=== PATIENT | female | born 1935 | race Caucasian/White ===

== ENCOUNTER 2017-12-02 14:41 | Inpatient (IN) | payer OTHER ==
--- NOTE | 2017-12-02 14:58 | PDOC ---
History of Present Illness - General Chief Complaint: Revisit, Lab Variance Stated Complaint: Blood Transfusion Time Seen by Provider: 12/02/17 14:58 - History of Present Illness Initial Comments: 82 year old female with PMH iron deficiency anemia, ambulatory dysfunction, rheumatoid arthritis (on hydroxcloroquine), hypothyroidism, CHF, GERD, cough variant asthma, vitamin D deficiency, BPD, disorganized schizophrenia, afib, hypertension, non-thrombocytopenic purpura, and diabetes insipidus presenting with dark stools and pallor with mild weakness for the past few days. She personally denies any symptoms except for her rheumatoid arthritis. Per [facility], her HgB typically runs in the low 8s. Denies any fevers, chills, nausea, vomiting, or other symptoms. 12/02/17 16:24 Past History - Past Medical History Allergies/Adverse Reactions: Allergies Allergy/AdvReac Type Severity Reaction Status Date / Time Penicillins Allergy Verified 12/02/17 15:08 tetracycline Allergy Verified 12/02/17 15:08 Home Medications: Ambulatory Orders Docusate Sodium [Colace] 100 mg PO HS 12/02/17 Ferrous Gluconate [Fergon -] 324 mg PO DAILY 12/02/17 Folic Acid 1 mg PO DAILY 12/02/17 Furosemide [Lasix] 40 mg PO BID 12/02/17 Hydroxychloroquine Sulfate 200 mg PO BID 12/02/17 Levothyroxine [Synthroid -] 50 mcg PO DAILY 12/02/17 Lorazepam [Ativan] 1 mg PO DAILY 12/02/17 Metolazone 2.5 mg PO WEEKLY 12/02/17 Metoprolol Succinate [Toprol Xl] 125 mg PO DAILY 12/02/17 Pantoprazole Sodium 40 mg PO DAILY 12/02/17 Potassium Chloride 20 meq PO BID 12/02/17 Risperidone [Risperdal] 2 mg PO DAILY 12/02/17 Review of Systems - Review of Systems Able to Perform ROS?: No (demented) *Physical Exam - Physical Exam General Appearance: Yes: Nourished, Appropriately Dressed. No: Apparent Distress HEENT: positive: EOMI, MIKE, Normal Voice. negative: Normal ENT Inspection ( conjunctivla pallor) Neck: positive: Trachea midline, Normal Thyroid, Supple. negative: Tender, Rigid Respiratory/Chest: positive: Lungs Clear, Normal Breath Sounds. negative: Chest Tender, Respiratory Distress, Accessory Muscle Use Cardiovascular: positive: Regular Rhythm, Regular Rate Gastrointestinal/Abdominal: positive: Normal Bowel Sounds, Flat, Soft. negative : Tender Rectal Exam: positive: normal rectal tone, melena, heme positive stool. negative: hemorrhoids Musculoskeletal: negative: Normal Inspection (globally weak), Decreased Range of Motion Extremity: positive: Normal Capillary Refill, Normal Inspection, Normal Range of Motion. negative: Tender Integumentary: positive: Dry, Warm, Pale. negative: Normal Color Neurologic: positive: Alert, Normal Mood/Affect, Normal Response. negative: Fully Oriented (AOx1), Motor Strength 5/5 (globally weak) ED Treatment Course - LABORATORY CBC & Chemistry Diagram: 12/02/17 15:35 12/02/17 15:35 Medical Decision Making - Medical Decision Making 82 year old with chronic anemia presenting with pallor, weakness, positive fecal occult blood, anemia to 7.5 with repeat of 7.6 here and repeat fecal occult blood positive. MCV reflecting microytic anemia consistent with her history of chronic iron deficiency anemia but will require further workup given guiac positive stool, weakness, HgB 7.6. From conversation with her sister, she has been weak for a month with low appetite. Her overall anemia is probably from a combination of GI bleed and poor iron intake. EKG demonstrating afib, rate 85, QRS 72, ENp230, TWI v1, V2, V3. Signed out to ROXANNE Smith under Dr. Hines. 12/02/17 17:21 *DC/Admit/Observation/Transfer Diagnosis at time of Disposition: Anemia Qualifiers: Anemia type: iron deficiency Iron deficiency anemia type: chronic blood loss Qualified Code(s): D50.0 - Iron deficiency anemia secondary to blood loss ( chronic) - Discharge Dispostion Decision to Admit order: Yes - Referrals Referrals: Alek Mcgrath MD [Primary Care Provider] - - Patient Instructions - Post Discharge Activity
[2017-12-02 15:45] LABS: BASO % 1.4 % (0-2.0); EOS % 0.7 % (0-4.5); HEMATOCRIT 26.9 % (32.4-45.2); HEMOGLOBIN 7.6 GM/dL (10.7-15.3); LYMPH % 30.2 % (8-40); MCHC 28.2 g/dl (32.0-36.0); MEAN CELL VOLUME 70.2 fl (80-96); MEAN PLT VOLUME 7.5 fl (7.5-11.1); MONO % 8.7 % (3.8-10.2); PLATELET COUNT 242 K/MM3 (134-434); RBC 3.84 M/mm3 (3.60-5.2); RDW 22.6 % (11.6-15.6)
[2017-12-02 15:52] LABS: MCH 19.8 pg (25.7-33.7)
--- NOTE | 2017-12-02 15:55 | EKG ---
Test Reason : Blood Pressure : / mmHG Vent. Rate : 085 BPM Atrial Rate : 122 BPM P-R Int : 000 ms QRS Dur : 072 ms QT Int : 356 ms P-R-T Axes : 000 101 014 degrees QTc Int : 423 ms ATRIAL FIBRILLATION RIGHTWARD AXIS LOW VOLTAGE QRS SEPTAL INFARCT , AGE UNDETERMINED ABNORMAL ECG NO PREVIOUS ECGS AVAILABLE Confirmed by JAKUB ANDERSON MD ([id number]) on 12/02/2017 3:54:58 PM Referred By: Confirmed By:JAKUB ANDERSON MD
[2017-12-02 15:58] LABS: INR 2.44 (0.83-1.09)
[2017-12-02 16:01] LABS: ALBUMIN 2.5 g/dl (3.4-5.0); ALK PHOS 107 U/L (45-117); ANION GAP 6 MMOL/L (8-16); BILIRUBIN,TOTAL 0.8 mg/dL (0.2-1); BLOOD UREA NITROGEN 37 mg/dL (7-18); CALCIUM 8.7 mg/dL (8.5-10.1); CHLORIDE 100 mmol/L (98-107); CO2 32 mmol/L (21-32); CREATININE 1.5 mg/dL (0.55-1.3); GLUCOSE,RANDOM 121 mg/dL (74-106); POTASSIUM 4.8 mmol/L (3.5-5.1); SGOT/AST 29 U/L (15-37); SGPT/ALT 22 U/L (13-61); SODIUM 137 mmol/L (136-145); TOT PROT 8.1 g/dl (6.4-8.2)
--- NOTE | 2017-12-02 17:12 | PDOC ---
Attending Attestation - Resident Resident Name: Evens Drake - ED Attending Attestation I have performed the following: I have examined & evaluated the patient, The case was reviewed & discussed with the resident, I agree w/resident's findings & plan, Exceptions are as noted - HPI HPI: 12/02/17 17:58 The patient is a 82 year old female with a significant PMH of iron deficiency anemia, rheumatoid arthritis, hypothyroidism, CHF, GERD, cough variant asthma, vitamin D deficiency, schizophrenia, afib, hypertension, nonthrombocytopenic purpura, and diabetes insipidus who presents to the emergency department sent in by the [facility] for an evaluation of low hemoglobin today. Patient has a history of dementia thus cannot contribute to the history. The patient denies chest pain, shortness of breath, headache and dizziness. Denies fever, chills, nausea, vomit, diarrhea and constipation. Denies dysuria, frequency, urgency and hematuria. Allergies: NKA Past surgical history: None reported. Social history: No reported alcohol, drug, or cigarette use. PCP: Dr. Mcgrath - Physicial Exam PE: 12/02/17 17:59 agree with resident exam - Medical Decision Making 12/02/17 17:14 82yo F with MMP presents to the ED with anemia at [place]. Vitals with borderline low BP, otherwise wnl. Pt pale in appearance with melanotic stool concerning for GIB. WIll transfuse, give PPI and admit. Pt accepted for admission to Dr. Romero (signed out by Dr. Drake) Case discussed in detail with admitting physician including history, physical exam and ancillary studies. Admitting physician has assumed care for the patient, will follow all pending diagnostics and will complete the evaluation and treatment. Heart Score/ECG Review #1 12/02/17 17:17 Twelve-lead EKG was performed and reviewed by me. It showed for relation, rate 85. Right kaur axis. No ST elevations.
[2017-12-02] MEDS ORDERED: PANTOPRAZOLE SODIUM 40 MG VIAL IVPUSH ONE (17:15)
--- NOTE | 2017-12-02 17:34 | HP ---
CHIEF COMPLAINT: Low Hgb, +guiac, weakness PCP: Alek Mcgrath HISTORY OF PRESENT ILLNESS: 82 year old female presented to the ED from [facility] with a +guiac and low Hgb. Patient's sister reports that over the past month she has had a decreased appetite and become increasingly weak. Patient has a history of iron deficiency anemia. H&H upon admission to the ED was 7.6/26.9, MCV 70.2, MCh 19.8. Repeat fecal occult blood positive. Given 40 mg Protonix IVP in ED. Denies fever, dizziness, chest pain, abdominal pain, n/v/d, bloody stool, or dysuria. Recent Travel: No PAST MEDICAL HISTORY: iron deficiency anemia A-Fib CHF HTN NIDDM BPD disorganized schizophrenia Asthma RA (on hydroxcloroquine) Hypothyroidism non-thrombocytopenic purpura GERD PAST SURGICAL HISTORY: Appendicitis Social History: Smoking: Former Alcohol: No Drugs: No Family History: Pancreatic Cancer - sister Allergies Penicillins Allergy (Verified 12/02/17 15:08) tetracycline Allergy (Verified 12/02/17 15:08) HOME MEDICATIONS: Home Medications Medication Instructions Recorded Docusate Sodium [Colace] 100 mg PO HS 12/02/17 Ferrous Gluconate [Fergon -] 324 mg PO DAILY 12/02/17 Folic Acid 1 mg PO DAILY 12/02/17 Furosemide [Lasix] 40 mg PO BID 12/02/17 Hydroxychloroquine Sulfate 200 mg PO BID 12/02/17 Levothyroxine [Synthroid -] 50 mcg PO DAILY 12/02/17 Lorazepam [Ativan] 1 mg PO DAILY 12/02/17 Metolazone 2.5 mg PO WEEKLY 12/02/17 Metoprolol Succinate [Toprol Xl] 125 mg PO DAILY 12/02/17 Pantoprazole Sodium 40 mg PO DAILY 12/02/17 Potassium Chloride 20 meq PO BID 12/02/17 Risperidone [Risperdal] 2 mg PO DAILY 12/02/17 REVIEW OF SYSTEMS CONSTITUTIONAL: Present: Chills, generalized weakness, loss of appetite Absent: fever, diaphoresis, malaise, weight change HEENT: Absent: rhinorrhea, nasal congestion, throat pain, throat swelling, difficulty swallowing, mouth swelling, ear pain, eye pain, visual changes CARDIOVASCULAR: Present: occasional palpitations, peripheral edema Absent: chest pain, syncope, irregular heart rate, lightheadedness, RESPIRATORY: Present: shortness of breath, wheezing Absent: cough, dyspnea with exertion, orthopnea, , stridor, hemoptysis GASTROINTESTINAL: Constipation Absent: abdominal pain, abdominal distension, nausea, vomiting, diarrhea, melena , hematochezia GENITOURINARY: Absent: dysuria, frequency, urgency, hesitancy, hematuria, flank pain, genital pain MUSCULOSKELETAL: arthralgia Absent: myalgia, oint swelling, back pain, neck pain SKIN: Present: Pallor Absent: rash, itching HEMATOLOGIC/IMMUNOLOGIC: Easy bruising Absent: easy bleeding, lymphadenopathy, frequent infections ENDOCRINE:Present: cold intolerance Absent: unexplained weight gain, unexplained weight loss, heat intolerance, NEUROLOGIC: Absent: headache, focal weakness or paresthesias, dizziness, unsteady gait, seizure, mental status changes, bladder or bowel incontinence PSYCHIATRIC: Absent: anxiety, depression, suicidal or homicidal ideation, hallucinations. PHYSICAL EXAMINATION Vital Signs - 24 hr 12/02/17 14:57 Temperature 97.8 F Pulse Rate 68 Respiratory 20 Rate Blood Pressure 101/56 L O2 Sat by Pulse 98 Oximetry (%) GENERAL: Frail, obese, awake, fully oriented, in no acute distress. HEAD: Normal with no signs of trauma. EYES: Pupils equal, round and reactive to light, extraocular movements intact, sclera anicteric, conjunctiva clear. No lid lag. EARS, NOSE, THROAT: +NC nares patent, oropharynx clear without exudates. Dry mucous membranes. NECK: Normal range of motion, supple without lymphadenopathy, JVD, or masses. LUNGS: Labored respiratory effort, scattered wheezes HEART: Irregular rate and rhythm, without murmur, rub or gallop. ABDOMEN: Obese, soft, nontender, not distended, normoactive bowel sounds, no guarding, no rebound, no masses. No hepatomegaly or splenomegaly. MUSCULOSKELETAL: Normal range of motion at all joints. No bony deformities or tenderness. UPPER EXTREMITIES: 2+ pulses, warm, well-perfused. No cyanosis. No clubbing. No peripheral edema. LOWER EXTREMITIES: +3 pitting edema to b/l LE warm, well-perfused. No calf tenderness. NEUROLOGICAL: Cranial nerves II-XII intact. Normal speech. Normal gait. PSYCHIATRIC: Cooperative. Good eye contact. Appropriate mood and affect. SKIN: +Skin tear to left forearm, warm, dry, no rashes o normal capillary refill. Laboratory Results - last 24 hr 12/02/17 12/02/17 12/02/17 15:25 15:35 15:35 WBC 2.0 L RBC 3.84 Hgb 7.6 L Hct 26.9 L MCV 70.2 L MCH 19.8 L MCHC 28.2 L RDW 22.6 H Plt Count 242 MPV 7.5 Absolute Neuts (auto) 1.2 L Neutrophils % 59.0 Lymphocytes % 30.2 Monocytes % 8.7 Eosinophils % 0.7 Basophils % 1.4 Nucleated RBC % 1 H PT with INR 29.00 H INR 2.44 H Sodium Potassium Chloride Carbon Dioxide Anion Gap BUN Creatinine Creat Clearance w eGFR Random Glucose Calcium Total Bilirubin AST ALT Alkaline Phosphatase Total Protein Albumin Stool Occult Blood Blood Type A POSITIVE Antibody Screen Negative Crossmatch 12/02/17 12/02/17 12/02/17 15:35 16:30 16:50 WBC RBC Hgb Hct MCV MCH MCHC RDW Plt Count MPV Absolute Neuts (auto) Neutrophils % Lymphocytes % Monocytes % Eosinophils % Basophils % Nucleated RBC % PT with INR INR Sodium 137 Potassium 4.8 Chloride 100 Carbon Dioxide 32 Anion Gap 6 L BUN 37 H Creatinine 1.5 H Creat Clearance w eGFR 33.25 Random Glucose 121 H Calcium 8.7 Total Bilirubin 0.8 AST 29 ALT 22 Alkaline Phosphatase 107 Total Protein 8.1 Albumin 2.5 L Stool Occult Blood Positive Blood Type Antibody Screen Crossmatch See Detail ECG: A-fib, r85, [id number] ASSESSMENT/PLAN: 82 year old female presented to the ED from [facility] with a +guiac and low Hgb. Placed on observation for blood transfusion. Microcytic/hypochromatic anemia -No s/s active bleeding -1U PRBC -Repeat stool occult blood ordered, if still positive, may consider GI w/u -Continue Fe Gluconate 324 mg PO qday -Monitor CBC A-Fib -Continue metoprolol succinate 125 mg qday CHF -Currently hypervolemic -O2 via NC @ 2LPM -Lasix 40 mg PO q 12 hrs, BUN/Cr 37/1.5 HTN -On Metoprolol 125 and Lasix 40 mg BID - Monitor BP BPD/Disorganized Schizophrenia -Stable - Continue Risperdal 2 mg qday -Ativan 1 mg PO qday RA -Continue hydroxcloroquine 200 mg PO BID Hypothyroidism -Continue Synthroid 50 mcg qday GERD - Given Protonix 40 mg IVP in ED. - Continue Protonix 40 mg PO q day FEN --PO intake adequate --Electrolytes replete as indicated --Regular diet DVT Prophylaxis --CLINTON stockings --A-fib, but not on any anticoagulant d/t fall risk, mechanical prophylaxis only Dispo: pt currently requires observation s/p blood transfusion FULL CODE Visit type - Emergency Visit Emergency Visit: Yes ED Registration Date: 12/02/17 Care time: The patient presented to the Emergency Department on the above date and was hospitalized for further evaluation of their emergent condition. - New Patient This patient is new to me today: Yes Date on this admission: 12/02/17 - Critical Care Critical Care patient: No
[2017-12-02] MEDS ORDERED: PANTOPRAZOLE SODIUM 80 MG/200 ML BAG IVPB ONE (18:03)
[2017-12-02] MEDS: POTASSIUM CHLORIDE TABS 20 MEQ TABLET.ER (FP) PO SCH (22:29)
[2017-12-02] MEDS: DOCUSATE SODIUM 100 MG CAPSULE (FP) PO SCH (22:30)
[2017-12-02] MEDS ORDERED: PT OWN MED DRAWER 7, Y5N ONE (23:38)
[2017-12-02] MEDS: HYDROXYCHLOROQUINE SO4 200 MG TABLET (FP) PO SCH (23:40)
[2017-12-03] MEDS: LEVOTHYROXINE NA 50 MCG TABLET (FP) PO SCH (06:04)
[2017-12-03] MEDS: FUROSEMIDE 40 MG TABLET (FP) PO SCH ×2 (06:04→14:13)
[2017-12-03 07:21] LABS: HEMATOCRIT 27.7 % (32.4-45.2); MCHC 28.9 g/dl (32.0-36.0); MEAN CELL VOLUME 72.8 fl (80-96); MEAN PLT VOLUME 7.7 fl (7.5-11.1); PLATELET COUNT 215 K/MM3 (134-434)
[2017-12-03 07:49] LABS: WHITE BLOOD COUNT 1.9 K/mm3 (4.0-10.0)
[2017-12-03 08:33] LABS: ANION GAP 11 MMOL/L (8-16); BLOOD UREA NITROGEN 35 mg/dL (7-18); CALCIUM 8.4 mg/dL (8.5-10.1); CHLORIDE 104 mmol/L (98-107); CO2 28 mmol/L (21-32); CREATININE 1.4 mg/dL (0.55-1.3); GLUCOSE,RANDOM 84 mg/dL (74-106); POTASSIUM 4.7 mmol/L (3.5-5.1); SODIUM 142 mmol/L (136-145)
[2017-12-03] MEDS ORDERED: metoPROLOL SUCCINATE 25 MG TAB.SR.24H (FP) ONE (09:36)
[2017-12-03] MEDS ORDERED: PT OWN MED DRAWER 7, Y5N ONE ×2 (09:37→20:51)
[2017-12-03] MEDS: FOLIC ACID 1 MG TABLET (FP) PO SCH (09:42)
[2017-12-03] MEDS: METOPROLOL SUCCINATE 100 MG, METOPROLOL SUCCINATE 25 MG PO SCH (09:42)
[2017-12-03] MEDS: POTASSIUM CHLORIDE TABS 20 MEQ TABLET.ER (FP) PO SCH ×2 (09:42→21:08)
[2017-12-03] MEDS: LORazepam 1 MG TABLET PO SCH (09:42)
[2017-12-03] MEDS: PANTOPRAZOLE 40 MG TABLET (FP) PO SCH (09:42)
[2017-12-03] MEDS: HYDROXYCHLOROQUINE SO4 200 MG TABLET (FP) PO SCH ×2 (09:43→21:08)
[2017-12-03] MEDS ORDERED: risperiDONE 2 MG TABLET PO SCH (10:00)
--- NOTE | 2017-12-03 10:29 | CON.GI ---
Consult Consult Specialty:: Gi Referred by:: hospitalist Reason for Consultation:: occult gi bleeding - History of Present Illness History of Present Illness: The patient was admitted for blood transfusion. Her hgb was 7 associated with guaiac positive stool. On admsiion , she was noted to have respiratory insufficiency secondary to CHF. There were no reports of melena and rectal bleeding - Alcohol/Substance Use Hx Alcohol Use: No - Smoking History Smoking history: Never smoked Have you smoked in the past 12 months: No Home Medications - Allergies Allergies/Adverse Reactions: Allergies Allergy/AdvReac Type Severity Reaction Status Date / Time Penicillins Allergy Verified 12/02/17 15:08 tetracycline Allergy Verified 12/02/17 15:08 - Home Medications Home Medications: Ambulatory Orders Docusate Sodium [Colace] 100 mg PO HS 12/02/17 Ferrous Gluconate [Fergon -] 324 mg PO DAILY 12/02/17 Folic Acid 1 mg PO DAILY 12/02/17 Furosemide [Lasix] 40 mg PO BID 12/02/17 Hydroxychloroquine Sulfate 200 mg PO BID 12/02/17 Levothyroxine [Synthroid -] 50 mcg PO DAILY 12/02/17 Lorazepam [Ativan] 1 mg PO DAILY 12/02/17 Metolazone 2.5 mg PO WEEKLY 12/02/17 Metoprolol Succinate [Toprol Xl] 125 mg PO DAILY 12/02/17 Pantoprazole Sodium 40 mg PO DAILY 12/02/17 Potassium Chloride 20 meq PO BID 12/02/17 Risperidone [Risperdal] 2 mg PO DAILY 12/02/17 Physical Exam-GI Vital Signs: Vital Signs Temperature 98.3 F 12/03/17 08:50 Pulse Rate 105 H 12/03/17 08:50 Respiratory Rate 20 12/03/17 08:50 Blood Pressure 123/62 12/03/17 08:50 O2 Sat by Pulse Oximetry (%) 98 12/03/17 01:44 Labs: CBC, BMP 12/03/17 06:30 12/03/17 06:30 INR, PTT INR 2.44 (0.83-1.09) H 12/02/17 15:35 Problem List - Problems (1) Leukopenia Assessment/Plan: R>Back Tender [place] Code(s): D72.819 - DECREASED WHITE BLOOD CELL COUNT, UNSPECIFIED
[2017-12-03] MEDS ORDERED: APIXABAN 5 MG TABLET PO ONE (12:20)
[2017-12-03 13:02] LABS: EOS % 0.9 % (0-4.5); HEMATOCRIT 28.6 % (32.4-45.2); HEMOGLOBIN 8.5 GM/dL (10.7-15.3); LYMPH % 29.6 % (8-40); MCH 21.4 pg (25.7-33.7); MCHC 29.7 g/dl (32.0-36.0); MEAN CELL VOLUME 71.8 fl (80-96); MEAN PLT VOLUME 7.7 fl (7.5-11.1); MONO % 10.5 % (3.8-10.2); PLATELET COUNT 219 K/MM3 (134-434); RBC 3.97 M/mm3 (3.60-5.2); RDW 22.9 % (11.6-15.6)
[2017-12-03] MEDS: FERROUS GLUCONATE 324 MG TAB (FP) PO SCH (13:06)
[2017-12-03] MEDS: risperiDONE 1 MG TABLET (FP) PO SCH (13:06)
[2017-12-03 13:20] LABS: WHITE BLOOD COUNT 1.8 K/mm3 (4.0-10.0)
--- NOTE | 2017-12-03 13:37 | PN ---
Physical Exam: SUBJECTIVE: Patient seen and examined a the bedside. States she feels well, denies shortness of breath. Denies pain. OBJECTIVE: As per [facility] transfer form, patient was seen By Dr. Carr on 12/02/2017 in the a.m. and patient was advised to go to [facility] to rule out GI bleed as her hmg/ hct was 7.5/28 and she was reported to have dark stools at the nursing facility. I discussed patient with Dr Cannon, physician at [facility] on [address]. As per MD, patient has never been worked up worked up for leukopenia. her WBC is usually 2.3. Patient is not oxygen dependent, usually is placed on 2 liters at [facility] intermittently. TSH has been elevated and her Synthroid dose has been recently increased. Vital Signs Period Temp Pulse Resp BP Sys/Neal Pulse Ox Last 24 Hr 97.5 F-98.6 F 68-105 18-20 100-123/50-69 95-98 GENERAL: The patient is awake, alert, slightly lethargic, alert to self and place, not time HEAD: Normal with no signs of trauma. EYES: PERRL, extraocular movements intact, sclera anicteric, conjunctiva clear. No ptosis. ENT: Ears normal, nares patent, oropharynx clear without exudates, moist mucous membranes. NECK: Trachea midline, full range of motion, supple. LUNGS: diminished breath sounds anteriorly, crackles at the bases L>R HEART: irregular. ABDOMEN: Soft, nontender, nondistended, normoactive bowel sounds, no guarding, no rebound, no hepatosplenomegaly, no masses. EXTREMITIES: +2 bilateral lower ext edema NEUROLOGICAL: Normal speech, gait not observed. PSYCH: lethargic, with episodes of agitation SKIN: Warm, dry, normal turgor, no rashes or lesions noted Laboratory Results - last 24 hr 12/02/17 12/02/17 12/02/17 15:25 15:35 15:35 WBC 2.0 L RBC 3.84 Hgb 7.6 L Hct 26.9 L MCV 70.2 L MCH 19.8 L MCHC 28.2 L RDW 22.6 H Plt Count 242 MPV 7.5 Absolute Neuts (auto) 1.2 L Neutrophils % 59.0 Lymphocytes % 30.2 Monocytes % 8.7 Eosinophils % 0.7 Basophils % 1.4 Nucleated RBC % 1 H PT with INR 29.00 H INR 2.44 H Sodium Potassium Chloride Carbon Dioxide Anion Gap BUN Creatinine Creat Clearance w eGFR Random Glucose Calcium Total Bilirubin AST ALT Alkaline Phosphatase Total Protein Albumin TSH Stool Occult Blood Blood Type A POSITIVE Antibody Screen Negative Crossmatch 12/02/17 12/02/17 12/02/17 15:35 16:30 16:50 WBC RBC Hgb Hct MCV MCH MCHC RDW Plt Count MPV Absolute Neuts (auto) Neutrophils % Lymphocytes % Monocytes % Eosinophils % Basophils % Nucleated RBC % PT with INR INR Sodium 137 Potassium 4.8 Chloride 100 Carbon Dioxide 32 Anion Gap 6 L BUN 37 H Creatinine 1.5 H Creat Clearance w eGFR 33.25 Random Glucose 121 H Calcium 8.7 Total Bilirubin 0.8 AST 29 ALT 22 Alkaline Phosphatase 107 Total Protein 8.1 Albumin 2.5 L TSH 20.30 H Stool Occult Blood Positive Blood Type A POSITIVE Antibody Screen Crossmatch See Detail 12/03/17 12/03/17 12/03/17 06:30 06:30 12:15 WBC 1.9 L* 1.8 L* RBC 3.80 3.97 Hgb 8.0 L 8.5 L Hct 27.7 L 28.6 L MCV 72.8 L 71.8 L MCH 21.0 L 21.4 L MCHC 28.9 L 29.7 L RDW 23.0 H 22.9 H Plt Count 215 219 MPV 7.7 7.7 Absolute Neuts (auto) 1.0 L Neutrophils % 58.0 Lymphocytes % 29.6 Monocytes % 10.5 H Eosinophils % 0.9 Basophils % 1.0 Nucleated RBC % 1 H PT with INR INR Sodium 142 Potassium 4.7 Chloride 104 Carbon Dioxide 28 Anion Gap 11 BUN 35 H Creatinine 1.4 H Creat Clearance w eGFR 36.00 Random Glucose 84 Calcium 8.4 L Total Bilirubin AST ALT Alkaline Phosphatase Total Protein Albumin TSH Stool Occult Blood Blood Type Antibody Screen Crossmatch Active Medications Generic Name Dose Route Start Last Admin Trade Name Freq PRN Reason Stop Dose Admin Apixaban 5 mg 12/03/17 22:00 Eliquis - PO BID ELENA Docusate Sodium 100 mg 12/02/17 22:00 12/02/17 22:30 Colace - PO 100 mg HS ELENA Administration Ferrous Gluconate 324 mg 12/03/17 10:00 12/03/17 13:06 Fergon - PO 324 mg DAILY ELENA Administration Folic Acid 1 mg 12/03/17 10:00 12/03/17 09:42 Folic Acid - PO 1 mg DAILY ELENA Administration Furosemide 40 mg 12/03/17 06:00 12/03/17 06:04 Lasix - PO 40 mg BIDLASIX ELENA Administration Hydroxychloroquine Sulfate 200 mg 12/02/17 22:00 12/03/17 09:43 Plaquenil - PO 200 mg BID ELENA Administration Levothyroxine Sodium 50 mcg 12/03/17 07:00 12/03/17 06:04 Synthroid - PO 50 mcg 0700 ELENA Administration Lorazepam 1 mg 12/03/17 10:00 12/03/17 09:42 Ativan - PO 1 mg DAILY ELENA Administration Metoprolol Succinate 100 mg/ 125 mg 12/03/17 10:00 12/03/17 09:42 Metoprolol Succinate 25 mg PO 125 mg DAILY ELENA Administration Pantoprazole Sodium 40 mg 12/03/17 10:00 12/03/17 09:42 Protonix - PO 40 mg DAILY ELENA Administration Potassium Chloride 20 meq 12/02/17 22:00 12/03/17 09:42 K-Dur - PO 20 meq BID ELENA Administration Risperidone 2 mg 12/03/17 11:01 12/03/17 13:06 Risperdal - PO 2 mg DAILY ELENA Administration ASSESSMENT/PLAN: Patient is an 82 year old female with a significant past medical history of: -Iron deficiency anemia -Bilateral difficulty with ambulation - WC bound mostly -Hypothyroidism -Hx of celulitis of LLE -Acute on chronic diastolic congestive heart failure -Bipolar disorder -Leukopenia -Atrial fibrillation She presents to the ED on 12/02/2017 after patient was seen By Dr. Carr on 12/02/2017 and patient was advised to go to [facility] to rule out GI bleed as her hmg/ hct was 7.5/28 and she was reported to have dark stools at the nursing facility. She has receive 1 unit of prbc. On exam she was noted to have labored breathing and appeared to be fluid overloaded. She was noted to crackles at the lung bases and her lower extremities with +2 pitting edema. She is normally able to tolerate room air, but now requires 2 liters of nasal cannula. Heme Iron deficiency anemia/Blood loss anemia hmg/hct on admission 7.6/26.6, transfused 1 unit of prbc with hmg of 8.5. Stool occult positive for blood, was also reported to have dark stools at nursing facility. Will start on Protonix 40mg daily and consult GI. Further workup of possible gi bleed outpatient vs inpatient Leukopenia. WBC reported to be ~ 2.3. now 1.9, no signs of infection. blood cultures pending. Card Acute on chronic diastolic congestive heart failure. dry weight reported to be . Labored breathing with crackles auscultated. Chest xray with evidence of congestion. On home dose of lasix 40mg BID, will give iv lasix 40mg bid with close monitoring of kidney function. Fluid restrictiono of 1200cc daily. dialy weights, strict intake and output. Atrial fibrillation. on eliquis bid. on metoprolol Mobility Bilateral difficulty with ambulation in the setting of poor performance status. will consult PT. Endocrine Hypothyroidism Recent increase of Synthroid at [facility]. Repeat TSH outpatient. Vascular Hx of celulitis of LLE No cellulitis presently. monitor for signs of infection. Psyche Bipolar disorder, continue home medications fen tolerating po Visit type - Emergency Visit Emergency Visit: Yes ED Registration Date: 12/02/17 Care time: The patient presented to the Emergency Department on the above date and was hospitalized for further evaluation of their emergent condition. - New Patient This patient is new to me today: Yes Date on this admission: 12/03/17 - Critical Care Critical Care patient: No - Discharge Referral Referred to [facility] No
[2017-12-03] MEDS ORDERED: FUROSEMIDE 40 MG/4 ML INJECTABLE VIAL IVPUSH ONE (14:20)
--- NOTE | 2017-12-03 14:52 | CONSULT ---
Consultation: REQUESTING PROVIDER: CONSULT REQUEST: We have been asked to medically evaluate this patient for anemia and leukopenia. HISTORY OF PRESENT ILLNESS: 82 yo F with PMHx of A-fib (on Eliquis), HTN, CHF, RA, schizoaffective disorder with bipolar and NIDDM presented to the ED from [facility] with a stool occult blood (+) and low Hgb. Patient's sister reports that over the past month she has had a decreased appetite and become increasingly weak. Patient has a history of iron deficiency anemia. H&H upon admission 7.6/26.9, MCV 70.2 , MCh 19.8. Repeat stool occult blood positive.Denies fever, dizziness, chest pain, abdominal pain, n/v/d, bloody stool, or dysuria. Recent Travel: No PAST MEDICAL HISTORY: iron deficiency anemia A-Fib CHF HTN NIDDM BPD disorganized schizophrenia Asthma RA (on hydroxcloroquine) Hypothyroidism non-thrombocytopenic purpura GERD PAST SURGICAL HISTORY: Appendectomy Social History: Smoking: Former Alcohol: No Drugs: No Family History: Pancreatic Cancer - sister Allergies Penicillins Allergy (Verified 12/02/17 15:08) tetracycline Allergy (Verified 12/02/17 15:08) REVIEW OF SYSTEMS: CONSTITUTIONAL: generalized weakness, Absent: fever, chills, diaphoresis, malaise, loss of appetite, weight change HEENT: Absent: rhinorrhea, nasal congestion, throat pain, throat swelling, difficulty swallowing, mouth swelling, ear pain, eye pain, visual changes CARDIOVASCULAR: Absent: chest pain, syncope, palpitations, irregular heart rate, lightheadedness , peripheral edema RESPIRATORY: shortness of breath Absent: cough, , dyspnea with exertion, orthopnea, wheezing, stridor, hemoptysis GASTROINTESTINAL: Absent: abdominal pain, abdominal distension, nausea, vomiting, diarrhea, constipation, melena, hematochezia GENITOURINARY: Absent: dysuria, frequency, urgency, hesitancy, hematuria, flank pain, genital pain MUSCULOSKELETAL: Absent: myalgia, arthralgia, joint swelling, back pain, neck pain SKIN: Absent: rash, itching, pallor HEMATOLOGIC/IMMUNOLOGIC: Absent: easy bleeding, easy bruising, lymphadenopathy, frequent infections ENDOCRINE: Absent: unexplained weight gain, unexplained weight loss, heat intolerance, cold intolerance NEUROLOGIC: Absent: headache, focal weakness or paresthesias, dizziness, unsteady gait, seizure, mental status changes, bladder or bowel incontinence PSYCHIATRIC: anxiety, depression Absent: , suicidal or homicidal ideation, hallucinations. PHYSICAL EXAMINATION Vital Signs - 24 hr 12/02/17 12/02/17 12/02/17 14:57 20:15 20:31 Temperature 97.8 F 97.9 F 98 F Pulse Rate 68 Pulse Rate [ 79 80 Apical] Respiratory 20 18 18 Rate Blood Pressure 101/56 L Blood Pressure 107/54 L 100/50 L [Arm] O2 Sat by Pulse 98 97 98 Oximetry (%) 12/02/17 12/02/17 12/03/17 22:55 23:06 01:44 Temperature 97.5 F L Pulse Rate 98 H Pulse Rate [ Apical] Respiratory 20 20 Rate Blood Pressure 108/55 L Blood Pressure [Arm] O2 Sat by Pulse 98 98 Oximetry (%) 12/03/17 12/03/17 12/03/17 02:00 06:05 08:50 Temperature 98.6 F 98.4 F 98.3 F Pulse Rate 85 86 105 H Pulse Rate [ Apical] Respiratory 20 20 20 Rate Blood Pressure 101/69 105/61 123/62 Blood Pressure [Arm] O2 Sat by Pulse Oximetry (%) 12/03/17 12/03/17 12/03/17 09:00 12:00 14:42 Temperature 97.5 F L 97.5 F L Pulse Rate 80 80 Pulse Rate [ Apical] Respiratory 20 18 Rate Blood Pressure 101/64 101/64 Blood Pressure [Arm] O2 Sat by Pulse 95 Oximetry (%) GENERAL:awake and alert, mild distress HEAD: NCAT EYES:PERRLA,EOMI, sclera anicteric, conjunctiva clear. No lid lag. EARS, NOSE, THROAT: Moist mucous membranes. NECK:Supple without lymphadenopathy, JVD, or masses. LUNGS: Diminished breath sounds bilaterally, Bibasilar rales. No wheezes.No accessory muscle use. HEART: irregular, normal S1 and S2 no m/g/r ABDOMEN: Soft, obese, NTND, NABS, no guarding, no rebound, no masses. No hepatomegaly or splenomegaly. MUSCULOSKELETAL: Normal range of motion at all joints. No bony deformities or tenderness. No CVA tenderness. UPPER EXTREMITIES: 2+ pulses, warm, well-perfused. No cyanosis. No clubbing. No peripheral edema. LOWER EXTREMITIES: 2+ pulses, warm, well-perfused. No calf tenderness. 3+ peripheral edema bilaterally. NEUROLOGICAL: No focal def. Normal speech. gait not observed. 2/5 LE strength bilat. 4/5 strength UE bilat. sensation intact. PSYCHIATRIC: anxious and agitated. SKIN: Warm, dry, normal turgor, no rashes or lesions noted. Laboratory Results - last 24 hr 12/02/17 12/02/17 12/02/17 15:25 15:35 15:35 WBC 2.0 L RBC 3.84 Hgb 7.6 L Hct 26.9 L MCV 70.2 L MCH 19.8 L MCHC 28.2 L RDW 22.6 H Plt Count 242 MPV 7.5 Absolute Neuts (auto) 1.2 L Neutrophils % 59.0 Lymphocytes % 30.2 Monocytes % 8.7 Eosinophils % 0.7 Basophils % 1.4 Nucleated RBC % 1 H PT with INR 29.00 H INR 2.44 H Sodium Potassium Chloride Carbon Dioxide Anion Gap BUN Creatinine Creat Clearance w eGFR Random Glucose Calcium Total Bilirubin AST ALT Alkaline Phosphatase Total Protein Albumin TSH Stool Occult Blood Blood Type A POSITIVE Antibody Screen Negative Crossmatch 12/02/17 12/02/17 12/02/17 15:35 16:30 16:50 WBC RBC Hgb Hct MCV MCH MCHC RDW Plt Count MPV Absolute Neuts (auto) Neutrophils % Lymphocytes % Monocytes % Eosinophils % Basophils % Nucleated RBC % PT with INR INR Sodium 137 Potassium 4.8 Chloride 100 Carbon Dioxide 32 Anion Gap 6 L BUN 37 H Creatinine 1.5 H Creat Clearance w eGFR 33.25 Random Glucose 121 H Calcium 8.7 Total Bilirubin 0.8 AST 29 ALT 22 Alkaline Phosphatase 107 Total Protein 8.1 Albumin 2.5 L TSH 20.30 H Stool Occult Blood Positive Blood Type A POSITIVE Antibody Screen Crossmatch See Detail 12/03/17 12/03/17 12/03/17 06:30 06:30 12:15 WBC 1.9 L* 1.8 L* RBC 3.80 3.97 Hgb 8.0 L 8.5 L Hct 27.7 L 28.6 L MCV 72.8 L 71.8 L MCH 21.0 L 21.4 L MCHC 28.9 L 29.7 L RDW 23.0 H 22.9 H Plt Count 215 219 MPV 7.7 7.7 Absolute Neuts (auto) 1.0 L Neutrophils % 58.0 Lymphocytes % 29.6 Monocytes % 10.5 H Eosinophils % 0.9 Basophils % 1.0 Nucleated RBC % 1 H PT with INR INR Sodium 142 Potassium 4.7 Chloride 104 Carbon Dioxide 28 Anion Gap 11 BUN 35 H Creatinine 1.4 H Creat Clearance w eGFR 36.00 Random Glucose 84 Calcium 8.4 L Total Bilirubin AST ALT Alkaline Phosphatase Total Protein Albumin TSH Stool Occult Blood Blood Type Antibody Screen Crossmatch Active Medications Generic Name Dose Route Start Last Admin Trade Name Freq PRN Reason Stop Dose Admin Apixaban 5 mg 12/03/17 22:00 Eliquis - PO BID ELENA Docusate Sodium 100 mg 12/02/17 22:00 12/02/17 22:30 Colace - PO 100 mg HS ELENA Administration Ferrous Gluconate 324 mg 12/03/17 10:00 12/03/17 13:06 Fergon - PO 324 mg DAILY ELENA Administration Folic Acid 1 mg 12/03/17 10:00 12/03/17 09:42 Folic Acid - PO 1 mg DAILY ELENA Administration Furosemide 40 mg 12/04/17 06:00 Lasix Injection - IVPUSH BID@0600,1400 ELENA Hydroxychloroquine Sulfate 200 mg 12/02/17 22:00 12/03/17 09:43 Plaquenil - PO 200 mg BID ELENA Administration Levothyroxine Sodium 50 mcg 12/03/17 07:00 12/03/17 06:04 Synthroid - PO 50 mcg 0700 ELENA Administration Lorazepam 1 mg 12/03/17 10:00 12/03/17 09:42 Ativan - PO 1 mg DAILY ELENA Administration Metoprolol Succinate 100 mg/ 125 mg 12/03/17 10:00 12/03/17 09:42 Metoprolol Succinate 25 mg PO 125 mg DAILY ELENA Administration Pantoprazole Sodium 40 mg 12/03/17 10:00 12/03/17 09:42 Protonix - PO 40 mg DAILY ELENA Administration Potassium Chloride 20 meq 12/02/17 22:00 12/03/17 09:42 K-Dur - PO 20 meq BID ELENA Administration Risperidone 2 mg 12/03/17 11:01 12/03/17 13:06 Risperdal - PO 2 mg DAILY ELENA Administration ASSESSMENT/PLAN: 82 yo F with PMHx of A-fib (on Eliquis), HTN, CHF, RA, schizoaffective disorder with bipolar and NIDDM presented to the ED from [facility] with a stool occult blood (+) and low Hgb Dispo: We will continue to follow the patient. Thank you for this consultative opportunity. Problem List - Problems (1) Anemia Assessment/Plan: Microcytic hypochromic anemia most likely 2/2 iron def. with some component of acute blood loss from possible GIB * She has know iron def. anemia * GI consulted for possible EGD/Colonoscopy. * Ideally iron studies should have been sent prior to transfusion. * given her acute CHF would aim to keep Hgb > 8. (2) Leukopenia Assessment/Plan: As more than one cell line is low raises question for Myelodysplastic disease however on several meds that can cause agranulocytosis. * she is on hydroxychloroquine, metolazone and Risperdal all which are known to cause agranulocytosis. * Can consider abdominal US to assess for splenomegally to r/o hypersplenism . * Will send for Flow cytometry with FISH and cytogenetics. (3) Dysproteinemia Assessment/Plan: with reversal of A/G ratio * Will send for SPEP, UPEP, immunofixation to r/o hypergammaglobinemia. (4) CHF (congestive heart failure) Code(s): I50.9 - HEART FAILURE, UNSPECIFIED (5) Rheumatoid arthritis Code(s): M06.9 - RHEUMATOID ARTHRITIS, UNSPECIFIED (6) Schizoaffective disorder, bipolar type Code(s): F25.0 - SCHIZOAFFECTIVE DISORDER, BIPOLAR TYPE Visit type - Emergency Visit Emergency Visit: Yes ED Registration Date: 12/02/17 Care time: The patient presented to the Emergency Department on the above date and was hospitalized for further evaluation of their emergent condition. - New Patient This patient is new to me today: Yes Date on this admission: 12/03/17 - Critical Care Critical Care patient: No
[2017-12-03 15:10] LABS: ANISOCYTOSIS 2+; MACROCYTOSIS 0; PLATELET ESTIMATE NORMAL
--- NOTE | 2017-12-03 16:59 | ECHO ---
Name: DOYLE LAN Exam:Adult Echocardiogram Study Date: 12/03/2017 03:36 PM Age: 82 yrs Reason For Study: CHF Height: 64 in Weight: 231 lb BSA: 2.1 m2 MMode/2D Measurements & Calculations IVSd: 0.81 cm Ao root diam: 3.0 cm LVIDd: 4.6 cm LA dimension: 4.1 cm LVIDs: 3.4 cm LVPWd: 0.99 cm EDV(Teich): 98.2 ml ESV(Teich): 47.1 ml Doppler Measurements & Calculations Ao V2 max: 178.4 cm/sec TR max jack: 239.2 cm/sec Ao max P.7 mmHg TR max P.1 mmHg Lat Peak E' Jack: 7.6 cm/sec Procedure A complete two-dimensional transthoracic echocardiogram was performed (2D, M-mode, Doppler and color flow Doppler). The study was technically difficult with many images being suboptimal in quality. Left Ventricle The left ventricular size, thickness and function are normal. Ejection Fraction = 55-60%. The left ve ntricular ejection fraction is normal. Regional wall motion abnormalities cannot be excluded due to limited visualization. Right Ventricle The right ventricle is not well visualized. Atria The left atrial size is normal. Right atrium not well visualized. Mitral Valve There is trace mitral regurgitation. Tricuspid Valve There is trace tricuspid regurgitation. Right ventricular systolic pressure is normal. Aortic Valve No hemodynamically significant valvular aortic stenosis. No aortic regurgitation is present. Pulmonic Valve There is no pulmonic valvular regurgitation. Great Vessels The aortic root is normal size. Pericardium/Pleura There is no pericardial effusion. Interpretation Summary The study was technically difficult with many images being suboptimal in quality. The left ventricular size, thickness and function are normal Regional wall motion abnormalities cannot be excluded due to limited visualization. The right ventricle is not well visualized. There is trace mitral regurgitation. There is trace tricuspid regurgitation. MD Sharath Nguyen 12/03/2017 04:59 PM
--- NOTE | 2017-12-03 18:18 | CON.GI ---
Consult Consult Specialty:: GI Referred by:: hospitalist - History of Present Illness History of Present Illness: The patient was admitted for blood transfusion. Her hgb was 7 associated with guaiac positive stool. On admsiion , she was noted to have respiratory insufficiency secondary to CHF. There were no reports of melena and rectal bleeding. On admission she was noted to have labored breathing and wheezing most likely secondary to CHF. - Alcohol/Substance Use Hx Alcohol Use: No - Smoking History Smoking history: Never smoked Have you smoked in the past 12 months: No Home Medications - Allergies Allergies/Adverse Reactions: Allergies Allergy/AdvReac Type Severity Reaction Status Date / Time Penicillins Allergy Verified 12/02/17 15:08 tetracycline Allergy Verified 12/02/17 15:08 - Home Medications Home Medications: Ambulatory Orders Docusate Sodium [Colace] 100 mg PO HS 12/02/17 Ferrous Gluconate [Fergon -] 324 mg PO DAILY 12/02/17 Folic Acid 1 mg PO DAILY 12/02/17 Furosemide [Lasix] 40 mg PO BID 12/02/17 Hydroxychloroquine Sulfate 200 mg PO BID 12/02/17 Levothyroxine [Synthroid -] 50 mcg PO DAILY 12/02/17 Lorazepam [Ativan] 1 mg PO DAILY 12/02/17 Metolazone 2.5 mg PO WEEKLY 12/02/17 Metoprolol Succinate [Toprol Xl] 125 mg PO DAILY 12/02/17 Pantoprazole Sodium 40 mg PO DAILY 12/02/17 Potassium Chloride 20 meq PO BID 12/02/17 Risperidone [Risperdal] 2 mg PO DAILY 12/02/17 Physical Exam-GI Vital Signs: Vital Signs Temperature 97.5 F L 12/03/17 16:00 Pulse Rate 80 12/03/17 16:00 Respiratory Rate 18 12/03/17 16:00 Blood Pressure 101/64 12/03/17 16:00 O2 Sat by Pulse Oximetry (%) 96 12/03/17 17:00 Eyes: Yes: Conjunctiva Clear HENT: Yes: Atraumatic Neck: Yes: Supple Cardiovascular: Yes: Regular Rate and Rhythm Respiratory: Yes: CTA Bilaterally, SOB ...Palpate: Yes: Soft. No: Firm/Rigid, Hepatomegaly, Mass, Pulsatile Mass, Splenomegaly Labs: CBC, BMP 12/03/17 12:15 12/03/17 06:30 INR, PTT INR 2.44 (0.83-1.09) H 12/02/17 15:35 Problem List - Problems (1) Leukopenia Code(s): D72.819 - DECREASED WHITE BLOOD CELL COUNT, UNSPECIFIED Qualifiers: Leukopenia type: lymphocytopenia Qualified Code(s): D72.810 - Lymphocytopenia (2) Occult GI bleeding Assessment/Plan: transfuse to hgb greater than 8 gi w/u once medically cleared Code(s): R19.5 - OTHER FECAL ABNORMALITIES
--- NOTE | 2017-12-03 19:20 | CONSULT ---
Consult - text type - Consultation Consultation Note: Patient seen and examined 82 f hx anemia, RA, hypothyroid, chf, afib, htn, [facility], [facility] st[facility]. Pt poor historian, does not know why she is here Reports trouble breathing pmh: obesity, RA, fam: unknown meds: Home Medications Medication Instructions Recorded Docusate Sodium [Colace] 100 mg PO HS 12/02/17 Ferrous Gluconate [Fergon -] 324 mg PO DAILY 12/02/17 Folic Acid 1 mg PO DAILY 12/02/17 Furosemide [Lasix] 40 mg PO BID 12/02/17 Hydroxychloroquine Sulfate 200 mg PO BID 12/02/17 Levothyroxine [Synthroid -] 50 mcg PO DAILY 12/02/17 Lorazepam [Ativan] 1 mg PO DAILY 12/02/17 Metolazone 2.5 mg PO WEEKLY 12/02/17 Metoprolol Succinate [Toprol Xl] 125 mg PO DAILY 12/02/17 Pantoprazole Sodium 40 mg PO DAILY 12/02/17 Potassium Chloride 20 meq PO BID 12/02/17 Risperidone [Risperdal] 2 mg PO DAILY 12/02/17 pe: Vital Signs Period Temp Pulse Resp BP Sys/Neal Pulse Ox Last 24 Hr 97.4 F-98.4 F 77-91 18-28 101-128/56-78 96-96 nad no jvd irreg s1s2 no mrg cta bl nl eff awake alert confused abd nt nd pos bs no jaundice diaphoresis 1+ le edema bl, chronic venous insuff changes of skin Laboratory Last Values WBC 2.1 K/mm3 (4.0-10.0) L 12/04/17 06:50 RBC 3.81 M/mm3 (3.60-5.2) 12/04/17 06:50 Hgb 8.1 GM/dL (10.7-15.3) L 12/04/17 06:50 Hct 27.3 % (32.4-45.2) L 12/04/17 06:50 MCV 71.6 fl (80-96) L 12/04/17 06:50 MCH 21.1 pg (25.7-33.7) L 12/04/17 06:50 MCHC 29.5 g/dl (32.0-36.0) L 12/04/17 06:50 RDW 22.5 % (11.6-15.6) H 12/04/17 06:50 Plt Count 226 K/MM3 (134-434) 12/04/17 06:50 MPV 7.9 fl (7.5-11.1) 12/04/17 06:50 Absolute Neuts (auto) 1.3 K/mm3 (1.5-8.0) L 12/04/17 06:50 Neutrophils % 60.6 % (42.8-82.8) 12/04/17 06:50 Neutrophils % (Manual) 63.7 % (42.8-82.8) 12/03/17 12:15 Band Neutrophils % 0.0 % 12/03/17 12:15 Lymphocytes % 28.5 % (8-40) 12/04/17 06:50 Lymphocytes % (Manual) 21.2 % (8-40) 12/03/17 12:15 Monocytes % 8.6 % (3.8-10.2) 12/04/17 06:50 Monocytes % (Manual) 11 % (3.8-10.2) H 12/03/17 12:15 Eosinophils % 1.2 % (0-4.5) 12/04/17 06:50 Eosinophils % (Manual) 0.0 % (0-4.5) 12/03/17 12:15 Basophils % 1.1 % (0-2.0) 12/04/17 06:50 Basophils % (Manual) 2.0 % (0-2.0) 12/03/17 12:15 Myelocytes % (Man) 1 % (0-2) 12/03/17 12:15 Promyelocytes % (Man) 0 % (0-2) 12/03/17 12:15 Blast Cells % (Manual) 0 % (0-0) 12/03/17 12:15 Nucleated RBC % 1 % (0-0) H 12/04/17 06:50 Metamyelocytes 0 % (0-2) 12/03/17 12:15 Hypochromia 2+ 12/03/17 12:15 Platelet Estimate Normal 12/03/17 12:15 Polychromasia 1+ 12/03/17 12:15 Poikilocytosis 1+ 12/03/17 12:15 Anisocytosis 2+ 12/03/17 12:15 Microcytosis 2+ 12/03/17 12:15 Macrocytosis 0 12/03/17 12:15 Stomatocytes 2+ 12/03/17 12:15 PT with INR 29.00 SEC (9.7-13.0) H 12/02/17 15:35 INR 2.44 (0.83-1.09) H 12/02/17 15:35 Sodium 137 mmol/L (136-145) 12/04/17 06:50 Potassium 4.1 mmol/L (3.5-5.1) 12/04/17 06:50 Chloride 100 mmol/L (98-107) 12/04/17 06:50 Carbon Dioxide 28 mmol/L (21-32) 12/04/17 06:50 Anion Gap 9 MMOL/L (8-16) 12/04/17 06:50 BUN 35 mg/dL (7-18) H 12/04/17 06:50 Creatinine 1.5 mg/dL (0.55-1.3) H 12/04/17 06:50 Creat Clearance w eGFR 33.25 (>60) 12/04/17 06:50 Random Glucose 99 mg/dL (74-106) 12/04/17 06:50 Calcium 8.1 mg/dL (8.5-10.1) L 12/04/17 06:50 Magnesium 2.4 mg/dL (1.8-2.4) 12/04/17 06:50 Ferritin 105.3 ng/ml (8-388) 12/04/17 06:50 Total Bilirubin 0.7 mg/dL (0.2-1) 12/04/17 06:50 AST 28 U/L (15-37) 12/04/17 06:50 ALT 22 U/L (13-61) 12/04/17 06:50 Alkaline Phosphatase 101 U/L (45-117) 12/04/17 06:50 Total Protein 7.5 g/dl (6.4-8.2) 12/04/17 06:50 Albumin 2.5 g/dl (3.4-5.0) L 12/04/17 06:50 Vitamin B12 677 pg/ml (193-986) 12/04/17 06:50 TSH 20.30 uIU/ml (0.358-3.74) H 12/02/17 15:35 Free T4 1.20 ng/dl (0.76-1.46) 12/03/17 15:00 Stool Occult Blood Positive (NEGATIVE) 12/02/17 16:30 Blood Type A POSITIVE 12/02/17 16:50 Antibody Screen Negative 12/02/17 15:25 Crossmatch See Detail 12/02/17 16:50 cxr: clear lungs ecg: afib, rate controlled, nl qtc, no ischemic changes a/p: 82 f hx anemia, RA, hypothyroid, chf, afib, htn, ckd,[facility], [facility] st[facility]. we have been consulted for leukopenia Leukopenia -- ?acute CHF exacerbation ? occult infection ? meds check B12/folate/flow/cultures TSH--20--per PMD will follow leukopenia w/u ordered -- cultures, flow, B12, folate
[2017-12-03] MEDS: APIXABAN 5 MG TABLET PO SCH (21:08)
[2017-12-03] MEDS: DOCUSATE SODIUM 100 MG CAPSULE (FP) PO SCH (21:08)
[2017-12-04] MEDS: LEVOTHYROXINE NA 50 MCG TABLET (FP) PO SCH (06:19)
[2017-12-04] MEDS: FUROSEMIDE 40 MG/4 ML INJECTABLE VIAL IVPUSH SCH ×2 (06:19→13:57)
[2017-12-04 08:05] LABS: BASO % 1.1 % (0-2.0); EOS % 1.2 % (0-4.5); HEMATOCRIT 27.3 % (32.4-45.2); HEMOGLOBIN 8.1 GM/dL (10.7-15.3); LYMPH % 28.5 % (8-40); MCH 21.1 pg (25.7-33.7); MCHC 29.5 g/dl (32.0-36.0); MEAN CELL VOLUME 71.6 fl (80-96); MEAN PLT VOLUME 7.9 fl (7.5-11.1); MONO % 8.6 % (3.8-10.2); NEUT % 60.6 % (42.8-82.8); PLATELET COUNT 226 K/MM3 (134-434); RBC 3.81 M/mm3 (3.60-5.2); RDW 22.5 % (11.6-15.6); WHITE BLOOD COUNT 2.1 K/mm3 (4.0-10.0)
[2017-12-04] MEDS ORDERED: metoPROLOL SUCCINATE 25 MG TAB.SR.24H (FP) ONE (09:30)
[2017-12-04] MEDS ORDERED: FUROSEMIDE 40 MG/4 ML INJECTABLE VIAL IVPUSH ONE (09:45)
[2017-12-04 09:53] LABS: ALBUMIN 2.5 g/dl (3.4-5.0); ALK PHOS 101 U/L (45-117); ANION GAP 9 MMOL/L (8-16); BILIRUBIN,TOTAL 0.7 mg/dL (0.2-1); BLOOD UREA NITROGEN 35 mg/dL (7-18); CALCIUM 8.1 mg/dL (8.5-10.1); CHLORIDE 100 mmol/L (98-107); CO2 28 mmol/L (21-32); CREATININE 1.5 mg/dL (0.55-1.3); GLUCOSE,RANDOM 99 mg/dL (74-106); MAGNESIUM 2.4 mg/dL (1.8-2.4); POTASSIUM 4.1 mmol/L (3.5-5.1); SGOT/AST 28 U/L (15-37); SGPT/ALT 22 U/L (13-61); SODIUM 137 mmol/L (136-145); TOT PROT 7.5 g/dl (6.4-8.2)
--- NOTE | 2017-12-04 10:37 | PN ---
Physical Exam: SUBJECTIVE: Patient seen and examined at the bedside. Still having shortness of breath at rest. OBJECTIVE: Vital Signs Period Temp Pulse Resp BP Sys/Neal Pulse Ox Last 24 Hr 97.4 F-98.4 F 77-91 18-28 101-128/56-78 96-96 GENERAL: The patient is awake, alert, slightly lethargic, alert to self and place, not time HEAD: Normal with no signs of trauma. EYES: PERRL, extraocular movements intact, sclera anicteric, conjunctiva clear. No ptosis. ENT: Ears normal, nares patent, oropharynx clear without exudates, moist mucous membranes. NECK: Trachea midline, full range of motion, supple. LUNGS: diminished breath sounds anteriorly, crackles at the bases L>R HEART: irregular. ABDOMEN: Soft, nontender, nondistended, normoactive bowel sounds, no guarding, no rebound, no hepatosplenomegaly, no masses. EXTREMITIES: +2 bilateral lower ext edema NEUROLOGICAL: Normal speech, gait not observed. PSYCH: lethargic, with episodes of agitation SKIN: Warm, dry, normal turgor, no rashes or lesions noted Laboratory Results - last 24 hr 12/03/17 12/03/17 12/04/17 12:15 15:00 06:50 WBC 1.8 L* RBC 3.97 Hgb 8.5 L Hct 28.6 L MCV 71.8 L MCH 21.4 L MCHC 29.7 L RDW 22.9 H Plt Count 219 MPV 7.7 Absolute Neuts (auto) 1.0 L Neutrophils % 58.0 Neutrophils % (Manual) 63.7 Band Neutrophils % 0.0 Lymphocytes % 29.6 Lymphocytes % (Manual) 21.2 Monocytes % 10.5 H Monocytes % (Manual) 11 H Eosinophils % 0.9 Eosinophils % (Manual) 0.0 Basophils % 1.0 Basophils % (Manual) 2.0 Myelocytes % (Man) 1 Promyelocytes % (Man) 0 Blast Cells % (Manual) 0 Nucleated RBC % 1 H Metamyelocytes 0 Hypochromia 2+ Platelet Estimate Normal Polychromasia 1+ Poikilocytosis 1+ Anisocytosis 2+ Microcytosis 2+ Macrocytosis 0 Stomatocytes 2+ Sodium 137 Potassium 4.1 Chloride 100 Carbon Dioxide 28 Anion Gap 9 BUN 35 H Creatinine 1.5 H Creat Clearance w eGFR 33.25 Random Glucose 99 Calcium 8.1 L Magnesium 2.4 Ferritin 105.3 Total Bilirubin 0.7 AST 28 ALT 22 Alkaline Phosphatase 101 Total Protein 7.5 Albumin 2.5 L Vitamin B12 677 Free T4 1.20 12/04/17 06:50 WBC 2.1 L RBC 3.81 Hgb 8.1 L Hct 27.3 L MCV 71.6 L MCH 21.1 L MCHC 29.5 L RDW 22.5 H Plt Count 226 MPV 7.9 Absolute Neuts (auto) 1.3 L Neutrophils % 60.6 Neutrophils % (Manual) Band Neutrophils % Lymphocytes % 28.5 Lymphocytes % (Manual) Monocytes % 8.6 Monocytes % (Manual) Eosinophils % 1.2 Eosinophils % (Manual) Basophils % 1.1 Basophils % (Manual) Myelocytes % (Man) Promyelocytes % (Man) Blast Cells % (Manual) Nucleated RBC % 1 H Metamyelocytes Hypochromia Platelet Estimate Polychromasia Poikilocytosis Anisocytosis Microcytosis Macrocytosis Stomatocytes Sodium Potassium Chloride Carbon Dioxide Anion Gap BUN Creatinine Creat Clearance w eGFR Random Glucose Calcium Magnesium Ferritin Total Bilirubin AST ALT Alkaline Phosphatase Total Protein Albumin Vitamin B12 Free T4 Active Medications Generic Name Dose Route Start Last Admin Trade Name Freq PRN Reason Stop Dose Admin Apixaban 5 mg 12/03/17 22:00 12/03/17 21:08 Eliquis - PO 5 mg BID ELENA Administration Docusate Sodium 100 mg 12/02/17 22:00 12/03/17 21:08 Colace - PO 100 mg HS ELENA Administration Ferrous Gluconate 324 mg 12/03/17 10:00 12/03/17 13:06 Fergon - PO 324 mg DAILY ELENA Administration Folic Acid 1 mg 12/03/17 10:00 12/03/17 09:42 Folic Acid - PO 1 mg DAILY ELENA Administration Furosemide 40 mg 12/04/17 06:00 12/04/17 06:19 Lasix Injection - IVPUSH 40 mg BID@0600,1400 ELENA Administration Hydroxychloroquine Sulfate 200 mg 12/02/17 22:00 12/03/17 21:08 Plaquenil - PO 200 mg BID ELENA Administration Levothyroxine Sodium 50 mcg 12/03/17 07:00 12/04/17 06:19 Synthroid - PO 50 mcg 0700 ELENA Administration Lorazepam 1 mg 12/03/17 10:00 12/03/17 09:42 Ativan - PO 1 mg DAILY ELENA Administration Metoprolol Succinate 100 mg/ 125 mg 12/03/17 10:00 12/03/17 09:42 Metoprolol Succinate 25 mg PO 125 mg DAILY ELENA Administration Pantoprazole Sodium 40 mg 12/03/17 10:00 12/03/17 09:42 Protonix - PO 40 mg DAILY ELNEA Administration Potassium Chloride 20 meq 12/02/17 22:00 12/03/17 21:08 K-Dur - PO 20 meq BID ELENA Administration Risperidone 2 mg 12/03/17 11:01 12/03/17 13:06 Risperdal - PO 2 mg DAILY ELENA Administration ASSESSMENT/PLAN: Patient is an 82 year old female with a significant past medical history of: -Iron deficiency anemia -Bilateral difficulty with ambulation - WC bound mostly -Hypothyroidism -Hx of celulitis of LLE -Acute on chronic diastolic congestive heart failure -Bipolar disorder -Leukopenia -Atrial fibrillation She presents to the ED on 12/02/2017 after patient was seen By Dr. Carr on 12/02/2017 and patient was advised to go to [facility] to rule out GI bleed as her hmg/ hct was 7.5/28 and she was reported to have dark stools at the nursing facility. She has received 1 unit of prbc. On exam she was noted to have labored breathing and appeared to be fluid overloaded. She was noted to crackles at the lung bases and her lower extremities with +2 pitting edema. She is normally able to tolerate room air, but now requires 2 liters of nasal cannula. Heme Iron deficiency anemia/Blood loss anemia, transfused 1 unit of pbrc. hmg now stable. on Protonix 40mg daily and consult GI. Further workup of possible gi bleed outpatient vs inpatient. Leukopenia. WBC reported to be ~ 2.3. now 1.9, no signs of infection. blood cultures negative. Card Acute on chronic diastolic congestive heart failure. dry weight reported to be ~239?. Continues to have labored breathing with crackles auscultated. Chest xray with evidence of congestion. On home dose of lasix 40mg BID, will give iv lasix 40mg bid with close monitoring of kidney function. Fluid restrictiono of 1200cc daily. dialy weights, strict intake and output. Atrial fibrillation. on eliquis bid. on metoprolol Mobility Bilateral difficulty with ambulation in the setting of poor performance status. will consult PT. Endocrine Hypothyroidism Recent increase of Synthroid at [facility]. Repeat TSH outpatient. Vascular Hx of celulitis of LLE No cellulitis presently. monitor for signs of infection. Psyche Bipolar disorder, continue home medications fen tolerating po
[2017-12-04] MEDS: risperiDONE 1 MG TABLET (FP) PO SCH (10:38)
[2017-12-04] MEDS: LORazepam 1 MG TABLET PO SCH (10:38)
[2017-12-04] MEDS: APIXABAN 5 MG TABLET PO SCH ×2 (10:38→21:28)
[2017-12-04] MEDS: POTASSIUM CHLORIDE TABS 20 MEQ TABLET.ER (FP) PO SCH ×2 (10:38→21:28)
[2017-12-04] MEDS: FERROUS GLUCONATE 324 MG TAB (FP) PO SCH (10:38)
[2017-12-04] MEDS: METOPROLOL SUCCINATE 100 MG, METOPROLOL SUCCINATE 25 MG PO SCH (10:39)
[2017-12-04] MEDS: PANTOPRAZOLE 40 MG TABLET (FP) PO SCH (10:39)
[2017-12-04] MEDS: FOLIC ACID 1 MG TABLET (FP) PO SCH (10:39)
[2017-12-04] MEDS: HYDROXYCHLOROQUINE SO4 200 MG TABLET (FP) PO SCH ×2 (10:39→21:28)
--- NOTE | 2017-12-04 11:19 | CON.CARD ---
Cardiology Consult (text) - Consultation Consultation Note: cc: [place] for [place], dark stools hpi: 82 f hx anemia, RA, hypothyroid, chf, afib, htn, [place], dark st[place]. Pt poor historian, does not know why she is here or what her cardiac hx is. She denies cp, sob, palps, dizzy, loc pnd orthopnea. Has mild le edema. Being evaluated for dark stools. pmh: per hpi psh: nc social: no tob fam: unknown ros: per hpi; no nvd fever cough abd pain hematuria dysuria muscle pain meds: Home Medications Medication Instructions Recorded Docusate Sodium [Colace] 100 mg PO HS 12/02/17 Ferrous Gluconate [Fergon -] 324 mg PO DAILY 12/02/17 Folic Acid 1 mg PO DAILY 12/02/17 Furosemide [Lasix] 40 mg PO BID 12/02/17 Hydroxychloroquine Sulfate 200 mg PO BID 12/02/17 Levothyroxine [Synthroid -] 50 mcg PO DAILY 12/02/17 Lorazepam [Ativan] 1 mg PO DAILY 12/02/17 Metolazone 2.5 mg PO WEEKLY 12/02/17 Metoprolol Succinate [Toprol Xl] 125 mg PO DAILY 12/02/17 Pantoprazole Sodium 40 mg PO DAILY 12/02/17 Potassium Chloride 20 meq PO BID 12/02/17 Risperidone [Risperdal] 2 mg PO DAILY 12/02/17 pe: Vital Signs Period Temp Pulse Resp BP Sys/Neal Pulse Ox Last 24 Hr 97.4 F-98.4 F 77-91 18-28 101-128/56-78 96-96 nad no jvd irreg s1s2 no mrg cta bl nl eff awake alert confused abd nt nd pos bs no jaundice diaphoresis pos dp pt no carotid bruits 1+ le edema bl, chronic venous insuff changes of skin Laboratory Last Values WBC 2.1 K/mm3 (4.0-10.0) L 12/04/17 06:50 RBC 3.81 M/mm3 (3.60-5.2) 12/04/17 06:50 Hgb 8.1 GM/dL (10.7-15.3) L 12/04/17 06:50 Hct 27.3 % (32.4-45.2) L 12/04/17 06:50 MCV 71.6 fl (80-96) L 12/04/17 06:50 MCH 21.1 pg (25.7-33.7) L 12/04/17 06:50 MCHC 29.5 g/dl (32.0-36.0) L 12/04/17 06:50 RDW 22.5 % (11.6-15.6) H 12/04/17 06:50 Plt Count 226 K/MM3 (134-434) 12/04/17 06:50 MPV 7.9 fl (7.5-11.1) 12/04/17 06:50 Absolute Neuts (auto) 1.3 K/mm3 (1.5-8.0) L 12/04/17 06:50 Neutrophils % 60.6 % (42.8-82.8) 12/04/17 06:50 Neutrophils % (Manual) 63.7 % (42.8-82.8) 12/03/17 12:15 Band Neutrophils % 0.0 % 12/03/17 12:15 Lymphocytes % 28.5 % (8-40) 12/04/17 06:50 Lymphocytes % (Manual) 21.2 % (8-40) 12/03/17 12:15 Monocytes % 8.6 % (3.8-10.2) 12/04/17 06:50 Monocytes % (Manual) 11 % (3.8-10.2) H 12/03/17 12:15 Eosinophils % 1.2 % (0-4.5) 12/04/17 06:50 Eosinophils % (Manual) 0.0 % (0-4.5) 12/03/17 12:15 Basophils % 1.1 % (0-2.0) 12/04/17 06:50 Basophils % (Manual) 2.0 % (0-2.0) 12/03/17 12:15 Myelocytes % (Man) 1 % (0-2) 12/03/17 12:15 Promyelocytes % (Man) 0 % (0-2) 12/03/17 12:15 Blast Cells % (Manual) 0 % (0-0) 12/03/17 12:15 Nucleated RBC % 1 % (0-0) H 12/04/17 06:50 Metamyelocytes 0 % (0-2) 12/03/17 12:15 Hypochromia 2+ 12/03/17 12:15 Platelet Estimate Normal 12/03/17 12:15 Polychromasia 1+ 12/03/17 12:15 Poikilocytosis 1+ 12/03/17 12:15 Anisocytosis 2+ 12/03/17 12:15 Microcytosis 2+ 12/03/17 12:15 Macrocytosis 0 12/03/17 12:15 Stomatocytes 2+ 12/03/17 12:15 PT with INR 29.00 SEC (9.7-13.0) H 12/02/17 15:35 INR 2.44 (0.83-1.09) H 12/02/17 15:35 Sodium 137 mmol/L (136-145) 12/04/17 06:50 Potassium 4.1 mmol/L (3.5-5.1) 12/04/17 06:50 Chloride 100 mmol/L (98-107) 12/04/17 06:50 Carbon Dioxide 28 mmol/L (21-32) 12/04/17 06:50 Anion Gap 9 MMOL/L (8-16) 12/04/17 06:50 BUN 35 mg/dL (7-18) H 12/04/17 06:50 Creatinine 1.5 mg/dL (0.55-1.3) H 12/04/17 06:50 Creat Clearance w eGFR 33.25 (>60) 12/04/17 06:50 Random Glucose 99 mg/dL (74-106) 12/04/17 06:50 Calcium 8.1 mg/dL (8.5-10.1) L 12/04/17 06:50 Magnesium 2.4 mg/dL (1.8-2.4) 12/04/17 06:50 Ferritin 105.3 ng/ml (8-388) 12/04/17 06:50 Total Bilirubin 0.7 mg/dL (0.2-1) 12/04/17 06:50 AST 28 U/L (15-37) 12/04/17 06:50 ALT 22 U/L (13-61) 12/04/17 06:50 Alkaline Phosphatase 101 U/L (45-117) 12/04/17 06:50 Total Protein 7.5 g/dl (6.4-8.2) 12/04/17 06:50 Albumin 2.5 g/dl (3.4-5.0) L 12/04/17 06:50 Vitamin B12 677 pg/ml (193-986) 12/04/17 06:50 TSH 20.30 uIU/ml (0.358-3.74) H 12/02/17 15:35 Free T4 1.20 ng/dl (0.76-1.46) 12/03/17 15:00 Stool Occult Blood Positive (NEGATIVE) 12/02/17 16:30 Blood Type A POSITIVE 12/02/17 16:50 Antibody Screen Negative 12/02/17 15:25 Crossmatch See Detail 12/02/17 16:50 cxr: clear lungs ecg: afib, rate controlled, nl qtc, no ischemic changes a/p: 82 f hx anemia, RA, hypothyroid, chf, afib, htn, [place], [place] st[place]. dark stools, anemia: -being evaluated by GI, Heme acute chf: -no details available, pt on lasix 40 bid po at [place] -currently with some le edema, agree with iv lasix, monitor daily chem7, wts -check echo to see lvef afib: -rate controlled, cont toprol -has been on eliquis, continued here, monitor hgb hypothyroid: -tsh elevated, synthroid dosing per pmd htn: -cont toprol ckd: -unknown baseline, monitor cr here with diuresis
[2017-12-04] MEDS ORDERED: PT OWN MED DRAWER 7, Y5N ONE (21:23)
[2017-12-04] MEDS: DOCUSATE SODIUM 100 MG CAPSULE (FP) PO SCH (21:28)
[2017-12-05] MEDS: FUROSEMIDE 40 MG/4 ML INJECTABLE VIAL IVPUSH SCH ×2 (06:03→14:32)
[2017-12-05] MEDS: LEVOTHYROXINE NA 50 MCG TABLET (FP) PO SCH (06:04)
[2017-12-05 08:50] LABS: ANION GAP 8 MMOL/L (8-16); BLOOD UREA NITROGEN 35 mg/dL (7-18); CALCIUM 8.2 mg/dL (8.5-10.1); CHLORIDE 100 mmol/L (98-107); CO2 30 mmol/L (21-32); CREATININE 1.3 mg/dL (0.55-1.3); GLUCOSE,RANDOM 93 mg/dL (74-106); N-TERMINAL BNP 5702.9 pg/ml (5-450); POTASSIUM 3.5 mmol/L (3.5-5.1); SODIUM 138 mmol/L (136-145)
[2017-12-05] MEDS ORDERED: metoPROLOL SUCCINATE 25 MG TAB.SR.24H (FP) ONE (10:06)
[2017-12-05] MEDS ORDERED: PT OWN MED DRAWER 7, Y5N ONE ×4 (10:07→21:02)
[2017-12-05] MEDS: FOLIC ACID 1 MG TABLET (FP) PO SCH (10:25)
[2017-12-05] MEDS: APIXABAN 5 MG TABLET PO SCH ×2 (10:25→21:12)
[2017-12-05] MEDS: FERROUS GLUCONATE 324 MG TAB (FP) PO SCH (10:26)
[2017-12-05] MEDS: LORazepam 1 MG TABLET PO SCH (10:26)
[2017-12-05] MEDS: POTASSIUM CHLORIDE TABS 20 MEQ TABLET.ER (FP) PO SCH ×2 (10:26→21:12)
[2017-12-05] MEDS: risperiDONE 1 MG TABLET (FP) PO SCH (10:26)
[2017-12-05] MEDS: PANTOPRAZOLE 40 MG TABLET (FP) PO SCH (10:26)
[2017-12-05] MEDS: HYDROXYCHLOROQUINE SO4 200 MG TABLET (FP) PO SCH ×2 (10:27→21:12)
[2017-12-05] MEDS: METOPROLOL SUCCINATE 100 MG, METOPROLOL SUCCINATE 25 MG PO SCH (10:40)
--- NOTE | 2017-12-05 12:03 | PN ---
Physical Exam: SUBJECTIVE: Patient seen and examined at the bedside. OBJECTIVE: Still with labored breathing, crackles, minor improvement in weights. Will give dose of Zaroxalyn 2.5mg x 1 and monitor. Vital Signs Period Temp Pulse Resp BP Sys/Neal Pulse Ox Last 24 Hr 97.3 F-98.7 F 76-89 20-20 100-115/49-70 98 GENERAL: The patient is awake, alert, slightly lethargic, alert to self and place, not time HEAD: Normal with no signs of trauma. EYES: PERRL, extraocular movements intact, sclera anicteric, conjunctiva clear. No ptosis. ENT: Ears normal, nares patent, oropharynx clear without exudates, moist mucous membranes. NECK: Trachea midline, full range of motion, supple. LUNGS: diminished breath sounds anteriorly, crackles at the bases L>R HEART: irregular. ABDOMEN: Soft, nontender, nondistended, normoactive bowel sounds, no guarding, no rebound, no hepatosplenomegaly, no masses. EXTREMITIES: +2 bilateral lower ext edema NEUROLOGICAL: Normal speech, gait not observed. PSYCH: lethargic, with episodes of agitation SKIN: Warm, dry, normal turgor, no rashes or lesions noted Laboratory Results - last 24 hr 12/03/17 12/05/17 12/05/17 15:00 07:30 07:30 Sodium 138 Potassium 3.5 Chloride 100 Carbon Dioxide 30 Anion Gap 8 BUN 35 H Creatinine 1.3 Creat Clearance w eGFR 39.21 Random Glucose 93 Calcium 8.2 L B-Natriuretic Peptide 5702.9 H Cancelled Free T3 1.6 L Active Medications Generic Name Dose Route Start Last Admin Trade Name Freq PRN Reason Stop Dose Admin Apixaban 5 mg 12/03/17 22:00 12/05/17 10:25 Eliquis - PO 5 mg BID ELENA Administration Docusate Sodium 100 mg 12/02/17 22:00 12/04/17 21:28 Colace - PO 100 mg HS ELENA Administration Ferrous Gluconate 324 mg 12/03/17 10:00 12/05/17 10:26 Fergon - PO 324 mg DAILY ELENA Administration Folic Acid 1 mg 12/03/17 10:00 12/05/17 10:25 Folic Acid - PO 1 mg DAILY ELENA Administration Furosemide 40 mg 12/04/17 06:00 12/05/17 06:03 Lasix Injection - IVPUSH 40 mg BID@0600,1400 ELENA Administration Hydroxychloroquine Sulfate 200 mg 12/02/17 22:00 12/05/17 10:27 Plaquenil - PO 200 mg BID ELENA Administration Levothyroxine Sodium 50 mcg 12/03/17 07:00 12/05/17 06:04 Synthroid - PO 50 mcg 0700 ELENA Administration Lorazepam 1 mg 12/03/17 10:00 12/05/17 10:26 Ativan - PO 1 mg DAILY ELENA Administration Metoprolol Succinate 100 mg/ 125 mg 12/03/17 10:00 12/04/17 10:39 Metoprolol Succinate 25 mg PO 125 mg DAILY ELENA Administration Pantoprazole Sodium 40 mg 12/03/17 10:00 12/05/17 10:26 Protonix - PO 40 mg DAILY ELENA Administration Potassium Chloride 20 meq 12/02/17 22:00 12/05/17 10:26 K-Dur - PO 20 meq BID ELENA Administration Risperidone 2 mg 12/03/17 11:01 12/05/17 10:26 Risperdal - PO 2 mg DAILY ELENA Administration ASSESSMENT/PLAN: Patient is an 82 year old female with a significant past medical history of: -Iron deficiency anemia -Bilateral difficulty with ambulation - WC bound mostly -Hypothyroidism -Hx of celulitis of LLE -Acute on chronic diastolic congestive heart failure -Bipolar disorder -Leukopenia -Atrial fibrillation She presents to the ED on 12/02/2017 after patient was seen By Dr. Carr on 12/02/2017 and patient was advised to go to [facility] to rule out GI bleed as her hmg/ hct was 7.5/28 and she was reported to have dark stools at the nursing facility. She has received 1 unit of prbc. On exam she was noted to have labored breathing and appeared to be fluid overloaded. She was noted to crackles at the lung bases and her lower extremities with +2 pitting edema. She is normally able to tolerate room air, but now requires 2 liters of nasal cannula. Heme Iron deficiency anemia/Blood loss anemia, transfused 1 unit of pbrc. hmg now stable. on Protonix 40mg daily and consult GI. Further workup of possible gi bleed outpatient vs inpatient. Leukopenia. WBC reported to be normally ~ 2.3. blood cultures negative. Heme following. Card Acute on chronic diastolic congestive heart failure. dry weight reported to be ~239?. Continues to have labored breathing with crackles auscultated. Chest xray with evidence of congestion. On Lasix 40mg IV BID. Minimal improvement. Will give one time dose of Zaroxalyn 2.5mg and monitor. Fluid restrictiono of 1200cc daily. dialy weights, strict intake and output. Atrial fibrillation. on eliquis bid. on metoprolol Mobility Bilateral difficulty with ambulation in the setting of poor performance status. will consult PT. Endocrine Hypothyroidism TSH @ 20, as per Dr. Cannon - PMD (Synthoid dose was recently increased - Repeat TSH outpatient. Vascular Hx of celulitis of LLE No cellulitis presently. monitor for signs of infection. Psyche Bipolar disorder, continue home medications fen tolerating po Visit type - Emergency Visit Emergency Visit: Yes ED Registration Date: 12/04/17 Care time: The patient presented to the Emergency Department on the above date and was hospitalized for further evaluation of their emergent condition. - New Patient This patient is new to me today: No - Critical Care Critical Care patient: No - Discharge Referral Referred to [facility] No
--- NOTE | 2017-12-05 12:03 | PN ---
Progress Note (short form) - Note Progress Note: s: no cp sob palps dizzy o: Vital Signs Period Temp Pulse Resp BP Sys/Neal Pulse Ox Last 24 Hr 97.3 F-98.7 F 76-89 20-20 100-115/49-70 98 nad no jvd irreg s1s2 no mrg cta bl nl eff awake alert confused abd nt nd pos bs no jaundice diaphoresis 1+ le edema bl, chronic venous insuff changes of skin Current Medications Generic Name Dose Route Start Last Admin Trade Name Frejaun PRN Reason Stop Dose Admin Apixaban 5 mg 12/03/17 22:00 12/05/17 10:25 Eliquis - PO 5 mg BID ELNEA Administration Docusate Sodium 100 mg 12/02/17 22:00 12/04/17 21:28 Colace - PO 100 mg HS ELENA Administration Ferrous Gluconate 324 mg 12/03/17 10:00 12/05/17 10:26 Fergon - PO 324 mg DAILY ELENA Administration Folic Acid 1 mg 12/03/17 10:00 12/05/17 10:25 Folic Acid - PO 1 mg DAILY ELENA Administration Furosemide 40 mg 12/04/17 06:00 12/05/17 06:03 Lasix Injection - IVPUSH 40 mg BID@0600,1400 ELENA Administration Hydroxychloroquine Sulfate 200 mg 12/02/17 22:00 12/05/17 10:27 Plaquenil - PO 200 mg BID ELENA Administration Levothyroxine Sodium 50 mcg 12/03/17 07:00 12/05/17 06:04 Synthroid - PO 50 mcg 0700 ELENA Administration Lorazepam 1 mg 12/03/17 10:00 12/05/17 10:26 Ativan - PO 1 mg DAILY ELENA Administration Metoprolol Succinate 100 mg/ 125 mg 12/03/17 10:00 12/04/17 10:39 Metoprolol Succinate 25 mg PO 125 mg DAILY ELENA Administration Pantoprazole Sodium 40 mg 12/03/17 10:00 12/05/17 10:26 Protonix - PO 40 mg DAILY ELENA Administration Potassium Chloride 20 meq 12/02/17 22:00 12/05/17 10:26 K-Dur - PO 20 meq BID ELENA Administration Risperidone 2 mg 12/03/17 11:01 12/05/17 10:26 Risperdal - PO 2 mg DAILY ELENA Administration CBC, BMP 12/04/17 06:50 12/05/17 07:30 cxr: clear lungs ecg: afib, rate controlled, nl qtc, no ischemic changes echo 11/2017: tds; nl lv, rv tds, no sig valve path, nl rvsp a/p: 82 f hx anemia, RA, hypothyroid, chf, afib, htn, sent from [place] for anemia, dark stools. dark stools, anemia: -being evaluated by GI, Heme acute diastolic chf: -no details available, pt on lasix 40 bid po at [place] -echo unremarkable here -currently with some le edema, agree with iv lasix, monitor daily chem7, wts afib: -rate controlled, cont toprol -has been on eliquis, continued here, monitor hgb hypothyroid: -tsh elevated, synthroid dosing per pmd htn: -cont toprol ckd: -unknown baseline, monitor cr here with diuresis
--- NOTE | 2017-12-05 12:55 | PN ---
GI Progress Note Subjective: still short of breath, no reports of melena and rectal bleeding - Objective Vital Signs: Vital Signs Temperature 97.8 F 12/05/17 09:49 Pulse Rate 89 12/05/17 06:00 Respiratory Rate 20 12/04/17 23:40 Blood Pressure 100/50 L 12/05/17 09:00 O2 Sat by Pulse Oximetry (%) 98 12/04/17 22:00 Constitutional: Obese Eyes: Yes: Conjunctiva Clear HENT: Yes: Atraumatic Neck: Yes: Supple Cardiovascular: Yes: Regular Rate and Rhythm Respiratory: Yes: CTA Bilaterally ...Palpate: Yes: Soft. No: Firm/Rigid, Guarding, Hepatomegaly, Mass, Pulsatile Mass, Splenomegaly, Tenderness Labs: CBC, BMP 12/04/17 06:50 12/05/17 07:30 INR, PTT INR 2.44 (0.83-1.09) H 12/02/17 15:35 Problem List - Problems (1) Leukopenia Code(s): D72.819 - DECREASED WHITE BLOOD CELL COUNT, UNSPECIFIED Qualifiers: Leukopenia type: lymphocytopenia Qualified Code(s): D72.810 - Lymphocytopenia (2) Occult GI bleeding Assessment/Plan: continue PPI please recall once medically cleared for gi w/u Code(s): R19.5 - OTHER FECAL ABNORMALITIES
[2017-12-05] MEDS ORDERED: METOLAZONE 2.5 MG TABLET (FP) PO ONE (17:57)
[2017-12-05] MEDS: DOCUSATE SODIUM 100 MG CAPSULE (FP) PO SCH (21:12)
[2017-12-06] MEDS: FUROSEMIDE 40 MG/4 ML INJECTABLE VIAL IVPUSH SCH ×2 (06:08→13:44)
[2017-12-06] MEDS: LEVOTHYROXINE NA 50 MCG TABLET (FP) PO SCH (06:09)
[2017-12-06 09:48] LABS: BASO % 1.3 % (0-2.0); EOS % 0.8 % (0-4.5); HEMATOCRIT 27.2 % (32.4-45.2); HEMOGLOBIN 7.8 GM/dL (10.7-15.3); LYMPH % 23.7 % (8-40); MCH 20.7 pg (25.7-33.7); MCHC 28.8 g/dl (32.0-36.0); MEAN CELL VOLUME 71.8 fl (80-96); MEAN PLT VOLUME 7.5 fl (7.5-11.1); MONO % 9.1 % (3.8-10.2); NEUT % 65.1 % (42.8-82.8); PLATELET COUNT 201 K/MM3 (134-434); RBC 3.78 M/mm3 (3.60-5.2); RDW 23.3 % (11.6-15.6)
[2017-12-06] MEDS ORDERED: metoPROLOL SUCCINATE 25 MG TAB.SR.24H (FP) ONE (10:47)
[2017-12-06] MEDS ORDERED: PT OWN MED DRAWER 7, Y5N ONE (10:49)
--- NOTE | 2017-12-06 10:54 | PN ---
Progress Note (short form) - Note Progress Note: s: no cp palps dizzy; mild sob, baseline per pt o: Vital Signs Period Temp Pulse Resp BP Sys/Neal Pulse Ox Last 24 Hr 97.5 F-98.6 F 80-91 18-28 104-130/49-62 98 nad no jvd irreg s1s2 no mrg cta bl nl eff awake alert confused abd nt nd pos bs no jaundice diaphoresis trace/1+ le edema bl, chronic venous insuff changes of skin Current Medications Generic Name Dose Route Start Last Admin Trade Name Frejaun PRN Reason Stop Dose Admin Apixaban 5 mg 12/03/17 22:00 12/05/17 21:12 Eliquis - PO 5 mg BID ELENA Administration Docusate Sodium 100 mg 12/02/17 22:00 12/05/17 21:12 Colace - PO 100 mg HS ELENA Administration Ferrous Gluconate 324 mg 12/03/17 10:00 12/05/17 10:26 Fergon - PO 324 mg DAILY ELENA Administration Folic Acid 1 mg 12/03/17 10:00 12/05/17 10:25 Folic Acid - PO 1 mg DAILY ELENA Administration Furosemide 40 mg 12/04/17 06:00 12/06/17 06:08 Lasix Injection - IVPUSH 40 mg BID@0600,1400 ELENA Administration Hydroxychloroquine Sulfate 200 mg 12/02/17 22:00 12/05/17 21:12 Plaquenil - PO 200 mg BID ELENA Administration Levothyroxine Sodium 50 mcg 12/03/17 07:00 12/06/17 06:09 Synthroid - PO 50 mcg 0700 ELENA Administration Lorazepam 1 mg 12/03/17 10:00 12/05/17 10:26 Ativan - PO 1 mg DAILY ELENA Administration Metoprolol Succinate 100 mg/ 125 mg 12/03/17 10:00 12/05/17 10:40 Metoprolol Succinate 25 mg PO Not Given DAILY ELENA Pantoprazole Sodium 40 mg 12/03/17 10:00 12/05/17 10:26 Protonix - PO 40 mg DAILY ELENA Administration Potassium Chloride 20 meq 12/02/17 22:00 12/05/17 21:12 K-Dur - PO 20 meq BID ELENA Administration Risperidone 2 mg 12/03/17 11:01 12/05/17 10:26 Risperdal - PO 2 mg DAILY ELENA Administration CBC, BMP 12/06/17 09:20 cxr: clear lungs ecg: afib, rate controlled, nl qtc, no ischemic changes echo 11/2017: tds; nl lv, rv tds, no sig valve path, nl rvsp a/p: 82 f hx anemia, RA, hypothyroid, chf, afib, htn, [place], [place] stools. dark stools, anemia: -being evaluated by GI, Heme acute diastolic chf: -no details available, pt on lasix 40 bid po at [place] -echo unremarkable here -currently with some le edema but improving and wt decreasing. cr has been stable. Continue with iv lasix, monitor daily chem7, wts afib: -rate controlled, cont toprol -has been on eliquis, continued here, monitor hgb hypothyroid: -tsh elevated, synthroid dosing per pmd htn: -cont toprol ckd: -unknown baseline, monitor cr here with diuresis
[2017-12-06 11:03] LABS: ANISOCYTOSIS 1+; MACROCYTOSIS 0; PLATELET ESTIMATE NORMAL
[2017-12-06 11:08] LABS: ALBUMIN 2.5 g/dl (3.4-5.0); ALK PHOS 99 U/L (45-117); ANION GAP 9 MMOL/L (8-16); BILIRUBIN,TOTAL 0.7 mg/dL (0.2-1); BLOOD UREA NITROGEN 28 mg/dL (7-18); CALCIUM 7.6 mg/dL (8.5-10.1); CHLORIDE 99 mmol/L (98-107); CO2 30 mmol/L (21-32); CREATININE 1.1 mg/dL (0.55-1.3); GLUCOSE,RANDOM 125 mg/dL (74-106); MAGNESIUM 2.2 mg/dL (1.8-2.4); SGOT/AST 22 U/L (15-37); SGPT/ALT 20 U/L (13-61); SODIUM 138 mmol/L (136-145); TOT PROT 7.6 g/dl (6.4-8.2)
[2017-12-06] MEDS: risperiDONE 1 MG TABLET (FP) PO SCH (11:08)
[2017-12-06] MEDS: POTASSIUM CHLORIDE TABS 20 MEQ TABLET.ER (FP) PO SCH ×2 (11:09→21:40)
[2017-12-06] MEDS: PANTOPRAZOLE 40 MG TABLET (FP) PO SCH (11:09)
[2017-12-06] MEDS: LORazepam 1 MG TABLET PO SCH (11:09)
[2017-12-06] MEDS: APIXABAN 5 MG TABLET PO SCH ×2 (11:09→21:40)
[2017-12-06] MEDS: METOPROLOL SUCCINATE 100 MG, METOPROLOL SUCCINATE 25 MG PO SCH (11:10)
[2017-12-06] MEDS: HYDROXYCHLOROQUINE SO4 200 MG TABLET (FP) PO SCH ×3 (11:10→22:32)
[2017-12-06 11:11] LABS: POTASSIUM 2.6 mmol/L (3.5-5.1)
[2017-12-06] MEDS: FERROUS GLUCONATE 324 MG TAB (FP) PO SCH (11:11)
[2017-12-06] MEDS: FOLIC ACID 1 MG TABLET (FP) PO SCH (11:11)
[2017-12-06] MEDS: KCL 10 MEQ IVPB 10 MEQ/100 ML INFUS.BAG IVPB SCH ×5 (12:30→20:35)
--- NOTE | 2017-12-06 13:30 | PN ---
Physical Exam: SUBJECTIVE: Patient seen and examined at the bedside. States she feels better, in no acute distress. OBJECTIVE: hmg dropped to 7.8. will repeat cbc and possibly give 1 unit of prbc potassium dropped 2.6, 3 k riders ordered, repeat K level this evening. spoke to patient's sister Cinthya Greco [phone] and discussed POC, goals. Vital Signs Period Temp Pulse Resp BP Sys/Neal Pulse Ox Last 24 Hr 97.5 F-98.6 F 80-91 18-28 104-130/49-62 98 GENERAL: The patient is awake, alert, slightly lethargic, alert to self and place, not time HEAD: Normal with no signs of trauma. EYES: PERRL, extraocular movements intact, sclera anicteric, conjunctiva clear. No ptosis. ENT: Ears normal, nares patent, oropharynx clear without exudates, moist mucous membranes. NECK: Trachea midline, full range of motion, supple. LUNGS: diminished breath sounds anteriorly, crackles at the bases L>R - slightly better HEART: irregular. ABDOMEN: Soft, nontender, nondistended, normoactive bowel sounds, no guarding, no rebound, no hepatosplenomegaly, no masses. EXTREMITIES: +2 bilateral lower ext edema NEUROLOGICAL: Normal speech, gait not observed. PSYCH: lethargic, with episodes of agitation SKIN: Warm, dry, normal turgor, no rashes or lesions noted Laboratory Results - last 24 hr 12/02/17 12/04/17 12/06/17 16:50 06:50 09:20 WBC 2.0 L RBC 3.78 Hgb 7.8 L Hct 27.2 L MCV 71.8 L MCH 20.7 L MCHC 28.8 L RDW 23.3 H Plt Count 201 MPV 7.5 Absolute Neuts (auto) 1.3 L Neutrophils % 65.1 Lymphocytes % 23.7 Monocytes % 9.1 Eosinophils % 0.8 Basophils % 1.3 Nucleated RBC % 1 H Hypochromia 1+ Platelet Estimate Normal Polychromasia 0 Poikilocytosis 1+ Anisocytosis 1+ Microcytosis 2+ Macrocytosis 0 Stomatocytes 1+ Sodium Potassium Chloride Carbon Dioxide Anion Gap BUN Creatinine Creat Clearance w eGFR Random Glucose Calcium Magnesium Total Bilirubin AST ALT Alkaline Phosphatase Total Protein Albumin ELMER Screen Positive H ELMER Homogeneous Pattern 1:640 H ELMER Nucleolar Pattern TNP ELMER Spindle [place] Pattern TNP ELMER Midbody Pattern TNP ELMER Centriole Pattern TNP ELMER Nuclear Dot Pattern TNP ELMER PCNA Pattern TNP ELMER Nuclear Membr Pat TNP ELMER Speckled Pattern TNP ELMER Centromere Pattern TNP Blood Type A POSITIVE Crossmatch See Detail 12/06/17 09:20 WBC RBC Hgb Hct MCV MCH MCHC RDW Plt Count MPV Absolute Neuts (auto) Neutrophils % Lymphocytes % Monocytes % Eosinophils % Basophils % Nucleated RBC % Hypochromia Platelet Estimate Polychromasia Poikilocytosis Anisocytosis Microcytosis Macrocytosis Stomatocytes Sodium 138 Potassium 2.6 L* Chloride 99 Carbon Dioxide 30 Anion Gap 9 BUN 28 H Creatinine 1.1 Creat Clearance w eGFR 47.55 Random Glucose 125 H Calcium 7.6 L Magnesium 2.2 Total Bilirubin 0.7 AST 22 ALT 20 Alkaline Phosphatase 99 Total Protein 7.6 Albumin 2.5 L ELMER Screen ELMER Homogeneous Pattern ELMER Nucleolar Pattern ELMER Spindle [place] Pattern ELMER Midbody Pattern ELMER Centriole Pattern ELMER Nuclear Dot Pattern ELMER PCNA Pattern ELMER Nuclear Membr Pat ELMER Speckled Pattern ELMER Centromere Pattern Blood Type Crossmatch Active Medications Generic Name Dose Route Start Last Admin Trade Name Freq PRN Reason Stop Dose Admin Apixaban 5 mg 12/03/17 22:00 12/06/17 11:09 Eliquis - PO 5 mg BID ELENA Administration Docusate Sodium 100 mg 12/02/17 22:00 12/05/17 21:12 Colace - PO 100 mg HS ELENA Administration Ferrous Gluconate 324 mg 12/03/17 10:00 12/06/17 11:11 Fergon - PO 324 mg DAILY ELENA Administration Folic Acid 1 mg 12/03/17 10:00 12/06/17 11:11 Folic Acid - PO 1 mg DAILY ELENA Administration Furosemide 40 mg 12/04/17 06:00 12/06/17 06:08 Lasix Injection - IVPUSH 40 mg BID@0600,1400 ELENA Administration Hydroxychloroquine Sulfate 200 mg 12/02/17 22:00 12/06/17 11:10 Plaquenil - PO 200 mg BID ELENA Administration Potassium Chloride 10 meq in 100 mls @ 100 mls/hr 12/06/17 11:30 12/06/17 12: 30 Potassium Chloride 10 Meq Premix Ivpb - IVPB 12/06/17 14:29 100 mls/hr Q60M ELENA Administration Levothyroxine Sodium 50 mcg 12/03/17 07:00 12/06/17 06:09 Synthroid - PO 50 mcg 0700 ELENA Administration Lorazepam 1 mg 12/03/17 10:00 12/06/17 11:09 Ativan - PO 1 mg DAILY ELENA Administration Metoprolol Succinate 100 mg/ 125 mg 12/03/17 10:00 12/06/17 11:10 Metoprolol Succinate 25 mg PO 125 mg DAILY ELENA Administration Pantoprazole Sodium 40 mg 12/03/17 10:00 12/06/17 11:09 Protonix - PO 40 mg DAILY ELENA Administration Potassium Chloride 20 meq 12/02/17 22:00 12/06/17 11:09 K-Dur - PO 20 meq BID ELENA Administration Risperidone 2 mg 12/03/17 11:01 12/06/17 11:08 Risperdal - PO 2 mg DAILY ELENA Administration ASSESSMENT/PLAN: Patient is an 82 year old female with a significant past medical history of: -Iron deficiency anemia -Bilateral difficulty with ambulation - WC bound mostly -Hypothyroidism -Hx of celulitis of LLE -Acute on chronic diastolic congestive heart failure -Bipolar disorder -Leukopenia -Atrial fibrillation -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 She presents to the ED on 12/02/2017 after patient was seen By Dr. Carr on 12/02/2017 and patient was advised to go to [facility] to rule out GI bleed as her hmg/ hct was 7.5/28 and she was reported to have dark stools at the nursing facility. She has received 1 unit of prbc. On exam she was noted to have labored breathing and appeared to be fluid overloaded. She was noted to crackles at the lung bases and her lower extremities with +2 pitting edema. She is normally able to tolerate room air, but now requires 2 liters of nasal cannula. Heme Iron deficiency anemia/Blood loss anemia, transfused 1 unit of pbrc. hmg 7.8. repeat labs in am. and possibly transfuse if hmg drops. on Protonix 40mg daily and consult GI. Further workup of possible gi bleed outpatient vs inpatient. Leukopenia. WBC reported to be normally ~ 2.3. blood cultures negative. Heme following. Card Acute on chronic diastolic congestive heart failure. dry weight reported to be ~239?. weights 105>102kg. Continues to have labored breathing with crackles auscultated. Chest xray with evidence of congestion. On Lasix 40mg IV BID. Minimal improvement, given zaroxayn 2.5mg x 1 yesterday. Fluid restriction of 1200cc daily. daily weights, strict intake and output. Atrial fibrillation. on eliquis bid. on metoprolol Mobility Bilateral difficulty with ambulation in the setting of poor performance status. will consult PT. Endocrine Hypothyroidism TSH @ 20. Spoke to Dr[address] Cannon ([facility] physician - PMD) - (Synthoid dose was recently increased per MD- Repeat TSH @ [facility]) Vascular Hx of celulitis of LLE No cellulitis presently. monitor for signs of infection. Psyche Bipolar disorder, continue home medications fen tolerating po Visit type - Emergency Visit Emergency Visit: Yes ED Registration Date: 12/04/17 Care time: The patient presented to the Emergency Department on the above date and was hospitalized for further evaluation of their emergent condition. - New Patient This patient is new to me today: No - Critical Care Critical Care patient: No - Discharge Referral Referred to [facility] No
[2017-12-06 17:10] LABS: BASO % 0.7 % (0-2.0); EOS % 0.2 % (0-4.5); HEMATOCRIT 27.1 % (32.4-45.2); HEMOGLOBIN 8.1 GM/dL (10.7-15.3); LYMPH % 18.9 % (8-40); MCH 21.3 pg (25.7-33.7); MEAN PLT VOLUME 7.7 fl (7.5-11.1); MONO % 6.8 % (3.8-10.2); NEUT % 73.4 % (42.8-82.8); PLATELET COUNT 221 K/MM3 (134-434); RBC 3.81 M/mm3 (3.60-5.2); RDW 23.4 % (11.6-15.6); WHITE BLOOD COUNT 2.3 K/mm3 (4.0-10.0)
[2017-12-06] MEDS: DOCUSATE SODIUM 100 MG CAPSULE (FP) PO SCH (21:40)
[2017-12-07 00:06] LABS: SERUM IRON SATURATION 6 % (15-55); TOTAL IRON BINDING CAPACITY 327 ug/dL (250-450); UIBC 307 ug/dL (118-369)
[2017-12-07] MEDS: FUROSEMIDE 40 MG/4 ML INJECTABLE VIAL IVPUSH SCH ×2 (06:00→13:24)
[2017-12-07] MEDS: LEVOTHYROXINE NA 50 MCG TABLET (FP) PO SCH (06:00)
[2017-12-07 08:22] LABS: BASO % 0.8 % (0-2.0); EOS % 0.5 % (0-4.5); HEMATOCRIT 25.2 % (32.4-45.2); HEMOGLOBIN 7.3 GM/dL (10.7-15.3); LYMPH % 21.6 % (8-40); MCH 20.8 pg (25.7-33.7); MCHC 29.1 g/dl (32.0-36.0); MEAN CELL VOLUME 71.6 fl (80-96); MEAN PLT VOLUME 7.4 fl (7.5-11.1); MONO % 8.4 % (3.8-10.2); NEUT % 68.7 % (42.8-82.8); PLATELET COUNT 195 K/MM3 (134-434); RBC 3.52 M/mm3 (3.60-5.2); RDW 23.4 % (11.6-15.6); WHITE BLOOD COUNT 2.2 K/mm3 (4.0-10.0)
[2017-12-07 10:34] LABS: ALBUMIN 2.5 g/dl (3.4-5.0); ALK PHOS 101 U/L (45-117); ANION GAP 9 MMOL/L (8-16); BILIRUBIN,TOTAL 0.7 mg/dL (0.2-1); BLOOD UREA NITROGEN 28 mg/dL (7-18); CALCIUM 7.6 mg/dL (8.5-10.1); CHLORIDE 94 mmol/L (98-107); CO2 32 mmol/L (21-32); GLUCOSE,RANDOM 94 mg/dL (74-106); MAGNESIUM 2.2 mg/dL (1.8-2.4); SGOT/AST 20 U/L (15-37); SGPT/ALT 21 U/L (13-61); SODIUM 136 mmol/L (136-145); TOT PROT 7.7 g/dl (6.4-8.2)
[2017-12-07 11:15] LABS: POTASSIUM 2.7 mmol/L (3.5-5.1)
[2017-12-07] MEDS ORDERED: metoPROLOL SUCCINATE 25 MG TAB.SR.24H (FP) ONE (11:22)
[2017-12-07] MEDS ORDERED: PT OWN MED DRAWER 7, Y5N ONE ×2 (11:24→21:26)
[2017-12-07] MEDS: METOPROLOL SUCCINATE 100 MG, METOPROLOL SUCCINATE 25 MG PO SCH (11:29)
[2017-12-07] MEDS: LORazepam 1 MG TABLET PO SCH (11:30)
[2017-12-07] MEDS: risperiDONE 1 MG TABLET (FP) PO SCH (11:30)
[2017-12-07] MEDS: POTASSIUM CHLORIDE TABS 20 MEQ TABLET.ER (FP) PO SCH ×3 (11:30→21:23)
[2017-12-07] MEDS: APIXABAN 5 MG TABLET PO SCH ×2 (11:30→21:23)
[2017-12-07] MEDS: FERROUS GLUCONATE 324 MG TAB (FP) PO SCH (11:31)
[2017-12-07] MEDS: HYDROXYCHLOROQUINE SO4 200 MG TABLET (FP) PO SCH ×2 (11:31→21:26)
[2017-12-07] MEDS: PANTOPRAZOLE 40 MG TABLET (FP) PO SCH (11:31)
[2017-12-07] MEDS: FOLIC ACID 1 MG TABLET (FP) PO SCH (11:31)
[2017-12-07] MEDS: KCL 10 MEQ IVPB 10 MEQ/100 ML INFUS.BAG IVPB SCH ×3 (12:23→14:35)
--- NOTE | 2017-12-07 13:24 | PN ---
Physical Exam: SUBJECTIVE: Patient seen and examined at the bedside. Feels better, more alert. wants to go home. OBJECTIVE: potassium level not drawn overnight a.m. K 2.7, will give 3 k riders and monitor K spoke to patient's sister Cinthya Greco [phone] and discussed POC, goals. discussed that patient is here for acute CHF exacerbation although she came in for a unit of prbc. once her acute issues are resolved, patient can be followed outpatient by GI, rheumatology and hematology. Referrals will be sent on d/c packet. for 2nd unit of prbc for hmg 7.2. Vital Signs Period Temp Pulse Resp BP Sys/Neal Pulse Ox Last 24 Hr 97.3 F-98.7 F 83-89 18-18 119-141/56-70 98 GENERAL: The patient is awake, alert, to self and place, not time HEAD: Normal with no signs of trauma. EYES: PERRL, extraocular movements intact, sclera anicteric, conjunctiva clear. No ptosis. ENT: Ears normal, nares patent, oropharynx clear without exudates, moist mucous membranes. NECK: Trachea midline, full range of motion, supple. LUNGS: diminished breath sounds anteriorly, crackles at the bases L>R - slightly better HEART: irregular, hx of afib on eliquis ABDOMEN: Soft, nontender, nondistended, normoactive bowel sounds, no guarding, no rebound, no hepatosplenomegaly, no masses. EXTREMITIES: +2 bilateral lower ext edema NEUROLOGICAL: Normal speech, gait not observed. PSYCH: lethargic, with episodes of agitation SKIN: Warm, dry, normal turgor, no rashes or lesions noted Laboratory Results - last 24 hr 12/04/17 12/06/17 12/06/17 06:50 16:32 16:32 WBC 2.3 L RBC 3.81 Hgb 8.1 L Hct 27.1 L MCV 71.0 L MCH 21.3 L MCHC 30.0 L RDW 23.4 H Plt Count 221 MPV 7.7 Absolute Neuts (auto) 1.7 Neutrophils % 73.4 Lymphocytes % 18.9 D Monocytes % 6.8 Eosinophils % 0.2 Basophils % 0.7 Nucleated RBC % 0 Sodium Potassium 2.9 L* Chloride Carbon Dioxide Anion Gap BUN Creatinine Creat Clearance w eGFR Random Glucose Calcium Magnesium Iron 20 L TIBC 327 Iron Saturation 6 L Total Bilirubin AST ALT Alkaline Phosphatase Total Protein Albumin Blood Type Antibody Screen Crossmatch 12/07/17 12/07/17 12/07/17 07:15 08:55 08:55 WBC 2.2 L RBC 3.52 L Hgb 7.3 L Hct 25.2 L MCV 71.6 L MCH 20.8 L MCHC 29.1 L RDW 23.4 H Plt Count 195 MPV 7.4 L Absolute Neuts (auto) 1.5 Neutrophils % 68.7 Lymphocytes % 21.6 Monocytes % 8.4 Eosinophils % 0.5 D Basophils % 0.8 Nucleated RBC % 1 H Sodium 136 Potassium 2.7 L* Chloride 94 L Carbon Dioxide 32 Anion Gap 9 BUN 28 H Creatinine 1.0 Creat Clearance w eGFR 53.08 Random Glucose 94 Calcium 7.6 L Magnesium 2.2 Iron TIBC Iron Saturation Total Bilirubin 0.7 AST 20 ALT 21 Alkaline Phosphatase 101 Total Protein 7.7 Albumin 2.5 L Blood Type A POSITIVE Antibody Screen Negative Crossmatch See Detail Active Medications Generic Name Dose Route Start Last Admin Trade Name Yongq PRN Reason Stop Dose Admin Apixaban 5 mg 12/03/17 22:00 12/07/17 11:30 Eliquis - PO 5 mg BID ELENA Administration Docusate Sodium 100 mg 12/02/17 22:00 12/06/17 21:40 Colace - PO 100 mg HS ELENA Administration Ferrous Gluconate 324 mg 12/03/17 10:00 12/07/17 11:31 Fergon - PO 324 mg DAILY ELENA Administration Folic Acid 1 mg 12/03/17 10:00 12/07/17 11:31 Folic Acid - PO 1 mg DAILY ELENA Administration Furosemide 40 mg 12/04/17 06:00 12/07/17 13:24 Lasix Injection - IVPUSH 40 mg BID@0600,1400 ELENA Administration Hydroxychloroquine Sulfate 200 mg 12/02/17 22:00 12/07/17 11:31 Plaquenil - PO 200 mg BID ELENA Administration Potassium Chloride 10 meq in 100 mls @ 100 mls/hr 12/07/17 11:45 12/07/17 13: 24 Potassium Chloride 10 Meq Premix Ivpb - IVPB 12/07/17 14:44 100 mls/hr Q60M ELENA Administration Levothyroxine Sodium 50 mcg 10/18/18 07:00 12/07/17 06:00 Synthroid - PO 50 mcg 0700 ELENA Administration Lorazepam 1 mg 12/03/17 10:00 12/07/17 11:30 Ativan - PO 1 mg DAILY ELENA Administration Metoprolol Succinate 100 mg/ 125 mg 12/03/17 10:00 12/07/17 11:29 Metoprolol Succinate 25 mg PO 125 mg DAILY ELENA Administration Pantoprazole Sodium 40 mg 12/03/17 10:00 12/07/17 11:31 Protonix - PO 40 mg DAILY ELENA Administration Potassium Chloride 40 meq 12/07/17 11:45 12/07/17 12:23 K-Dur - PO 40 meq BID ELENA Administration Risperidone 2 mg 12/03/17 11:01 12/07/17 11:30 Risperdal - PO 2 mg DAILY ELENA Administration ASSESSMENT/PLAN: Patient is an 82 year old female with a significant past medical history of: -Iron deficiency anemia -Bilateral difficulty with ambulation - WC bound mostly -Hypothyroidism -Hx of celulitis of LLE -Acute on chronic diastolic congestive heart failure -Bipolar disorder -Leukopenia -Atrial fibrillation -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 She presents to the ED on 12/02/2017 after patient was seen By Dr. Carr on 12/02/2017 and patient was advised to go to [facility] to rule out GI bleed as her hmg/ hct was 7.5/28. She was reported to have dark stools at the nursing facility. She received 1 unit of prbc on admission, however hospitalization complicated when patient developed labored breathing and had exacerbation of CHF. She was noted to crackles on bilateral lung bases. Her lower extremities with +2 pitting edema. She is normally able to tolerate room air, but now requires 2 liters of nasal cannula. Heme Iron deficiency anemia/Blood loss anemia. transfused 1 unit of pbrc on admission with good effect. She will be receiving a 2nd unit of prbc today for hmt of 7.3. Leukopenia. WBC reported to be normally ~ 2.3. blood cultures negative. Heme following. Iron studies pending, however were drawn after patient was transfused 1st unit of prbc. GI: Rule out GI bleed. Started on Protonix 40mg daily. Further workup of possible gi bleed outpatient vs inpatient. Card Acute on chronic diastolic congestive heart failure. dry weight reported to be ~239? at [facility]. She has been diuresed with lasix 40mg BID/weights 105>100kg. Fluid restriction of 1200cc daily. daily weights, strict intake and output. Atrial fibrillation. on eliquis bid. on metoprolol. cardiology following. Mobility Bilateral difficulty with ambulation in the setting of poor performance status. will consult PT once more stable. Endocrine Hypothyroidism TSH @ 20. Spoke to Dr. Cannon ([facility] physician - PMD) - (Synthoid dose was recently increased at [facility] per MD- Repeat TSH @ [facility] as outpatient) Vascular Hx of celulitis of LLE No cellulitis presently. monitor for signs of infection. Psyche Bipolar disorder, continue home medications fen tolerating po SCDs Visit type - Emergency Visit Emergency Visit: Yes ED Registration Date: 12/04/17 Care time: The patient presented to the Emergency Department on the above date and was hospitalized for further evaluation of their emergent condition. - New Patient This patient is new to me today: No - Critical Care Critical Care patient: No - Discharge Referral Referred to [facility] Med P.C.: No
--- NOTE | 2017-12-07 15:57 | PN ---
Progress Note (short form) - Note Progress Note: s: no cp palps dizzy sob. feels tired o: Vital Signs Period Temp Pulse Resp BP Sys/Neal Pulse Ox Last 24 Hr 97.3 F-98.7 F 83-83 18-18 132-141/64-70 98 nad no jvd irreg s1s2 no mrg cta bl, ausculated anteriorly with poor effort awake alert confused abd nt nd pos bs no jaundice diaphoresis trace/1+ le edema bl, chronic venous insuff changes of skin Current Medications Apixaban (Eliquis -) 5 mg PO BID [facility] Last Admin: 12/07/17 11:30 Dose: 5 mg Docusate Sodium (Colace -) 100 mg PO HS [facility] Last Admin: 12/06/17 21:40 Dose: 100 mg Ferrous Gluconate (Fergon -) 324 mg PO DAILY [facility] Last Admin: 12/07/17 11:31 Dose: 324 mg Folic Acid (Folic Acid -) 1 mg PO DAILY [facility] Last Admin: 12/07/17 11:31 Dose: 1 mg Furosemide (Lasix Injection -) 40 mg IVPUSH BID@0600,1400 [facility] Last Admin: 12/07/17 13:24 Dose: 40 mg Hydroxychloroquine Sulfate (Plaquenil -) 200 mg PO BID [facility] Last Admin: 12/07/17 11:31 Dose: 200 mg Levothyroxine Sodium (Synthroid -) 50 mcg PO 0700 [facility] Last Admin: 12/07/17 06:00 Dose: 50 mcg Lorazepam (Ativan -) 1 mg PO DAILY [facility] Last Admin: 12/07/17 11:30 Dose: 1 mg Metoprolol Succinate 100 mg/ (Metoprolol Succinate 25 mg) 125 mg PO DAILY [facility] Last Admin: 12/07/17 11:29 Dose: 125 mg Pantoprazole Sodium (Protonix -) 40 mg PO DAILY [facility] Last Admin: 12/07/17 11:31 Dose: 40 mg Potassium Chloride (K-Dur -) 40 meq PO BID [facility] Last Admin: 12/07/17 12:23 Dose: 40 meq Risperidone (Risperdal -) 2 mg PO DAILY [facility] Last Admin: 12/07/17 11:30 Dose: 2 mg cxr: clear lungs ecg: afib, rate controlled, nl qtc, no ischemic changes echo 11/2017: tds; nl lv, rv tds, no sig valve path, nl rvsp a/p: 82 f hx anemia, RA, hypothyroid, chf, afib, htn, sent from md for anemia, dark stools. dark stools, anemia: -being evaluated by GI, Heme acute diastolic chf: -no details available, pt on lasix 40 bid po at [place] -echo unremarkable here - weight decreasing, breathing feels better, stable Cr - continue IV lasix 40 mg BID, monitor Cr, daily weight afib: -rate controlled, cont toprol -has been on eliquis, continued here, monitor hgb hypothyroid: -tsh elevated, synthroid dosing per pmd htn: -cont toprol ckd: -unknown baseline, monitor cr here with diuresis
[2017-12-07] MEDS: DOCUSATE SODIUM 100 MG CAPSULE (FP) PO SCH (21:23)
[2017-12-08] MEDS: FUROSEMIDE 40 MG/4 ML INJECTABLE VIAL IVPUSH SCH ×2 (05:59→15:04)
[2017-12-08] MEDS: LEVOTHYROXINE NA 50 MCG TABLET (FP) PO SCH (06:04)
[2017-12-08 08:08] LABS: BASO % 0.7 % (0-2.0); EOS % 0.2 % (0-4.5); HEMATOCRIT 29.3 % (32.4-45.2); HEMOGLOBIN 8.6 GM/dL (10.7-15.3); LYMPH % 20.9 % (8-40); MCHC 29.4 g/dl (32.0-36.0); MEAN CELL VOLUME 71.5 fl (80-96); MEAN PLT VOLUME 7.6 fl (7.5-11.1); MONO % 7.7 % (3.8-10.2); NEUT % 70.5 % (42.8-82.8); PLATELET COUNT 212 K/MM3 (134-434); RBC 4.09 M/mm3 (3.60-5.2); RDW 22.8 % (11.6-15.6); WHITE BLOOD COUNT 2.3 K/mm3 (4.0-10.0)
[2017-12-08 08:54] LABS: ALBUMIN 2.4 g/dl (3.4-5.0); ALK PHOS 105 U/L (45-117); ANION GAP 9 MMOL/L (8-16); BILIRUBIN,TOTAL 0.9 mg/dL (0.2-1); BLOOD UREA NITROGEN 31 mg/dL (7-18); CALCIUM 8.1 mg/dL (8.5-10.1); CHLORIDE 97 mmol/L (98-107); CO2 31 mmol/L (21-32); GLUCOSE,RANDOM 91 mg/dL (74-106); MAGNESIUM 2.4 mg/dL (1.8-2.4); POTASSIUM 3.5 mmol/L (3.5-5.1); SGOT/AST 24 U/L (15-37); SGPT/ALT 17 U/L (13-61); SODIUM 137 mmol/L (136-145); TOT PROT 7.4 g/dl (6.4-8.2)
[2017-12-08] MEDS ORDERED: metoPROLOL SUCCINATE 25 MG TAB.SR.24H (FP) ONE (10:03)
[2017-12-08] MEDS ORDERED: PT OWN MED DRAWER 7, Y5N ONE ×2 (10:04→21:09)
[2017-12-08] MEDS: POTASSIUM CHLORIDE TABS 20 MEQ TABLET.ER (FP) PO SCH ×2 (10:16→21:15)
[2017-12-08] MEDS: METOPROLOL SUCCINATE 100 MG, METOPROLOL SUCCINATE 25 MG PO SCH (10:16)
[2017-12-08] MEDS: APIXABAN 5 MG TABLET PO SCH ×2 (10:16→21:15)
[2017-12-08] MEDS: risperiDONE 1 MG TABLET (FP) PO SCH (10:18)
[2017-12-08] MEDS: FERROUS GLUCONATE 324 MG TAB (FP) PO SCH (10:18)
[2017-12-08] MEDS: LORazepam 1 MG TABLET PO SCH (10:18)
[2017-12-08] MEDS: HYDROXYCHLOROQUINE SO4 200 MG TABLET (FP) PO SCH ×2 (10:19→21:15)
[2017-12-08] MEDS: PANTOPRAZOLE 40 MG TABLET (FP) PO SCH (10:19)
[2017-12-08] MEDS: FOLIC ACID 1 MG TABLET (FP) PO SCH (10:19)
--- NOTE | 2017-12-08 12:59 | PN ---
Physical Exam: SUBJECTIVE: Patient seen and examined. She is awake, eating lunch in bed. She says her breathing is improving. She denies CP. OBJECTIVE: Vital Signs Period Temp Pulse Resp BP Sys/Neal Pulse Ox Last 24 Hr 98.2 F-98.7 F 84-90 18-20 112-173/59-84 98 GENERAL: The patient is awake, alert, and mildly dyspneic. LUNGS: Bibasilar rales. HEART: Irregularly irregular. ABDOMEN: Obese, soft, nontender, nondistended, normoactive bowel sounds, no guarding, no rebound, no hepatosplenomegaly, no masses. EXTREMITIES: 2+ pulses, warm, well-perfused, trace edema. Laboratory Results - last 24 hr 12/04/17 12/07/17 12/07/17 06:50 08:55 17:00 WBC RBC Hgb Hct 27.3 L MCV MCH MCHC RDW Plt Count MPV Absolute Neuts (auto) Neutrophils % Lymphocytes % Monocytes % Eosinophils % Basophils % Nucleated RBC % Sodium Potassium 3.5 Chloride Carbon Dioxide Anion Gap BUN Creatinine Creat Clearance w eGFR Random Glucose Calcium Magnesium Total Bilirubin AST ALT Alkaline Phosphatase Total Protein Albumin Folate >2271 Folate Hemolysate >620.0 Blood Type A POSITIVE Antibody Screen Negative Crossmatch See Detail 12/08/17 12/08/17 07:00 07:00 WBC 2.3 L RBC 4.09 Hgb 8.6 L Hct 29.3 L D MCV 71.5 L MCH 21.0 L MCHC 29.4 L RDW 22.8 H Plt Count 212 MPV 7.6 Absolute Neuts (auto) 1.6 Neutrophils % 70.5 Lymphocytes % 20.9 Monocytes % 7.7 Eosinophils % 0.2 Basophils % 0.7 Nucleated RBC % 1 H Sodium 137 Potassium 3.5 Chloride 97 L Carbon Dioxide 31 Anion Gap 9 BUN 31 H Creatinine 1.0 Creat Clearance w eGFR 53.08 Random Glucose 91 Calcium 8.1 L Magnesium 2.4 Total Bilirubin 0.9 AST 24 ALT 17 Alkaline Phosphatase 105 Total Protein 7.4 Albumin 2.4 L Folate Folate Hemolysate Blood Type Antibody Screen Crossmatch Active Medications Generic Name Dose Route Start Last Admin Trade Name Freq PRN Reason Stop Dose Admin Apixaban 5 mg 12/03/17 22:00 12/08/17 10:16 Eliquis - PO 5 mg BID ELENA Administration Docusate Sodium 100 mg 12/02/17 22:00 12/07/17 21:23 Colace - PO 100 mg HS ELENA Administration Ferrous Gluconate 324 mg 12/03/17 10:00 12/08/17 10:18 Fergon - PO 324 mg DAILY ELENA Administration Folic Acid 1 mg 12/03/17 10:00 12/08/17 10:19 Folic Acid - PO 1 mg DAILY ELENA Administration Furosemide 40 mg 12/04/17 06:00 12/08/17 05:59 Lasix Injection - IVPUSH 40 mg BID@0600,1400 ELENA Administration Hydroxychloroquine Sulfate 200 mg 12/02/17 22:00 12/08/17 10:19 Plaquenil - PO 200 mg BID ELENA Administration Levothyroxine Sodium 50 mcg 12/03/17 07:00 12/08/17 06:04 Synthroid - PO 50 mcg 0700 ELENA Administration Lorazepam 1 mg 12/03/17 10:00 12/08/17 10:18 Ativan - PO 1 mg DAILY ELENA Administration Metoprolol Succinate 100 mg/ 125 mg 12/03/17 10:00 12/08/17 10:16 Metoprolol Succinate 25 mg PO 125 mg DAILY ELENA Administration Pantoprazole Sodium 40 mg 12/03/17 10:00 12/08/17 10:19 Protonix - PO 40 mg DAILY ELENA Administration Potassium Chloride 40 meq 12/07/17 11:45 12/08/17 10:16 K-Dur - PO 40 meq BID ELENA Administration Risperidone 2 mg 12/03/17 11:01 12/08/17 10:18 Risperdal - PO 2 mg DAILY ELENA Administration ASSESSMENT/PLAN: This is an 82 year old woman with a history of iron deficiency anemia, hypothyroidism, chronic diastolic heart failure, bipolar disorder, atrial fibrillation, rheumatoid arthritis who presented to the ED for evaluation of anemia and dark stools. 1. Iron deficiency anemia secondary to chronic GI blood loss - Transfused 2 units PRBCs - Hemoglobin stable - Continue ferrous gluconate, Protonix - GI work up once cleared by cardiology 2. Acute on chronic diastolic heart failure - Weight down 4 kg over 6 days - Continue Lasix IV - consider change to PO tomorrow - Continue fluid restriction - Continue to monitor weight 3. Permanent atrial fibrillation - Continue Toprol XL, Eliquis 4. Leukopenia, chronic - Possibly secondary to Plaquenil - WBC stable 5. Hypothyroidism - Continue Synthroid (TSH is high, but Synthroid dose recently increased) 6. Bipolar disorder - Continue Risperdal, Ativan 7. Rheumatoid arthritis - Continue Plaquenil Visit type - Emergency Visit Emergency Visit: Yes ED Registration Date: 12/04/17 Care time: The patient presented to the Emergency Department on the above date and was hospitalized for further evaluation of their emergent condition. - New Patient This patient is new to me today: Yes Date on this admission: 12/08/17 - Critical Care Critical Care patient: No - Discharge Referral Referred to [facility] Med P.C.: No
[2017-12-08] MEDS: DOCUSATE SODIUM 100 MG CAPSULE (FP) PO SCH (21:15)
[2017-12-09 00:07] LABS: FREE KAPPA,SERUM 158.9 mg/L (3.3-19.4)
[2017-12-09] MEDS: LEVOTHYROXINE NA 50 MCG TABLET (FP) PO SCH (06:17)
[2017-12-09] MEDS: FUROSEMIDE 40 MG/4 ML INJECTABLE VIAL IVPUSH SCH ×2 (06:17→13:35)
[2017-12-09 08:02] LABS: BASO % 1.3 % (0-2.0); EOS % 0.7 % (0-4.5); HEMOGLOBIN 8.3 GM/dL (10.7-15.3); LYMPH % 26.6 % (8-40); MCH 21.4 pg (25.7-33.7); MCHC 29.6 g/dl (32.0-36.0); MEAN CELL VOLUME 72.3 fl (80-96); MEAN PLT VOLUME 7.5 fl (7.5-11.1); MONO % 7.8 % (3.8-10.2); NEUT % 63.6 % (42.8-82.8); PLATELET COUNT 200 K/MM3 (134-434); RBC 3.87 M/mm3 (3.60-5.2); RDW 23.3 % (11.6-15.6)
[2017-12-09 08:26] LABS: ANION GAP 6 MMOL/L (8-16); BLOOD UREA NITROGEN 33 mg/dL (7-18); CALCIUM 8.1 mg/dL (8.5-10.1); CHLORIDE 98 mmol/L (98-107); CO2 32 mmol/L (21-32); CREATININE 1.1 mg/dL (0.55-1.3); GLUCOSE,RANDOM 92 mg/dL (74-106); MAGNESIUM 2.4 mg/dL (1.8-2.4); POTASSIUM 3.9 mmol/L (3.5-5.1); SODIUM 135 mmol/L (136-145)
[2017-12-09] MEDS ORDERED: metoPROLOL SUCCINATE 25 MG TAB.SR.24H (FP) ONE (10:05)
[2017-12-09] MEDS: APIXABAN 5 MG TABLET PO SCH ×2 (10:07→22:22)
[2017-12-09] MEDS: FERROUS GLUCONATE 324 MG TAB (FP) PO SCH (10:07)
[2017-12-09] MEDS: POTASSIUM CHLORIDE TABS 20 MEQ TABLET.ER (FP) PO SCH ×2 (10:07→22:22)
[2017-12-09] MEDS: LORazepam 1 MG TABLET PO SCH (10:07)
[2017-12-09] MEDS: FOLIC ACID 1 MG TABLET (FP) PO SCH (10:07)
[2017-12-09] MEDS: METOPROLOL SUCCINATE 100 MG, METOPROLOL SUCCINATE 25 MG PO SCH (10:08)
[2017-12-09] MEDS: PANTOPRAZOLE 40 MG TABLET (FP) PO SCH (10:08)
[2017-12-09] MEDS: HYDROXYCHLOROQUINE SO4 200 MG TABLET (FP) PO SCH ×2 (10:08→22:23)
[2017-12-09] MEDS: risperiDONE 1 MG TABLET (FP) PO SCH (10:08)
--- NOTE | 2017-12-09 16:41 | PN ---
Progress Note (short form) - Note Progress Note: s: no cp palps dizzy; laying flat, no sob o: Vital Signs Period Temp Pulse Resp BP Sys/Neal Pulse Ox Last 24 Hr 98.1 F-98.3 F 69-90 18-20 96-146/50-64 98-98 nad no jvd irreg s1s2 no mrg cta bl nl eff awake alert confused abd nt nd pos bs no jaundice diaphoresis no le edema Current Medications Generic Name Dose Route Start Last Admin Trade Name Frejaun PRN Reason Stop Dose Admin Apixaban 5 mg 12/03/17 22:00 12/09/17 10:07 Eliquis - PO 5 mg BID ELENA Administration Docusate Sodium 100 mg 12/02/17 22:00 12/08/17 21:15 Colace - PO 100 mg HS ELENA Administration Ferrous Gluconate 324 mg 12/03/17 10:00 12/09/17 10:07 Fergon - PO 324 mg DAILY ELENA Administration Folic Acid 1 mg 12/03/17 10:00 12/09/17 10:07 Folic Acid - PO 1 mg DAILY ELENA Administration Furosemide 40 mg 12/04/17 06:00 12/09/17 13:35 Lasix Injection - IVPUSH 40 mg BID@0600,1400 ELENA Administration Hydroxychloroquine Sulfate 200 mg 12/02/17 22:00 12/09/17 10:08 Plaquenil - PO 200 mg BID ELENA Administration Levothyroxine Sodium 50 mcg 12/03/17 07:00 12/09/17 06:17 Synthroid - PO 50 mcg 0700 ELENA Administration Lorazepam 1 mg 12/03/17 10:00 12/09/17 10:07 Ativan - PO 1 mg DAILY ELENA Administration Metoprolol Succinate 100 mg/ 125 mg 12/03/17 10:00 12/09/17 10:08 Metoprolol Succinate 25 mg PO 125 mg DAILY ELENA Administration Pantoprazole Sodium 40 mg 12/03/17 10:00 12/09/17 10:08 Protonix - PO 40 mg DAILY ELENA Administration Potassium Chloride 40 meq 12/07/17 11:45 12/09/17 10:07 K-Dur - PO 40 meq BID ELENA Administration Risperidone 2 mg 12/03/17 11:01 12/09/17 10:08 Risperdal - PO 2 mg DAILY ELENA Administration CBC, BMP 12/09/17 06:50 12/09/17 06:50 cxr: clear lungs ecg: afib, rate controlled, nl qtc, no ischemic changes echo 11/2017: tds; nl lv, rv tds, no sig valve path, nl rvsp a/p: 82 f hx anemia, RA, hypothyroid, chf, afib, htn, sent from [place] for [place], dark stools. dark stools, anemia: -being evaluated by GI, Heme -cardiac bangura stable for endoscopy/foc if needed acute diastolic chf: -no details available, pt on lasix 40 bid po at [place] -echo unremarkable here -vol status improved after iv lasix, can change to po now 40 bid. afib: -rate controlled, cont toprol -has been on eliquis, continued here, monitor hgb hypothyroid: -tsh elevated, synthroid dosing per pmd htn: -cont toprol ckd: -unknown baseline, improved here after diuresis
--- NOTE | 2017-12-09 17:51 | PATH ---
Surgical Pathology Report Patient Name: DOYLE LAN [facility]. Rec. #: [id number] /Age/Gender: 1935 (Age: 82) / F Account: [id number] Location: [address] [place] [address] Taken: 12/04/2017 Received: 12/07/2017 Reported: 12/09/2017 Physicians: Isabelle Christie M.D. Specimen(s) Received 2 GREEN TOP TUBES Clinical History Leukopenia and anemia Final Diagnosis COMPREHENSIVE FL[facility] [place] ([id number]) INTERPRETATION: No definitive atypical flow cytometric findings seen. MYELODYSPLASIA FISH PANEL performed and interpreted at [place], [place] ([id number]) shows the following: INTERPRETATION: No evidence of deletion 5q or monosomy 5 is present. No evidence of deletion 7q or monosomy 7 is present. No evidence of trisomy 8 (+8) is present. No evidence of deletion 13q14.2 is present. No evidence of rearrangement of 11q23. No evidence of a deletion of the p53 (17p13) locus. No evidence of deletion 20q12 is present See [facility] reports ([id number] and [id number]) for additional details. Electronically Signed Alina Ladd M.D. Addendum Reported: 12/11/2017 Addendum Diagnosis CYTOGENETIC KARYOTYPE ANALYSIS received from [place], [place] ([id number]) shows the following: TEST RESULTS: Tissue Culture Failure. DIAGNOSTIC INTERPRETATION: This unstimulated peripheral blood specimen did not produce any analyzable metaphase cells and, therefore, chromosome analysis is not possible. A bone marrow aspirate, when clinically appropriate, is recommended. See [facility] report for additional details. Alina Ladd M.D. Gross Description Received are 2 green top tubes of blood which are sent to [facility]. /12/07/2017 saudi12/07/2017
--- NOTE | 2017-12-09 18:20 | PN ---
Progress Note (short form) - Note Progress Note: Patient seen and examined at bedside feels "so-so" Denies rectal bleeding Hb improving 8.3 WBC still 2 thousand Vital Signs Temperature 98.3 F 12/09/17 14:00 Pulse Rate 83 12/09/17 14:00 Respiratory Rate 18 12/09/17 14:00 Blood Pressure 96/51 L 12/09/17 14:00 O2 Sat by Pulse Oximetry (%) 98 12/09/17 09:00 PE: alert and awake. Thinks its 1982. Thinks she is at the doctors office Irregular S1 S2 CTAB Soft non tender non distended non pitting edema 12/09/17 12/09/17 06:50 06:50 WBC 2.0 L RBC 3.87 Hgb 8.3 L Hct 28.0 L MCV 72.3 L MCHC 29.6 L RDW 23.3 H Plt Count 200 Neutrophils % 63.6 Lymphocytes % 26.6 D Monocytes % 7.8 Eosinophils % 0.7 D Basophils % 1.3 Sodium 135 L Potassium 3.9 Chloride 98 Carbon Dioxide 32 Anion Gap 6 L BUN 33 H Creatinine 1.1 12/03/17 19:45 Blood Culture - Final Blood - Peripheral Venous NO GROWTH AFTER 5 DAYS INCUBATION 12/03/17 17:45 Blood Culture - Final Blood - Peripheral Venous NO GROWTH AFTER 5 DAYS INCUBATION Problem List: iron deficiency anemia A-Fib CHF HTN NIDDM disorganized schizophrenia Asthma RA (on hydroxcloroquine) Hypothyroidism non-thrombocytopenic purpura GERD Plan: Patients iron studies consistent with Iron deficiency anemia Need 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
--- NOTE | 2017-12-09 18:25 | PN ---
Teaching Attending Note Name of Resident: Fransico Marcial ATTENDING PHYSICIAN STATEMENT I saw and evaluated the patient. I reviewed the resident's note and discussed the case with the resident. I agree with the resident's findings and plan as documented. SUBJECTIVE: Patient seen and examined Anemia- compatible with Fe++ deficiency. ? able in future to tolerate a GI work up Leukopenia- ? MDS , ? rheumatologic ? other - labs and screening tests ordered For IV venofer. OBJECTIVE: ASSESSMENT AND PLAN:
[2017-12-09] MEDS ORDERED: IRON SUCROSE INJECTION 100 MG in SODIUM CHLORIDE 95 ML IVPB ONE (18:30)
--- NOTE | 2017-12-09 21:07 | PN ---
Physical Exam: SUBJECTIVE: Patient seen and examined OBJECTIVE: Vital Signs Period Temp Pulse Resp BP Sys/Neal Pulse Ox Last 24 Hr 98.1 F-98.3 F 83-90 18-20 96-146/51-64 98 GENERAL: The patient is awake, alert. LUNGS: Anterior breath sounds CTA HEART: Irregularly irregular. ABDOMEN: Obese, soft, nontender, nondistended, normoactive bowel sounds, no guarding, no rebound EXTREMITIES: 2+ pulses, warm, well-perfused, trace edema. SKIN: Stage I pressure ulcer sacrum Laboratory Results - last 24 hr 12/07/17 12/09/17 12/09/17 07:15 06:50 06:50 WBC 2.0 L RBC 3.87 Hgb 8.3 L Hct 28.0 L MCV 72.3 L MCH 21.4 L MCHC 29.6 L RDW 23.3 H Plt Count 200 MPV 7.5 Absolute Neuts (auto) 1.3 L Neutrophils % 63.6 Lymphocytes % 26.6 D Monocytes % 7.8 Eosinophils % 0.7 D Basophils % 1.3 Nucleated RBC % 1 H Sodium 135 L Potassium 3.9 Chloride 98 Carbon Dioxide 32 Anion Gap 6 L BUN 33 H Creatinine 1.1 Creat Clearance w eGFR 47.55 Random Glucose 92 Calcium 8.1 L Magnesium 2.4 Aongf-2-Ujzihqecg (%) Cancelled Qqucj-5-Qvpqwyqtx (%) Cancelled Beta Globulins 1.6 H Beta Globulins (%) Cancelled Gamma Globulins (%) Cancelled M-Denny % Cancelled SARAH & SPEP Interp Total Protein (SARAH) 7.4 Albumin (SARAH) 2.8 L Albumin/Globulin (SARAH) 0.7 Oagvt-9-Klloatqgl SARAH 0.2 Xnzca-0-Auodpwxmy SARAH 0.6 Gamma Globulins (SARAH) 2.2 H SARAH M-Denny Not observed SARAH Comments IEP IgG 1544 IEP IgA 1679 H IEP IgM 236 H Free [place] LC, Quant 158.9 H Free Lambda LC, Quant 132.8 H Free [place]/Lambda Ratio 1.20 Ref Test Comments Cancelled Active Medications Generic Name Dose Route Start Last Admin Trade Name Freq PRN Reason Stop Dose Admin Apixaban 5 mg 12/03/17 22:00 12/09/17 10:07 Eliquis - PO 5 mg BID ELENA Administration Docusate Sodium 100 mg 12/02/17 22:00 12/08/17 21:15 Colace - PO 100 mg HS ELENA Administration Ferrous Gluconate 324 mg 12/03/17 10:00 12/09/17 10:07 Fergon - PO 324 mg DAILY ELENA Administration Folic Acid 1 mg 12/03/17 10:00 12/09/17 10:07 Folic Acid - PO 1 mg DAILY ELENA Administration Furosemide 40 mg 12/10/17 06:00 Lasix - PO BID@0600,1400 [facility] Hydroxychloroquine Sulfate 200 mg 12/02/17 22:00 12/09/17 10:08 Plaquenil - PO 200 mg BID ELENA Administration Levothyroxine Sodium 50 mcg 12/03/17 07:00 12/09/17 06:17 Synthroid - PO 50 mcg 0700 ELENA Administration Lorazepam 1 mg 12/03/17 10:00 12/09/17 10:07 Ativan - PO 1 mg DAILY ELENA Administration Metoprolol Succinate 100 mg/ 125 mg 12/03/17 10:00 12/09/17 10:08 Metoprolol Succinate 25 mg PO 125 mg DAILY ELENA Administration Pantoprazole Sodium 40 mg 12/03/17 10:00 12/09/17 10:08 Protonix - PO 40 mg DAILY ELENA Administration Potassium Chloride 40 meq 12/07/17 11:45 12/09/17 10:07 K-Dur - PO 40 meq BID ELENA Administration Risperidone 2 mg 12/03/17 11:01 12/09/17 10:08 Risperdal - PO 2 mg DAILY ELENA Administration ASSESSMENT/PLAN: 82 year-old female with a PMH significant for HTN, afib on Eliquis, diastolic HF , RA, and schizoaffective/bipolar disorder. Admitted for symptomatic anemia and occult stool positive. Iron-deficiency anemia secondary to chronic GI blood loss --Hgb 7.6 on aadmission, occult stool positive --transfused 2U PRBC so far this admission, last transfused 12/07, h/h stable --GI workup deferred until patient more stable --continue iron supplementation, protonix Hypertension --BP stable --continue metoprolol Atrial fibrillation --rate-controlfled, continue metoprolol --continue Eliquis Acute on chronic diastolic heart failure --continue lasix PO BID --continue K supplementation --continue fluid restriction --daily weights Rheumatoid arthritis --continue Plaquenil Schizoaffective/bipolar disorder --continue risperidone, lorazepam NIDDM --Novolog sliding scale coverage Leukopenia, chronic --possibly medication related, e.g. Plaquenil, risperidone --WBC is stable --heme following, considering MDS Visit type - Emergency Visit Emergency Visit: Yes ED Registration Date: 12/04/17 Care time: The patient presented to the Emergency Department on the above date and was hospitalized for further evaluation of their emergent condition. - New Patient This patient is new to me today: Yes Date on this admission: 12/14/17 - Critical Care Critical Care patient: No
[2017-12-09] MEDS ORDERED: PT OWN MED DRAWER 7, Y5N ONE (22:13)
[2017-12-09] MEDS: DOCUSATE SODIUM 100 MG CAPSULE (FP) PO SCH (22:23)
[2017-12-10 00:58] LABS: URINE APPEARANCE SLCLOUDY; URINE BILIRUBIN NEGATIVE (<2.0 mg/dL); URINE COLOR DKYELLOW; URINE GLUCOSE (UA) NEGATIVE (NEGATIVE); URINE KETONE NEGATIVE (NEGATIVE); URINE LEUK ESTERASE 3+ (NEGATIVE); URINE NITRITE POSITIVE (NEGATIVE); URINE PROTEIN NEGATIVE (NEGATIVE)
[2017-12-10 01:17] LABS: EPI CELLS RARE /HPF (FEW); URINE BACTERIA MANY /hpf (NONE SEEN); URINE HYALINE CAST 7 /lpf; URINE MUCUS RARE
[2017-12-10] MEDS: FUROSEMIDE 40 MG TABLET (FP) PO SCH ×2 (05:57→13:27)
[2017-12-10] MEDS: LEVOTHYROXINE NA 50 MCG TABLET (FP) PO SCH (06:03)
[2017-12-10 08:41] LABS: BASO % 1.3 % (0-2.0); EOS % 1.3 % (0-4.5); HEMATOCRIT 28.3 % (32.4-45.2); HEMOGLOBIN 8.4 GM/dL (10.7-15.3); LYMPH % 25.9 % (8-40); MCH 21.6 pg (25.7-33.7); MCHC 29.6 g/dl (32.0-36.0); MEAN CELL VOLUME 72.8 fl (80-96); MEAN PLT VOLUME 7.5 fl (7.5-11.1); MONO % 8.4 % (3.8-10.2); NEUT % 63.1 % (42.8-82.8); PLATELET COUNT 207 K/MM3 (134-434); RBC 3.89 M/mm3 (3.60-5.2); RDW 23.3 % (11.6-15.6)
[2017-12-10 08:44] LABS: WHITE BLOOD COUNT 1.9 K/mm3 (4.0-10.0)
[2017-12-10] MEDS ORDERED: metoPROLOL SUCCINATE 25 MG TAB.SR.24H (FP) ONE (09:51)
[2017-12-10] MEDS: LORazepam 1 MG TABLET PO SCH (09:57)
[2017-12-10] MEDS: PANTOPRAZOLE 40 MG TABLET (FP) PO SCH (09:58)
[2017-12-10] MEDS: APIXABAN 5 MG TABLET PO SCH ×2 (09:58→23:33)
[2017-12-10] MEDS: risperiDONE 1 MG TABLET (FP) PO SCH (09:58)
[2017-12-10] MEDS: METOPROLOL SUCCINATE 100 MG, METOPROLOL SUCCINATE 25 MG PO SCH (09:58)
[2017-12-10] MEDS: FERROUS GLUCONATE 324 MG TAB (FP) PO SCH (09:58)
[2017-12-10] MEDS: HYDROXYCHLOROQUINE SO4 200 MG TABLET (FP) PO SCH ×2 (09:58→23:32)
[2017-12-10] MEDS: FOLIC ACID 1 MG TABLET (FP) PO SCH (09:58)
[2017-12-10] MEDS: POTASSIUM CHLORIDE TABS 20 MEQ TABLET.ER (FP) PO SCH ×2 (09:58→23:33)
[2017-12-10 11:58] LABS: ANISOCYTOSIS 2+; MACROCYTOSIS 0; OVALOCYTE 1+; PLATELET ESTIMATE NORMAL
--- NOTE | 2017-12-10 16:02 | PN ---
Progress Note (short form) - Note Progress Note: [facility] *LIVE* s: no cp palps dizzy dyspnea o: Vital Signs Period Temp Pulse Resp BP Sys/Neal Pulse Ox Last 24 Hr 98 F-98.4 F 73-91 20-21 100-113/56-63 98-98 nad no jvd irreg s1s2 no mrg cta bl nl eff awake alert confused abd nt nd pos bs no jaundice diaphoresis no le edema Current Medications Apixaban (Eliquis -) 5 mg PO BID [facility] Last Admin: 12/10/17 09:58 Dose: 5 mg Docusate Sodium (Colace -) 100 mg PO HS [facility] Last Admin: 12/09/17 22:23 Dose: 100 mg Ferrous Gluconate (Fergon -) 324 mg PO DAILY [facility] Last Admin: 12/10/17 09:58 Dose: 324 mg Folic Acid (Folic Acid -) 1 mg PO DAILY [facility] Last Admin: 12/10/17 09:58 Dose: 1 mg Furosemide (Lasix -) 40 mg PO BID@0600,1400 [facility] Last Admin: 12/10/17 13:27 Dose: 40 mg Hydroxychloroquine Sulfate (Plaquenil -) 200 mg PO BID [facility] Last Admin: 12/10/17 09:58 Dose: 200 mg Levothyroxine Sodium (Synthroid -) 50 mcg PO 0700 [facility] Last Admin: 12/10/17 06:03 Dose: 50 mcg Lorazepam (Ativan -) 1 mg PO DAILY [facility] Last Admin: 12/10/17 09:57 Dose: 1 mg Metoprolol Succinate 100 mg/ (Metoprolol Succinate 25 mg) 125 mg PO DAILY [facility] Last Admin: 12/10/17 09:58 Dose: 125 mg Pantoprazole Sodium (Protonix -) 40 mg PO DAILY [facility] Last Admin: 12/10/17 09:58 Dose: 40 mg Potassium Chloride (K-Dur -) 40 meq PO BID [facility] Last Admin: 12/10/17 09:58 Dose: 40 meq Risperidone (Risperdal -) 2 mg PO DAILY [facility] Last Admin: 12/10/17 09:58 Dose: 2 mg cxr: clear lungs ecg: afib, rate controlled, nl qtc, no ischemic changes echo 11/2017: tds; nl lv, rv tds, no sig valve path, nl rvsp a/p: 82 f hx anemia, RA, hypothyroid, chf, afib, htn, sent from [place] for [place], dark stools. dark stools, anemia: -being evaluated by GI, Heme -cardiac bangura stable for endoscopy/foc if needed acute diastolic chf: -no details available, pt on lasix 40 bid po at [place] -echo unremarkable here - continue lasix 40 mg PO BID, appears euvolemic afib: -rate controlled, cont toprol -has been on eliquis, continued here, monitor hgb hypothyroid: -tsh elevated, synthroid dosing per pmd htn: -cont toprol ckd: -unknown baseline, improved here after diuresis
--- NOTE | 2017-12-10 17:26 | PN ---
Physical Exam: SUBJECTIVE: Patient seen and examined OBJECTIVE: Vital Signs Period Temp Pulse Resp BP Sys/Neal Pulse Ox Last 24 Hr 98 F-98.4 F 73-91 20-21 100-113/56-63 98-98 GENERAL: The patient is awake, alert. LUNGS: Anterior breath sounds CTA HEART: Irregularly irregular. ABDOMEN: Obese, soft, nontender, nondistended, normoactive bowel sounds, no guarding, no rebound EXTREMITIES: 2+ pulses, warm, well-perfused, trace edema. Upper Ext: skin tears on both forearms oozing blood SKIN: Stage I pressure ulcer sacrum Laboratory Results - last 24 hr 12/07/17 12/09/17 12/09/17 08:55 20:00 22:17 WBC RBC Hgb Hct MCV MCH MCHC RDW Plt Count MPV Absolute Neuts (auto) Neutrophils % Neutrophils % (Manual) Band Neutrophils % Lymphocytes % Lymphocytes % (Manual) Monocytes % Monocytes % (Manual) Eosinophils % Eosinophils % (Manual) Basophils % Basophils % (Manual) Myelocytes % (Man) Promyelocytes % (Man) Blast Cells % (Manual) Nucleated RBC % Metamyelocytes Hypochromia Platelet Estimate Platelet Comment Polychromasia Poikilocytosis Anisocytosis Microcytosis Macrocytosis Spherocytes Ovalocytes Stomatocytes Urine Color Dkyellow Urine Appearance Slcloudy Urine pH 5.0 Ur Specific [place] 1.012 Urine Protein Negative Urine Glucose (UA) Negative Urine Ketones Negative Urine Blood 2+ H Urine Nitrite Positive Urine Bilirubin Negative Urine Urobilinogen 2.0 H Ur Leukocyte Esterase 3+ H Urine WBC (Auto) 88 Urine RBC (Auto) 4 Ur Epithelial Cells Rare Urine Bacteria Many Hyaline Casts 7 Urine Mucus Rare Stool Occult Blood Positive Rheumatoid Factor Blood Type A POSITIVE Antibody Screen Negative Crossmatch See Detail 12/10/17 12/10/17 07:00 07:00 WBC 1.9 L* RBC 3.89 Hgb 8.4 L Hct 28.3 L MCV 72.8 L MCH 21.6 L MCHC 29.6 L RDW 23.3 H Plt Count 207 MPV 7.5 Absolute Neuts (auto) 1.2 L Neutrophils % 63.1 Neutrophils % (Manual) 60.2 Band Neutrophils % 5.4 Lymphocytes % 25.9 Lymphocytes % (Manual) 26.9 D Monocytes % 8.4 Monocytes % (Manual) 1 L D Eosinophils % 1.3 D Eosinophils % (Manual) 0.0 Basophils % 1.3 Basophils % (Manual) 0.0 Myelocytes % (Man) 2 D Promyelocytes % (Man) 3 H D Blast Cells % (Manual) 0 Nucleated RBC % 1 H Metamyelocytes 1 D Hypochromia 0 Platelet Estimate Normal Platelet Comment Present Polychromasia 1+ Poikilocytosis 0 Anisocytosis 2+ Microcytosis 1+ Macrocytosis 0 Spherocytes 1+ Ovalocytes 1+ Stomatocytes 1+ Urine Color Urine Appearance Urine pH Ur Specific [place] Urine Protein Urine Glucose (UA) Urine Ketones Urine Blood Urine Nitrite Urine Bilirubin Urine Urobilinogen Ur Leukocyte Esterase Urine WBC (Auto) Urine RBC (Auto) Ur Epithelial Cells Urine Bacteria Hyaline Casts Urine Mucus Stool Occult Blood Rheumatoid Factor 1150.0 H Blood Type Antibody Screen Crossmatch Active Medications Generic Name Dose Route Start Last Admin Trade Name Freq PRN Reason Stop Dose Admin Apixaban 5 mg 12/03/17 22:00 12/10/17 09:58 Eliquis - PO 5 mg BID ELENA Administration Docusate Sodium 100 mg 12/02/17 22:00 12/09/17 22:23 Colace - PO 100 mg HS ELENA Administration Ferrous Gluconate 324 mg 12/03/17 10:00 12/10/17 09:58 Fergon - PO 324 mg DAILY ELENA Administration Folic Acid 1 mg 12/03/17 10:00 12/10/17 09:58 Folic Acid - PO 1 mg DAILY ELENA Administration Furosemide 40 mg 12/10/17 06:00 12/10/17 13:27 Lasix - PO 40 mg BID@0600,1400 ELENA Administration Hydroxychloroquine Sulfate 200 mg 12/02/17 22:00 12/10/17 09:58 Plaquenil - PO 200 mg BID ELENA Administration Levothyroxine Sodium 50 mcg 12/03/17 07:00 12/10/17 06:03 Synthroid - PO 50 mcg 0700 ELENA Administration Lorazepam 1 mg 12/03/17 10:00 12/10/17 09:57 Ativan - PO 1 mg DAILY ELENA Administration Metoprolol Succinate 100 mg/ 125 mg 12/03/17 10:00 12/10/17 09:58 Metoprolol Succinate 25 mg PO 125 mg DAILY ELENA Administration Pantoprazole Sodium 40 mg 12/03/17 10:00 12/10/17 09:58 Protonix - PO 40 mg DAILY ELENA Administration Potassium Chloride 40 meq 12/07/17 11:45 12/10/17 09:58 K-Dur - PO 40 meq BID ELENA Administration Risperidone 2 mg 12/03/17 11:01 12/10/17 09:58 Risperdal - PO 2 mg DAILY ELENA Administration ASSESSMENT/PLAN: 82 year-old female with a PMH significant for HTN, afib on Eliquis, diastolic HF , RA, hypothyroidism, and schizoaffective/bipolar disorder. Admitted for symptomatic anemia and occult stool positive. Iron-deficiency anemia secondary to chronic GI blood loss --Hgb 7.6 on aadmission, occult stool positive --transfused 2U PRBC so far this admission, last transfused 12/07, h/h stable --GI workup deferred, outpatient --continue iron supplementation, protonix Hypertension --BP stable --continue metoprolol Atrial fibrillation --rate-controlfled, continue metoprolol --continue Eliquis Acute on chronic diastolic heart failure --continue lasix PO BID --continue K supplementation --continue fluid restriction --daily weights Rheumatoid arthritis --continue Plaquenil Schizoaffective/bipolar disorder --continue risperidone, lorazepam Hypothyroidism --levothyroxine dose recently adjusted at [place], repeat levels in 6 weeks Leukopenia, chronic --possibly medication related, e.g. Plaquenil, risperidone --WBC is stable --heme following, considering MDS DVT prophylaxis: on Eliquis. Visit type - Emergency Visit Emergency Visit: Yes ED Registration Date: 12/04/17 Care time: The patient presented to the Emergency Department on the above date and was hospitalized for further evaluation of their emergent condition. - New Patient This patient is new to me today: No - Critical Care Critical Care patient: No
[2017-12-10] MEDS ORDERED: PT OWN MED DRAWER 7, Y5N ONE (23:00)
[2017-12-10] MEDS: ACETAMINOPHEN 500 MG TABLET (FP) PO PRN (23:32)
[2017-12-10] MEDS: DOCUSATE SODIUM 100 MG CAPSULE (FP) PO SCH (23:33)
[2017-12-11] MEDS ORDERED: FUROSEMIDE 40 MG/4 ML INJECTABLE VIAL IVPUSH ONE (00:32)
[2017-12-11] MEDS ORDERED: CEFEPIME 2 GM in DEXTROSE 5%-WATER 100 ML IVPB ONE (01:00)
--- NOTE | 2017-12-11 03:30 | HOSP ---
Subjective - Review of Symptoms General: Yes: Fatigue Pulmonary: Yes: Pleuritic Chest Pain Physical Examination Vital Signs: Vital Signs Temperature 101.1 F H 12/11/17 00:19 Pulse Rate 118 H 12/11/17 00:19 Respiratory Rate 22 H 12/10/17 23:52 Blood Pressure 101/51 L 12/10/17 23:52 O2 Sat by Pulse Oximetry (%) 98 12/10/17 09:00 Constitutional: Yes: Mild Distress, Pallor Cardiovascular: Yes: Tachycardia Respiratory: Yes: Rales Gastrointestinal: Yes: Normal Bowel Sounds Labs: CBC, BMP 12/10/17 07:00 12/09/17 06:50 Hospitalist Encounter Assessment: Received a call that patient was less responsive, O2 sats in the 80s on 3 LPM and temp of 101. Patient was lethargic with b/l crackles on exam. Venti mask at 50% placed, O2 sats returned to 94%. CXR, straight cath UA, BC x 2, BMP, CBC w diff, and mag ordered. Patient given APAP, Cefepime 2G, and Lasix 40 mg IV given. RN reported that at 3:30 AM patient was afebrile, having less labored breathing, though CXR had still not been performed.
[2017-12-11] MEDS: FUROSEMIDE 40 MG TABLET (FP) PO SCH ×2 (06:59→15:19)
[2017-12-11] MEDS: LEVOTHYROXINE NA 50 MCG TABLET (FP) PO SCH (07:00)
[2017-12-11 07:58] LABS: ANION GAP 9 MMOL/L (8-16); BLOOD UREA NITROGEN 33 mg/dL (7-18); CALCIUM 8.6 mg/dL (8.5-10.1); CHLORIDE 100 mmol/L (98-107); CO2 26 mmol/L (21-32); CREATININE 1.5 mg/dL (0.55-1.3); GLUCOSE,RANDOM 130 mg/dL (74-106); MAGNESIUM 2.3 mg/dL (1.8-2.4); POTASSIUM 5.4 mmol/L (3.5-5.1); SODIUM 136 mmol/L (136-145)
[2017-12-11 09:18] LABS: BASO % 0.3 % (0-2.0); HEMATOCRIT 32.1 % (32.4-45.2); HEMOGLOBIN 9.6 GM/dL (10.7-15.3); LYMPH % 7.2 % (8-40); MCH 22.1 pg (25.7-33.7); MCHC 29.9 g/dl (32.0-36.0); MEAN CELL VOLUME 73.7 fl (80-96); MEAN PLT VOLUME 8.7 fl (7.5-11.1); MONO % 4.9 % (3.8-10.2); NEUT % 87.6 % (42.8-82.8); PLATELET COUNT 228 K/MM3 (134-434); RBC 4.35 M/mm3 (3.60-5.2); RDW 23.6 % (11.6-15.6); WHITE BLOOD COUNT 4.9 K/mm3 (4.0-10.0)
[2017-12-11] MEDS ORDERED: metoPROLOL SUCCINATE 25 MG TAB.SR.24H (FP) ONE (10:22)
[2017-12-11] MEDS ORDERED: PT OWN MED DRAWER 7, Y5N ONE ×4 (10:24→20:50)
[2017-12-11] MEDS: FOLIC ACID 1 MG TABLET (FP) PO SCH (10:27)
[2017-12-11] MEDS: HYDROXYCHLOROQUINE SO4 200 MG TABLET (FP) PO SCH ×2 (10:27→21:15)
[2017-12-11] MEDS: risperiDONE 1 MG TABLET (FP) PO SCH (10:27)
[2017-12-11] MEDS: METOPROLOL SUCCINATE 100 MG, METOPROLOL SUCCINATE 25 MG PO SCH (10:27)
[2017-12-11] MEDS: LORazepam 1 MG TABLET PO SCH (10:27)
[2017-12-11] MEDS: PANTOPRAZOLE 40 MG TABLET (FP) PO SCH (10:27)
[2017-12-11] MEDS: FERROUS GLUCONATE 324 MG TAB (FP) PO SCH (10:28)
[2017-12-11] MEDS: POTASSIUM CHLORIDE TABS 20 MEQ TABLET.ER (FP) PO SCH ×2 (10:28→21:15)
[2017-12-11] MEDS: APIXABAN 5 MG TABLET PO SCH ×2 (10:28→21:15)
--- NOTE | 2017-12-11 13:01 | PN ---
Progress Note (short form) - Note Progress Note: Patient seen and examined at bedside feels "so-so" Hb improving 9.6 got 100mg Venofir 2 days ago WBC still increased to 4.9 today from 1.9 yesterday PE: Vital Signs Temperature 99.1 F 12/11/17 09:00 Pulse Rate 121 H 12/11/17 09:00 Respiratory Rate 24 H 12/11/17 09:00 Blood Pressure 114/60 12/11/17 09:00 O2 Sat by Pulse Oximetry (%) 95 12/11/17 09:00 alert and awake. Thinks its 1982. Irregular S1 S2 crackles at bases bilaterally Soft non tender non distended bilateral lower extremity edema 12/07/17 12/11/17 12/11/17 08:55 06:30 06:30 WBC 4.9 RBC 4.35 Hgb 9.6 L Hct 32.1 L MCV 73.7 L MCHC 29.9 L RDW 23.6 H Plt Count 228 Neutrophils % 87.6 H D Lymphocytes % 7.2 L D Monocytes % 4.9 Eosinophils % 0.0 D Basophils % 0.3 Sodium 136 Potassium 5.4 H Chloride 100 Carbon Dioxide 26 Anion Gap 9 BUN 33 H Creatinine 1.5 H Blood Type A POSITIVE Antibody Screen Negative 12/11/17 02:00 Blood Culture - Pending Blood - Peripheral Venous 12/11/17 02:00 Blood Culture - Pending Blood - Peripheral Venous 12/09/17 22:30 Urine Culture - Pending Urine - Urine Clean Catch 12/03/17 19:45 Blood Culture - Final Blood - Peripheral Venous NO GROWTH AFTER 5 DAYS INCUBATION 12/03/17 17:45 Blood Culture - Final Blood - Peripheral Venous NO GROWTH AFTER 5 DAYS INCUBATION Problem List: iron deficiency anemia A-Fib CHF HTN NIDDM disorganized schizophrenia Asthma RA (on hydroxcloroquine) Hypothyroidism non-thrombocytopenic purpura GERD patient now with fever and elevated WBC count to 4.9-likely from sepsis/ hospital acquired pneumonia vs bacteremia Plan: Given her WBC count now at 4.9 and fever last night concern for aspiration vs hospital acquired pneumonia. Elevated of WBC to 4.9 from 1.9 although now WNL should be treated as leukocytosis Patient may also be bacteremic-blood cultures pending ANC now 4.3 Patients iron studies consistent with Iron deficiency anemia Need to consider myelodysplastic syndrome given multiple cell line deficiency Labs noted s/p 100mg venofir Will get US of spleen and liver to r/o hepatosplenomegaly-patient has fatty infiltration of the liver and mild splenomegaly Will send total complement-pending C3 C4 ordered and approved by pathologist-form sent to phlebotomy Rheumatoid factor elevated to 1150 GI workup when acute issues resolved and cleared by medicine on eliquis for A fib
[2017-12-11] MEDS ORDERED: CEFEPIME 2 GM in DEXTROSE 5%-WATER 100 ML IVPB SCH (14:00)
[2017-12-11] MEDS ORDERED: CEFEPIME HCL/D5W 2 GM/50 ML BAG IVPB SCH (14:00)
--- NOTE | 2017-12-11 14:10 | PN ---
Progress Note (short form) - Note Progress Note: ID Consult dictated Possible aspiration v. HCAP Leukopenia- ? chronic secondary to hydroxychloroquine PCN/ Tetracycline allergy Pending c/s, empiric cefepime + stat vancomycin
[2017-12-11] MEDS ORDERED: VANCOMYCIN 1 GRAM (PRE-DOCKED) 1,000 MG/250 ML BAG IVPB ONE (14:37)
--- NOTE | 2017-12-11 15:17 | PN ---
Progress Note (short form) - Note Progress Note: s: overnight had episode of fever, dyspnea. dyspnea improved but still feels a little short of breath. was given lasix 40 mg IV x 1 overnight, CXR showed stable congestion. no palps dizzy syncope o: Vital Signs Period Temp Pulse Resp BP Sys/Neal Pulse Ox Last 24 Hr 97.1 F-101.5 F 85-121 19-24 101-118/51-61 83-95 nad no jvd irreg s1s2 no mrg jakub rales at bases, poor eff awake alert confused abd nt nd pos bs no jaundice diaphoresis no le edema Current Medications Acetaminophen (Tylenol -) 1,000 mg PO Q6H PRN PRN Reason: FEVER Last Admin: 12/10/17 23:32 Dose: 1,000 mg Apixaban (Eliquis -) 5 mg PO BID [facility] Last Admin: 12/11/17 10:28 Dose: 5 mg Docusate Sodium (Colace -) 100 mg PO HS [facility] Last Admin: 12/10/17 23:33 Dose: 100 mg Ferrous Gluconate (Fergon -) 324 mg PO DAILY [facility] Last Admin: 12/11/17 10:28 Dose: 324 mg Folic Acid (Folic Acid -) 1 mg PO DAILY [facility] Last Admin: 12/11/17 10:27 Dose: 1 mg Furosemide (Lasix -) 40 mg PO BID@0600,1400 [facility] Last Admin: 12/11/17 06:59 Dose: 40 mg Hydroxychloroquine Sulfate (Plaquenil -) 200 mg PO BID [facility] Last Admin: 12/11/17 10:27 Dose: 200 mg Cefepime HCl 2 gm/ Dextrose 100 mls @ 200 mls/hr IVPB BID@0200,1400 [facility]; Protocol Vancomycin HCl (Vancomycin (Pre-Docked)) 1,000 mg in 250 mls @ 166.667 mls/hr IVPB ONCE ONE; Protocol Stop: 12/11/17 16:06 Levothyroxine Sodium (Synthroid -) 50 mcg PO 0700 [facility] Last Admin: 12/11/17 07:00 Dose: 50 mcg Lorazepam (Ativan -) 1 mg PO DAILY [facility] Last Admin: 12/11/17 10:27 Dose: 1 mg Metoprolol Succinate 100 mg/ (Metoprolol Succinate 25 mg) 125 mg PO DAILY [facility] Last Admin: 12/11/17 10:27 Dose: 125 mg Pantoprazole Sodium (Protonix -) 40 mg PO DAILY [facility] Last Admin: 12/11/17 10:27 Dose: 40 mg Potassium Chloride (K-Dur -) 40 meq PO BID [facility] Last Admin: 12/11/17 10:28 Dose: Not Given Risperidone (Risperdal -) 2 mg PO DAILY [facility] Last Admin: 12/11/17 10:27 Dose: 2 mg cxr: clear lungs ecg: afib, rate controlled, nl qtc, no ischemic changes echo 11/2017: tds; nl lv, rv tds, no sig valve path, nl rvsp a/p: 82 f hx anemia, RA, hypothyroid, chf, afib, htn, sent from [place] for anemia, dark stools. dark stools, anemia: -being evaluated by GI, Heme -cardiac bangura stable for endoscopy/foc if needed acute diastolic chf: -no details available, pt on lasix 40 bid po at [place] -echo unremarkable here - episode overnight of dyspnea improved with IV lasix overnight, had crackles on exam, CXR showed stable congestion. picture with fever, leukocytosis is also concerning for PNA - ID consulted, on abx - Cr 1.1->1.5 after receiving IV lasix overnight, defer additional dose currently as patient does not appear overloaded, reassess in AM - continue PO lasix for now afib: -rate controlled, cont toprol -has been on eliquis, continued here, monitor hgb hypothyroid: -tsh elevated, synthroid dosing per pmd htn: -cont toprol ckd: -unknown baseline, improved here after diuresis
--- NOTE | 2017-12-11 15:30 | CONS ---
DATE OF CONSULTATION: DATE OF DICTATION: 12/11/2017 HISTORY: The patient is an 82-year-old female who was evaluated for sepsis. History was obtained from the chart as she cannot give a reliable history. She was admitted to the hospital on December 04, 2017 with reports of generalized weakness, anorexia, and dark stool. Her course was significant for leukopenia of unclear etiology. Over the past 24 hours she became increasingly lethargic. She developed fever to 101 and was noted to be dyspneic. O2 saturations dropped into the 80s. She was found to have bilateral rales on lung exam. Chest x-ray shows increased markings at the bases bilaterally. Cultures were obtained. She was empirically treated with cefepime. She is awake but lethargic. She offers on focal complaint. She does appear to be slightly short of breath at rest but in no acute respiratory distress. No reports of vomiting. She denies any abdominal pain. No complaints of dysuria or hematuria. Of note, her white count has risen to 4.9, which is a change from her baseline leukopenia. PAST MEDICAL HISTORY: Positive for rheumatoid arthritis, chronic anemia, hypothyroidism, congestive heart failure, gastroesophageal reflux, bipolar disorder, schizophrenia, atrial fibrillation, hypertension, diabetes insipidus. ALLERGIES: PENICILLIN and TETRACYCLINE. The patient states PENICILLIN allergy occurred many years ago. She denies a history of anaphylaxis, although is unsure of the exact nature of the allergy. MEDICATIONS: Include cefepime and Lasix. SOCIAL HISTORY: Former smoker. No history of alcohol abuse. SYSTEMS REVIEW: Neurologic: Positive for increased lethargy. No loss of consciousness, seizure activity, or focal weakness. Cardiac: Negative chest pain or palpitations. Respiratory: As per HPI. Gastrointestinal: Negative vomiting or diarrhea. Genitourinary: Negative for urinary tract infection. LABORATORY DATA: White count 4.9 with 87 neutrophils, 7 lymphocytes, 5 monocytes, hematocrit 32.1, platelet count 228, BUN 33, creatinine 1.5. Cultures pending. Urinalysis 88 white cells. Chest x-ray shows increased markings at the bases bilaterally. PHYSICAL EXAMINATION: General: The patient is lethargic but arousable. She is somnolent. Slightly short of breath at rest on nasal cannula. Vital Signs: Temperature 99, T-max 101.5, blood pressure 114/60, pulse 120, respirations 24 per minute. HEENT: Sclerae anicteric. Heart: Sounds S1, S2. Tachycardic. Lungs: Diminished breath sounds bilaterally. Poor inspiratory effort. Abdomen: Obese, soft, nontender. No suprapubic or flank tenderness. Extremities: Positive for edema. IMPRESSION: 1. Possible aspiration versus healthcare-acquired pneumonia. 2. Fever possibly secondary to pneumonia. 3. Chronic leukopenia, unclear etiology, possibly medication induced (hydroxychloroquine). 4. PENICILLIN and TETRACYCLINE ALLERGIES. PLAN: Pending sepsis workup. Empiric antibiotic coverage with ceftriaxone. Staff does vancomycin. Follow up CBC. Aspiration precautions. We will follow. Thank you for the kind referral. LINA OTT M.D. [id number]
[2017-12-11] MEDS: ACETAMINOPHEN 500 MG TABLET (FP) PO PRN (18:01)
--- NOTE | 2017-12-11 20:08 | PN ---
Physical Exam: SUBJECTIVE: Patient seen and examined at bedside. Overnight events noted. Fever 101.5 OBJECTIVE: Vital Signs Period Temp Pulse Resp BP Sys/Neal Pulse Ox Last 24 Hr 98.7 F-101.5 F 118-121 19-24 101-118/51-61 83-94 GENERAL: The patient is somnolent but arousable. LUNGS: Diffuse crackles. HEART: Irregularly irregular. ABDOMEN: Obese, soft, nontender, nondistended, normoactive bowel sounds, no guarding, no rebound EXTREMITIES: 2+ pulses, warm, well-perfused, trace edema. Upper Ext: skin tears on both forearms oozing blood SKIN: Stage I pressure ulcer sacrum Laboratory Results - last 24 hr 12/10/17 12/11/17 12/11/17 07:00 06:30 06:30 WBC 4.9 RBC 4.35 Hgb 9.6 L Hct 32.1 L MCV 73.7 L MCH 22.1 L MCHC 29.9 L RDW 23.6 H Plt Count 228 MPV 8.7 D Absolute Neuts (auto) 4.3 Neutrophils % 87.6 H D Lymphocytes % 7.2 L D Monocytes % 4.9 Eosinophils % 0.0 D Basophils % 0.3 Nucleated RBC % 1 H Sodium 136 Potassium 5.4 H Chloride 100 Carbon Dioxide 26 Anion Gap 9 BUN 33 H Creatinine 1.5 H Creat Clearance w eGFR 33.25 Random Glucose 130 H Calcium 8.6 Magnesium 2.3 Tot Complement (CH50) 41 Active Medications Generic Name Dose Route Start Last Admin Trade Name Freq PRN Reason Stop Dose Admin Acetaminophen 1,000 mg 12/10/17 23:10 12/11/17 18:01 Tylenol - PO 1,000 mg Q6H PRN Administration FEVER Apixaban 5 mg 12/03/17 22:00 12/11/17 10:28 Eliquis - PO 5 mg BID [facility] Administration Docusate Sodium 100 mg 12/02/17 22:00 12/10/17 23:33 Colace - PO 100 mg HS [facility] Administration Ferrous Gluconate 324 mg 12/03/17 10:00 12/11/17 10:28 Fergon - PO 324 mg DAILY [facility] Administration Folic Acid 1 mg 12/03/17 10:00 12/11/17 10:27 Folic Acid - PO 1 mg DAILY [facility] Administration Furosemide 40 mg 12/10/17 06:00 12/11/17 15:19 Lasix - PO 40 mg BID@0600,1400 [facility] Administration Hydroxychloroquine Sulfate 200 mg 12/02/17 22:00 12/11/17 10:27 Plaquenil - PO 200 mg BID [facility] Administration Cefepime HCl 2 gm/ Dextrose 100 mls @ 200 mls/hr 12/11/17 22:00 IVPB BID@0200,1400 [facility] Protocol Levothyroxine Sodium 50 mcg 12/03/17 07:00 12/11/17 07:00 Synthroid - PO 50 mcg 0700 [facility] Administration Lorazepam 1 mg 12/03/17 10:00 12/11/17 10:27 Ativan - PO 1 mg DAILY [facility] Administration Metoprolol Succinate 100 mg/ 125 mg 12/03/17 10:00 12/11/17 10:27 Metoprolol Succinate 25 mg PO 125 mg DAILY [facility] Administration Pantoprazole Sodium 40 mg 12/03/17 10:00 12/11/17 10:27 Protonix - PO 40 mg DAILY [facility] Administration Potassium Chloride 40 meq 12/07/17 11:45 12/11/17 10:28 K-Dur - PO Not Given BID [facility] Risperidone 2 mg 12/03/17 11:01 12/11/17 10:27 Risperdal - PO 2 mg DAILY [facility] Administration ASSESSMENT/PLAN: 82 year-old female with a PMH significant for HTN, afib on Eliquis, diastolic HF , RA, hypothyroidism, and schizoaffective/bipolar disorder. Admitted for symptomatic anemia and occult stool positive. Hospital course complicated by fever and pneumonia. Pneumonia, aspiration v. HCAP --lasix given overnight --seen and evaluated by lai WATTS and arlyn Iron-deficiency anemia secondary to chronic GI blood loss --Hgb 7.6 on admission, occult stool positive --transfused 2U PRBC so far this admission, last transfused 12/07, h/h stable --GI workup deferred, outpatient --continue iron supplementation, protonix Hypertension --BP stable --continue metoprolol Atrial fibrillation --rate-controlfled, continue metoprolol --continue Eliquis Acute on chronic diastolic heart failure --continue lasix PO BID --continue K supplementation --continue fluid restriction --daily weights Rheumatoid arthritis --continue Plaquenil Schizoaffective/bipolar disorder --continue risperidone, lorazepam Hypothyroidism --levothyroxine dose recently adjusted at [place], repeat levels in 6 weeks Leukopenia, chronic --possibly medication related, e.g. Plaquenil, risperidone --WBC is stable --heme following, considering MDS DVT prophylaxis: on Eliquis. Visit type - Emergency Visit Emergency Visit: Yes ED Registration Date: 12/04/17 Care time: The patient presented to the Emergency Department on the above date and was hospitalized for further evaluation of their emergent condition. - New Patient This patient is new to me today: No - Critical Care Critical Care patient: No
[2017-12-11] MEDS: CEFEPIME 2 GM in DEXTROSE 5%-WATER 100 ML IVPB SCH (21:15)
[2017-12-11] MEDS: DOCUSATE SODIUM 100 MG CAPSULE (FP) PO SCH (21:15)
[2017-12-12] MEDS: CEFEPIME 2 GM in DEXTROSE 5%-WATER 100 ML IVPB SCH ×2 (01:38→14:09)
[2017-12-12] MEDS: LEVOTHYROXINE NA 50 MCG TABLET (FP) PO SCH (06:14)
[2017-12-12] MEDS: FUROSEMIDE 40 MG TABLET (FP) PO SCH ×2 (06:14→13:58)
[2017-12-12] MEDS ORDERED: metoPROLOL SUCCINATE 25 MG TAB.SR.24H (FP) ONE (10:02)
[2017-12-12] MEDS ORDERED: PT OWN MED DRAWER 7, Y5N ONE ×2 (10:03→13:57)
[2017-12-12] MEDS: APIXABAN 5 MG TABLET PO SCH ×2 (10:06→21:28)
[2017-12-12] MEDS: FOLIC ACID 1 MG TABLET (FP) PO SCH (10:06)
[2017-12-12] MEDS: POTASSIUM CHLORIDE TABS 20 MEQ TABLET.ER (FP) PO SCH ×2 (10:06→21:28)
[2017-12-12] MEDS: risperiDONE 1 MG TABLET (FP) PO SCH (10:06)
[2017-12-12] MEDS: PANTOPRAZOLE 40 MG TABLET (FP) PO SCH (10:06)
[2017-12-12] MEDS: LORazepam 1 MG TABLET PO SCH (10:06)
[2017-12-12] MEDS: METOPROLOL SUCCINATE 100 MG, METOPROLOL SUCCINATE 25 MG PO SCH (10:06)
[2017-12-12] MEDS: HYDROXYCHLOROQUINE SO4 200 MG TABLET (FP) PO SCH ×2 (10:07→22:45)
[2017-12-12] MEDS: FERROUS GLUCONATE 324 MG TAB (FP) PO SCH (10:07)
--- NOTE | 2017-12-12 10:20 | PN ---
Progress Note, Physician Chief Complaint: sob History of Present Illness: lethargic. opens eyes briefly, speaks few words at a time then back to sleep. denies sob or cp ex cigs - Current Medication List Current Medications: Active Medications Acetaminophen (Tylenol -) 1,000 mg PO Q6H PRN PRN Reason: FEVER Last Admin: 12/11/17 18:01 Dose: 1,000 mg Apixaban (Eliquis -) 5 mg PO BID [facility] Last Admin: 12/12/17 10:06 Dose: 5 mg Docusate Sodium (Colace -) 100 mg PO HS [facility] Last Admin: 12/11/17 21:15 Dose: 100 mg Ferrous Gluconate (Fergon -) 324 mg PO DAILY [facility] Last Admin: 12/12/17 10:07 Dose: 324 mg Folic Acid (Folic Acid -) 1 mg PO DAILY [facility] Last Admin: 12/12/17 10:06 Dose: 1 mg Furosemide (Lasix -) 40 mg PO BID@0600,1400 [facility] Last Admin: 12/12/17 06:14 Dose: 40 mg Hydroxychloroquine Sulfate (Plaquenil -) 200 mg PO BID [facility] Last Admin: 12/12/17 10:07 Dose: 200 mg Cefepime HCl 2 gm/ Dextrose 100 mls @ 200 mls/hr IVPB BID@0200,1400 [facility]; Protocol Last Admin: 12/12/17 01:38 Dose: 200 mls/hr Levothyroxine Sodium (Synthroid -) 50 mcg PO 0700 [facility] Last Admin: 12/12/17 06:14 Dose: 50 mcg Lorazepam (Ativan -) 1 mg PO DAILY [facility] Last Admin: 12/12/17 10:06 Dose: 1 mg Metoprolol Succinate 100 mg/ (Metoprolol Succinate 25 mg) 125 mg PO DAILY [facility] Last Admin: 12/12/17 10:06 Dose: 125 mg Pantoprazole Sodium (Protonix -) 40 mg PO DAILY [facility] Last Admin: 12/12/17 10:06 Dose: 40 mg Potassium Chloride (K-Dur -) 40 meq PO BID [facility] Last Admin: 12/12/17 10:06 Dose: 40 meq Risperidone (Risperdal -) 2 mg PO DAILY [facility] Last Admin: 12/12/17 10:06 Dose: 2 mg - Objective Vital Signs: Vital Signs Temperature 98.3 F 12/12/17 08:20 Pulse Rate 87 12/12/17 08:20 Respiratory Rate 20 12/12/17 08:20 Blood Pressure 110/65 12/12/17 08:20 O2 Sat by Pulse Oximetry (%) 96 12/11/17 21:19 Constitutional: Yes: No Distress, Calm, Obese Eyes: No: Sclera Icterus HENT: No: Nasal Congestion Cardiovascular: Yes: Regular Rate and Rhythm, S1, S2, Other (PMI non diplaced). No: JVD (very tds neck habitus), Gallop, Murmur Respiratory: Yes: Diminished (bases), Rales (bases). No: Accessory Muscle Use, Wheezes Gastrointestinal: Yes: Normal Bowel Sounds, Soft. No: Tenderness Musculoskeletal: Yes: Other (No kyphosis) Extremities: No: Cold Edema: No Integumentary: No: Jaundice Neurological: Yes: Lethargy. No: Seizure Psychiatric: No: Agitated Labs: CBC, BMP 12/11/17 06:30 12/11/17 06:30 INR, PTT INR 2.44 (0.83-1.09) H 12/02/17 15:35 Assessment/Plan cxr: clear lungs ecg: afib, rate controlled, nl qtc, no ischemic changes echo 11/2017: tds; nl lv, rv tds, no sig valve path, nl rvsp a/p: 82 f hx anemia, RA, hypothyroid, chf, afib, htn, [place], dark stools. fever: -febrile to > 101 on 12/10 in pm, BCx growing beta-hemolytic strep; UCx with gram negative rods -echo here with no identifiable valve dysfunction on 12/03, will rpt study. no murmurs on exam. no convincing findings of acute pulm edema or acute exacerbation of chf based on CXR review, pt's creat bump to lasix x 1 dose, and phys exam. -ID consult pending acute diastolic chf: -echo unremarkable -no details available, pt on lasix 40 bid po at [place] -initial CXR here with evidence of chf and effusions. -treated with lasix 40 iv bid here. -bedscale wts only: trended down consistently from 231 to 221, now back up gradually to 228 -changed to lasix 40 po bid on 10/24. -episode overnight 12/10 of fever accompanied by acute dyspnea--given IV lasix. sx's improved. -repeat CXR at that time showed stable congestion, creat bumped hence lasix held 12/11. -? sx's were due to hi fever with bacteremia (BCx positive now) -continues to appear stable volume status, with bibasilar abnormal lung exam c/ w prior cxr's. -f/u today's labs--if creatinine stable, will plan to resume lasix 40 po bid and defer iv diuresis if no more sob sx's. renal insuff (NOS): -no baseline creat data available -creat 1.5 on admit, improved with diuresis -bumped again 03/13 ? due to acute chf again, vs lasix dose--lasix held -trend labs today dark stools, anemia: -being evaluated by GI, Heme -hgb currently stable afib: -rate controlled, cont toprol -has been on eliquis, continued here, monitor hgb trend hypothyroid: -tsh elevated, synthroid dosing per pmd htn: -bp controlled -cont toprol
[2017-12-12 11:47] LABS: ANION GAP 8 MMOL/L (8-16); BLOOD UREA NITROGEN 45 mg/dL (7-18); CALCIUM 8.2 mg/dL (8.5-10.1); CHLORIDE 100 mmol/L (98-107); CO2 29 mmol/L (21-32); CREATININE 1.7 mg/dL (0.55-1.3); GLUCOSE,RANDOM 110 mg/dL (74-106); POTASSIUM 5.1 mmol/L (3.5-5.1); SODIUM 138 mmol/L (136-145)
--- NOTE | 2017-12-12 14:59 | PN ---
Progress Note, Physician History of Present Illness: More awake and responsive Offers no complaints Temps down BC B strep - Current Medication List Current Medications: Active Medications Acetaminophen (Tylenol -) 1,000 mg PO Q6H PRN PRN Reason: FEVER Last Admin: 12/11/17 18:01 Dose: 1,000 mg Apixaban (Eliquis -) 5 mg PO BID [facility] Last Admin: 12/12/17 10:06 Dose: 5 mg Docusate Sodium (Colace -) 100 mg PO HS [facility] Last Admin: 12/11/17 21:15 Dose: 100 mg Ferrous Gluconate (Fergon -) 324 mg PO DAILY [facility] Last Admin: 12/12/17 10:07 Dose: 324 mg Folic Acid (Folic Acid -) 1 mg PO DAILY [facility] Last Admin: 12/12/17 10:06 Dose: 1 mg Furosemide (Lasix -) 40 mg PO BID@0600,1400 [facility] Last Admin: 12/12/17 13:58 Dose: 40 mg Hydroxychloroquine Sulfate (Plaquenil -) 200 mg PO BID [facility] Last Admin: 12/12/17 10:07 Dose: 200 mg Cefepime HCl 2 gm/ Dextrose 100 mls @ 200 mls/hr IVPB BID@0200,1400 [facility]; Protocol Last Admin: 12/12/17 14:09 Dose: 200 mls/hr Levothyroxine Sodium (Synthroid -) 50 mcg PO 0700 [facility] Last Admin: 12/12/17 06:14 Dose: 50 mcg Lorazepam (Ativan -) 1 mg PO DAILY [facility] Last Admin: 12/12/17 10:06 Dose: 1 mg Metoprolol Succinate 100 mg/ (Metoprolol Succinate 25 mg) 125 mg PO DAILY [facility] Last Admin: 12/12/17 10:06 Dose: 125 mg Pantoprazole Sodium (Protonix -) 40 mg PO DAILY [facility] Last Admin: 12/12/17 10:06 Dose: 40 mg Potassium Chloride (K-Dur -) 40 meq PO BID [facility] Last Admin: 12/12/17 10:06 Dose: 40 meq Risperidone (Risperdal -) 2 mg PO DAILY [facility] Last Admin: 12/12/17 10:06 Dose: 2 mg - Objective Vital Signs: Vital Signs Temperature 98.0 F 12/12/17 14:35 Pulse Rate 86 12/12/17 14:35 Respiratory Rate 24 H 12/12/17 14:35 Blood Pressure 115/48 L 12/12/17 14:35 O2 Sat by Pulse Oximetry (%) 97 12/12/17 09:00 Constitutional: Yes: No Distress, Obese Cardiovascular: Yes: Regular Rate and Rhythm, S1, S2 Respiratory: Yes: Diminished Gastrointestinal: Yes: Normal Bowel Sounds, Soft, Abdomen, Obese. No: Tenderness Edema: Yes Labs: CBC, BMP 12/11/17 06:30 12/12/17 10:50 INR, PTT INR 2.44 (0.83-1.09) H 12/02/17 15:35 Assessment/Plan Strep bacteremia ? source Possible asp pneumonia Leukopenia PCN/TCN allergies Azotemia Switch to ceftriaxone CBC,BC am
[2017-12-12] MEDS ORDERED: DEXTROSE 5%-WATER 100 ML IVPB ONE (15:16)
[2017-12-12] MEDS: CEFTRIAXONE 2 GM in DEXTROSE 5%-WATER 100 ML IVPB SCH (15:23)
[2017-12-12] MEDS: DOCUSATE SODIUM 100 MG CAPSULE (FP) PO SCH (21:28)
[2017-12-13] MEDS: FUROSEMIDE 40 MG TABLET (FP) PO SCH (06:10)
[2017-12-13] MEDS: LEVOTHYROXINE NA 50 MCG TABLET (FP) PO SCH (06:10)
[2017-12-13 08:19] LABS: BASO % 1.2 % (0-2.0); EOS % 3.1 % (0-4.5); HEMATOCRIT 27.8 % (32.4-45.2); HEMOGLOBIN 8.1 GM/dL (10.7-15.3); LYMPH % 27.3 % (8-40); MCH 21.5 pg (25.7-33.7); MCHC 29.2 g/dl (32.0-36.0); MEAN CELL VOLUME 73.8 fl (80-96); MEAN PLT VOLUME 7.7 fl (7.5-11.1); MONO % 7.9 % (3.8-10.2); NEUT % 60.5 % (42.8-82.8); PLATELET COUNT 196 K/MM3 (134-434); RBC 3.76 M/mm3 (3.60-5.2); RDW 23.9 % (11.6-15.6); WHITE BLOOD COUNT 2.1 K/mm3 (4.0-10.0)
[2017-12-13 08:49] LABS: ALBUMIN 2.1 g/dl (3.4-5.0); ALK PHOS 145 U/L (45-117); ANION GAP 7 MMOL/L (8-16); BILIRUBIN,TOTAL 0.5 mg/dL (0.2-1); BLOOD UREA NITROGEN 50 mg/dL (7-18); CALCIUM 8.2 mg/dL (8.5-10.1); CHLORIDE 99 mmol/L (98-107); CO2 29 mmol/L (21-32); CREATININE 1.7 mg/dL (0.55-1.3); GLUCOSE,RANDOM 77 mg/dL (74-106); MAGNESIUM 2.4 mg/dL (1.8-2.4); POTASSIUM 5.1 mmol/L (3.5-5.1); SGOT/AST 33 U/L (15-37); SGPT/ALT 23 U/L (13-61); SODIUM 135 mmol/L (136-145); TOT PROT 7.2 g/dl (6.4-8.2)
[2017-12-13 09:55] LABS: ANISOCYTOSIS 2+; MACROCYTOSIS 0; OVALOCYTE 1+; PLATELET ESTIMATE NORMAL
--- NOTE | 2017-12-13 09:56 | PN ---
Progress Note, Physician Chief Complaint: chf History of Present Illness: can't recall if sob yest or today--RN states no report of sob at all. denies sob currently. denies cp, palpit, syncope ex cigs - Current Medication List Current Medications: Active Medications Acetaminophen (Tylenol -) 1,000 mg PO Q6H PRN PRN Reason: FEVER Last Admin: 12/11/17 18:01 Dose: 1,000 mg Apixaban (Eliquis -) 5 mg PO BID [facility] Last Admin: 12/12/17 21:28 Dose: 5 mg Docusate Sodium (Colace -) 100 mg PO HS [facility] Last Admin: 12/12/17 21:28 Dose: 100 mg Ferrous Gluconate (Fergon -) 324 mg PO DAILY [facility] Last Admin: 12/12/17 10:07 Dose: 324 mg Folic Acid (Folic Acid -) 1 mg PO DAILY [facility] Last Admin: 12/12/17 10:06 Dose: 1 mg Furosemide (Lasix -) 40 mg PO BID@0600,1400 [facility] Last Admin: 12/13/17 06:10 Dose: 40 mg Hydroxychloroquine Sulfate (Plaquenil -) 200 mg PO BID [facility] Last Admin: 12/12/17 22:45 Dose: 200 mg Ceftriaxone Sodium 2 gm/ (Dextrose) 100 mls @ 100 mls/hr IVPB DAILY [facility]; Protocol Last Admin: 12/12/17 15:23 Dose: 100 mls/hr Levothyroxine Sodium (Synthroid -) 50 mcg PO 0700 [facility] Last Admin: 12/13/17 06:10 Dose: 50 mcg Lorazepam (Ativan -) 1 mg PO DAILY [facility] Last Admin: 12/12/17 10:06 Dose: 1 mg Metoprolol Succinate 100 mg/ (Metoprolol Succinate 25 mg) 125 mg PO DAILY [facility] Last Admin: 12/12/17 10:06 Dose: 125 mg Pantoprazole Sodium (Protonix -) 40 mg PO DAILY [facility] Last Admin: 12/12/17 10:06 Dose: 40 mg Potassium Chloride (K-Dur -) 40 meq PO BID [facility] Last Admin: 12/12/17 21:28 Dose: 40 meq Risperidone (Risperdal -) 2 mg PO DAILY [facility] Last Admin: 12/12/17 10:06 Dose: 2 mg - Objective Vital Signs: Vital Signs Temperature 98.0 F 12/13/17 07:48 Pulse Rate 86 12/13/17 07:48 Respiratory Rate 18 12/13/17 07:48 Blood Pressure 112/60 12/13/17 07:48 O2 Sat by Pulse Oximetry (%) 97 12/12/17 20:26 Constitutional: Yes: No Distress, Calm, Obese Eyes: No: Sclera Icterus HENT: No: Nasal Congestion Cardiovascular: Yes: Regular Rate and Rhythm, S1, S2, Other (PMI non diplaced). No: JVD (tds neck habitus), Gallop, Murmur Respiratory: Yes: CTA Bilaterally, Diminished (bases). No: Accessory Muscle Use , Wheezes Gastrointestinal: Yes: Normal Bowel Sounds, Soft. No: Tenderness Musculoskeletal: Yes: Other (No kyphosis) Extremities: No: Cold Edema: No Integumentary: No: Jaundice Neurological: Yes: Alert. No: Seizure Psychiatric: No: Agitated Labs: CBC, BMP 12/13/17 07:09 12/13/17 07:09 INR, PTT INR 2.44 (0.83-1.09) H 12/02/17 15:35 Assessment/Plan cxr: effusions/chf ecg: afib, rate controlled, nl qtc, no ischemic changes echo 11/2017: tds; nl lv, rv tds, no sig valve path, nl rvsp a/p: 82 f hx anemia, RA, hypothyroid, chf, afib, htn, sent from [place] for [place], dark stools. fever, beta strep bacteremia: -febrile to > 101 on 12/10 in pm, BCx growing beta-hemolytic strep; UCx with gram negative rods -echo here with no identifiable valve dysfunction on 12/03, will rpt study. no murmurs on exam. no convincing findings of acute pulm edema or acute exacerbation of chf based on CXR review, pt's creat bump to lasix x 1 dose, and phys exam. -ID consult appreciated--cont abx and w/u per their recs acute diastolic chf: -echo unremarkable -no details available, pt on lasix 40 bid po at [place] -initial CXR here with evidence of chf and effusions. -treated with lasix 40 iv bid here. -bedscale wts only: trended down consistently from 231 to 221, now back up gradually to 228 -changed to lasix 40 po bid on 12/09. -episode overnight 12/10 of fever accompanied by acute dyspnea--given IV lasix. sx's improved. repeat CXR at that time showed stable congestion, creat bumped hence lasix held 12/11. ? sx's were due to hi fever with bacteremia (BCx positive now) and resolved when she defervesced. -12/13: renal fxn worsening, likely due to sepsis/baceteremia. she continues to appear stable volume status, with bibasilar abnormal lung exam c/w prior cxr evidence of effusions (? could these be chronic/loculated?). will hold PO lasix at this time while treat infectious process, unless exam, CXR or sx's change. if renal fxn worsens, will consider gentle IV hydration -rpt CXR in am JUAN DANIEL: -no baseline creat data available -creat 1.5 on admit, improved with diuresis -bumped again 03/13 ? due to acute chf again, vs lasix dose -worsening progressively--hold lasix, trend labs, consider gentle hydration if creat rising tomorrow dark stools, anemia: -being evaluated by GI, Heme -hgb currently stable afib: -rate controlled, cont toprol -has been on eliquis, continued here, monitor hgb trend hypothyroid: -tsh elevated, synthroid dosing per pmd htn: -bp controlled -cont toprol
[2017-12-13] MEDS ORDERED: metoPROLOL SUCCINATE 25 MG TAB.SR.24H (FP) ONE (10:33)
[2017-12-13] MEDS ORDERED: PT OWN MED DRAWER 7, Y5N ONE ×3 (10:34→23:30)
[2017-12-13] MEDS ORDERED: DEXTROSE 5%-WATER 100 ML IVPB ONE (10:35)
[2017-12-13] MEDS: CEFTRIAXONE 2 GM in DEXTROSE 5%-WATER 100 ML IVPB SCH (10:38)
[2017-12-13] MEDS: risperiDONE 1 MG TABLET (FP) PO SCH (10:38)
[2017-12-13] MEDS: METOPROLOL SUCCINATE 100 MG, METOPROLOL SUCCINATE 25 MG PO SCH (10:38)
[2017-12-13] MEDS: APIXABAN 5 MG TABLET PO SCH ×2 (10:39→21:24)
[2017-12-13] MEDS: PANTOPRAZOLE 40 MG TABLET (FP) PO SCH (10:39)
[2017-12-13] MEDS: LORazepam 1 MG TABLET PO SCH (10:39)
[2017-12-13] MEDS: POTASSIUM CHLORIDE TABS 20 MEQ TABLET.ER (FP) PO SCH ×2 (10:39→21:24)
[2017-12-13] MEDS: FERROUS GLUCONATE 324 MG TAB (FP) PO SCH (10:39)
[2017-12-13] MEDS: HYDROXYCHLOROQUINE SO4 200 MG TABLET (FP) PO SCH ×2 (10:39→23:00)
[2017-12-13] MEDS: FOLIC ACID 1 MG TABLET (FP) PO SCH (10:39)
--- NOTE | 2017-12-13 13:37 | PN ---
Physical Exam: SUBJECTIVE: Patient seen and examined at bedside. OBJECTIVE: Vital Signs Period Temp Pulse Resp BP Sys/Neal Pulse Ox Last 24 Hr 97.6 F-98.1 F 80-97 18-24 101-115/48-60 96-97 GENERAL: The patient is somnolent but arousable. LUNGS: Diffuse crackles. HEART: Irregularly irregular. ABDOMEN: Obese, soft, nontender, nondistended, normoactive bowel sounds, no guarding, no rebound EXTREMITIES: 2+ pulses, warm, well-perfused, trace edema. Upper Ext: skin tears on both forearms oozing blood SKIN: Stage I pressure ulcer sacrum SKIN: 0.5L x 0.5W x 0.1D Stage II pressure ulcer posterior right pinna Laboratory Results - last 24 hr 12/13/17 12/13/17 07:09 07:09 WBC 2.1 L RBC 3.76 Hgb 8.1 L Hct 27.8 L MCV 73.8 L MCH 21.5 L MCHC 29.2 L RDW 23.9 H Plt Count 196 MPV 7.7 D Absolute Neuts (auto) 1.3 L Neutrophils % 60.5 D Lymphocytes % 27.3 D Monocytes % 7.9 Eosinophils % 3.1 D Basophils % 1.2 D Nucleated RBC % 1 H Hypochromia 0 Platelet Estimate Normal Polychromasia 1+ Poikilocytosis 0 Anisocytosis 2+ Microcytosis 1+ Macrocytosis 0 Spherocytes 1+ Ovalocytes 1+ Sodium 135 L Potassium 5.1 Chloride 99 Carbon Dioxide 29 Anion Gap 7 L BUN 50 H Creatinine 1.7 H Creat Clearance w eGFR 28.77 Random Glucose 77 Calcium 8.2 L Magnesium 2.4 Total Bilirubin 0.5 AST 33 ALT 23 Alkaline Phosphatase 145 H Total Protein 7.2 Albumin 2.1 L Active Medications Generic Name Dose Route Start Last Admin Trade Name Freq PRN Reason Stop Dose Admin Acetaminophen 1,000 mg 12/10/17 23:10 12/11/17 18:01 Tylenol - PO 1,000 mg Q6H PRN Administration FEVER Apixaban 5 mg 12/03/17 22:00 12/13/17 10:39 Eliquis - PO 5 mg BID [facility] Administration Docusate Sodium 100 mg 12/02/17 22:00 12/12/17 21:28 Colace - PO 100 mg HS [facility] Administration Ferrous Gluconate 324 mg 12/03/17 10:00 12/13/17 10:39 Fergon - PO 324 mg DAILY [facility] Administration Folic Acid 1 mg 12/03/17 10:00 12/13/17 10:39 Folic Acid - PO 1 mg DAILY [facility] Administration Hydroxychloroquine Sulfate 200 mg 12/02/17 22:00 12/13/17 10:39 Plaquenil - PO 200 mg BID [facility] Administration Ceftriaxone Sodium 2 gm/ 100 mls @ 100 mls/hr 12/12/17 15:15 12/13/17 10:38 Dextrose IVPB 100 mls/hr DAILY [facility] Administration Protocol Levothyroxine Sodium 50 mcg 12/03/17 07:00 12/13/17 06:10 Synthroid - PO 50 mcg 0700 [facility] Administration Lorazepam 1 mg 12/03/17 10:00 12/13/17 10:39 Ativan - PO 1 mg DAILY [facility] Administration Metoprolol Succinate 100 mg/ 125 mg 12/03/17 10:00 12/13/17 10:38 Metoprolol Succinate 25 mg PO 125 mg DAILY [facility] Administration Pantoprazole Sodium 40 mg 12/03/17 10:00 12/13/17 10:39 Protonix - PO 40 mg DAILY [facility] Administration Potassium Chloride 40 meq 12/07/17 11:45 12/13/17 10:39 K-Dur - PO 40 meq BID [facility] Administration Risperidone 2 mg 12/03/17 11:01 12/13/17 10:38 Risperdal - PO 2 mg DAILY [facility] Administration ASSESSMENT/PLAN: 82 year-old female with a PMH significant for HTN, afib on Eliquis, diastolic HF , RA, hypothyroidism, and schizoaffective/bipolar disorder. Admitted for symptomatic anemia and occult stool positive. Hospital course complicated by fever and pneumonia. Pneumonia, aspiration v. HCAP --switch to ceftriaxone Iron-deficiency anemia secondary to chronic GI blood loss --Hgb 7.6 on admission, occult stool positive --transfused 2U PRBC so far this admission, last transfused 12/07, h/h stable --GI workup deferred, outpatient --continue iron supplementation, protonix Hypertension --BP stable --continue metoprolol Atrial fibrillation --rate-controlfled, continue metoprolol --continue Eliquis Acute on chronic diastolic heart failure --continue lasix PO BID --continue K supplementation --continue fluid restriction --daily weights Rheumatoid arthritis --continue Plaquenil Schizoaffective/bipolar disorder --continue risperidone, lorazepam Hypothyroidism --levothyroxine dose recently adjusted at [place], repeat levels in 6 weeks Leukopenia, chronic --possibly medication related, e.g. Plaquenil, risperidone --WBC is stable --heme following, considering MDS Stage II pressure ulcer superior aspect of right pinna --Allevyn dressing --foam protective cover for nasal cannula Visit type - Emergency Visit Emergency Visit: Yes ED Registration Date: 12/04/17 Care time: The patient presented to the Emergency Department on the above date and was hospitalized for further evaluation of their emergent condition. - New Patient This patient is new to me today: No - Critical Care Critical Care patient: No
--- NOTE | 2017-12-13 20:17 | PN ---
Physical Exam: SUBJECTIVE: Patient seen and examined. Much more alert. Sitting up in bed eating candy. OBJECTIVE: Vital Signs Period Temp Pulse Resp BP Sys/Neal Pulse Ox Last 24 Hr 97.6 F-98.1 F 80-93 18-21 112-118/54-60 96-97 GENERAL: The patient is awake, alert. LUNGS: Scattered rales. . HEART: Irregularly irregular. ABDOMEN: Obese, soft, nontender, nondistended, normoactive bowel sounds, no guarding, no rebound EXTREMITIES: 2+ pulses, warm, well-perfused, trace edema. Laboratory Results - last 24 hr 12/13/17 12/13/17 07:09 07:09 WBC 2.1 L RBC 3.76 Hgb 8.1 L Hct 27.8 L MCV 73.8 L MCH 21.5 L MCHC 29.2 L RDW 23.9 H Plt Count 196 MPV 7.7 D Absolute Neuts (auto) 1.3 L Neutrophils % 60.5 D Lymphocytes % 27.3 D Monocytes % 7.9 Eosinophils % 3.1 D Basophils % 1.2 D Nucleated RBC % 1 H Hypochromia 0 Platelet Estimate Normal Polychromasia 1+ Poikilocytosis 0 Anisocytosis 2+ Microcytosis 1+ Macrocytosis 0 Spherocytes 1+ Ovalocytes 1+ Sodium 135 L Potassium 5.1 Chloride 99 Carbon Dioxide 29 Anion Gap 7 L BUN 50 H Creatinine 1.7 H Creat Clearance w eGFR 28.77 Random Glucose 77 Calcium 8.2 L Magnesium 2.4 Total Bilirubin 0.5 AST 33 ALT 23 Alkaline Phosphatase 145 H Total Protein 7.2 Albumin 2.1 L Active Medications Generic Name Dose Route Start Last Admin Trade Name Freq PRN Reason Stop Dose Admin Acetaminophen 1,000 mg 12/10/17 23:10 12/11/17 18:01 Tylenol - PO 1,000 mg Q6H PRN Administration FEVER Apixaban 5 mg 12/03/17 22:00 12/13/17 10:39 Eliquis - PO 5 mg BID ELENA Administration Docusate Sodium 100 mg 12/02/17 22:00 12/12/17 21:28 Colace - PO 100 mg HS ELENA Administration Ferrous Gluconate 324 mg 12/03/17 10:00 12/13/17 10:39 Fergon - PO 324 mg DAILY ELENA Administration Folic Acid 1 mg 12/03/17 10:00 12/13/17 10:39 Folic Acid - PO 1 mg DAILY ELENA Administration Hydroxychloroquine Sulfate 200 mg 12/02/17 22:00 12/13/17 10:39 Plaquenil - PO 200 mg BID ELENA Administration Ceftriaxone Sodium 2 gm/ 100 mls @ 100 mls/hr 12/12/17 15:15 12/13/17 10:38 Dextrose IVPB 100 mls/hr DAILY ELENA Administration Protocol Levothyroxine Sodium 50 mcg 12/03/17 07:00 12/13/17 06:10 Synthroid - PO 50 mcg 0700 ELENA Administration Lorazepam 1 mg 12/03/17 10:00 12/13/17 10:39 Ativan - PO 1 mg DAILY ELENA Administration Metoprolol Succinate 100 mg/ 125 mg 12/03/17 10:00 12/13/17 10:38 Metoprolol Succinate 25 mg PO 125 mg DAILY ELNEA Administration Pantoprazole Sodium 40 mg 12/03/17 10:00 12/13/17 10:39 Protonix - PO 40 mg DAILY ELENA Administration Potassium Chloride 40 meq 12/07/17 11:45 12/13/17 10:39 K-Dur - PO 40 meq BID ELENA Administration Risperidone 2 mg 12/03/17 11:01 12/13/17 10:38 Risperdal - PO 2 mg DAILY ELENA Administration ASSESSMENT/PLAN: 82 year-old female with a PMH significant for HTN, afib on Eliquis, diastolic HF , RA, hypothyroidism, and schizoaffective/bipolar disorder. Admitted for symptomatic anemia and occult stool positive. Hospital course complicated by fever and pneumonia. Pneumonia, aspiration v. HCAP --continue ceftriaxone Iron-deficiency anemia secondary to chronic GI blood loss --Hgb 7.6 on admission, occult stool positive --transfused 2U PRBC so far this admission, last transfused 12/07, h/h stable --GI workup deferred, outpatient --continue iron supplementation, protonix Hypertension --BP stable --continue metoprolol Atrial fibrillation --rate-controlfled, continue metoprolol --continue Eliquis Acute on chronic diastolic heart failure --continue lasix PO BID --continue K supplementation --continue fluid restriction --daily weights Rheumatoid arthritis --continue Plaquenil Schizoaffective/bipolar disorder --continue risperidone, lorazepam Hypothyroidism --levothyroxine dose recently adjusted at [place], repeat levels in 6 weeks Leukopenia, chronic --possibly medication related, e.g. Plaquenil, risperidone --WBC is stable --heme following, considering MDS Visit type - Emergency Visit Emergency Visit: Yes ED Registration Date: 12/04/17 Care time: The patient presented to the Emergency Department on the above date and was hospitalized for further evaluation of their emergent condition. - New Patient This patient is new to me today: No - Critical Care Critical Care patient: No
[2017-12-13] MEDS: DOCUSATE SODIUM 100 MG CAPSULE (FP) PO SCH (21:24)
[2017-12-13] MEDS: ACETAMINOPHEN 500 MG TABLET (FP) PO PRN (21:24)
[2017-12-14] MEDS: LEVOTHYROXINE NA 50 MCG TABLET (FP) PO SCH (06:06)
[2017-12-14 07:45] LABS: BASO % 1.5 % (0-2.0); EOS % 2.9 % (0-4.5); HEMATOCRIT 27.6 % (32.4-45.2); LYMPH % 31.5 % (8-40); MCH 21.6 pg (25.7-33.7); MEAN CELL VOLUME 74.3 fl (80-96); MEAN PLT VOLUME 8.4 fl (7.5-11.1); MONO % 10.9 % (3.8-10.2); NEUT % 53.2 % (42.8-82.8); PLATELET COUNT 187 K/MM3 (134-434); RBC 3.72 M/mm3 (3.60-5.2); RDW 24.8 % (11.6-15.6)
[2017-12-14 08:09] LABS: ALBUMIN 2.1 g/dl (3.4-5.0); ALK PHOS 143 U/L (45-117); ANION GAP 11 MMOL/L (8-16); BILIRUBIN,TOTAL 0.5 mg/dL (0.2-1); BLOOD UREA NITROGEN 47 mg/dL (7-18); CALCIUM 8.4 mg/dL (8.5-10.1); CHLORIDE 103 mmol/L (98-107); CO2 27 mmol/L (21-32); CREATININE 1.4 mg/dL (0.55-1.3); GLUCOSE,RANDOM 78 mg/dL (74-106); MAGNESIUM 2.4 mg/dL (1.8-2.4); POTASSIUM 4.5 mmol/L (3.5-5.1); SGOT/AST 26 U/L (15-37); SGPT/ALT 22 U/L (13-61); SODIUM 140 mmol/L (136-145); TOT PROT 7.3 g/dl (6.4-8.2)
[2017-12-14 08:12] LABS: WHITE BLOOD COUNT 1.8 K/mm3 (4.0-10.0)
[2017-12-14] MEDS ORDERED: metoPROLOL SUCCINATE 25 MG TAB.SR.24H (FP) ONE (09:39)
[2017-12-14] MEDS ORDERED: DEXTROSE 5%-WATER 100 ML IVPB ONE (09:40)
[2017-12-14] MEDS: CEFTRIAXONE 2 GM in DEXTROSE 5%-WATER 100 ML IVPB SCH (09:59)
[2017-12-14] MEDS: APIXABAN 5 MG TABLET PO SCH ×2 (10:00→21:08)
[2017-12-14] MEDS: METOPROLOL SUCCINATE 100 MG, METOPROLOL SUCCINATE 25 MG PO SCH (10:00)
[2017-12-14] MEDS: POTASSIUM CHLORIDE TABS 20 MEQ TABLET.ER (FP) PO SCH ×2 (10:00→21:08)
[2017-12-14] MEDS: LORazepam 1 MG TABLET PO SCH (10:00)
[2017-12-14] MEDS: PANTOPRAZOLE 40 MG TABLET (FP) PO SCH (10:00)
[2017-12-14] MEDS: risperiDONE 1 MG TABLET (FP) PO SCH (10:01)
[2017-12-14] MEDS: FOLIC ACID 1 MG TABLET (FP) PO SCH (10:01)
[2017-12-14] MEDS: FERROUS GLUCONATE 324 MG TAB (FP) PO SCH (10:04)
[2017-12-14] MEDS: HYDROXYCHLOROQUINE SO4 200 MG TABLET (FP) PO SCH ×2 (10:04→21:53)
[2017-12-14 11:44] LABS: ACANTHOCYTES 1+; ANISOCYTOSIS 2+; MACROCYTOSIS 1+; PLATELET ESTIMATE NORMAL; TOXIC GRANULATION 1+
[2017-12-14] MEDS ORDERED: VANCOMYCIN 1,000 MG in DEXTROSE 5%-WATER - 250 ML IVPB SCH (16:15)
[2017-12-14] MEDS ORDERED: VANCOMYCIN 1 GRAM (PRE-DOCKED) 1,000 MG/250 ML BAG IVPB SCH (16:27)
[2017-12-14] MEDS: VANCOMYCIN 1 GRAM (PRE-DOCKED) 1,000 MG/250 ML BAG IVPB SCH (16:52)
--- NOTE | 2017-12-14 17:12 | PN ---
Progress Note (short form) - Note Progress Note: cc: chf s: denies sob, cp, palps, dizziness Current Medications Acetaminophen (Tylenol -) 1,000 mg PO Q6H PRN PRN Reason: FEVER Last Admin: 12/13/17 21:24 Dose: 1,000 mg Apixaban (Eliquis -) 5 mg PO BID [facility] Last Admin: 12/14/17 10:00 Dose: 5 mg Docusate Sodium (Colace -) 100 mg PO HS [facility] Last Admin: 12/13/17 21:24 Dose: 100 mg Ferrous Gluconate (Fergon -) 324 mg PO DAILY [facility] Last Admin: 12/14/17 10:04 Dose: 324 mg Folic Acid (Folic Acid -) 1 mg PO DAILY [facility] Last Admin: 12/14/17 10:01 Dose: 1 mg Hydroxychloroquine Sulfate (Plaquenil -) 200 mg PO BID [facility] Last Admin: 12/14/17 10:04 Dose: 200 mg Vancomycin HCl (Vancomycin (Pre-Docked)) 1,000 mg in 250 mls @ 166.667 mls/hr IVPB Q12H [facility]; Protocol Last Admin: 12/14/17 16:52 Dose: 166.667 mls/hr Levothyroxine Sodium (Synthroid -) 50 mcg PO 0700 [facility] Last Admin: 12/14/17 06:06 Dose: 50 mcg Lorazepam (Ativan -) 1 mg PO DAILY [facility] Last Admin: 12/14/17 10:00 Dose: 1 mg Metoprolol Succinate 100 mg/ (Metoprolol Succinate 25 mg) 125 mg PO DAILY [facility] Last Admin: 12/14/17 10:00 Dose: 125 mg Pantoprazole Sodium (Protonix -) 40 mg PO DAILY [facility] Last Admin: 12/14/17 10:00 Dose: 40 mg Potassium Chloride (K-Dur -) 40 meq PO BID [facility] Last Admin: 12/14/17 10:00 Dose: 40 meq Risperidone (Risperdal -) 2 mg PO DAILY [facility] Last Admin: 12/14/17 10:01 Dose: 2 mg - Objective Vital Signs: Vital Signs Period Temp Pulse Resp BP Sys/Neal Pulse Ox Last 24 Hr 97.4 F-98.3 F 75-93 18-22 101-116/49-53 95-96 Constitutional: Yes: No Distress, Calm, Obese Eyes: No: Sclera Icterus HENT: No: Nasal Congestion Cardiovascular: Yes: Regular Rate and Rhythm, S1, S2, Other (PMI non diplaced). No: JVD (tds neck habitus), Gallop, Murmur Respiratory: Yes: CTA Bilaterally, Diminished (bases) with poor effort. No: Accessory Muscle Use, Wheezes Gastrointestinal: Yes: Normal Bowel Sounds, Soft. No: Tenderness Musculoskeletal: Yes: Other (No kyphosis) Extremities: No: Cold Edema: No Integumentary: No: Jaundice Neurological: Yes: Alert. No: Seizure Psychiatric: No: Agitated Assessment/Plan cxr: effusions/chf ecg: afib, rate controlled, nl qtc, no ischemic changes echo 11/2017: tds; nl lv, rv tds, no sig valve path, nl rvsp a/p: 82 f hx anemia, RA, hypothyroid, chf, afib, htn, sent from [facility] for anemia, dark stools. fever, beta strep bacteremia: -febrile to > 101 on 12/10 in pm, BCx growing beta-hemolytic strep; UCx with gram negative rods -echo here with no identifiable valve dysfunction on 12/03, will rpt study. no murmurs on exam. no convincing findings of acute pulm edema or acute exacerbation of chf based on CXR review, pt's creat bump to lasix x 1 dose, and phys exam. -ID consult appreciated--cont abx and w/u per their recs acute diastolic chf: -echo unremarkable -no details available, pt on lasix 40 bid po at [place] -initial CXR here with evidence of chf and effusions. -treated with lasix 40 iv bid here. -bedscale wts only: trended down consistently from 231 to 221, up gradually to 228 now 219 today -changed to lasix 40 po bid on 12/09. -episode overnight 12/10 of fever accompanied by acute dyspnea--given IV lasix. sx's improved. repeat CXR at that time showed stable congestion, creat bumped hence lasix held 12/11. ? sx's were due to hi fever with bacteremia (BCx positive now) and resolved when she defervesced. -12/14: renal fxn initially worsening likely due to sepsis/baceteremia. now improving. appears stable volume status, with bibasilar abnormal lung - cont holding PO lasix for now while treating infection with stable volume status, CXR today is unchanged JUAN DANIEL: -no baseline creat data available -creat 1.5 on admit, improved with diuresis -bumped again 12/11 ? due to acute chf again, vs lasix dose, now improving again with holding lasix - cont holding lasix dark stools, anemia: -being evaluated by GI, Heme -hgb currently stable afib: -rate controlled, cont toprol -has been on eliquis, continued here, monitor hgb trend hypothyroid: -tsh elevated, synthroid dosing per pmd htn: -bp controlled -cont toprol
--- NOTE | 2017-12-14 17:13 | PN ---
Physical Exam: SUBJECTIVE: Patient seen and examined. Smiling, interactive. OBJECTIVE: Vital Signs Period Temp Pulse Resp BP Sys/Neal Pulse Ox Last 24 Hr 97.4 F-98.3 F 75-93 18-22 101-116/49-53 95-96 GENERAL: The patient is awake, answers simple questions. LUNGS: CTA HEART: Irregularly irregular. ABDOMEN: Obese, soft, nontender, nondistended, normoactive bowel sounds, no guarding, no rebound EXTREMITIES: 2+ pulses, warm, well-perfused, trace edema. Laboratory Results - last 24 hr 12/14/17 12/14/17 07:20 07:20 WBC 1.8 L* RBC 3.72 Hgb 8.0 L Hct 27.6 L MCV 74.3 L MCH 21.6 L MCHC 29.0 L RDW 24.8 H Plt Count 187 MPV 8.4 Absolute Neuts (auto) 1.0 L Neutrophils % 53.2 Neutrophils % (Manual) 56.7 Band Neutrophils % 7.2 Lymphocytes % 31.5 Lymphocytes % (Manual) 20.6 D Monocytes % 10.9 H Monocytes % (Manual) 5 D Eosinophils % 2.9 Eosinophils % (Manual) 1.0 D Basophils % 1.5 Basophils % (Manual) 1.0 D Myelocytes % (Man) 0 D Promyelocytes % (Man) 0 D Blast Cells % (Manual) 0 Nucleated RBC % 1 H Metamyelocytes 3 H D Hypochromia 0 Toxic Granulation 1+ Platelet Estimate Normal Polychromasia 1+ Poikilocytosis 0 Anisocytosis 2+ Microcytosis 1+ Macrocytosis 1+ Spherocytes 2+ Acanthocytes (Spur) 1+ Sodium 140 Potassium 4.5 Chloride 103 Carbon Dioxide 27 Anion Gap 11 BUN 47 H Creatinine 1.4 H Creat Clearance w eGFR 36.00 Random Glucose 78 Calcium 8.4 L Magnesium 2.4 Total Bilirubin 0.5 AST 26 ALT 22 Alkaline Phosphatase 143 H Total Protein 7.3 Albumin 2.1 L Active Medications Generic Name Dose Route Start Last Admin Trade Name Freq PRN Reason Stop Dose Admin Acetaminophen 1,000 mg 12/10/17 23:10 12/13/17 21:24 Tylenol - PO 1,000 mg Q6H PRN Administration FEVER Apixaban 5 mg 12/03/17 22:00 12/14/17 10:00 Eliquis - PO 5 mg BID ELENA Administration Docusate Sodium 100 mg 12/02/17 22:00 12/13/17 21:24 Colace - PO 100 mg HS ELENA Administration Ferrous Gluconate 324 mg 12/03/17 10:00 12/14/17 10:04 Fergon - PO 324 mg DAILY ELENA Administration Folic Acid 1 mg 12/03/17 10:00 12/14/17 10:01 Folic Acid - PO 1 mg DAILY ELENA Administration Hydroxychloroquine Sulfate 200 mg 12/02/17 22:00 12/14/17 10:04 Plaquenil - PO 200 mg BID ELENA Administration Vancomycin HCl 1,000 mg in 250 mls @ 166.667 mls/hr 12/14/17 16:30 12/14/17 16:52 Vancomycin (Pre-Docked) IVPB 166.667 mls/hr Q12H ELENA Administration Protocol Levothyroxine Sodium 50 mcg 12/03/17 07:00 12/14/17 06:06 Synthroid - PO 50 mcg 0700 ELENA Administration Lorazepam 1 mg 12/03/17 10:00 12/14/17 10:00 Ativan - PO 1 mg DAILY ELENA Administration Metoprolol Succinate 100 mg/ 125 mg 12/03/17 10:00 12/14/17 10:00 Metoprolol Succinate 25 mg PO 125 mg DAILY ELENA Administration Pantoprazole Sodium 40 mg 12/03/17 10:00 12/14/17 10:00 Protonix - PO 40 mg DAILY ELENA Administration Potassium Chloride 40 meq 12/07/17 11:45 12/14/17 10:00 K-Dur - PO 40 meq BID ELENA Administration Risperidone 2 mg 12/03/17 11:01 12/14/17 10:01 Risperdal - PO 2 mg DAILY ELENA Administration ASSESSMENT/PLAN: 82 year-old female with a PMH significant for HTN, afib on Eliquis, diastolic HF , RA, hypothyroidism, and schizoaffective/bipolar disorder. Admitted for symptomatic anemia and occult stool positive. Hospital course complicated by UTI , pneumonia, and bacteremia. Enterococcus bacteremia Klebsiella and Enterococcus UTI Pneumonia, aspiration v. HCAP --ID following, switch to Vanc --Echo pending Iron-deficiency anemia secondary to chronic GI blood loss --Hgb 7.6 on admission, occult stool positive --transfused 2U PRBC so far this admission, last transfused 12/07, h/h stable --GI workup deferred, outpatient --continue iron supplementation, protonix Hypertension --BP stable --continue metoprolol Atrial fibrillation --rate-controlfled, continue metoprolol --continue Eliquis Acute on chronic diastolic heart failure --holding lasix past 48 hours for increase in Cr; today starting to trend down down 1.7-->1.4 (baseline 1.1) Rheumatoid arthritis --continue Plaquenil Schizoaffective/bipolar disorder --continue risperidone, lorazepam Hypothyroidism --levothyroxine dose recently adjusted at [place], repeat levels in 6 weeks Leukopenia, chronic --possibly medication related, e.g. Plaquenil, risperidone --WBC is stable --heme following, considering MDS Stage II pressure ulcer superior aspect of right pinna --Allevyn dressing --foam protective cover for nasal cannula Visit type - Emergency Visit Emergency Visit: Yes ED Registration Date: 12/04/17 Care time: The patient presented to the Emergency Department on the above date and was hospitalized for further evaluation of their emergent condition. - New Patient This patient is new to me today: No - Critical Care Critical Care patient: No
--- NOTE | 2017-12-14 17:14 | ECHO ---
Name: DOYLE LAN Exam:Adult Echocardiogram Study Date: 12/14/2017 03:09 PM Age: 82 yrs Reason For Study: CHF STREP IN BLOOD REASSESS VALVE FUNCTION Height: 64 in Weight: 228 lb BSA: 2.1 m2 MMode/2D Measurements & Calculations IVSd: 0.97 cm Ao root diam: 2.8 cm LVIDd: 3.5 cm LA dimension: 4.2 cm LVIDs: 2.6 cm LVPWd: 0.81 cm EDV(Teich): 51.3 ml LVOT diam: 2.0 cm ESV(Manjeet): 24.6 ml TAPSE: 1.7 cm RV S Jack: 10.6 cm/sec Doppler Measurements & Calculations MV E max jack: 134.3 cm/sec Ao V2 max: 187.9 cm/sec MV A max jack: 30.6 cm/sec Ao max P.1 mmHg MV E/A: 4.4 Ao V2 mean: 147.2 cm/sec MV dec time: 0.18 sec Ao mean P.2 mmHg Ao V2 VTI: 45.1 cm EMILY(I,D): 0.94 cm2 EMILY(V,D): 0.96 cm2 LV V1 max P.4 mmHg MR max jack: 313.0 cm/sec LV V1 mean P.80 mmHg MR max P.2 mmHg LV V1 max: 59.8 cm/sec LV V1 mean: 42.4 cm/sec LV V1 VTI: 14.0 cm SV(LVOT): 42.5 ml TR max jack: 267.8 cm/sec TR max P.7 mmHg PI end-d jack: 33.9 cm/sec Med Peak E' Jack: 11.1 cm/sec Med E/e': 12.1 Lat Peak E' Jack: 9.7 cm/sec Lat E/e': 13.9 Procedure A complete two-dimensional transthoracic echocardiogram was performed (2D, M-mode, Doppler and color flow Doppler). Left Ventricle The left ventricle is normal in size. Left ventricular systolic function is normal. Ejection Fraction = 60- 65%. No regional wall motion abnormalities noted. Right Ventricle The right ventricle is normal size. The right ventricular systolic function is normal. RV systolic TD I is 11 cm/s. Atria The left atrium is mildly dilated. Right atrial size is normal. Mitral Valve There is mild to moderate mitral annular calcification. There is mild mitral regurgitation. Tricuspid Valve The tricuspid valve is normal in structure and function. There is mild to moderate tricuspid regurgit ation. Pulmonary artery systolic pressure is at least 41 mmHg assuming RA pressure of 8 mmHg. Aortic Valve There is mild aortic sclerosis.;. No aortic regurgitation is present. Pulmonic Valve The pulmonic valve is not well visualized. Trace pulmonic valvular regurgitation. Great Vessels The aortic root is normal size. Pericardium/Pleura There is no pericardial effusion. Interpretation Summary The left ventricle is normal in size. Left ventricular systolic function is normal. No regional wall motion abnormalities noted. Ejection Fraction = 60-65%. The right ventricular systolic function is normal. The left atrium is mildly dilated. Right atrial size is normal. There is mild to moderate mitral annular calcification. There is mild mitral regurgitation. There is mild to moderate tricuspid regurgitation. Pulmonary artery systolic pressure is at least 41 mmHg assuming RA pressure of 8 mmHg There is mild aortic sclerosis.; Trace pulmonic valvular regurgitation. There is no pericardial effusion. Richy Jain MD 12/14/2017 05:13 PM
--- NOTE | 2017-12-14 19:19 | PN ---
Progress Note, Physician History of Present Illness: Micro lab now reports BC + Enterococcus sp. Lethargic Offers no complaints Temps down WBC 1.8 ANC 1.0 - Current Medication List Current Medications: Active Medications Acetaminophen (Tylenol -) 1,000 mg PO Q6H PRN PRN Reason: FEVER Last Admin: 12/13/17 21:24 Dose: 1,000 mg Apixaban (Eliquis -) 5 mg PO BID [facility] Last Admin: 12/14/17 10:00 Dose: 5 mg Docusate Sodium (Colace -) 100 mg PO HS [facility]LE[facility] Last Admin: 12/13/17 21:24 Dose: 100 mg Ferrous Gluconate (Fergon -) 324 mg PO DAILY [facility] Last Admin: 12/14/17 10:04 Dose: 324 mg Folic Acid (Folic Acid -) 1 mg PO DAILY [facility] Last Admin: 12/14/17 10:01 Dose: 1 mg Hydroxychloroquine Sulfate (Plaquenil -) 200 mg PO BID [facility] Last Admin: 12/14/17 10:04 Dose: 200 mg Vancomycin HCl (Vancomycin (Pre-Docked)) 1,000 mg in 250 mls @ 166.667 mls/hr IVPB Q12H [facility]; Protocol Last Admin: 12/14/17 16:52 Dose: 166.667 mls/hr Levothyroxine Sodium (Synthroid -) 50 mcg PO 0700 [facility] Last Admin: 12/14/17 06:06 Dose: 50 mcg Lorazepam (Ativan -) 1 mg PO DAILY [facility] Last Admin: 12/14/17 10:00 Dose: 1 mg Metoprolol Succinate 100 mg/ (Metoprolol Succinate 25 mg) 125 mg PO DAILY [facility] Last Admin: 12/14/17 10:00 Dose: 125 mg Pantoprazole Sodium (Protonix -) 40 mg PO DAILY [facility] Last Admin: 12/14/17 10:00 Dose: 40 mg Potassium Chloride (K-Dur -) 40 meq PO BID [facility] Last Admin: 12/14/17 10:00 Dose: 40 meq Risperidone (Risperdal -) 2 mg PO DAILY [facility] Last Admin: 12/14/17 10:01 Dose: 2 mg - Objective Vital Signs: Vital Signs Temperature 98.2 F 12/14/17 14:54 Pulse Rate 84 12/14/17 14:54 Respiratory Rate 18 12/14/17 14:54 Blood Pressure 101/50 L 10/29/18 14:54 O2 Sat by Pulse Oximetry (%) 95 12/14/17 10:00 Constitutional: Yes: No Distress Cardiovascular: Yes: Regular Rate and Rhythm, S1, S2 Respiratory: Yes: Diminished Gastrointestinal: Yes: Normal Bowel Sounds, Soft, Abdomen, Obese Labs: CBC, BMP 12/14/17 07:20 12/14/17 07:20 INR, PTT INR 2.44 (0.83-1.09) H 12/02/17 15:35 Assessment/Plan Enterococcal bacteremia likely urinary tract source Possible asp pneumonia Leukopenia PCN/TCN allergies Azotemia Switch to vancomycin Check repeat BC Echo
[2017-12-14] MEDS: ACETAMINOPHEN 500 MG TABLET (FP) PO PRN (21:07)
[2017-12-14] MEDS: DOCUSATE SODIUM 100 MG CAPSULE (FP) PO SCH (21:09)
[2017-12-14] MEDS ORDERED: PT OWN MED DRAWER 7, Y5N ONE (21:46)
[2017-12-15] MEDS: VANCOMYCIN 1 GRAM (PRE-DOCKED) 1,000 MG/250 ML BAG IVPB SCH ×2 (04:34→16:20)
[2017-12-15] MEDS: LEVOTHYROXINE NA 50 MCG TABLET (FP) PO SCH (06:12)
[2017-12-15 06:55] LABS: BASO % 1.2 % (0-2.0); EOS % 1.6 % (0-4.5); HEMOGLOBIN 8.3 GM/dL (10.7-15.3); LYMPH % 29.6 % (8-40); MCHC 29.6 g/dl (32.0-36.0); MEAN CELL VOLUME 74.5 fl (80-96); MEAN PLT VOLUME 7.5 fl (7.5-11.1); MONO % 9.3 % (3.8-10.2); NEUT % 58.3 % (42.8-82.8); PLATELET COUNT 199 K/MM3 (134-434); RBC 3.76 M/mm3 (3.60-5.2); RDW 24.8 % (11.6-15.6)
[2017-12-15 07:35] LABS: ALBUMIN 2.2 g/dl (3.4-5.0); ALK PHOS 139 U/L (45-117); ANION GAP 9 MMOL/L (8-16); BILIRUBIN,DIRECT 0.2 mg/dL (0.0-0.2); BILIRUBIN,TOTAL 0.3 mg/dL (0.2-1); BLOOD UREA NITROGEN 42 mg/dL (7-18); CALCIUM 8.3 mg/dL (8.5-10.1); CHLORIDE 104 mmol/L (98-107); CO2 27 mmol/L (21-32); CREATININE 1.2 mg/dL (0.55-1.3); GLUCOSE,RANDOM 101 mg/dL (74-106); MAGNESIUM 2.6 mg/dL (1.8-2.4); POTASSIUM 4.7 mmol/L (3.5-5.1); SGOT/AST 25 U/L (15-37); SGPT/ALT 21 U/L (13-61); SODIUM 140 mmol/L (136-145); TOT PROT 7.2 g/dl (6.4-8.2)
[2017-12-15 08:01] LABS: WHITE BLOOD COUNT 1.9 K/mm3 (4.0-10.0)
[2017-12-15] MEDS ORDERED: metoPROLOL SUCCINATE 25 MG TAB.SR.24H (FP) ONE (10:20)
[2017-12-15 10:23] LABS: ANISOCYTOSIS 1+; MACROCYTOSIS 1+; PLATELET ESTIMATE NORMAL
[2017-12-15] MEDS: METOPROLOL SUCCINATE 100 MG, METOPROLOL SUCCINATE 25 MG PO SCH (10:23)
[2017-12-15] MEDS: HYDROXYCHLOROQUINE SO4 200 MG TABLET (FP) PO SCH ×2 (10:23→21:31)
[2017-12-15] MEDS: PANTOPRAZOLE 40 MG TABLET (FP) PO SCH (10:23)
[2017-12-15] MEDS: risperiDONE 1 MG TABLET (FP) PO SCH (10:23)
--- NOTE | 2017-12-15 10:23 | CONSULT ---
Admitting History and Physical - Primary Care Physician PCP: Elisabeth Woods - Admission History of Present Illness: Per EMR: 82 year-old female with a PMH significant for HTN, afib on Eliquis, diastolic HF , RA, hypothyroidism, and schizoaffective/bipolar disorder. Admitted for symptomatic anemia and occult stool positive. Hospital course complicated by fever and pneumonia. Pneumonia, aspiration v. HCAP Iron-deficiency anemia secondary to chronic GI blood loss ID: Enterococcal bacteremia likely urinary tract source Possible asp pneumonia Leukopenia Selected Entries 12/13/17 12/13/17 12/13/17 02:46 02:47 05:12 Breakfast Lunch 50% Supper Temperature 97.6 F 98.1 F 12/13/17 12/13/17 12/13/17 07:48 11:32 19:00 Breakfast 50% Lunch Supper Temperature 98.0 F 97.6 F 12/13/17 12/13/17 12/14/17 20:40 23:00 05:30 Breakfast Lunch Supper 25% Temperature 97.4 F L 98.3 F 12/14/17 12/14/17 12/14/17 10:00 12:58 14:54 Breakfast 75% Lunch 75% Supper Temperature 97.9 F 98.2 F 12/14/17 12/14/17 12/15/17 18:00 20:28 07:13 Breakfast Lunch Supper 50% Temperature 98.8 F 97.8 F Laboratory Tests 12/13/17 12/14/17 12/15/17 07:09 07:20 06:30 WBC 2.1 L 1.8 L* 1.9 L* On reg diet/ 1200cc fluid restrictions. ON ABT FOR POSITIVE BLOOD CULTURE.O2 2L/MT SAT 99% Pt from [facility]. PT WAS ON A GROUND DIET and thin liquids there. Pt reports she has intermittent symptoms of swallowing difficulty on both food and liquids. She says it sticks in her throat, sometimes comes back up and sometimes makes her choke. CXR noted This is my first consult with this pt. History Source: Patient, Medical Record Limitations to Obtaining History: Clinical Condition - Smoking History Smoking history: Never smoked Have you smoked in the past 12 months: No - Alcohol/Substance Use Hx Alcohol Use: No History - Admission Reason For Visit: ANEMIA - Diagnostics X-ray: Report Reviewed - General Mental Status: Awake and Alert (oriented to hospital,82 yo, [place], November 2007 , corrected to 2018.), Able to Follow Commands, Forgetful (suspected), Lethargic (intermittently dosed) Attention: Intact Ability to Follow Directions: Good Head/Neck Control: WFL - Hearing Hearing: Normal Speech Evaluation - Communication Primary Language: [place]ENTR[place] Oral Expression Ability: Yes: Mild Impairment (Slow to respond, delayed formulation.) - Speech Production Able to Make Needs Known: Yes: Mildly Impaired Intelligibility: Yes: WNL - Speech Characteristics Voice Loudness: Normal Voice Pitch: Yes: Normal Voice Phonatory-based Quality: Yes: Normal Speech Pattern: Normal Speech Clarity: < 100% Nasal Resonance: Normal Articulation: Yes: Precise Rate of Speech: Too Slow - Language/Auditory Comprehension Follows: Yes: 1 Stage Simple Commands Observation: Able to respond to yes/no queries: Yes, Yes/No Confusion: No, Comprehends Conversational Speech: Yes - Language/Verbal Expression Aphasia: Yes: Anomia Able to Respond to Simple Queries: Yes: Mildly Impaired Able to Communicate Wants and Needs: Yes: Mildly Impaired Functional Communication Status: Yes: Mildly Impaired - Swallow Evaluation/Bedside Assessment Current Nutritional Intake: Regular, Thin Liquids (Fluid restrictions) Oral Secretions: Yes: WFL Dentition: Yes: Edentulous (upper), Missing Teeth (Only teeth in anterior lower region.) Facial Symmetry at Rest: Symmetrical Facial Symmetry on Retraction: Symmetrical Against Resistance Opening: Normal Against Resistance Closing: Normal Pucker Lips: Normal Smile: Normal Lingual Movement: Normal, Symmetric Lingual Speed of Movement: Normal Lingual Movement Strgth Against Opposition: Normal Lingual Movement Characteristics: Normal Velopharyngeal Movement: Normal Laryngeal Elevation: WFL Laryngeal Movement: Able to Palpate Rate of Intake: WFL Bolus Size: WFL Labial Seal: WFL Chewing: Impaired Oral Prep Time: WFL A-P Transit: WFL Pocketing: None Timing of Swallow: WFL Coughing/Throat Clear: No Change in Voice: No Recommendations - Speech Evaluation, Impression/Plan Impression: Brisk swallow, overtly functional without signs of aspiration. Many missing teeth, on reg diet. Pt was on ground diet at [place]. Pt reports inconsistent difficulty with solids and liquids. - Disposition Discharge to: Shelter Facility - Dysphagia Impressions/Plan Dysphagia Impressions: Risk of Aspiration, Ongoing Evaluation *Silent aspiration: cannot be R/O at bedside Recommendations: MBS w Esophagus - Recommendations Diet Consistency: Other (Chopped) Liquids: Thin Liquids
[2017-12-15] MEDS: LORazepam 1 MG TABLET PO SCH (10:24)
[2017-12-15] MEDS: FERROUS GLUCONATE 324 MG TAB (FP) PO SCH (10:24)
[2017-12-15] MEDS: FOLIC ACID 1 MG TABLET (FP) PO SCH (10:24)
[2017-12-15] MEDS: APIXABAN 5 MG TABLET PO SCH ×2 (10:24→21:30)
[2017-12-15] MEDS: POTASSIUM CHLORIDE TABS 20 MEQ TABLET.ER (FP) PO SCH ×2 (10:25→21:30)
--- NOTE | 2017-12-15 15:30 | PN ---
Physical Exam: SUBJECTIVE: Patient seen and examined at the bedside. Feels better. denies pain, denies shortness of breath. OBJECTIVE: Vital Signs Period Temp Pulse Resp BP Sys/Neal Pulse Ox Last 24 Hr 97.8 F-98.8 F 87-96 18-20 95-111/50-55 96-99 GENERAL: The patient is awake, alert, to self and place, not time HEAD: Normal with no signs of trauma. EYES: PERRL, extraocular movements intact, sclera anicteric, conjunctiva clear. No ptosis. ENT: Ears normal, nares patent, oropharynx clear without exudates, moist mucous membranes. NECK: Trachea midline, full range of motion, supple. LUNGS: diminished breath sounds anteriorly, fine crackles at the bases L>R - slightly better HEART: irregular, hx of afib on eliquis ABDOMEN: Soft, nontender, nondistended, normoactive bowel sounds, no guarding, no rebound, no hepatosplenomegaly, no masses. EXTREMITIES: +2 bilateral lower ext edema NEUROLOGICAL: Normal speech, gait not observed. PSYCH: lethargic, with episodes of agitation SKIN: Warm, dry, normal turgor, no rashes or lesions noted Laboratory Results - last 24 hr 12/15/17 12/15/17 12/15/17 06:30 06:30 06:30 WBC 1.9 L* RBC 3.76 Hgb 8.3 L Hct 28.0 L MCV 74.5 L MCH 22.0 L MCHC 29.6 L RDW 24.8 H Plt Count 199 MPV 7.5 D Absolute Neuts (auto) 1.1 L Neutrophils % 58.3 Neutrophils % (Manual) 63.3 Band Neutrophils % 6.1 Lymphocytes % 29.6 Lymphocytes % (Manual) 21.4 Monocytes % 9.3 Monocytes % (Manual) 6 Eosinophils % 1.6 Eosinophils % (Manual) 0.0 D Basophils % 1.2 Basophils % (Manual) 2.1 H Myelocytes % (Man) 0 Promyelocytes % (Man) 0 Blast Cells % (Manual) 0 Nucleated RBC % 1 H Metamyelocytes 0 D Hypochromia 1+ Platelet Estimate Normal Polychromasia 0 Poikilocytosis 2+ Anisocytosis 1+ Microcytosis 1+ Macrocytosis 1+ Sodium 140 Potassium 4.7 Chloride 104 Carbon Dioxide 27 Anion Gap 9 BUN 42 H Creatinine 1.2 Creat Clearance w eGFR 43.01 Random Glucose 101 Calcium 8.3 L Magnesium 2.6 H Cancelled Total Bilirubin 0.3 Cancelled Direct Bilirubin 0.2 Cancelled AST 25 Cancelled ALT 21 Cancelled Alkaline Phosphatase 139 H Cancelled Total Protein 7.2 Cancelled Albumin 2.2 L Cancelled Active Medications Generic Name Dose Route Start Last Admin Trade Name Freq PRN Reason Stop Dose Admin Acetaminophen 1,000 mg 12/10/17 23:10 12/14/17 21:07 Tylenol - PO 1,000 mg Q6H PRN Administration FEVER Apixaban 5 mg 12/03/17 22:00 12/15/17 10:24 Eliquis - PO 5 mg BID ELENA Administration Docusate Sodium 100 mg 12/02/17 22:00 12/14/17 21:09 Colace - PO 100 mg HS ELENA Administration Ferrous Gluconate 324 mg 12/03/17 10:00 12/15/17 10:24 Fergon - PO 324 mg DAILY ELENA Administration Folic Acid 1 mg 12/03/17 10:00 12/15/17 10:24 Folic Acid - PO 1 mg DAILY ELENA Administration Hydroxychloroquine Sulfate 200 mg 12/02/17 22:00 12/15/17 10:23 Plaquenil - PO 200 mg BID ELENA Administration Vancomycin HCl 1,000 mg in 250 mls @ 166.667 mls/hr 12/14/17 16:30 12/15/17 04:34 Vancomycin (Pre-Docked) IVPB 166.667 mls/hr Q12H ELENA Administration Protocol Levothyroxine Sodium 50 mcg 12/03/17 07:00 12/15/17 06:12 Synthroid - PO 50 mcg 0700 ELENA Administration Lorazepam 1 mg 12/03/17 10:00 12/15/17 10:24 Ativan - PO 1 mg DAILY ELENA Administration Metoprolol Succinate 100 mg/ 125 mg 12/03/17 10:00 12/15/17 10:23 Metoprolol Succinate 25 mg PO 125 mg DAILY ELENA Administration Pantoprazole Sodium 40 mg 12/03/17 10:00 12/15/17 10:23 Protonix - PO 40 mg DAILY ELENA Administration Potassium Chloride 40 meq 12/07/17 11:45 12/15/17 10:25 K-Dur - PO 40 meq BID ELENA Administration Risperidone 2 mg 12/03/17 11:01 12/15/17 10:23 Risperdal - PO 2 mg DAILY ELENA Administration ASSESSMENT/PLAN: Patient is an 82 year old female with a significant past medical history of: -Iron deficiency anemia -Bilateral difficulty with ambulation - WC bound mostly -Hypothyroidism -Hx of celulitis of LLE -Acute on chronic diastolic congestive heart failure -Bipolar disorder -Leukopenia -Atrial fibrillation -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 She presents to the ED on 12/02/2017 after patient was seen By Dr. Carr on 12/02/2017 and patient was advised to go to [facility] to rule out GI bleed as her hmg/ hct was 7.5/28. She was reported to have dark stools at the nursing facility. hospitalization complicated when patient developed exacerbation of CHF, UTI and bacteremia. Imaging: Echo : LV normal, ef 65%, mild to mod franco.luiza.calci., mild mitral regurg., mild to mod tricuspid regurg. ID: Enterococcus bacteremia/Klebsiella/Enterococcus UTI: On vancomycin per ID. afebile. WBC 1.9. Length of antibiotic therapy to be determined per ID. Pulm: Aspiration pneumonia v. hcap On Vanco 1 gram q 12 Speech and swallow eval done, [facility] eval to follow for possible aspiration pneumonia. Aspiration precautions on a chopped diet. Heme Iron deficiency anemia/Blood loss anemia: transfused 1 unit of pbrc on admission with good effect. hmg/hct stable. On Ferrous sulfate. Leukopenia: at 1.9. WBC around 2.3 on [facility] lab values and possibly due to side effects of plaquenil.. blood cultures negative. GI: Rule out GI bleed. Started on Protonix 40mg daily. Further workup of possible gi bleed outpatient vs inpatient. Card Acute on chronic diastolic congestive heart failure. Lungs sound improved, has been off lasix while acute infection being treated. Fluid restriction of 1200cc daily. daily weights, strict intake and output. Atrial fibrillation. on eliquis bid. on metoprolol. cardiology following. Mobility Bilateral difficulty with ambulation in the setting of poor performance status. will consult PT once more stable. Endocrine Hypothyroidism TSH @ 20. As per Dr. Cannon ([facility] physician - PMD) - (Synthoid dose was recently increased at [facility] per MD- Repeat TSH @ [facility] as outpatient) Vascular Hx of celulitis of LLE No cellulitis presently. monitor for signs of infection. Psyche Bipolar disorder, continue home medications fen tolerating po SCDs Visit type - Emergency Visit Emergency Visit: Yes ED Registration Date: 12/04/17 Care time: The patient presented to the Emergency Department on the above date and was hospitalized for further evaluation of their emergent condition. - New Patient This patient is new to me today: No - Critical Care Critical Care patient: No - Discharge Referral Referred to [facility] No
--- NOTE | 2017-12-15 15:40 | PN ---
Progress Note (short form) - Note Progress Note: Patient seen and examined at bedside "I feel OK" Patient denies fever WBC count down to 1.8 yesterday from 4.9 the day before now 1.9 Hb 8.3 today and stable PE: Vital Signs Temp 98.4 F 12/15/17 15:25 Pulse 89 12/15/17 15:25 Resp 18 12/15/17 15:25 BP 111/54 L 12/15/17 15:25 Pulse Ox 96 12/15/17 10:00 Intake & Output 12/14/17 12/15/17 12/15/17 23:59 11:59 23:59 Intake Total 1100 200 250 Balance 1100 200 250 Weight 99.79 kg Intake: IVPB 350 Oral 750 200 250 Other: Voiding Method Incontinent Incontinent Incontinent # Unmeasured Voids Void 1 2 Bowel Movement No Body Mass Index (BMI) 38.9 Weight Measurement Method Built in [facility] alert and awake. Thinks its 1981. Irregular S1 S2 Right side clear left side with faint crackles at bases Soft non tender non distended bilateral lower extremity edema 12/15/17 12/15/17 06:30 06:30 WBC 1.9 L* RBC 3.76 Hgb 8.3 L Hct 28.0 L MCV 74.5 L MCHC 29.6 L RDW 24.8 H Plt Count 199 Neutrophils % 58.3 Lymphocytes % 29.6 Monocytes % 9.3 Eosinophils % 1.6 Basophils % 1.2 Sodium 140 Potassium 4.7 Chloride 104 Carbon Dioxide 27 Anion Gap 9 BUN 42 H Creatinine 1.2 12/13/17 07:09 Blood Culture - Preliminary Blood - Peripheral Venous NO GROWTH OBTAINED AFTER 48 HOURS, INCUBATION TO CONTINUE FOR 3 DAYS. 12/13/17 07:25 Blood Culture - Preliminary Blood - Peripheral Venous NO GROWTH OBTAINED AFTER 48 HOURS, INCUBATION TO CONTINUE FOR 3 DAYS. 12/11/17 02:00 Blood Culture - Preliminary Blood - Peripheral Venous NO GROWTH OBTAINED AFTER 96 HOURS, INCUBATION TO CONTINUE FOR 1 DAYS. 12/09/17 22:30 Urine Culture - Final Urine - Urine Clean Catch Klebsiella Pneumoniae Enterococcus Faecalis 12/11/17 02:00 Blood Culture - Final Blood - Peripheral Venous Enterococcus Faecalis 12/03/17 19:45 Blood Culture - Final Blood - Peripheral Venous NO GROWTH AFTER 5 DAYS INCUBATION 12/03/17 17:45 Blood Culture - Final Blood - Peripheral Venous NO GROWTH AFTER 5 DAYS INCUBATION Problem List: iron deficiency anemia A-Fib CHF HTN NIDDM disorganized schizophrenia Asthma RA (on hydroxcloroquine) Hypothyroidism non-thrombocytopenic purpura GERD patient now with fever and elevated WBC count to 4.9-likely from sepsis/ hospital acquired pneumonia vs bacteremia Plan: Given her WBC count now at 4.9 and fever last night concern for aspiration vs hospital acquired pneumonia. Elevated of WBC to 4.9 from 1.9 although now WNL should be treated as leukocytosis Patient noted to be bacteremic with enterococcus ABx per ID on Vanco Patients iron studies consistent with Iron deficiency anemia Need to consider myelodysplastic syndrome given multiple cell line deficiency Labs noted s/p 100mg venofir US of spleen and liver to r/o hepatosplenomegaly-patient has fatty infiltration of the liver and mild splenomegaly Will send total complement-pending C3 C4 ordered and approved by pathologist-form sent to phlebotomy-pending Rheumatoid factor elevated to 1150 GI workup when acute issues resolved and cleared by medicine on eliquis for A fib
--- NOTE | 2017-12-15 18:37 | PN ---
Progress Note, Physician - Current Medication List Current Medications: Active Medications Acetaminophen (Tylenol -) 1,000 mg PO Q6H PRN PRN Reason: FEVER Last Admin: 12/14/17 21:07 Dose: 1,000 mg Apixaban (Eliquis -) 5 mg PO BID [facility] Last Admin: 12/15/17 10:24 Dose: 5 mg Docusate Sodium (Colace -) 100 mg PO HS [facility] Last Admin: 12/14/17 21:09 Dose: 100 mg Ferrous Gluconate (Fergon -) 324 mg PO DAILY ELENA Last Admin: 12/15/17 10:24 Dose: 324 mg Folic Acid (Folic Acid -) 1 mg PO DAILY ELENA Last Admin: 12/15/17 10:24 Dose: 1 mg Hydroxychloroquine Sulfate (Plaquenil -) 200 mg PO BID [facility] Last Admin: 12/15/17 10:23 Dose: 200 mg Vancomycin HCl (Vancomycin (Pre-Docked)) 1,000 mg in 250 mls @ 166.667 mls/hr IVPB Q12H [facility]; Protocol Last Admin: 12/15/17 16:20 Dose: 166.667 mls/hr Levothyroxine Sodium (Synthroid -) 50 mcg PO 0700 [facility] Last Admin: 12/15/17 06:12 Dose: 50 mcg Lorazepam (Ativan -) 1 mg PO DAILY [facility] Last Admin: 12/15/17 10:24 Dose: 1 mg Metoprolol Succinate 100 mg/ (Metoprolol Succinate 25 mg) 125 mg PO DAILY [facility] Last Admin: 12/15/17 10:23 Dose: 125 mg Pantoprazole Sodium (Protonix -) 40 mg PO DAILY ELENA Last Admin: 12/15/17 10:23 Dose: 40 mg Potassium Chloride (K-Dur -) 40 meq PO BID [facility] Last Admin: 12/15/17 10:25 Dose: 40 meq Risperidone (Risperdal -) 2 mg PO DAILY [facility] Last Admin: 12/15/17 10:23 Dose: 2 mg - Objective Vital Signs: Vital Signs Temperature 98.4 F 12/15/17 15:25 Pulse Rate 89 12/15/17 15:25 Respiratory Rate 18 12/15/17 15:25 Blood Pressure 111/54 L 12/15/17 15:25 O2 Sat by Pulse Oximetry (%) 96 12/15/17 10:00 Labs: CBC, BMP 10/30/18 06:30 12/15/17 06:30 INR, PTT INR 2.44 (0.83-1.09) H 12/02/17 15:35 Assessment/Plan cxr: effusions/chf ecg: afib, rate controlled, nl qtc, no ischemic changes echo 11/2017: tds; nl lv, rv tds, no sig valve path, nl rvsp echo repeat 12/14: nl LV/RV. mild MR, mild-mod TR. no vegetations reported. PASP 41 a/p: 82 f hx anemia, RA, hypothyroid, chf, afib, htn, sent from [facility] for anemia, dark stools. fever, strep bacteremia: -febrile to > 101 on 12/10 in pm, BCx growing beta-hemolytic strep; UCx with gram negative rods -echo here with no identifiable valve dysfunction on 12/03, will rpt study. no murmurs on exam. no convincing findings of acute pulm edema or acute exacerbation of chf based on CXR review, pt's creat bump to lasix x 1 dose, and phys exam. -rpt echo no vegetations or severe valve regurgitation. - source suspected, per ID, ? asp pna--cont abx per their recs acute diastolic chf: -echo unremarkable -no details available, pt on lasix 40 bid po at [place] -initial CXR here with evidence of chf and effusions. -treated with lasix 40 iv bid here. -bedscale wts only: trended down consistently from 231 to 221, up gradually to 228 now 219 today -changed to lasix 40 po bid on 12/09. -episode overnight 12/10 of fever accompanied by acute dyspnea--given IV lasix. sx's improved. repeat CXR at that time showed stable congestion, creat bumped hence lasix held 12/11. ? sx's were due to hi fever with bacteremia (BCx positive now) and resolved when she defervesced. -12/14: renal fxn initially worsening likely due to sepsis/baceteremia. now improving. appears stable volume status, with bibasilar abnormal lung - cont holding PO lasix for now while treating infection with stable volume status, CXR today is unchanged -12/15: remains compensated, no sob. hold lasix as renal fxn improves--would resume lasix in 24-48 hrs to try to improve effusions, assuming renal fxn stable JUAN DANIEL: -no baseline creat data available -creat 1.5 on admit, improved with diuresis -bumped again 12/11 ? due to acute chf again, vs lasix dose, now improving again with holding lasix - cont holding lasix dark stools, anemia: -being evaluated by GI, Heme -hgb currently stable afib: -rate controlled, on toprol 125 qd. -bp's soft here, + bacteremia/sepsis picture. change metopr succ to 50 bid -has been on eliquis, continued here, monitor hgb trend hypothyroid: -tsh elevated, synthroid dosing per pmd htn: -bp controlled -cont toprol
[2017-12-15] MEDS: DOCUSATE SODIUM 100 MG CAPSULE (FP) PO SCH (21:31)
[2017-12-16] MEDS: VANCOMYCIN 1 GRAM (PRE-DOCKED) 1,000 MG/250 ML BAG IVPB SCH ×2 (04:15→17:19)
[2017-12-16] MEDS: LEVOTHYROXINE NA 50 MCG TABLET (FP) PO SCH (06:11)
[2017-12-16 07:38] LABS: BASO % 1.6 % (0-2.0); EOS % 1.5 % (0-4.5); HEMATOCRIT 27.3 % (32.4-45.2); HEMOGLOBIN 7.9 GM/dL (10.7-15.3); LYMPH % 31.5 % (8-40); MCH 21.8 pg (25.7-33.7); MCHC 29.1 g/dl (32.0-36.0); MEAN PLT VOLUME 8.5 fl (7.5-11.1); MONO % 10.1 % (3.8-10.2); NEUT % 55.3 % (42.8-82.8); PLATELET COUNT 176 K/MM3 (134-434); RBC 3.64 M/mm3 (3.60-5.2); RDW 24.8 % (11.6-15.6)
[2017-12-16 07:55] LABS: WHITE BLOOD COUNT 1.4 K/mm3 (4.0-10.0)
[2017-12-16 08:04] LABS: ALBUMIN 2.1 g/dl (3.4-5.0); ALK PHOS 148 U/L (45-117); ANION GAP 4 MMOL/L (8-16); BILIRUBIN,TOTAL 0.3 mg/dL (0.2-1); BLOOD UREA NITROGEN 39 mg/dL (7-18); CALCIUM 8.5 mg/dL (8.5-10.1); CHLORIDE 104 mmol/L (98-107); CO2 28 mmol/L (21-32); CREATININE 1.3 mg/dL (0.55-1.3); GLUCOSE,RANDOM 106 mg/dL (74-106); MAGNESIUM 2.7 mg/dL (1.8-2.4); POTASSIUM 5.6 mmol/L (3.5-5.1); SGOT/AST 27 U/L (15-37); SGPT/ALT 22 U/L (13-61); SODIUM 136 mmol/L (136-145); TOT PROT 6.7 g/dl (6.4-8.2)
[2017-12-16] MEDS ORDERED: SODIUM POLYSTYRENE SULFONATE 15 GM/60 ML BOTTLE PO ONE (09:36)
--- NOTE | 2017-12-16 09:37 | PN ---
Physical Exam: SUBJECTIVE: Patient seen and examined OBJECTIVE: Vital Signs Period Temp Pulse Resp BP Sys/Neal Pulse Ox Last 24 Hr 98.0 F-98.7 F 82-89 18-20 108-121/54-64 96-96 GENERAL: The patient is awake, alert, and fully oriented, in no acute distress. HEAD: Normal with no signs of trauma. EYES: PERRL, extraocular movements intact, sclera anicteric, conjunctiva clear. No ptosis. ENT: Ears normal, nares patent, oropharynx clear without exudates, moist mucous membranes. NECK: Trachea midline, full range of motion, supple. LUNGS: Breath sounds equal, clear to auscultation bilaterally, no wheezes, no crackles, no accessory muscle use. HEART: Regular rate and rhythm, S1, S2 without murmur, rub or gallop. ABDOMEN: Soft, nontender, nondistended, normoactive bowel sounds, no guarding, no rebound, no hepatosplenomegaly, no masses. EXTREMITIES: 2+ pulses, warm, well-perfused, no edema. NEUROLOGICAL: Cranial nerves II through XII grossly intact. Normal speech, gait not observed. PSYCH: Normal mood, normal affect. SKIN: Warm, dry, normal turgor, no rashes or lesions noted Laboratory Results - last 24 hr 12/15/17 12/16/17 12/16/17 06:30 06:30 06:30 WBC 1.4 L* RBC 3.64 Hgb 7.9 L Hct 27.3 L MCV 75.0 L MCH 21.8 L MCHC 29.1 L RDW 24.8 H Plt Count 176 MPV 8.5 D Absolute Neuts (auto) 0.8 L Neutrophils % 55.3 Neutrophils % (Manual) 63.3 Band Neutrophils % 6.1 Lymphocytes % 31.5 Lymphocytes % (Manual) 21.4 Monocytes % 10.1 Monocytes % (Manual) 6 Eosinophils % 1.5 Eosinophils % (Manual) 0.0 D Basophils % 1.6 Basophils % (Manual) 2.1 H Myelocytes % (Man) 0 Promyelocytes % (Man) 0 Blast Cells % (Manual) 0 Nucleated RBC % 0 Metamyelocytes 0 D Hypochromia 1+ Platelet Estimate Normal Polychromasia 0 Poikilocytosis 2+ Anisocytosis 1+ Microcytosis 1+ Macrocytosis 1+ Sodium 136 Potassium 5.6 H Chloride 104 Carbon Dioxide 28 Anion Gap 4 L BUN 39 H Creatinine 1.3 Creat Clearance w eGFR 39.21 Random Glucose 106 Calcium 8.5 Magnesium 2.7 H Total Bilirubin 0.3 AST 27 ALT 22 Alkaline Phosphatase 148 H Total Protein 6.7 Albumin 2.1 L Active Medications Generic Name Dose Route Start Last Admin Trade Name Freq PRN Reason Stop Dose Admin Acetaminophen 1,000 mg 12/10/17 23:10 12/14/17 21:07 Tylenol - PO 1,000 mg Q6H PRN Administration FEVER Apixaban 5 mg 12/03/17 22:00 12/15/17 21:30 Eliquis - PO 5 mg BID ELENA Administration Docusate Sodium 100 mg 12/02/17 22:00 12/15/17 21:31 Colace - PO 100 mg HS ELENA Administration Ferrous Gluconate 324 mg 12/03/17 10:00 12/15/17 10:24 Fergon - PO 324 mg DAILY ELENA Administration Folic Acid 1 mg 12/03/17 10:00 12/15/17 10:24 Folic Acid - PO 1 mg DAILY ELENA Administration Hydroxychloroquine Sulfate 200 mg 12/02/17 22:00 12/15/17 21:31 Plaquenil - PO 200 mg BID EELNA Administration Vancomycin HCl 1,000 mg in 250 mls @ 166.667 mls/hr 12/14/17 16:30 12/16/17 04:15 Vancomycin (Pre-Docked) IVPB 166.667 mls/hr Q12H ELENA Administration Protocol Levothyroxine Sodium 50 mcg 12/03/17 07:00 12/16/17 06:11 Synthroid - PO 50 mcg 0700 ELENA Administration Lorazepam 1 mg 12/03/17 10:00 12/15/17 10:24 Ativan - PO 1 mg DAILY ELENA Administration Metoprolol Succinate 50 mg 12/16/17 06:00 12/16/17 06:11 Toprol Xl - PO 50 mg BID ELENA Administration Pantoprazole Sodium 40 mg 12/03/17 10:00 12/15/17 10:23 Protonix - PO 40 mg DAILY ELENA Administration Potassium Chloride 40 meq 12/07/17 11:45 12/15/17 21:30 K-Dur - PO 40 meq BID ELENA Administration Risperidone 2 mg 12/03/17 11:01 12/15/17 10:23 Risperdal - PO 2 mg DAILY ELENA Administration Sodium Polystyrene Sulfonate 30 gm 12/16/17 09:36 Kayexalate - PO 12/16/17 09:37 ONCE ONE ASSESSMENT/PLAN:
[2017-12-16 09:48] LABS: ANISOCYTOSIS 1+; MACROCYTOSIS 0; PLATELET ESTIMATE NORMAL
[2017-12-16] MEDS: APIXABAN 5 MG TABLET PO SCH ×2 (10:24→21:11)
[2017-12-16] MEDS: risperiDONE 1 MG TABLET (FP) PO SCH (10:24)
[2017-12-16] MEDS: FERROUS GLUCONATE 324 MG TAB (FP) PO SCH (10:24)
[2017-12-16] MEDS: FOLIC ACID 1 MG TABLET (FP) PO SCH (10:24)
[2017-12-16] MEDS: PANTOPRAZOLE 40 MG TABLET (FP) PO SCH (10:24)
[2017-12-16] MEDS: LORazepam 1 MG TABLET PO SCH (10:24)
--- NOTE | 2017-12-16 10:24 | PN ---
Physical Exam: SUBJECTIVE: Patient seen and examined. OBJECTIVE: anc calculated at 859, moderate neutropenia k 5.6, mag 2.7. 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 Also on plaquenil and wbc now 1.4 Vital Signs Period Temp Pulse Resp BP Sys/Neal Pulse Ox Last 24 Hr 98.0 F-98.7 F 82-89 18-20 108-121/54-64 96 GENERAL: The patient is awake, alert, to self and place, not time HEAD: Normal with no signs of trauma. EYES: PERRL, extraocular movements intact, sclera anicteric, conjunctiva clear. No ptosis. ENT: Ears normal, nares patent, oropharynx clear without exudates, moist mucous membranes. NECK: Trachea midline, full range of motion, supple. LUNGS: diminished breath sounds anteriorly, fine crackles at the bases L>R - slightly better HEART: irregular, hx of afib on eliquis ABDOMEN: Soft, nontender, nondistended, normoactive bowel sounds, no guarding, no rebound, no hepatosplenomegaly, no masses. EXTREMITIES: +2 bilateral lower ext edema NEUROLOGICAL: Normal speech, gait not observed. PSYCH: lethargic, with episodes of agitation SKIN: Warm, dry, normal turgor, no rashes or lesions noted Laboratory Results - last 24 hr 12/15/17 12/16/17 12/16/17 06:30 06:30 06:30 WBC 1.4 L* RBC 3.64 Hgb 7.9 L Hct 27.3 L MCV 75.0 L MCH 21.8 L MCHC 29.1 L RDW 24.8 H Plt Count 176 MPV 8.5 D Absolute Neuts (auto) 0.8 L Neutrophils % 55.3 Neutrophils % (Manual) 63.3 Band Neutrophils % 6.1 Lymphocytes % 31.5 Lymphocytes % (Manual) 21.4 Monocytes % 10.1 Monocytes % (Manual) 6 Eosinophils % 1.5 Eosinophils % (Manual) 0.0 D Basophils % 1.6 Basophils % (Manual) 2.1 H Myelocytes % (Man) 0 Promyelocytes % (Man) 0 Blast Cells % (Manual) 0 Nucleated RBC % 0 Metamyelocytes 0 D Hypochromia 1+ Platelet Estimate Normal Polychromasia 0 Poikilocytosis 2+ Anisocytosis 1+ Microcytosis 1+ Macrocytosis 1+ Sodium 136 Potassium 5.6 H Chloride 104 Carbon Dioxide 28 Anion Gap 4 L BUN 39 H Creatinine 1.3 Creat Clearance w eGFR 39.21 Random Glucose 106 Calcium 8.5 Magnesium 2.7 H Total Bilirubin 0.3 AST 27 ALT 22 Alkaline Phosphatase 148 H Total Protein 6.7 Albumin 2.1 L Active Medications Generic Name Dose Route Start Last Admin Trade Name Freq PRN Reason Stop Dose Admin Acetaminophen 1,000 mg 12/10/17 23:10 12/14/17 21:07 Tylenol - PO 1,000 mg Q6H PRN Administration FEVER Apixaban 5 mg 12/03/17 22:00 12/15/17 21:30 Eliquis - PO 5 mg BID ELENA Administration Docusate Sodium 100 mg 12/02/17 22:00 12/15/17 21:31 Colace - PO 100 mg HS ELENA Administration Ferrous Gluconate 324 mg 12/03/17 10:00 12/15/17 10:24 Fergon - PO 324 mg DAILY ELENA Administration Folic Acid 1 mg 12/03/17 10:00 12/15/17 10:24 Folic Acid - PO 1 mg DAILY ELENA Administration Hydroxychloroquine Sulfate 200 mg 12/02/17 22:00 12/15/17 21:31 Plaquenil - PO 200 mg BID ELENA Administration Vancomycin HCl 1,000 mg in 250 mls @ 166.667 mls/hr 12/14/17 16:30 12/16/17 04:15 Vancomycin (Pre-Docked) IVPB 166.667 mls/hr Q12H ELENA Administration Protocol Levothyroxine Sodium 50 mcg 12/03/17 07:00 12/16/17 06:11 Synthroid - PO 50 mcg 0700 ELENA Administration Lorazepam 1 mg 12/03/17 10:00 12/15/17 10:24 Ativan - PO 1 mg DAILY ELENA Administration Metoprolol Succinate 50 mg 12/16/17 06:00 12/16/17 06:11 Toprol Xl - PO 50 mg BID ELENA Administration Pantoprazole Sodium 40 mg 12/03/17 10:00 12/15/17 10:23 Protonix - PO 40 mg DAILY ELENA Administration Potassium Chloride 40 meq 12/07/17 11:45 12/15/17 21:30 K-Dur - PO 40 meq BID ELENA Administration Risperidone 2 mg 12/03/17 11:01 12/15/17 10:23 Risperdal - PO 2 mg DAILY ELENA Administration ASSESSMENT/PLAN: Patient is an 82 year old female who presents to the ED on 12/02/2017 for symptomatic anemia. Since admission she has been transfussed 2 units of prbc. Hospitalization complicated when patient developed exacerbation of CHF, UTI and bacteremia. Imaging: Echo : LV normal, ef 65%, mild to mod franco.luiza.calci., mild mitral regurg., mild to mod tricuspid regurg. ID: Enterococcus bacteremia/Klebsiella/Enterococcus UTI: On vancomycin per ID. afebrile. WBC 1.4. Length of antibiotic therapy to be determined per ID. ANC calculated at 859, now with moderate neutropenia. Leukopenia thought to be secondary to Plaquenil for her RA. Will consult Rheumatology for evaluation. Heme: Neutropenic precautions. ANC 859, moderate Iron deficiency anemia/Blood loss anemia: Has received 2 units of PRBC since admission. Pulm: Aspiration pneumonia v. hcap On Vanco 1 gram q 12. Speech and swallow eval done, [facility] eval to follow for possible aspiration pneumonia. Aspiration precautions on a chopped diet. GI: Rule out GI bleed. Started on Protonix 40mg daily. Further workup of possible gi bleed outpatient vs inpatient. Card: Acute on chronic diastolic congestive heart failure. Lungs sound improved, has been off lasix while acute infection being treated. Fluid restriction of 1200cc daily. daily weights, strict intake and output. Atrial fibrillation. on eliquis bid. on metoprolol. cardiology following. Mobility: Bilateral difficulty with ambulation in the setting of poor performance status. will consult PT once more stable. Endocrine: Hypothyroidism TSH @ 20. Synthroid dose was recently increased at [facility] per MD- Repeat TSH @ [facility] as outpatient Vascular: Hx of celulitis of LLE No cellulitis presently. monitor for signs of infection. Psyche: Bipolar disorder, continue home medications Visit type - Emergency Visit Emergency Visit: Yes ED Registration Date: 12/04/17 Care time: The patient presented to the Emergency Department on the above date and was hospitalized for further evaluation of their emergent condition. - New Patient This patient is new to me today: No - Critical Care Critical Care patient: No - Discharge Referral Referred to [facility] No
[2017-12-16] MEDS: HYDROXYCHLOROQUINE SO4 200 MG TABLET (FP) PO SCH ×2 (10:25→21:11)
--- NOTE | 2017-12-16 11:49 | PN ---
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 MBS reviewed with staff. Awake, more verbal today. Pt dislikes nectar thick water. MBS did not definitively show aspiration, but risk, with deep penetration into laryngeal vestibule. Trial of other nectar thick flavors and monitor for improved pulm function vs back on thin liquids?
--- NOTE | 2017-12-16 14:12 | PN ---
Progress Note (short form) - Note Progress Note: Patient seen and examined at bedside "I feel fine" Patient denies fever WBC count down to 1.4 today down from 1.9 yesterday Hb 7.9 today and stable PE: Vital Signs Temperature 98.3 F 12/16/17 13:56 Pulse Rate 90 12/16/17 13:56 Respiratory Rate 20 12/16/17 09:00 Blood Pressure 118/57 L 12/16/17 13:56 O2 Sat by Pulse Oximetry (%) 97 12/16/17 09:00 alert and awake. not orientated to place or time Irregular S1 S2 Right side clear left side with faint crackles at bases Soft non tender non distended bilateral lower extremity edema 12/16/17 12/16/17 06:30 06:30 WBC 1.4 L* RBC 3.64 Hgb 7.9 L Hct 27.3 L MCV 75.0 L MCHC 29.1 L RDW 24.8 H Plt Count 176 Neutrophils % 55.3 Lymphocytes % 31.5 Monocytes % 10.1 Eosinophils % 1.5 Basophils % 1.6 Sodium 136 Potassium 5.6 H Chloride 104 Carbon Dioxide 28 Anion Gap 4 L BUN 39 H Creatinine 1.3 12/13/17 07:09 Blood Culture - Preliminary Blood - Peripheral Venous NO GROWTH OBTAINED AFTER 72 HOURS, INCUBATION TO CONTINUE FOR 2 DAYS. 12/13/17 07:25 Blood Culture - Preliminary Blood - Peripheral Venous NO GROWTH OBTAINED AFTER 72 HOURS, INCUBATION TO CONTINUE FOR 2 DAYS. 12/11/17 02:00 Blood Culture - Final Blood - Peripheral Venous NO GROWTH AFTER 5 DAYS INCUBATION 12/09/17 22:30 Urine Culture - Final Urine - Urine Clean Catch Klebsiella Pneumoniae Enterococcus Faecalis 12/11/17 02:00 Blood Culture - Final Blood - Peripheral Venous Enterococcus Faecalis 12/03/17 19:45 Blood Culture - Final Blood - Peripheral Venous NO GROWTH AFTER 5 DAYS INCUBATION 12/03/17 17:45 Blood Culture - Final Blood - Peripheral Venous NO GROWTH AFTER 5 DAYS INCUBATION Problem List: iron deficiency anemia A-Fib CHF HTN NIDDM disorganized schizophrenia Asthma RA (on hydroxcloroquine) Hypothyroidism non-thrombocytopenic purpura GERD Bacteremia Plan: WBC count down to 1.4 today - will discuss with Dr. Garvin today Patient noted to be bacteremic with enterococcus ABx per ID Patients iron studies consistent with Iron deficiency anemia Need to consider myelodysplastic syndrome given multiple cell line deficiency Labs noted s/p 100mg venofir US of spleen and liver to r/o hepatosplenomegaly-patient has fatty infiltration of the liver and mild splenomegaly Will send total complement-pending C3 C4 ordered and approved by pathologist-form sent to phlebotomy-pending Rheumatoid factor elevated to 1150 GI workup when acute issues resolved and cleared by medicine on eliquis for A fib
--- NOTE | 2017-12-16 16:38 | PN ---
Progress Note (short form) - Note Progress Note: s: no cp palps dizzy; laying flat, no sob o: Vital Signs Period Temp Pulse Resp BP Sys/Neal Pulse Ox Last 24 Hr 98.3 F-98.7 F 82-90 20-20 103-121/52-64 96-97 nad no jvd irreg s1s2 no mrg cta bl nl eff awake alert confused abd nt nd pos bs no jaundice diaphoresis no le edema Current Medications Generic Name Dose Route Start Last Admin Trade Name Freq PRN Reason Stop Dose Admin Acetaminophen 1,000 mg 12/10/17 23:10 12/14/17 21:07 Tylenol - PO 1,000 mg Q6H PRN Administration FEVER Apixaban 5 mg 12/03/17 22:00 12/16/17 10:24 Eliquis - PO 5 mg BID [facility] Administration Docusate Sodium 100 mg 12/02/17 22:00 12/15/17 21:31 Colace - PO 100 mg HS [facility] Administration Ferrous Gluconate 324 mg 12/03/17 10:00 12/16/17 10:24 Fergon - PO 324 mg DAILY [facility] Administration Folic Acid 1 mg 12/03/17 10:00 12/16/17 10:24 Folic Acid - PO 1 mg DAILY [facility] Administration Furosemide 40 mg 12/17/17 06:00 Lasix - PO BID@0600,1400 [facility] Hydroxychloroquine Sulfate 200 mg 12/02/17 22:00 12/16/17 10:25 Plaquenil - PO 200 mg BID [facility] Administration Vancomycin HCl 1,000 mg in 250 mls @ 166.667 mls/hr 12/14/17 16:30 12/16/17 04:15 Vancomycin (Pre-Docked) IVPB 166.667 mls/hr Q12H [facility] Administration Protocol Levothyroxine Sodium 50 mcg 12/03/17 07:00 12/16/17 06:11 Synthroid - PO 50 mcg 0700 [facility] Administration Lorazepam 1 mg 12/03/17 10:00 12/16/17 10:24 Ativan - PO 1 mg DAILY [facility] Administration Metoprolol Succinate 50 mg 12/16/17 06:00 12/16/17 06:11 Toprol Xl - PO 50 mg BID [facility] Administration Pantoprazole Sodium 40 mg 12/03/17 10:00 12/16/17 10:24 Protonix - PO 40 mg DAILY [facility] Administration Potassium Chloride 40 meq 12/07/17 11:45 12/15/17 21:30 K-Dur - PO 40 meq BID [facility] Administration Risperidone 2 mg 12/03/17 11:01 12/16/17 10:24 Risperdal - PO 2 mg DAILY [facility] Administration CBC, BMP 12/16/17 06:30 ecg: afib, rate controlled, nl qtc, no ischemic changes echo 11/2017: tds; nl lv, rv tds, no sig valve path, nl rvsp echo repeat 12/14: nl LV/RV. mild MR, mild-mod TR. no vegetations reported. PASP 41 a/p: 82 f hx anemia, RA, hypothyroid, chf, afib, htn, sent from [place] for anemia, dark stools. fever, strep bacteremia: -febrile to > 101 on 12/10 in pm, BCx growing beta-hemolytic strep; UCx with gram negative rods -echo here with no identifiable valve dysfunction on 12/03, will rpt study. no murmurs on exam. no convincing findings of acute pulm edema or acute exacerbation of chf based on CXR review, pt's creat bump to lasix x 1 dose, and phys exam. -rpt echo no vegetations or severe valve regurgitation. - source suspected, per ID, ? asp pna--cont abx per their recs acute diastolic chf: -echo unremarkable -no details available, pt on lasix 40 bid po at [place] -initial CXR here with evidence of chf and effusions. -treated with lasix 40 iv bid here. -bedscale wts only: trended down consistently from 231 to 221, up gradually to 228 now 219 today -changed to lasix 40 po bid on 12/09. -episode overnight 12/10 of fever accompanied by acute dyspnea--given IV lasix. sx's improved. repeat CXR at that time showed stable congestion, creat bumped hence lasix held 12/11. ? sx's were due to hi fever with bacteremia (BCx positive now) and resolved when she defervesced. -12/14: renal fxn initially worsening likely due to sepsis/baceteremia. now improving. appears stable volume status, with bibasilar abnormal lung - cont holding PO lasix for now while treating infection with stable volume status, CXR today is unchanged -12/15: remains compensated, no sob. hold lasix as renal fxn improves--would resume lasix in 24-48 hrs to try to improve effusions, assuming renal fxn stable -12/16: cr stable/improved. will resume po lasix 40 qd tomorrow (was on 40 po bid when became dry). JUAN DANIEL: -no baseline creat data available -creat 1.5 on admit, improved with diuresis -bumped again 12/11 ? due to acute chf again, vs lasix dose, now improving again with holding lasix -lasix as above dark stools, anemia: -being evaluated by GI, Heme -hgb currently stable afib: -rate controlled, on toprol 125 qd. -bp's soft here, + bacteremia/sepsis picture. change metopr succ to 50 bid -has been on eliquis, continued here, monitor hgb trend hypothyroid: -tsh elevated, synthroid dosing per pmd htn: -bp controlled -cont toprol
[2017-12-16 17:09] LABS: ALBUMIN 2.2 g/dl (3.4-5.0); ALK PHOS 168 U/L (45-117); ANION GAP 7 MMOL/L (8-16); BILIRUBIN,TOTAL 0.4 mg/dL (0.2-1); BLOOD UREA NITROGEN 38 mg/dL (7-18); CALCIUM 8.5 mg/dL (8.5-10.1); CHLORIDE 105 mmol/L (98-107); CO2 26 mmol/L (21-32); CREATININE 1.3 mg/dL (0.55-1.3); GLUCOSE,RANDOM 97 mg/dL (74-106); MAGNESIUM 2.7 mg/dL (1.8-2.4); POTASSIUM 4.9 mmol/L (3.5-5.1); SGOT/AST 32 U/L (15-37); SGPT/ALT 24 U/L (13-61); SODIUM 139 mmol/L (136-145); TOT PROT 7.2 g/dl (6.4-8.2)
--- NOTE | 2017-12-16 17:23 | PN ---
Progress Note, Physician History of Present Illness: Much more awake and alert Offers no complaints Temps down WBC 1.4 Repeat BC (-) - Current Medication List Current Medications: Active Medications Acetaminophen (Tylenol -) 1,000 mg PO Q6H PRN PRN Reason: FEVER Last Admin: 12/14/17 21:07 Dose: 1,000 mg Apixaban (Eliquis -) 5 mg PO BID [facility] Last Admin: 12/16/17 10:24 Dose: 5 mg Docusate Sodium (Colace -) 100 mg PO HS [facility] Last Admin: 12/15/17 21:31 Dose: 100 mg Ferrous Gluconate (Fergon -) 324 mg PO DAILY [facility] Last Admin: 12/16/17 10:24 Dose: 324 mg Folic Acid (Folic Acid -) 1 mg PO DAILY [facility] Last Admin: 12/16/17 10:24 Dose: 1 mg Furosemide (Lasix -) 40 mg PO DAILY [facility] Hydroxychloroquine Sulfate (Plaquenil -) 200 mg PO BID [facility] Last Admin: 12/16/17 10:25 Dose: 200 mg Vancomycin HCl (Vancomycin (Pre-Docked)) 1,000 mg in 250 mls @ 166.667 mls/hr IVPB Q12H [facility]; Protocol Last Admin: 12/16/17 17:19 Dose: 166.667 mls/hr Levothyroxine Sodium (Synthroid -) 50 mcg PO 0700 [facility] Last Admin: 12/16/17 06:11 Dose: 50 mcg Lorazepam (Ativan -) 1 mg PO DAILY [facility] Last Admin: 12/16/17 10:24 Dose: 1 mg Metoprolol Succinate (Toprol Xl -) 50 mg PO BID [facility] Last Admin: 12/16/17 06:11 Dose: 50 mg Pantoprazole Sodium (Protonix -) 40 mg PO DAILY [facility] Last Admin: 12/16/17 10:24 Dose: 40 mg Potassium Chloride (K-Dur -) 40 meq PO BID [facility] Last Admin: 12/15/17 21:30 Dose: 40 meq Risperidone (Risperdal -) 2 mg PO DAILY [facility] Last Admin: 12/16/17 10:24 Dose: 2 mg - Objective Vital Signs: Vital Signs Temperature 98.3 F 12/16/17 13:56 Pulse Rate 90 12/16/17 13:56 Respiratory Rate 20 12/16/17 09:00 Blood Pressure 118/57 L 10/31/18 13:56 O2 Sat by Pulse Oximetry (%) 97 12/16/17 09:00 Constitutional: Yes: No Distress Cardiovascular: Yes: Regular Rate and Rhythm, S1, S2 Respiratory: Yes: Diminished Gastrointestinal: Yes: Normal Bowel Sounds, Abdomen, Obese Labs: CBC, BMP 12/16/17 06:30 12/16/17 14:30 INR, PTT INR 2.44 (0.83-1.09) H 12/02/17 15:35 Assessment/Plan Enterococcal bacteremia likely urinary tract source Possible asp pneumonia Leukopenia PCN/TCN allergies Azotemia Continue vancomycin Check repeat BC
--- NOTE | 2017-12-16 17:39 | PN ---
Teaching Attending Note Name of Resident: Fransico Marcial ATTENDING PHYSICIAN STATEMENT I saw and evaluated the patient. I reviewed the resident's note and discussed the case with the resident. I agree with the resident's findings and plan as documented. SUBJECTIVE:Neutropenia with ANC about 750/mm3. Possible etiologies include sepsis, hyperspenism, rheumatologic disorder with RF positive at 1:1150 titer and ELMER positive at !:640 , MDS., and hypothyroidism. Although there is a theoretical concern of giving neupogen, in view of possible MDS, in light of bacteremia and Falling count will give one dose and follow. OBJECTIVE: ASSESSMENT AND PLAN:
[2017-12-16] MEDS: DOCUSATE SODIUM 100 MG CAPSULE (FP) PO SCH (21:11)
[2017-12-17] MEDS: VANCOMYCIN 1 GRAM (PRE-DOCKED) 1,000 MG/250 ML BAG IVPB SCH (04:13)
[2017-12-17] MEDS ORDERED: FUROSEMIDE 40 MG TABLET (FP) PO SCH (06:00)
[2017-12-17] MEDS: LEVOTHYROXINE NA 50 MCG TABLET (FP) PO SCH (06:30)
[2017-12-17 07:21] LABS: BASO % 1.5 % (0-2.0); HEMATOCRIT 25.5 % (32.4-45.2); HEMOGLOBIN 7.5 GM/dL (10.7-15.3); LYMPH % 31.6 % (8-40); MCH 21.9 pg (25.7-33.7); MCHC 29.3 g/dl (32.0-36.0); MEAN CELL VOLUME 74.7 fl (80-96); MEAN PLT VOLUME 7.5 fl (7.5-11.1); MONO % 8.4 % (3.8-10.2); NEUT % 57.5 % (42.8-82.8); PLATELET COUNT 171 K/MM3 (134-434); RBC 3.41 M/mm3 (3.60-5.2); RDW 25.3 % (11.6-15.6)
[2017-12-17 07:34] LABS: WHITE BLOOD COUNT 1.5 K/mm3 (4.0-10.0)
[2017-12-17 07:56] LABS: ALBUMIN 2.1 g/dl (3.4-5.0); ALK PHOS 145 U/L (45-117); ANION GAP 8 MMOL/L (8-16); BILIRUBIN,TOTAL 0.4 mg/dL (0.2-1); BLOOD UREA NITROGEN 34 mg/dL (7-18); CALCIUM 8.6 mg/dL (8.5-10.1); CHLORIDE 104 mmol/L (98-107); CO2 28 mmol/L (21-32); CREATININE 1.2 mg/dL (0.55-1.3); GLUCOSE,RANDOM 95 mg/dL (74-106); MAGNESIUM 2.6 mg/dL (1.8-2.4); POTASSIUM 3.8 mmol/L (3.5-5.1); SGOT/AST 28 U/L (15-37); SGPT/ALT 20 U/L (13-61); SODIUM 140 mmol/L (136-145); TOT PROT 6.6 g/dl (6.4-8.2)
[2017-12-17] MEDS ORDERED: PT OWN MED DRAWER 7, Y5N ONE ×2 (09:43→22:13)
[2017-12-17 10:03] LABS: ANISOCYTOSIS 1+; MACROCYTOSIS 0; PLATELET ESTIMATE NORMAL
[2017-12-17] MEDS: FERROUS GLUCONATE 324 MG TAB (FP) PO SCH (10:05)
[2017-12-17] MEDS: risperiDONE 1 MG TABLET (FP) PO SCH (10:05)
[2017-12-17] MEDS: PANTOPRAZOLE 40 MG TABLET (FP) PO SCH (10:05)
[2017-12-17] MEDS: FOLIC ACID 1 MG TABLET (FP) PO SCH (10:05)
[2017-12-17] MEDS: FUROSEMIDE 40 MG TABLET (FP) PO SCH (10:05)
[2017-12-17] MEDS: HYDROXYCHLOROQUINE SO4 200 MG TABLET (FP) PO SCH ×2 (10:05→22:17)
[2017-12-17] MEDS: LORazepam 1 MG TABLET PO SCH (10:06)
[2017-12-17] MEDS: APIXABAN 5 MG TABLET PO SCH ×2 (10:11→22:17)
[2017-12-17] MEDS ORDERED: IRON SUCROSE INJECTION 200 MG in SODIUM CHLORIDE 90 ML IVPB ONE (11:21)
--- NOTE | 2017-12-17 11:27 | PN ---
Progress Note (short form) - Note Progress Note: Patient seen and examined at bedside sleeping Patient denies fever WBC count down to 1.5 today up from 1.4 yesterday Hb 7.5 today and stable Vital Signs Temperature 98.2 F 12/17/17 10:05 Pulse Rate 105 H 12/17/17 10:05 Respiratory Rate 19 12/17/17 10:05 Blood Pressure 100/60 12/17/17 10:05 O2 Sat by Pulse Oximetry (%) 97 12/16/17 20:25 PE: alert and awake. not orientated to place or time Irregular S1 S2 Right side clear left side with faint crackles at bases Soft non tender non distended bilateral lower extremity edema 12/16/17 12/17/17 12/17/17 14:30 06:30 06:30 WBC 1.5 L* RBC 3.41 L Hgb 7.5 L Hct 25.5 L MCV 74.7 L MCHC 29.3 L RDW 25.3 H Plt Count 171 Neutrophils % 57.5 Lymphocytes % 31.6 Monocytes % 8.4 Eosinophils % 1.0 Basophils % 1.5 Sodium 139 140 Potassium 4.9 3.8 Chloride 105 104 Carbon Dioxide 26 28 Anion Gap 7 L 8 BUN 38 H 34 H Creatinine 1.3 1.2 12/13/17 07:09 Blood Culture - Preliminary Blood - Peripheral Venous NO GROWTH OBTAINED AFTER 96 HOURS, INCUBATION TO CONTINUE FOR 1 DAYS. 12/13/17 07:25 Blood Culture - Preliminary Blood - Peripheral Venous NO GROWTH OBTAINED AFTER 96 HOURS, INCUBATION TO CONTINUE FOR 1 DAYS. 12/11/17 02:00 Blood Culture - Final Blood - Peripheral Venous NO GROWTH AFTER 5 DAYS INCUBATION 12/09/17 22:30 Urine Culture - Final Urine - Urine Clean Catch Klebsiella Pneumoniae Enterococcus Faecalis 12/11/17 02:00 Blood Culture - Final Blood - Peripheral Venous Enterococcus Faecalis 12/03/17 19:45 Blood Culture - Final Blood - Peripheral Venous NO GROWTH AFTER 5 DAYS INCUBATION 12/03/17 17:45 Blood Culture - Final Blood - Peripheral Venous NO GROWTH AFTER 5 DAYS INCUBATION Problem List: iron deficiency anemia A-Fib CHF HTN NIDDM disorganized schizophrenia Asthma RA (on hydroxcloroquine) Hypothyroidism non-thrombocytopenic purpura GERD Bacteremia Plan: WBC 1.5 today will give 480mcg of Granix one time today Patient noted to be bacteremic with enterococcus ABx per ID Patients iron studies consistent with Iron deficiency anemia-s/p 100mg venofir one time dose US of spleen and liver to r/o hepatosplenomegaly-patient has fatty infiltration of the liver and mild splenomegaly Will send total complement-pending C3 C4 ordered and approved by pathologist-form sent to phlebotomy-pending Rheumatoid factor elevated to 1150-rheumatology consult on eliquis for A fib
--- NOTE | 2017-12-17 11:27 | PN ---
Progress Note (short form) - Note Progress Note: s: no cp palps dizzy; laying flat, no sob o: Vital Signs Period Temp Pulse Resp BP Sys/Neal Pulse Ox Last 24 Hr 98.2 F-99.7 F 84-105 19-20 96-126/52-61 97 nad no jvd irreg s1s2 no mrg cta bl nl eff awake alert confused abd nt nd pos bs no jaundice diaphoresis no le edema Current Medications Generic Name Dose Route Start Last Admin Trade Name Freq PRN Reason Stop Dose Admin Acetaminophen 1,000 mg 12/10/17 23:10 12/14/17 21:07 Tylenol - PO 1,000 mg Q6H PRN Administration FEVER Apixaban 5 mg 12/03/17 22:00 12/17/17 10:11 Eliquis - PO 5 mg BID [facility] Administration Docusate Sodium 100 mg 12/02/17 22:00 12/16/17 21:11 Colace - PO 100 mg HS ELENA Administration Ferrous Gluconate 324 mg 12/03/17 10:00 12/17/17 10:05 Fergon - PO 324 mg DAILY [facility] Administration Folic Acid 1 mg 12/03/17 10:00 12/17/17 10:05 Folic Acid - PO 1 mg DAILY [facility] Administration Furosemide 40 mg 12/17/17 10:00 12/17/17 10:05 Lasix - PO 40 mg DAILY [facility] Administration Hydroxychloroquine Sulfate 200 mg 12/02/17 22:00 12/17/17 10:05 Plaquenil - PO 200 mg BID [facility] Administration Vancomycin HCl 1,000 mg in 250 mls @ 166.667 mls/hr 12/14/17 16:30 12/17/17 04:13 Vancomycin (Pre-Docked) IVPB 166.667 mls/hr Q12H [facility] Administration Protocol Levothyroxine Sodium 50 mcg 12/03/17 07:00 12/17/17 06:30 Synthroid - PO 50 mcg 0700 ELENA Administration Lorazepam 1 mg 12/03/17 10:00 12/17/17 10:06 Ativan - PO 1 mg DAILY [facility] Administration Metoprolol Succinate 50 mg 12/16/17 06:00 12/17/17 10:05 Toprol Xl - PO 50 mg BID ELENA Administration Pantoprazole Sodium 40 mg 12/03/17 10:00 12/17/17 10:05 Protonix - PO 40 mg DAILY [facility] Administration Potassium Chloride 40 meq 12/07/17 11:45 12/15/17 21:30 K-Dur - PO 40 meq BID [facility]NA Administration Risperidone 2 mg 12/03/17 11:01 12/17/17 10:05 Risperdal - PO 2 mg DAILY [facility] Administration Tbo-Filgrastim 480 mcg 12/17/17 11:21 Granix - SQ 12/17/17 11:22 ONCE ONE CBC, BMP 12/17/17 06:30 12/17/17 06:30 ecg: afib, rate controlled, nl qtc, no ischemic changes echo 11/2017: tds; nl lv, rv tds, no sig valve path, nl rvsp echo repeat 12/14: nl LV/RV. mild MR, mild-mod TR. no vegetations reported. PASP 41 a/p: 82 f hx anemia, RA, hypothyroid, chf, afib, htn, sent from [place] for anemia, dark stools. fever, strep bacteremia: -febrile to > 101 on 12/10 in pm, BCx growing beta-hemolytic strep; UCx with gram negative rods -echo here with no identifiable valve dysfunction on 12/03, will rpt study. no murmurs on exam. no convincing findings of acute pulm edema or acute exacerbation of chf based on CXR review, pt's creat bump to lasix x 1 dose, and phys exam. -rpt echo no vegetations or severe valve regurgitation. - source suspected, per ID, ? asp pna--cont abx per their recs acute diastolic chf: -echo unremarkable -no details available, pt on lasix 40 bid po at [place] -initial CXR here with evidence of chf and effusions. -treated with lasix 40 iv bid here. -bedscale wts only: trended down consistently from 231 to 221, up gradually to 228 now 219 today -changed to lasix 40 po bid on 12/09. -episode overnight 12/10 of fever accompanied by acute dyspnea--given IV lasix. sx's improved. repeat CXR at that time showed stable congestion, creat bumped hence lasix held 12/11. ? sx's were due to hi fever with bacteremia (BCx positive now) and resolved when she defervesced. -12/14: renal fxn initially worsening likely due to sepsis/baceteremia. now improving. appears stable volume status, with bibasilar abnormal lung - cont holding PO lasix for now while treating infection with stable volume status, CXR today is unchanged -12/15: remains compensated, no sob. hold lasix as renal fxn improves--would resume lasix in 24-48 hrs to try to improve effusions, assuming renal fxn stable -12/16-12/17: cr stable/improved. will resume po lasix 40 qd 12/17 (was on 40 po bid when became dry). JUAN DANIEL: -no baseline creat data available -creat 1.5 on admit, improved with diuresis -bumped again 12/11 ? due to acute chf again, vs lasix dose, now improving again with holding lasix -lasix as above dark stools, anemia: -being evaluated by GI, Heme -hgb currently stable afib: -rate controlled, on toprol 125 qd. -bp's soft here, + bacteremia/sepsis picture. change metopr succ to 50 bid -has been on eliquis, continued here, monitor hgb trend hypothyroid: -tsh elevated, synthroid dosing per pmd htn: -bp controlled -cont toprol
--- NOTE | 2017-12-17 11:27 | PN ---
Physical Exam: SUBJECTIVE: Patient seen and examined the bedside. OBJECTIVE: Vital Signs rheumatology seeing patient today Period Temp Pulse Resp BP Sys/Neal Pulse Ox Last 24 Hr 98.2 F-99.7 F 84-105 19-20 96-126/52-61 97 GENERAL: The patient is lethargic, easily arousable. able to answer questions. HEAD: Normal with no signs of trauma. EYES: PERRL, extraocular movements intact, sclera anicteric, conjunctiva clear. No ptosis. ENT: Ears normal, nares patent, oropharynx clear without exudates, moist mucous membranes. NECK: Trachea midline, full range of motion, supple. LUNGS: diminished breath sounds anteriorly, fine crackles at the bases L>R HEART: irregular, hx of afib on eliquis ABDOMEN: Soft, nontender, nondistended, normoactive bowel sounds, no guarding, no rebound, no hepatosplenomegaly, no masses. EXTREMITIES: +2 bilateral lower ext edema NEUROLOGICAL: Normal speech, gait not observed. PSYCH: lethargic, with episodes of agitation SKIN: Warm, dry, normal turgor, no rashes or lesions noted Laboratory Results - last 24 hr 12/16/17 12/17/17 12/17/17 14:30 06:30 06:30 WBC 1.5 L* RBC 3.41 L Hgb 7.5 L Hct 25.5 L MCV 74.7 L MCH 21.9 L MCHC 29.3 L RDW 25.3 H Plt Count 171 MPV 7.5 D Absolute Neuts (auto) 0.9 L Neutrophils % 57.5 Neutrophils % (Manual) 65.3 Band Neutrophils % 4.1 Lymphocytes % 31.6 Lymphocytes % (Manual) 20.4 D Monocytes % 8.4 Monocytes % (Manual) 6 Eosinophils % 1.0 Eosinophils % (Manual) 1.0 Basophils % 1.5 Basophils % (Manual) 2.1 H D Myelocytes % (Man) 0 Promyelocytes % (Man) 0 Blast Cells % (Manual) 0 Nucleated RBC % 1 H Metamyelocytes 0 Hypochromia 1+ Platelet Estimate Normal Polychromasia 1+ Poikilocytosis 0 Anisocytosis 1+ Microcytosis 1+ Macrocytosis 0 Sodium 139 140 Potassium 4.9 3.8 Chloride 105 104 Carbon Dioxide 26 28 Anion Gap 7 L 8 BUN 38 H 34 H Creatinine 1.3 1.2 Creat Clearance w eGFR 39.21 43.01 Random Glucose 97 95 Calcium 8.5 8.6 Magnesium 2.7 H 2.6 H Total Bilirubin 0.4 0.4 AST 32 28 ALT 24 20 Alkaline Phosphatase 168 H 145 H Total Protein 7.2 6.6 Albumin 2.2 L 2.1 L Active Medications Generic Name Dose Route Start Last Admin Trade Name Freq PRN Reason Stop Dose Admin Acetaminophen 1,000 mg 12/10/17 23:10 12/14/17 21:07 Tylenol - PO 1,000 mg Q6H PRN Administration FEVER Apixaban 5 mg 12/03/17 22:00 12/17/17 10:11 Eliquis - PO 5 mg BID [facility] Administration Docusate Sodium 100 mg 12/02/17 22:00 12/16/17 21:11 Colace - PO 100 mg HS ELENA Administration Ferrous Gluconate 324 mg 12/03/17 10:00 12/17/17 10:05 Fergon - PO 324 mg DAILY [facility] Administration Folic Acid 1 mg 12/03/17 10:00 12/17/17 10:05 Folic Acid - PO 1 mg DAILY [facility] Administration Furosemide 40 mg 12/17/17 10:00 12/17/17 10:05 Lasix - PO 40 mg DAILY [facility] Administration Hydroxychloroquine Sulfate 200 mg 12/02/17 22:00 12/17/17 10:05 Plaquenil - PO 200 mg BID [facility] Administration Vancomycin HCl 1,000 mg in 250 mls @ 166.667 mls/hr 12/14/17 16:30 12/17/17 04:13 Vancomycin (Pre-Docked) IVPB 166.667 mls/hr Q12H [facility] Administration Protocol Levothyroxine Sodium 50 mcg 12/03/17 07:00 12/17/17 06:30 Synthroid - PO 50 mcg 0700 ELENA Administration Lorazepam 1 mg 12/03/17 10:00 12/17/17 10:06 Ativan - PO 1 mg DAILY [facility] Administration Metoprolol Succinate 50 mg 12/16/17 06:00 12/17/17 10:05 Toprol Xl - PO 50 mg BID E[facility]NA Administration Pantoprazole Sodium 40 mg 12/03/17 10:00 12/17/17 10:05 Protonix - PO 40 mg DAILY [facility] Administration Potassium Chloride 40 meq 12/07/17 11:45 12/15/17 21:30 K-Dur - PO 40 meq BID E[facility]NA Administration Risperidone 2 mg 12/03/17 11:01 12/17/17 10:05 Risperdal - PO 2 mg DAILY [facility] Administration Tbo-Filgrastim 480 mcg 12/17/17 11:21 Granix - SQ 12/17/17 11:22 ONCE ONE ASSESSMENT/PLAN: Patient is an 82 year old female who presents to the ED on 12/02/2017 for symptomatic anemia. Since admission she has been transfussed 2 units of prbc. Hospitalization complicated when patient developed exacerbation of CHF, UTI and bacteremia. Imaging: Echo : LV normal, ef 65%, mild to mod franco.luiza.calci., mild mitral regurg., mild to mod tricuspid regurg. ID: Enterococcus bacteremia/Klebsiella/Enterococcus UTI: On vancomycin per ID. afebrile. WBC 1.5. Length of antibiotic therapy to be determined per ID. ANC calculated at 859, moderate neutropenia. Leukopenia thought to be secondary to Plaquenil for her RA, rhematology consulted. Heme: Neutropenic precautions. ANC 859, moderate - to be given Granix today by heme. Iron deficiency anemia/Blood loss anemia: Has received 2 units of PRBC since admission. Pulm: Aspiration pneumonia v. hcap On Vanco 1 gram q 12. Speech and swallow and MBS eval done. Aspiration precautions on a chopped diet. GI: Rule out GI bleed. Started on Protonix 40mg daily. Further workup of possible gi bleed outpatient vs inpatient. Card: Acute on chronic diastolic congestive heart failure. mildly short of breath at rest. Restart lasix 40mg PO daily. Fluid restriction of 1200cc daily. daily weights, strict intake and output. Atrial fibrillation. on eliquis bid. on metoprolol. cardiology following. Mobility: Bilateral difficulty with ambulation in the setting of poor performance status. will consult PT once more stable. Endocrine: Hypothyroidism TSH @ 20. Synthroid dose was recently increased at [facility] per MD- Repeat TSH @ [facility] as outpatient Vascular: Hx of celulitis of LLE No cellulitis presently. monitor for signs of infection. Psyche: Bipolar disorder, continue home medications Visit type - Emergency Visit Emergency Visit: Yes ED Registration Date: 12/04/17 Care time: The patient presented to the Emergency Department on the above date and was hospitalized for further evaluation of their emergent condition. - New Patient This patient is new to me today: No - Critical Care Critical Care patient: No - Discharge Referral Referred to [facility] No
[2017-12-17] MEDS ORDERED: TBO-FILGRASTIM 480 MCG/0.8 ML DISP.SYRIN SQ ONE (11:30)
--- NOTE | 2017-12-17 12:21 | PN ---
Progress Note, Physician History of Present Illness: Awsake but letharic today Offers no complaints Temps down WBC 1.5 ANC 1.0 Repeat BC (-) - Current Medication List Current Medications: Active Medications Acetaminophen (Tylenol -) 1,000 mg PO Q6H PRN PRN Reason: FEVER Last Admin: 12/14/17 21:07 Dose: 1,000 mg Apixaban (Eliquis -) 5 mg PO BID [facility] Last Admin: 12/17/17 10:11 Dose: 5 mg Docusate Sodium (Colace -) 100 mg PO HS [facility] Last Admin: 12/16/17 21:11 Dose: 100 mg Ferrous Gluconate (Fergon -) 324 mg PO DAILY [facility] Last Admin: 12/17/17 10:05 Dose: 324 mg Folic Acid (Folic Acid -) 1 mg PO DAILY [facility] Last Admin: 12/17/17 10:05 Dose: 1 mg Furosemide (Lasix -) 40 mg PO DAILY [facility] Last Admin: 12/17/17 10:05 Dose: 40 mg Hydroxychloroquine Sulfate (Plaquenil -) 200 mg PO BID [facility] Last Admin: 12/17/17 10:05 Dose: 200 mg Vancomycin HCl (Vancomycin (Pre-Docked)) 1,000 mg in 250 mls @ 166.667 mls/hr IVPB Q12H [facility]; Protocol Last Admin: 12/17/17 04:13 Dose: 166.667 mls/hr Levothyroxine Sodium (Synthroid -) 50 mcg PO 0700 [facility] Last Admin: 12/17/17 06:30 Dose: 50 mcg Lorazepam (Ativan -) 1 mg PO DAILY [facility] Last Admin: 12/17/17 10:06 Dose: 1 mg Metoprolol Succinate (Toprol Xl -) 50 mg PO BID [facility] Last Admin: 12/17/17 10:05 Dose: 50 mg Pantoprazole Sodium (Protonix -) 40 mg PO DAILY [facility] Last Admin: 12/17/17 10:05 Dose: 40 mg Potassium Chloride (K-Dur -) 40 meq PO BID [facility] Last Admin: 12/15/17 21:30 Dose: 40 meq Risperidone (Risperdal -) 2 mg PO DAILY [facility] Last Admin: 12/17/17 10:05 Dose: 2 mg - Objective Vital Signs: Vital Signs Temperature 98.2 F 12/17/17 10:05 Pulse Rate 105 H 12/17/17 10:05 Respiratory Rate 19 12/17/17 10:05 Blood Pressure 100/60 12/17/17 10:05 O2 Sat by Pulse Oximetry (%) 97 12/16/17 20:25 Constitutional: Yes: No Distress Cardiovascular: Yes: Regular Rate and Rhythm, S1, S2 Respiratory: Yes: CTA Bilaterally Gastrointestinal: Yes: Normal Bowel Sounds, Tenderness (abdomen distended Urinne c/s E. colr) Labs: CBC, BMP 12/17/17 06:30 12/17/17 06:30 INR, PTT INR 2.44 (0.83-1.09) H 12/02/17 15:35 Assessment/Plan Enterococcal bacteremia likely urinary tract source Possible asp pneumonia Leukopenia PCN/TCN allergies Azotemia Continue vancomycin Check repeat BC, vanco level
--- NOTE | 2017-12-17 13:05 | PN ---
Progress Note, [employer] - Note Progress Note: Selected Entries 12/16/17 12/16/17 12/16/17 05:14 10:21 13:56 Breakfast 25% Lunch 25% Supper Temperature 98.6 F 98.3 F 12/16/17 12/16/17 12/17/17 18:56 22:36 02:00 Breakfast Lunch Supper 25% Temperature 99.7 F H 98.4 F 12/17/17 12/17/17 12/17/17 05:10 09:52 10:05 Breakfast 50% Lunch Supper Temperature 98.3 F 98.2 F Laboratory Tests 12/17/17 06:30 WBC 1.5 L* Enterococcal bacteremia likely urinary tract source Possible asp pneumonia Leukopenia On chopped and nerctar thick liquid. Still dislikes nectar thisk liquid but only receiving lemon water. Suggest trial of nectar juices. If still refuses, may need to add free water protocol.
[2017-12-17 17:33] LABS: URINE APPEARANCE TURBID; URINE BILIRUBIN NEGATIVE (<2.0 mg/dL); URINE COLOR AMBER; URINE GLUCOSE (UA) NEGATIVE (NEGATIVE); URINE KETONE NEGATIVE (NEGATIVE); URINE LEUK ESTERASE 2+ (NEGATIVE); URINE NITRITE NEGATIVE (NEGATIVE); URINE PROTEIN 2+ (NEGATIVE); URINE UROBILINOGEN NEGATIVE mg/dL (0.2-1.0)
[2017-12-17 17:50] LABS: EPI CELLS RARE /HPF (FEW)
[2017-12-17] MEDS: DOCUSATE SODIUM 100 MG CAPSULE (FP) PO SCH (22:17)
--- NOTE | 2017-12-17 23:39 | CONSULT ---
Consult Consult Specialty:: Rheumatology - History of Present Illness History of Present Illness: 82 year old female with a significant PMH of iron deficiency anemia, rheumatoid arthritis, hypothyroidism, CHF, GERD, asthma, vitamin D deficiency, dementia, bipolar disorder, atrial fib, hypertension, and diabetes admitted with low hemoglobin today. Patient has a history of dementia thus cannot contribute to the history. Information obtained from the chart and the patient's sister (Cinthya Greco [phone]) Rheumatoid arthritis. The patient has a 25 year history of rheumatoid arthritis treated in the past with Methotrexate and Prednisone. Ten years ago she was started on Enbrel. She has not been followed by a manufacturing automation engineer for more than 4 years. On April of this year she was admitted to [facility] and the mediation was discontinued. At the present time she is only on Hydroxychloroquine and apparently she does not have significant joint pain. Laboratory work-up in the hospital revealed s CBC with a WBC of 1.5, Hgb 7.5, HCT 25.5 and platelets 171. Creatinine 1.2. UA with blood 2+, LE 3+ and no protein. Rheumatoid factor was 1150and ELMER 1:640 with homogeneus pattern.. No M spike. Free kappa and lambda chains were elevated, however the ratio was normal (1.2). Myelodysplasia Fish panel was normal. - History Source History Provided By: Patient, Family Member, Medical Record - Alcohol/Substance Use Hx Alcohol Use: No - Smoking History Smoking history: Never smoked Have you smoked in the past 12 months: No Home Medications - Allergies Allergies/Adverse Reactions: Allergies Allergy/AdvReac Type Severity Reaction Status Date / Time Penicillins Allergy Verified 12/02/17 15:08 tetracycline Allergy Verified 12/02/17 15:08 - Home Medications Home Medications: Ambulatory Orders Docusate Sodium [Colace] 100 mg PO HS 12/02/17 Ferrous Gluconate [Fergon -] 324 mg PO DAILY 12/02/17 Folic Acid 1 mg PO DAILY 12/02/17 Furosemide [Lasix] 40 mg PO BID 12/02/17 Hydroxychloroquine Sulfate 200 mg PO BID 12/02/17 Levothyroxine [Synthroid -] 50 mcg PO DAILY 12/02/17 Lorazepam [Ativan] 1 mg PO DAILY 12/02/17 Metolazone 2.5 mg PO WEEKLY 12/02/17 Metoprolol Succinate [Toprol Xl] 125 mg PO DAILY 12/02/17 Pantoprazole Sodium 40 mg PO DAILY 12/02/17 Potassium Chloride 20 meq PO BID 12/02/17 Risperidone [Risperdal] 2 mg PO DAILY 12/02/17 Review of Systems - Review of Systems Constitutional: reports: Malaise Eyes: reports: No Symptoms HENT: reports: No Symptoms Neck: reports: No Symptoms Cardiovascular: reports: No Symptoms Respiratory: reports: No Symptoms Musculoskeletal: reports: Other (No active joints (no tender or swollen joints). ) Physical Exam Vital Signs: Vital Signs Temperature 98.6 F 12/17/17 18:54 Pulse Rate 97 H 12/17/17 18:54 Respiratory Rate 22 H 12/17/17 18:54 Blood Pressure 100/53 L 12/17/17 18:54 O2 Sat by Pulse Oximetry (%) 97 12/17/17 10:06 Constitutional: Yes: Mild Distress Eyes: Yes: WNL HENT: Yes: WNL Neck: Yes: WNL Cardiovascular: Yes: WNL Respiratory: Yes: WNL Musculoskeletal: Yes: Other (No active joints.) Labs: CBC, BMP 12/17/17 06:30 12/17/17 06:30 Laboratory Tests 12/07/17 12/10/17 12/10/17 07:15 07:00 07:00 Magnesium Total Bilirubin AST ALT Total Protein Albumin Urine Appearance Urine pH Ur Specific [place] Urine Protein Urine Glucose (UA) Urine Ketones Urine Blood Urine Nitrite Urine Bilirubin Urine Urobilinogen Ur Leukocyte Esterase Total Protein (SARAH) 7.4 Albumin (SARAH) 2.8 L Albumin/Globulin (SARAH) 0.7 Ttogs-0-Fkovztwmr SARAH 0.2 Hqqdk-0-Zjbgevacd SARAH 0.6 Gamma Globulins (SARAH) 2.2 H SARAH Comments IEP IgG 1544 IEP IgA 1679 H IEP IgM 236 H Rheumatoid Factor 1150.0 H Tot Complement (CH50) 41 Free Leonidas LC, Quant 158.9 H Free Lambda LC, Quant 132.8 H Free Leonidas/Lambda Ratio 1.20 12/17/17 12/17/17 06:30 15:15 Magnesium 2.6 H Total Bilirubin 0.4 AST 28 ALT 20 Total Protein 6.6 Albumin 2.1 L Urine Appearance Turbid Urine pH 5.0 Ur Specific [place] 1.018 Urine Protein 2+ H Urine Glucose (UA) Negative Urine Ketones Negative Urine Blood 1+ H Urine Nitrite Negative Urine Bilirubin Negative Urine Urobilinogen Negative Ur Leukocyte Esterase 2+ H Total Protein (SARAH) Albumin (SARAH) Albumin/Globulin (SARAH) Yczid-7-Nocmsezsn SARAH Tylck-8-Xrhzvzmqi SARAH Gamma Globulins (SARAH) SARAH Comments IEP IgG IEP IgA IEP IgM Rheumatoid Factor Tot Complement (CH50) Free Leonidas LC, Quant Free Lambda LC, Quant Free Leonidas/Lambda Ratio Problem List - Problems (1) Rheumatoid arthritis Assessment/Plan: The patient has a assisted history of rheumatoid arthritis with poor follow-up with manufacturing automation engineer. She discontinued Enbrel and MTX 6 months ago with no relapse of arthritis, RF very high titer and she does not have paraproteinemia. Plan: X rays of hands, CCP and complement. Continue same medications. If the arthritis relpases she should be started on a DMARD Code(s): M06.9 - RHEUMATOID ARTHRITIS, UNSPECIFIED
[2017-12-18] MEDS: LEVOTHYROXINE NA 50 MCG TABLET (FP) PO SCH (06:23)
[2017-12-18 09:15] LABS: BASO % 0.4 % (0-2.0); HEMATOCRIT 27.1 % (32.4-45.2); HEMOGLOBIN 7.8 GM/dL (10.7-15.3); LYMPH % 5.3 % (8-40); MCH 22.2 pg (25.7-33.7); MCHC 28.9 g/dl (32.0-36.0); MEAN CELL VOLUME 76.7 fl (80-96); MEAN PLT VOLUME 8.1 fl (7.5-11.1); MONO % 2.4 % (3.8-10.2); NEUT % 91.9 % (42.8-82.8); PLATELET COUNT 185 K/MM3 (134-434); RBC 3.53 M/mm3 (3.60-5.2); RDW 25.5 % (11.6-15.6); WHITE BLOOD COUNT 5.6 K/mm3 (4.0-10.0)
[2017-12-18] MEDS: HYDROXYCHLOROQUINE SO4 200 MG TABLET (FP) PO SCH ×2 (10:05→21:09)
[2017-12-18] MEDS ORDERED: PT OWN MED DRAWER 7, Y5N ONE (10:44)
[2017-12-18] MEDS: risperiDONE 1 MG TABLET (FP) PO SCH (11:10)
[2017-12-18] MEDS: APIXABAN 5 MG TABLET PO SCH ×2 (11:17→21:09)
[2017-12-18] MEDS: FOLIC ACID 1 MG TABLET (FP) PO SCH (11:17)
[2017-12-18] MEDS: PANTOPRAZOLE 40 MG TABLET (FP) PO SCH (11:17)
[2017-12-18] MEDS: LORazepam 1 MG TABLET PO SCH (11:17)
[2017-12-18] MEDS: FUROSEMIDE 40 MG TABLET (FP) PO SCH (11:18)
[2017-12-18] MEDS: POTASSIUM CHLORIDE TABS 20 MEQ TABLET.ER (FP) PO SCH ×2 (11:18→21:08)
[2017-12-18] MEDS: FERROUS GLUCONATE 324 MG TAB (FP) PO SCH (11:21)
--- NOTE | 2017-12-18 15:22 | PN ---
Progress Note (short form) - Note Progress Note: [facility] *LIVE* Progress Note: s: no cp, dyspnea, palps, dizzy o: Vital Signs Period Temp Pulse Resp BP Sys/Neal Pulse Ox Last 24 Hr 97.4 F-98.6 F 96-97 20-22 100-116/53-58 96-96 nad no jvd irreg s1s2 no mrg cta bl nl eff awake alert confused abd nt nd pos bs no jaundice diaphoresis no le edema Current Medications Acetaminophen (Tylenol -) 1,000 mg PO Q6H PRN PRN Reason: FEVER Last Admin: 12/14/17 21:07 Dose: 1,000 mg Apixaban (Eliquis -) 5 mg PO BID [facility] Last Admin: 12/18/17 11:17 Dose: 5 mg Docusate Sodium (Colace -) 100 mg PO HS [facility] Last Admin: 12/17/17 22:17 Dose: 100 mg Ferrous Gluconate (Fergon -) 324 mg PO DAILY [facility] Last Admin: 12/18/17 11:21 Dose: 324 mg Folic Acid (Folic Acid -) 1 mg PO DAILY [facility] Last Admin: 12/18/17 11:17 Dose: 1 mg Furosemide (Lasix -) 40 mg PO DAILY [facility] Last Admin: 12/18/17 11:18 Dose: 40 mg Hydroxychloroquine Sulfate (Plaquenil -) 200 mg PO BID [facility] Last Admin: 12/18/17 10:05 Dose: 200 mg Levothyroxine Sodium (Synthroid -) 50 mcg PO 0700 [facility] Last Admin: 12/18/17 06:23 Dose: 50 mcg Lorazepam (Ativan -) 1 mg PO DAILY [facility] Last Admin: 12/18/17 11:17 Dose: 1 mg Metoprolol Succinate (Toprol Xl -) 50 mg PO BID [facility] Last Admin: 12/18/17 11:16 Dose: 50 mg Pantoprazole Sodium (Protonix -) 40 mg PO DAILY [facility] Last Admin: 12/18/17 11:17 Dose: 40 mg Potassium Chloride (K-Dur -) 40 meq PO BID [facility] Last Admin: 12/18/17 11:18 Dose: 40 meq Risperidone (Risperdal -) 2 mg PO DAILY [facility] Last Admin: 12/18/17 11:10 Dose: 2 mg ecg: afib, rate controlled, nl qtc, no ischemic changes echo 11/2017: tds; nl lv, rv tds, no sig valve path, nl rvsp echo repeat 12/14: nl LV/RV. mild MR, mild-mod TR. no vegetations reported. PASP 41 a/p: 82 f hx anemia, RA, hypothyroid, chf, afib, htn, sent from [facility] for anemia, dark stools. fever, strep bacteremia: -febrile to > 101 on 12/10 in pm, BCx growing beta-hemolytic strep; UCx with gram negative rods -echo here with no identifiable valve dysfunction on 12/03, will rpt study. no murmurs on exam. no convincing findings of acute pulm edema or acute exacerbation of chf based on CXR review, pt's creat bump to lasix x 1 dose, and phys exam. -rpt echo no vegetations or severe valve regurgitation. - source suspected, per ID, ? asp pna--cont abx per their recs acute diastolic chf: -echo unremarkable -no details available, pt on lasix 40 bid po at [place] -initial CXR here with evidence of chf and effusions. -treated with lasix 40 iv bid here. -[facility] wts only: trended down consistently from 231 to 221, up gradually to 228 now 219 today -changed to lasix 40 po bid on 12/09. -episode overnight 12/10 of fever accompanied by acute dyspnea--given IV lasix. sx's improved. repeat CXR at that time showed stable congestion, creat bumped hence lasix held 12/11. ? sx's were due to hi fever with bacteremia (BCx positive now) and resolved when she defervesced. -12/14: renal fxn initially worsening likely due to sepsis/baceteremia. now improving. appears stable volume status, with bibasilar abnormal lung - cont holding PO lasix for now while treating infection with stable volume status, CXR today is unchanged -12/15: remains compensated, no sob. hold lasix as renal fxn improves--would resume lasix in 24-48 hrs to try to improve effusions, assuming renal fxn stable -12/16-12/17: cr stable/improved. will resume po lasix 40 qd 12/17 (was on 40 po bid when became dry). - 12/18 stable Cr, volume status, continue lasix 40 mg PO daily JUAN DANIEL: -no baseline creat data available -creat 1.5 on admit, improved with diuresis -bumped again 12/11 ? due to acute chf again, vs lasix dose, now improving again with holding lasix -lasix as above dark stools, anemia: -being evaluated by GI, Heme -hgb currently stable afib: -rate controlled, on toprol 125 qd. -bp's soft here, + bacteremia/sepsis picture. change metopr succ to 50 bid -has been on eliquis, continued here, monitor hgb trend hypothyroid: -tsh elevated, synthroid dosing per pmd htn: -bp controlled -cont toprol
--- NOTE | 2017-12-18 15:33 | PN ---
Physical Exam: SUBJECTIVE: Patient seen and examined at the bedside. In no acute distress. More awake and alert today. OBJECTIVE: Vital Signs Period Temp Pulse Resp BP Sys/Neal Pulse Ox Last 24 Hr 97.4 F-99.1 F 94-97 20-22 100-116/53-58 96-96 GENERAL: The patient is lethargic, easily arousable. able to answer questions. HEAD: Normal with no signs of trauma. EYES: PERRL, extraocular movements intact, sclera anicteric, conjunctiva clear. No ptosis. ENT: Ears normal, nares patent, oropharynx clear without exudates, moist mucous membranes. NECK: Trachea midline, full range of motion, supple. LUNGS: diminished breath sounds anteriorly, fine crackles at the bases L>R HEART: irregular, hx of afib on eliquis ABDOMEN: Soft, nontender, nondistended, normoactive bowel sounds, no guarding, no rebound, no hepatosplenomegaly, no masses. EXTREMITIES: +1-2 bilateral lower ext edema NEUROLOGICAL: Normal speech, gait not observed. PSYCH: lethargic, with episodes of agitation SKIN: Warm, dry, normal turgor, no rashes or lesions noted Laboratory Results - last 24 hr 12/17/17 12/17/17 12/18/17 15:15 16:00 07:30 WBC RBC Hgb Hct MCV MCH MCHC RDW Plt Count MPV Absolute Neuts (auto) Neutrophils % Lymphocytes % Monocytes % Eosinophils % Basophils % Nucleated RBC % ESR Urine Color Katie Urine Appearance Turbid Urine pH 5.0 Ur Specific [place] 1.018 Urine Protein 2+ H Urine Glucose (UA) Negative Urine Ketones Negative Urine Blood 1+ H Urine Nitrite Negative Urine Bilirubin Negative Urine Urobilinogen Negative Ur Leukocyte Esterase 2+ H Urine WBC (Auto) 20 Urine RBC (Auto) 4 Ur Epithelial Cells Rare Random Vancomycin 37.6 H* Vancomycin Pre-Dose 42.2 H* 12/18/17 12/18/17 07:30 07:30 WBC 5.6 RBC 3.53 L Hgb 7.8 L Hct 27.1 L MCV 76.7 L MCH 22.2 L MCHC 28.9 L RDW 25.5 H Plt Count 185 MPV 8.1 Absolute Neuts (auto) 5.1 Neutrophils % 91.9 H D Lymphocytes % 5.3 L D Monocytes % 2.4 L Eosinophils % 0.0 D Basophils % 0.4 Nucleated RBC % 0 ESR 75 H Urine Color Urine Appearance Urine pH Ur Specific [place] Urine Protein Urine Glucose (UA) Urine Ketones Urine Blood Urine Nitrite Urine Bilirubin Urine Urobilinogen Ur Leukocyte Esterase Urine WBC (Auto) Urine RBC (Auto) Ur Epithelial Cells Random Vancomycin Vancomycin Pre-Dose Active Medications Generic Name Dose Route Start Last Admin Trade Name Freq PRN Reason Stop Dose Admin Acetaminophen 1,000 mg 12/10/17 23:10 12/14/17 21:07 Tylenol - PO 1,000 mg Q6H PRN Administration FEVER Apixaban 5 mg 12/03/17 22:00 12/18/17 11:17 Eliquis - PO 5 mg BID [facility] Administration Docusate Sodium 100 mg 12/02/17 22:00 12/17/17 22:17 Colace - PO 100 mg HS [facility] Administration Ferrous Gluconate 324 mg 12/03/17 10:00 12/18/17 11:21 Fergon - PO 324 mg DAILY [facility] Administration Folic Acid 1 mg 12/03/17 10:00 12/18/17 11:17 Folic Acid - PO 1 mg DAILY [facility] Administration Furosemide 40 mg 12/17/17 10:00 12/18/17 11:18 Lasix - PO 40 mg DAILY [facility] Administration Hydroxychloroquine Sulfate 200 mg 12/02/17 22:00 12/18/17 10:05 Plaquenil - PO 200 mg BID [facility] Administration Levothyroxine Sodium 50 mcg 12/03/17 07:00 12/18/17 06:23 Synthroid - PO 50 mcg 0700 [facility] Administration Lorazepam 1 mg 12/03/17 10:00 12/18/17 11:17 Ativan - PO 1 mg DAILY [facility] Administration Metoprolol Succinate 50 mg 12/16/17 06:00 12/18/17 11:16 Toprol Xl - PO 50 mg BID [facility] Administration Pantoprazole Sodium 40 mg 12/03/17 10:00 12/18/17 11:17 Protonix - PO 40 mg DAILY [facility] Administration Potassium Chloride 40 meq 12/07/17 11:45 12/18/17 11:18 K-Dur - PO 40 meq BID [facility] Administration Risperidone 2 mg 12/03/17 11:01 12/18/17 11:10 Risperdal - PO 2 mg DAILY [facility] Administration ASSESSMENT/PLAN: Patient is an 82 year old female who presents to the ED on 12/02/2017 for symptomatic anemia. Since admission she has been transfused 2 units of prbc. Hospitalization complicated when patient developed exacerbation of CHF, UTI and bacteremia. Imaging: Echo : LV normal, ef 65%, mild to mod franco.luiza.calci., mild mitral regurg., mild to mod tricuspid regurg. ID: Enterococcus bacteremia/Klebsiella/Enterococcus UTI: On vancomycin per ID, trough levels elevated and currently on hold. afebrile. Given Granix yesterday, wbc 5.6. Heme: Iron deficiency anemia/Blood loss anemia: Has received 2 units of PRBC since admission. Pulm: Aspiration pneumonia v. hcap On Vanco 1 gram q 12. Speech and swallow and MBS eval done. Aspiration precautions on a chopped diet. GI: Rule out GI bleed. Started on Protonix 40mg daily. Further workup of possible gi bleed outpatient. Card: Acute on chronic diastolic congestive heart failure. Restarted lasix 40mg PO daily. Fluid restriction of 1200cc daily. daily weights, strict intake and output. Atrial fibrillation. on eliquis bid. on metoprolol. cardiology following. Mobility: Bilateral difficulty with ambulation in the setting of poor performance status. will consult PT once more stable. Endocrine: Hypothyroidism TSH @ 20. Synthroid dose was recently increased at [facility] per MD- Repeat TSH @ [facility] as outpatient Vascular: Hx of celulitis of LLE No cellulitis presently. monitor for signs of infection. Psyche: Bipolar disorder, continue home medications Visit type - Emergency Visit Emergency Visit: Yes ED Registration Date: 12/04/17 Care time: The patient presented to the Emergency Department on the above date and was hospitalized for further evaluation of their emergent condition. - New Patient This patient is new to me today: No - Critical Care Critical Care patient: No - Discharge Referral Referred to [facility] Med [facility] No
--- NOTE | 2017-12-18 17:54 | PN ---
Progress Note (short form) - Note Progress Note: Patient seen and examined at bedside Patient denies fever feels ok hates the food here WBC count up to 5.6 today up from 1.5 yesterday s/p 480mcg of granix yesterday x1 Hb 7.8 today and stable Vital Signs Temperature 99.1 F 12/18/17 15:28 Pulse Rate 94 H 12/18/17 15:28 Respiratory Rate 20 12/18/17 15:28 Blood Pressure 108/56 L 12/18/17 15:28 O2 Sat by Pulse Oximetry (%) 96 12/18/17 09:00 PE: alert and awake. not orientated to place or time Irregular S1 S2 Right side clear left side with faint crackles at bases Soft non tender non distended bilateral lower extremity edema 12/18/17 07:30 WBC 5.6 RBC 3.53 L Hgb 7.8 L Hct 27.1 L MCV 76.7 L MCHC 28.9 L RDW 25.5 H Plt Count 185 Neutrophils % 91.9 H D Lymphocytes % 5.3 L D Monocytes % 2.4 L Eosinophils % 0.0 D Basophils % 0.4 12/13/17 07:09 Blood Culture - Final Blood - Peripheral Venous NO GROWTH AFTER 5 DAYS INCUBATION 12/13/17 07:25 Blood Culture - Final Blood - Peripheral Venous NO GROWTH AFTER 5 DAYS INCUBATION 12/11/17 02:00 Blood Culture - Final Blood - Peripheral Venous NO GROWTH AFTER 5 DAYS INCUBATION 12/09/17 22:30 Urine Culture - Final Urine - Urine Clean Catch Klebsiella Pneumoniae Enterococcus Faecalis 12/11/17 02:00 Blood Culture - Final Blood - Peripheral Venous Enterococcus Faecalis 12/03/17 19:45 Blood Culture - Final Blood - Peripheral Venous NO GROWTH AFTER 5 DAYS INCUBATION 12/03/17 17:45 Blood Culture - Final Blood - Peripheral Venous NO GROWTH AFTER 5 DAYS INCUBATION Problem List: iron deficiency anemia A-Fib CHF HTN NIDDM disorganized schizophrenia Asthma RA (on hydroxcloroquine) Hypothyroidism non-thrombocytopenic purpura GERD Bacteremia Plan: WBC 5.6 today s/p 480mcg of Granix one time yesterday with good response Patient noted to be bacteremic with enterococcus ABx per ID Patients iron studies consistent with Iron deficiency anemia-s/p 100mg venofir one time dose US of spleen and liver to r/o hepatosplenomegaly-patient has fatty infiltration of the liver and mild splenomegaly Will send total complement-pending C3 C4 ordered and approved by pathologist-form sent to phlebotomy-pending Rheumatoid factor elevated to 1150-rheumatology consult appreciated CCP and complement sent consider DMARD if having a rheumatoid flare on eliquis for A fib
--- NOTE | 2017-12-18 17:54 | PN ---
Teaching Attending Note Name of Resident: Fransico Marcial ATTENDING PHYSICIAN STATEMENT I saw and evaluated the patient. I reviewed the resident's note and discussed the case with the resident. I agree with the resident's findings and plan as documented. SUBJECTIVE: Patient seen and examined Rheumatology note seen. Suspect neutropenia is on the basis of autommune disease. Received granix with good response. Rheumatology work up pending. OBJECTIVE: ASSESSMENT AND PLAN:
[2017-12-18 18:12] LABS: ANISOCYTOSIS 2+; PLATELET ESTIMATE ADEQUATE
--- NOTE | 2017-12-18 18:23 | PN ---
Progress Note, Physician History of Present Illness: Awake but confused Offers no complaints Temps down WBC increased 5.6 Repeat BC (-) Vancomycin trough noted - Current Medication List Current Medications: Active Medications Acetaminophen (Tylenol -) 1,000 mg PO Q6H PRN PRN Reason: FEVER Last Admin: 12/14/17 21:07 Dose: 1,000 mg Apixaban (Eliquis -) 5 mg PO BID [facility] Last Admin: 12/18/17 11:17 Dose: 5 mg Docusate Sodium (Colace -) 100 mg PO HS [facility] Last Admin: 12/17/17 22:17 Dose: 100 mg Ferrous Gluconate (Fergon -) 324 mg PO DAILY [facility] Last Admin: 12/18/17 11:21 Dose: 324 mg Folic Acid (Folic Acid -) 1 mg PO DAILY [facility] Last Admin: 12/18/17 11:17 Dose: 1 mg Furosemide (Lasix -) 40 mg PO DAILY [facility] Last Admin: 12/18/17 11:18 Dose: 40 mg Hydroxychloroquine Sulfate (Plaquenil -) 200 mg PO BID [facility] Last Admin: 12/18/17 10:05 Dose: 200 mg Levothyroxine Sodium (Synthroid -) 50 mcg PO 0700 [facility] Last Admin: 12/18/17 06:23 Dose: 50 mcg Lorazepam (Ativan -) 1 mg PO DAILY [facility] Last Admin: 12/18/17 11:17 Dose: 1 mg Metoprolol Succinate (Toprol Xl -) 50 mg PO BID [facility] Last Admin: 12/18/17 11:16 Dose: 50 mg Pantoprazole Sodium (Protonix -) 40 mg PO DAILY [facility] Last Admin: 12/18/17 11:17 Dose: 40 mg Potassium Chloride (K-Dur -) 40 meq PO BID [facility] Last Admin: 12/18/17 11:18 Dose: 40 meq Risperidone (Risperdal -) 2 mg PO DAILY [facility] Last Admin: 12/18/17 11:10 Dose: 2 mg - Objective Vital Signs: Vital Signs Temperature 99.1 F 12/18/17 15:28 Pulse Rate 94 H 12/18/17 15:28 Respiratory Rate 20 12/18/17 15:28 Blood Pressure 108/56 L 12/18/17 15:28 O2 Sat by Pulse Oximetry (%) 96 12/18/17 09:00 Constitutional: Yes: No Distress Eyes: Yes: Conjunctiva Clear Cardiovascular: Yes: Regular Rate and Rhythm, S1, S2 Respiratory: Yes: Diminished Gastrointestinal: Yes: Normal Bowel Sounds, Soft, Abdomen, Obese. No: Tenderness Edema: Yes Labs: CBC, BMP 12/18/17 07:30 12/17/17 06:30 INR, PTT INR 2.44 (0.83-1.09) H 12/02/17 15:35 Assessment/Plan Enterococcal bacteremia likely urinary tract source Possible asp pneumonia Leukopenia PCN/TCN allergies Azotemia Vancomycin on hold Check repeat vanco level
[2017-12-18] MEDS: DOCUSATE SODIUM 100 MG CAPSULE (FP) PO SCH (21:08)
[2017-12-19] MEDS: LEVOTHYROXINE NA 50 MCG TABLET (FP) PO SCH (06:06)
[2017-12-19 08:42] LABS: BASO % 0.8 % (0-2.0); EOS % 0.9 % (0-4.5); HEMATOCRIT 25.7 % (32.4-45.2); HEMOGLOBIN 7.8 GM/dL (10.7-15.3); LYMPH % 14.1 % (8-40); MCH 23.4 pg (25.7-33.7); MCHC 30.4 g/dl (32.0-36.0); MEAN CELL VOLUME 77.1 fl (80-96); MEAN PLT VOLUME 7.9 fl (7.5-11.1); MONO % 2.8 % (3.8-10.2); NEUT % 81.4 % (42.8-82.8); PLATELET COUNT 182 K/MM3 (134-434); RBC 3.33 M/mm3 (3.60-5.2); RDW 25.5 % (11.6-15.6); WHITE BLOOD COUNT 3.6 K/mm3 (4.0-10.0)
[2017-12-19 09:15] LABS: ALBUMIN 2.2 g/dl (3.4-5.0); ALK PHOS 128 U/L (45-117); ANION GAP 6 MMOL/L (8-16); BILIRUBIN,TOTAL 0.4 mg/dL (0.2-1); BLOOD UREA NITROGEN 36 mg/dL (7-18); CALCIUM 8.4 mg/dL (8.5-10.1); CHLORIDE 107 mmol/L (98-107); CO2 28 mmol/L (21-32); CREATININE 1.4 mg/dL (0.55-1.3); GLUCOSE,RANDOM 78 mg/dL (74-106); MAGNESIUM 2.5 mg/dL (1.8-2.4); POTASSIUM 4.6 mmol/L (3.5-5.1); SGOT/AST 25 U/L (15-37); SGPT/ALT 20 U/L (13-61); SODIUM 141 mmol/L (136-145); TOT PROT 6.8 g/dl (6.4-8.2)
--- NOTE | 2017-12-19 09:28 | PN ---
Physical Exam: SUBJECTIVE: Patient seen and examined at the bedside. awake and alert, in no acute distress. OBJECTIVE: Vital Signs Period Temp Pulse Resp BP Sys/Neal Pulse Ox Last 24 Hr 98.1 F-99.1 F 80-96 20-20 105-116/52-58 96 GENERAL: The patient is awake, alert. able to answer questions. HEAD: Normal with no signs of trauma. EYES: PERRL, extraocular movements intact, sclera anicteric, conjunctiva clear. No ptosis. ENT: Ears normal, nares patent, oropharynx clear without exudates, moist mucous membranes. NECK: Trachea midline, full range of motion, supple. LUNGS: diminished breath sounds anteriorly, fine crackles at the left base > on lasix daily HEART: irregular, hx of afib on eliquis ABDOMEN: Soft, nontender, nondistended, normoactive bowel sounds, no guarding, no rebound, no hepatosplenomegaly, no masses. EXTREMITIES: +1-2 bilateral lower ext edema - improved since admission/ + ecchymoses in both arms NEUROLOGICAL: Normal speech, gait not observed. PSYCH:awake, with episodes of agitation Laboratory Results - last 24 hr 12/18/17 12/18/17 12/18/17 07:30 07:30 07:30 WBC 5.6 RBC 3.53 L Hgb 7.8 L Hct 27.1 L MCV 76.7 L MCH 22.2 L MCHC 28.9 L RDW 25.5 H Plt Count 185 MPV 8.1 Absolute Neuts (auto) 5.1 Total Counted 100 Neutrophils % 91.9 H D Neutrophils % (Manual) 67.0 Band Neutrophils % 24.0 Lymphocytes % 5.3 L D Lymphocytes % (Manual) 5.0 L D Monocytes % 2.4 L Monocytes % (Manual) 1 L D Eosinophils % 0.0 D Eosinophils % (Manual) 1.0 Basophils % 0.4 Nucleated RBC % 0 Metamyelocytes 2 D Hypochromia 2+ Platelet Estimate Adequate Polychromasia 1+ Anisocytosis 2+ ESR 75 H Sodium Potassium Chloride Carbon Dioxide Anion Gap BUN Creatinine Creat Clearance w eGFR Random Glucose Calcium Magnesium Total Bilirubin AST ALT Alkaline Phosphatase Total Protein Albumin Random Vancomycin 37.6 H* 12/19/17 12/19/17 12/19/17 08:00 08:00 08:00 WBC 3.6 L RBC 3.33 L Hgb 7.8 L Hct 25.7 L MCV 77.1 L MCH 23.4 L MCHC 30.4 L RDW 25.5 H Plt Count 182 MPV 7.9 Absolute Neuts (auto) 2.9 Total Counted Neutrophils % 81.4 Neutrophils % (Manual) Band Neutrophils % Lymphocytes % 14.1 D Lymphocytes % (Manual) Monocytes % 2.8 L Monocytes % (Manual) Eosinophils % 0.9 D Eosinophils % (Manual) Basophils % 0.8 Nucleated RBC % 0 Metamyelocytes Hypochromia Platelet Estimate Polychromasia Anisocytosis ESR Sodium 141 Potassium 4.6 Chloride 107 Carbon Dioxide 28 Anion Gap 6 L BUN 36 H Creatinine 1.4 H Creat Clearance w eGFR 36.00 Random Glucose 78 Calcium 8.4 L Magnesium 2.5 H Total Bilirubin 0.4 AST 25 ALT 20 Alkaline Phosphatase 128 H Total Protein 6.8 Albumin 2.2 L Random Vancomycin 28.1 H Active Medications Generic Name Dose Route Start Last Admin Trade Name Freq PRN Reason Stop Dose Admin Acetaminophen 1,000 mg 12/10/17 23:10 12/14/17 21:07 Tylenol - PO 1,000 mg Q6H PRN Administration FEVER Apixaban 5 mg 12/03/17 22:00 12/18/17 21:09 Eliquis - PO 5 mg BID ELENA Administration Docusate Sodium 100 mg 12/02/17 22:00 12/18/17 21:08 Colace - PO 100 mg HS ELENA Administration Ferrous Gluconate 324 mg 12/03/17 10:00 12/18/17 11:21 Fergon - PO 324 mg DAILY ELENA Administration Folic Acid 1 mg 12/03/17 10:00 12/18/17 11:17 Folic Acid - PO 1 mg DAILY ELENA Administration Furosemide 40 mg 12/17/17 10:00 12/18/17 11:18 Lasix - PO 40 mg DAILY ELENA Administration Hydroxychloroquine Sulfate 200 mg 12/02/17 22:00 12/18/17 21:09 Plaquenil - PO 200 mg BID ELENA Administration Levothyroxine Sodium 50 mcg 12/03/17 07:00 12/19/17 06:06 Synthroid - PO 50 mcg 0700 ELENA Administration Lorazepam 1 mg 12/03/17 10:00 12/18/17 11:17 Ativan - PO 1 mg DAILY ELENA Administration Metoprolol Succinate 50 mg 12/16/17 06:00 12/18/17 21:08 Toprol Xl - PO 50 mg BID ELENA Administration Pantoprazole Sodium 40 mg 12/03/17 10:00 12/18/17 11:17 Protonix - PO 40 mg DAILY ELENA Administration Potassium Chloride 40 meq 12/07/17 11:45 12/18/17 21:08 K-Dur - PO 40 meq BID ELENA Administration Risperidone 2 mg 12/03/17 11:01 12/18/17 11:10 Risperdal - PO 2 mg DAILY ELENA Administration ASSESSMENT/PLAN: Patient is an 82 year old female who presents to the ED on 12/02/2017 for symptomatic anemia. Since admission she has been transfused 2 units of prbc. Hospitalization complicated when patient developed exacerbation of CHF, UTI and bacteremia. Imaging: Echo : LV normal, ef 65%, mild to mod franco.luiza.calci., mild mitral regurg., mild to mod tricuspid regurg. ID: Enterococcus bacteremia/Klebsiella/Enterococcus UTI: On vancomycin per ID , trough levels elevated and currently on hold. afebrile. Given Granix yesterday, wbc 3.6 Heme: Iron deficiency anemia/Blood loss anemia: Has received 2 units of PRBC since admission. hmg/hct low stable. transfuse as per heme. Pulm: Aspiration pneumonia v. hcap. On Vanco 1 gram q 12. Speech and swallow and MBS eval done. Aspiration precautions on a chopped diet/nectar thick fluids. GI: Rule out GI bleed. Started on Protonix 40mg daily. Further workup of possible gi bleed outpatient. Rheum: hx of RA. on Plaquenil. Was on methotraxate, prednisone and enbrel x 20 yrs per her sister. these meds were stopped june 2017. she is now being followed by rheumatology. Card: Acute on chronic diastolic congestive heart failure. Restarted lasix 40mg PO daily. Fluid restriction of 1200cc daily. daily weights, strict intake and output. Atrial fibrillation. on eliquis bid. on metoprolol. cardiology following. Mobility: Bilateral difficulty with ambulation in the setting of poor performance status. will consult PT once more stable. Endocrine: Hypothyroidism: TSH @ 20. Synthroid dose was recently increased at [facility] per MD- Repeat TSH @ [facility] as outpatient Vascular: Hx of celulitis of LLE: No cellulitis presently. monitor for signs of infection. Psyche: Bipolar disorder, continue home medications fen tolerating po monitor electrolytes nectar thick, chopped diet prophy: on eliquis protonix Visit type - Emergency Visit Emergency Visit: Yes ED Registration Date: 12/04/17 Care time: The patient presented to the Emergency Department on the above date and was hospitalized for further evaluation of their emergent condition. - New Patient This patient is new to me today: No - Critical Care Critical Care patient: No - Discharge Referral Referred to [facility] Med P.C.: No
[2017-12-19] MEDS ORDERED: PT OWN MED DRAWER 7, Y5N ONE ×2 (09:53→20:59)
[2017-12-19] MEDS: FOLIC ACID 1 MG TABLET (FP) PO SCH (10:08)
[2017-12-19] MEDS: PANTOPRAZOLE 40 MG TABLET (FP) PO SCH (10:08)
[2017-12-19] MEDS: POTASSIUM CHLORIDE TABS 20 MEQ TABLET.ER (FP) PO SCH ×2 (10:08→21:17)
[2017-12-19] MEDS: FUROSEMIDE 40 MG TABLET (FP) PO SCH (10:08)
[2017-12-19] MEDS: LORazepam 1 MG TABLET PO SCH (10:08)
[2017-12-19] MEDS: risperiDONE 1 MG TABLET (FP) PO SCH (10:08)
[2017-12-19] MEDS: FERROUS GLUCONATE 324 MG TAB (FP) PO SCH (10:09)
[2017-12-19] MEDS: HYDROXYCHLOROQUINE SO4 200 MG TABLET (FP) PO SCH ×2 (10:09→21:16)
[2017-12-19] MEDS: APIXABAN 5 MG TABLET PO SCH ×2 (10:13→21:17)
--- NOTE | 2017-12-19 10:58 | PN ---
Progress Note (short form) - Note Progress Note: HEMATOLOGY CONSULT NOTE Patient seen and examined at bedside feels ok hates the food here, Wants to leave the hospital WBC count now decreasing Vital Signs Period Temp Pulse Resp BP Sys/Neal Pulse Ox Last 24 Hr 98.4 F-99.1 F 74-94 18-20 105-108/52-56 96 PE: lots of ecchymoses in arm fragile skin CBC, BMP 12/19/17 08:00 12/19/17 08:00 Problem List: iron deficiency anemia A-Fib CHF HTN NIDDM disorganized schizophrenia Asthma RA (on hydroxcloroquine) Hypothyroidism non-thrombocytopenic purpura GERD Bacteremia Plan: WBC decreasing and if ANC less than 1000 will redose with neupogen Patient noted to be bacteremic with enterococcus ABx per ID Patients iron studies consistent with Iron deficiency anemia-s/p 100mg venofir one time dose US of spleen and liver to r/o hepatosplenomegaly-patient has fatty infiltration of the liver and mild splenomegaly Will send total complement-pending C3 C4 ordered and approved by pathologist-form sent to phlebotomy-pending Rheumatoid factor elevated to 1150-rheumatology consult appreciated CCP and complement sent consider DMARD if having a rheumatoid flare on eliquis for A fib
--- NOTE | 2017-12-19 12:26 | PN ---
Progress Note (short form) - Note Progress Note: alert requesting water NAD denies abdominal pain Vital Signs Period Temp Pulse Resp BP Sys/Neal Pulse Ox Last 24 Hr 98.4 F-99.1 F 74-94 18-20 105-110/52-59 96-97 cor-rrr lungs clear abd soft,nt ext no edema CBC, BMP 12/19/17 08:00 12/19/17 08:00 Laboratory Tests 12/19/17 08:00 Random Vancomycin 28.1 H Microbiology 12/13/17 07:09 Blood - Peripheral Venous Blood Culture - Final NO GROWTH AFTER 5 DAYS INCUBATION 12/13/17 07:25 Blood - Peripheral Venous Blood Culture - Final NO GROWTH AFTER 5 DAYS INCUBATION 12/11/17 02:00 Blood - Peripheral Venous Blood Culture - Final NO GROWTH AFTER 5 DAYS INCUBATION 12/09/17 22:30 Urine - Urine Clean Catch Urine Culture - Final Klebsiella Pneumoniae Enterococcus Faecalis 12/11/17 02:00 Blood - Peripheral Venous Blood Culture - Final Enterococcus Faecalis 12/03/17 19:45 Blood - Peripheral Venous Blood Culture - Final NO GROWTH AFTER 5 DAYS INCUBATION 12/03/17 17:45 Blood - Peripheral Venous Blood Culture - Final NO GROWTH AFTER 5 DAYS INCUBATION a/p enterococcal bacteremia secondary to UTI vancomycin on hold due to elevated trough repeat in am pen allergy neutropenia resolved with neupogen-etiology unclear of neutropenia monitor cbc
--- NOTE | 2017-12-19 13:18 | PN ---
Progress Note (short form) - Note Progress Note: [facility] *LIVE* Progress Note: s: confused, not answering questions appropriately o: Vital Signs Period Temp Pulse Resp BP Sys/Neal Pulse Ox Last 24 Hr 98.4 F-99.1 F 74-94 18-20 105-110/52-59 96-97 nad no jvd irreg s1s2 no mrg cta bl nl eff awake alert confused abd nt nd pos bs no jaundice diaphoresis no le edema Current Medications Acetaminophen (Tylenol -) 1,000 mg PO Q6H PRN PRN Reason: FEVER Last Admin: 12/14/17 21:07 Dose: 1,000 mg Apixaban (Eliquis -) 5 mg PO BID [facility] Last Admin: 12/19/17 10:13 Dose: 5 mg Docusate Sodium (Colace -) 100 mg PO HS [facility] Last Admin: 12/18/17 21:08 Dose: 100 mg Ferrous Gluconate (Fergon -) 324 mg PO DAILY [facility] Last Admin: 12/19/17 10:09 Dose: 324 mg Folic Acid (Folic Acid -) 1 mg PO DAILY [facility] Last Admin: 12/19/17 10:08 Dose: 1 mg Furosemide (Lasix -) 40 mg PO DAILY [facility] Last Admin: 12/19/17 10:08 Dose: 40 mg Hydroxychloroquine Sulfate (Plaquenil -) 200 mg PO BID [facility] Last Admin: 12/19/17 10:09 Dose: 200 mg Levothyroxine Sodium (Synthroid -) 50 mcg PO 0700 [facility] Last Admin: 12/19/17 06:06 Dose: 50 mcg Lorazepam (Ativan -) 1 mg PO DAILY [facility] Last Admin: 12/19/17 10:08 Dose: 1 mg Metoprolol Succinate (Toprol Xl -) 50 mg PO BID [facility] Last Admin: 12/19/17 10:08 Dose: 50 mg Pantoprazole Sodium (Protonix -) 40 mg PO DAILY [facility] Last Admin: 12/19/17 10:08 Dose: 40 mg Potassium Chloride (K-Dur -) 40 meq PO BID [facility] Last Admin: 12/19/17 10:08 Dose: 40 meq Risperidone (Risperdal -) 2 mg PO DAILY [facility] Last Admin: 12/19/17 10:08 Dose: 2 mg ecg: afib, rate controlled, nl qtc, no ischemic changes echo 11/2017: tds; nl lv, rv tds, no sig valve path, nl rvsp echo repeat 12/14: nl LV/RV. mild MR, mild-mod TR. no vegetations reported. PASP 41 a/p: 82 f hx anemia, RA, hypothyroid, chf, afib, htn, sent from [place] for anemia, dark stools. fever, strep bacteremia: -febrile to > 101 on 12/10 in pm, BCx growing beta-hemolytic strep; UCx with gram negative rods -echo here with no identifiable valve dysfunction on 12/03, will rpt study. no murmurs on exam. no convincing findings of acute pulm edema or acute exacerbation of chf based on CXR review, pt's creat bump to lasix x 1 dose, and phys exam. -rpt echo no vegetations or severe valve regurgitation. - source suspected, per ID, ? asp pna--cont abx per their recs acute diastolic chf: -echo unremarkable -no details available, pt on lasix 40 bid po at [facility] -initial CXR here with evidence of chf and effusions. -treated with lasix 40 iv bid here. -[facility] wts only: trended down consistently from 231 to 221, up gradually to 228 now 219 today -changed to lasix 40 po bid on 12/09. -episode overnight 12/10 of fever accompanied by acute dyspnea--given IV lasix. sx's improved. repeat CXR at that time showed stable congestion, creat bumped hence lasix held 12/11. ? sx's were due to hi fever with bacteremia (BCx positive now) and resolved when she defervesced. -12/14: renal fxn initially worsening likely due to sepsis/baceteremia. now improving. appears stable volume status, with bibasilar abnormal lung - cont holding PO lasix for now while treating infection with stable volume status, CXR today is unchanged -12/15: remains compensated, no sob. hold lasix as renal fxn improves--would resume lasix in 24-48 hrs to try to improve effusions, assuming renal fxn stable -12/16-12/17: cr stable/improved. will resume po lasix 40 qd 12/17 (was on 40 po bid when became dry). - 12/18-3: stable volume status, continue lasix 40 mg PO daily JUAN DANIEL: -no baseline creat data available -creat 1.5 on admit, improved with diuresis -bumped again 12/11 ? due to acute chf again, vs lasix dose, now improving again with holding lasix -lasix as above dark stools, anemia: -being evaluated by GI, Heme -hgb currently stable afib: -rate controlled -bp's soft here, + bacteremia/sepsis picture. cont metopr succ 50 bid -has been on eliquis, continued here, monitor hgb trend hypothyroid: -tsh elevated, synthroid dosing per pmd htn: -bp controlled -cont toprol
[2017-12-19] MEDS: DOCUSATE SODIUM 100 MG CAPSULE (FP) PO SCH (21:16)
[2017-12-20] MEDS: LEVOTHYROXINE NA 50 MCG TABLET (FP) PO SCH (06:09)
[2017-12-20 09:25] LABS: EOS % 0.9 % (0-4.5); HEMATOCRIT 26.3 % (32.4-45.2); HEMOGLOBIN 8.1 GM/dL (10.7-15.3); LYMPH % 21.2 % (8-40); MCH 23.7 pg (25.7-33.7); MCHC 30.9 g/dl (32.0-36.0); MEAN CELL VOLUME 76.7 fl (80-96); MEAN PLT VOLUME 7.6 fl (7.5-11.1); MONO % 4.8 % (3.8-10.2); NEUT % 72.1 % (42.8-82.8); PLATELET COUNT 195 K/MM3 (134-434); RBC 3.43 M/mm3 (3.60-5.2); RDW 25.5 % (11.6-15.6); WHITE BLOOD COUNT 2.6 K/mm3 (4.0-10.0)
[2017-12-20] MEDS ORDERED: PT OWN MED DRAWER 7, Y5N ONE ×2 (09:39→20:57)
[2017-12-20] MEDS: HYDROXYCHLOROQUINE SO4 200 MG TABLET (FP) PO SCH ×2 (09:47→21:11)
[2017-12-20] MEDS: FUROSEMIDE 40 MG TABLET (FP) PO SCH (09:47)
[2017-12-20] MEDS: risperiDONE 1 MG TABLET (FP) PO SCH (09:47)
[2017-12-20] MEDS: LORazepam 1 MG TABLET PO SCH (09:47)
[2017-12-20] MEDS: FERROUS GLUCONATE 324 MG TAB (FP) PO SCH (09:47)
[2017-12-20] MEDS: FOLIC ACID 1 MG TABLET (FP) PO SCH (09:47)
[2017-12-20] MEDS: PANTOPRAZOLE 40 MG TABLET (FP) PO SCH (09:47)
[2017-12-20] MEDS: APIXABAN 5 MG TABLET PO SCH ×2 (09:47→21:11)
[2017-12-20] MEDS: POTASSIUM CHLORIDE TABS 20 MEQ TABLET.ER (FP) PO SCH (09:47)
[2017-12-20 10:00] LABS: ALBUMIN 2.3 g/dl (3.4-5.0); ALK PHOS 140 U/L (45-117); ANION GAP 7 MMOL/L (8-16); BILIRUBIN,TOTAL 0.5 mg/dL (0.2-1); BLOOD UREA NITROGEN 40 mg/dL (7-18); CALCIUM 8.3 mg/dL (8.5-10.1); CHLORIDE 110 mmol/L (98-107); CO2 27 mmol/L (21-32); CREATININE 1.6 mg/dL (0.55-1.3); GLUCOSE,RANDOM 111 mg/dL (74-106); MAGNESIUM 2.3 mg/dL (1.8-2.4); POTASSIUM 5.5 mmol/L (3.5-5.1); SGOT/AST 26 U/L (15-37); SGPT/ALT 22 U/L (13-61); SODIUM 144 mmol/L (136-145); TOT PROT 7.1 g/dl (6.4-8.2)
[2017-12-20] MEDS ORDERED: SODIUM POLYSTYRENE SULFONATE 15 GM/60 ML BOTTLE PO ONE ×2 (10:56→22:38)
--- NOTE | 2017-12-20 11:09 | PN ---
Progress Note (short form) - Note Progress Note: NAD Vital Signs Period Temp Pulse Resp BP Sys/Neal Pulse Ox Last 24 Hr 97.5 F-99.1 F 82-100 20-20 100-122/40-64 92-97 cor-rrr lungs decreased bs at bases abd soft,nt ext no edema CBC, BMP 12/20/17 08:55 12/20/17 08:55 a/p enterococcal bacteremia secondary to UTI vancomycin on hold due to elevated trough repeat in am pen allergy neutropenia resolved with neupogen-etiology unclear of neutropenia monitor cbc monitor renal function- rising creatinine d/w hospitalist Laboratory Tests 12/19/17 12/20/17 08:00 08:55 Random Vancomycin 28.1 H 23.7
[2017-12-20 11:36] LABS: ANISOCYTOSIS 2+; MACROCYTOSIS 1+; PLATELET ESTIMATE NORMAL
[2017-12-20] MEDS ORDERED: SODIUM POLYSTYRENE SULFONATE 15 GM/60 ML BOTTLE ONE (11:50)
--- NOTE | 2017-12-20 17:27 | PN ---
Physical Exam: SUBJECTIVE: Patient seen and examined at the bedside. OBJECTIVE: K elevated, kayexalate ordered Vital Signs Period Temp Pulse Resp BP Sys/Neal Pulse Ox Last 24 Hr 98.2 F-99.1 F 95-100 20-20 100-122/40-64 92-97 GENERAL: The patient was asleep during exam, but reported to be awake and alert earlier. HEAD: Normal with no signs of trauma. EYES: PERRL, extraocular movements intact, sclera anicteric, conjunctiva clear. No ptosis. ENT: Ears normal, nares patent, oropharynx clear without exudates, moist mucous membranes. NECK: Trachea midline, full range of motion, supple. LUNGS: diminished breath sounds anteriorly, fine crackles at the left base > on lasix daily HEART: irregular, hx of afib on eliquis ABDOMEN: Soft, nontender, nondistended, normoactive bowel sounds, no guarding, no rebound, no hepatosplenomegaly, no masses. EXTREMITIES: +1-2 bilateral lower ext edema - improved since admission/ + ecchymoses in both arms NEUROLOGICAL: Normal speech, gait not observed. PSYCH:awake, with episodes of agitation Laboratory Results - last 24 hr 12/20/17 12/20/17 12/20/17 08:55 08:55 08:55 WBC 2.6 L RBC 3.43 L Hgb 8.1 L Hct 26.3 L MCV 76.7 L MCH 23.7 L MCHC 30.9 L RDW 25.5 H Plt Count 195 MPV 7.6 Absolute Neuts (auto) 1.9 Neutrophils % 72.1 Lymphocytes % 21.2 D Monocytes % 4.8 Eosinophils % 0.9 Basophils % 1.0 Nucleated RBC % 0 Hypochromia 1+ Platelet Estimate Normal Polychromasia 0 Poikilocytosis 1+ Anisocytosis 2+ Microcytosis 1+ Macrocytosis 1+ Sodium 144 Potassium 5.5 H Chloride 110 H Carbon Dioxide 27 Anion Gap 7 L BUN 40 H Creatinine 1.6 H Creat Clearance w eGFR 30.86 Random Glucose 111 H Calcium 8.3 L Magnesium 2.3 Total Bilirubin 0.5 AST 26 ALT 22 Alkaline Phosphatase 140 H Total Protein 7.1 Albumin 2.3 L Random Vancomycin 23.7 Active Medications Generic Name Dose Route Start Last Admin Trade Name Freq PRN Reason Stop Dose Admin Acetaminophen 1,000 mg 12/10/17 23:10 12/14/17 21:07 Tylenol - PO 1,000 mg Q6H PRN Administration FEVER Apixaban 5 mg 12/03/17 22:00 12/20/17 09:47 Eliquis - PO 5 mg BID ELENA Administration Docusate Sodium 100 mg 12/02/17 22:00 12/19/17 21:16 Colace - PO 100 mg HS ELENA Administration Ferrous Gluconate 324 mg 12/03/17 10:00 12/20/17 09:47 Fergon - PO 324 mg DAILY ELENA Administration Folic Acid 1 mg 12/03/17 10:00 12/20/17 09:47 Folic Acid - PO 1 mg DAILY ELENA Administration Furosemide 40 mg 12/17/17 10:00 12/20/17 09:47 Lasix - PO 40 mg DAILY ELENA Administration Hydroxychloroquine Sulfate 200 mg 12/02/17 22:00 12/20/17 09:47 Plaquenil - PO 200 mg BID ELENA Administration Levothyroxine Sodium 50 mcg 12/03/17 07:00 12/20/17 06:09 Synthroid - PO 50 mcg 0700 ELENA Administration Lorazepam 1 mg 12/03/17 10:00 12/20/17 09:47 Ativan - PO 1 mg DAILY ELENA Administration Metoprolol Succinate 50 mg 12/16/17 06:00 12/20/17 09:47 Toprol Xl - PO 50 mg BID ELENA Administration Pantoprazole Sodium 40 mg 12/03/17 10:00 12/20/17 09:47 Protonix - PO 40 mg DAILY ELENA Administration Potassium Chloride 40 meq 12/07/17 11:45 12/20/17 09:47 K-Dur - PO 40 meq BID ELENA Administration Risperidone 2 mg 12/03/17 11:01 12/20/17 09:47 Risperdal - PO 2 mg DAILY ELENA Administration ASSESSMENT/PLAN: Patient is an 82 year old female who presents to the ED on 12/02/2017 for symptomatic anemia. Since admission she has been transfused 2 units of prbc. Hospitalization complicated when patient developed exacerbation of CHF, UTI and bacteremia. Imaging: Echo : LV normal, ef 65%, mild to mod franco.luiza.calci., mild mitral regurg., mild to mod tricuspid regurg. ID: Enterococcus bacteremia/Klebsiella/Enterococcus UTI: On vancomycin per ID , trough levels elevated and currently on hold. afebrile. Given Granix 2 days ago, wbc 2.6 Heme: Iron deficiency anemia/Blood loss anemia: Has received 2 units of PRBC since admission. hmg/hct low stable. transfuse as per heme. Pulm: Aspiration pneumonia v. hcap. On Vanco 1 gram q 12. Speech and swallow and MBS eval done. Aspiration precautions on a chopped diet/nectar thick fluids. GI: Rule out GI bleed. Started on Protonix 40mg daily. Further workup of possible gi bleed outpatient. Rheum: hx of RA. on Plaquenil. Was on methotraxate, prednisone and enbrel x 20 yrs per her sister. these meds were stopped june 2017. she is now being followed by rheumatology. Card: Acute on chronic diastolic congestive heart failure. Restarted lasix 40mg PO daily. Fluid restriction of 1200cc daily. daily weights, strict intake and output. Atrial fibrillation. on eliquis bid. on metoprolol. cardiology following. Mobility: Bilateral difficulty with ambulation in the setting of poor performance status. will consult PT once more stable. Endocrine: Hypothyroidism: TSH @ 20. Synthroid dose was recently increased at [facility] per MD- Repeat TSH @ [facility] as outpatient Vascular: Hx of celulitis of LLE: No cellulitis presently. monitor for signs of infection. Psyche: Bipolar disorder, continue home medications fen tolerating po monitor electrolytes nectar thick, chopped diet prophy: on eliquis protonix Visit type - Emergency Visit Emergency Visit: Yes ED Registration Date: 12/04/17 Care time: The patient presented to the Emergency Department on the above date and was hospitalized for further evaluation of their emergent condition. - New Patient This patient is new to me today: No - Critical Care Critical Care patient: No - Discharge Referral Referred to [facility] Med P.C.: No
[2017-12-20] MEDS: DOCUSATE SODIUM 100 MG CAPSULE (FP) PO SCH (21:11)
[2017-12-21] MEDS: LEVOTHYROXINE NA 50 MCG TABLET (FP) PO SCH (06:18)
[2017-12-21] MEDS ORDERED: PT OWN MED DRAWER 7, Y5N ONE (10:11)
[2017-12-21] MEDS: FOLIC ACID 1 MG TABLET (FP) PO SCH (10:16)
[2017-12-21] MEDS: FUROSEMIDE 40 MG TABLET (FP) PO SCH (10:16)
[2017-12-21] MEDS: risperiDONE 1 MG TABLET (FP) PO SCH (10:16)
[2017-12-21] MEDS: APIXABAN 5 MG TABLET PO SCH ×2 (10:16→22:37)
[2017-12-21] MEDS: FERROUS GLUCONATE 324 MG TAB (FP) PO SCH (10:17)
[2017-12-21] MEDS: HYDROXYCHLOROQUINE SO4 200 MG TABLET (FP) PO SCH ×2 (10:17→23:11)
[2017-12-21] MEDS: LORazepam 1 MG TABLET PO SCH (10:17)
[2017-12-21] MEDS: PANTOPRAZOLE 40 MG TABLET (FP) PO SCH (10:18)
[2017-12-21 10:47] LABS: BASO % 1.4 % (0-2.0); EOS % 0.1 % (0-4.5); HEMATOCRIT 26.2 % (32.4-45.2); HEMOGLOBIN 7.9 GM/dL (10.7-15.3); LYMPH % 29.2 % (8-40); MCH 23.7 pg (25.7-33.7); MCHC 30.3 g/dl (32.0-36.0); MEAN CELL VOLUME 78.2 fl (80-96); MEAN PLT VOLUME 7.6 fl (7.5-11.1); MONO % 8.2 % (3.8-10.2); NEUT % 61.1 % (42.8-82.8); PLATELET COUNT 193 K/MM3 (134-434); RBC 3.35 M/mm3 (3.60-5.2); RDW 25.4 % (11.6-15.6)
[2017-12-21 10:53] LABS: WHITE BLOOD COUNT 1.5 K/mm3 (4.0-10.0)
[2017-12-21 11:17] LABS: ALBUMIN 2.3 g/dl (3.4-5.0); ALK PHOS 147 U/L (45-117); ANION GAP 11 MMOL/L (8-16); BILIRUBIN,TOTAL 0.4 mg/dL (0.2-1); BLOOD UREA NITROGEN 40 mg/dL (7-18); CHLORIDE 109 mmol/L (98-107); CO2 25 mmol/L (21-32); CREATININE 1.5 mg/dL (0.55-1.3); GLUCOSE,RANDOM 146 mg/dL (74-106); MAGNESIUM 2.2 mg/dL (1.8-2.4); POTASSIUM 4.4 mmol/L (3.5-5.1); SGOT/AST 26 U/L (15-37); SGPT/ALT 23 U/L (13-61); SODIUM 145 mmol/L (136-145); TOT PROT 7.2 g/dl (6.4-8.2)
[2017-12-21] MEDS ORDERED: TBO-FILGRASTIM 480 MCG/0.8 ML DISP.SYRIN SQ ONE (12:46)
--- NOTE | 2017-12-21 13:00 | PN ---
Progress Note (short form) - Note Progress Note: Patient seen and examined at bedside Patient denies fever feels good today WBC down to 1.5 ANC 900 Hb 7.9 today and stable Smiling seems to be in good spirits Vital Signs Temperature 98.2 F 12/21/17 10:00 Pulse Rate 104 H 12/21/17 10:00 Respiratory Rate 20 12/21/17 10:00 Blood Pressure 121/54 L 12/21/17 10:00 O2 Sat by Pulse Oximetry (%) 97 12/21/17 09:00 PE: alert and awake. oriented to self and place. Knows the president. Thinks its 2020. Much more alert and awake than patient has been in the past Irregular S1 S2 Left side crackles right side clear Soft non tender non distended bilateral lower extremity edema 12/20/17 12/21/17 12/21/17 19:00 09:40 09:40 WBC 1.5 L* RBC 3.35 L Hgb 7.9 L Hct 26.2 L MCV 78.2 L MCHC 30.3 L RDW 25.4 H Plt Count 193 Neutrophils % 61.1 Lymphocytes % 29.2 D Monocytes % 8.2 Eosinophils % 0.1 D Basophils % 1.4 Sodium 145 Potassium 5.8 H 4.4 Chloride 109 H Carbon Dioxide 25 Anion Gap 11 BUN 40 H Creatinine 1.5 H 12/13/17 07:09 Blood Culture - Final Blood - Peripheral Venous NO GROWTH AFTER 5 DAYS INCUBATION 12/13/17 07:25 Blood Culture - Final Blood - Peripheral Venous NO GROWTH AFTER 5 DAYS INCUBATION 12/11/17 02:00 Blood Culture - Final Blood - Peripheral Venous NO GROWTH AFTER 5 DAYS INCUBATION 12/09/17 22:30 Urine Culture - Final Urine - Urine Clean Catch Klebsiella Pneumoniae Enterococcus Faecalis 12/11/17 02:00 Blood Culture - Final Blood - Peripheral Venous Enterococcus Faecalis 12/03/17 19:45 Blood Culture - Final Blood - Peripheral Venous NO GROWTH AFTER 5 DAYS INCUBATION 12/03/17 17:45 Blood Culture - Final Blood - Peripheral Venous NO GROWTH AFTER 5 DAYS INCUBATION Problem List: iron deficiency anemia A-Fib CHF HTN NIDDM disorganized schizophrenia Asthma RA (on hydroxcloroquine) Hypothyroidism non-thrombocytopenic purpura GERD Bacteremia JUAN DANIEL Plan: WBC 1.5 today will give a dose of granix 480mcg SubQ x1 Patient noted to be bacteremic with enterococcus-cultures seemed to have cleared ABx per ID Patients iron studies consistent with Iron deficiency anemia-s/p 100mg venofir one time dose US of spleen and liver to r/o hepatosplenomegaly-patient has fatty infiltration of the liver and mild splenomegaly Will send total complement-WNL C3 C4 ordered and approved by pathologist-form sent to phlebotomy-pending Rheumatoid factor elevated to 1150-rheumatology consult appreciated CCP and complement sent consider DMARD if having a rheumatoid flare on eliquis for A fib Repeat CBC in AM will monitor and follow with you
--- NOTE | 2017-12-21 13:47 | PN ---
Progress Note, Physician History of Present Illness: Awake but confused Offers no complaints. Denies pain Afebrile WBC 1.5 ANC 0.9 Repeat BC (-) Vancomycin trough noted Continue to hold vanco ( now day # 11 ) Repeat trough am - Current Medication List Current Medications: Active Medications Acetaminophen (Tylenol -) 1,000 mg PO Q6H PRN PRN Reason: FEVER Last Admin: 12/14/17 21:07 Dose: 1,000 mg Apixaban (Eliquis -) 5 mg PO BID [facility] Last Admin: 12/21/17 10:16 Dose: 5 mg Docusate Sodium (Colace -) 100 mg PO HS [facility] Last Admin: 12/20/17 21:11 Dose: 100 mg Ferrous Gluconate (Fergon -) 324 mg PO DAILY [facility] Last Admin: 12/21/17 10:17 Dose: 324 mg Folic Acid (Folic Acid -) 1 mg PO DAILY [facility] Last Admin: 12/21/17 10:16 Dose: 1 mg Furosemide (Lasix -) 40 mg PO DAILY [facility] Last Admin: 12/21/17 10:16 Dose: 40 mg Hydroxychloroquine Sulfate (Plaquenil -) 200 mg PO BID [facility] Last Admin: 12/21/17 10:17 Dose: 200 mg Levothyroxine Sodium (Synthroid -) 50 mcg PO 0700 [facility] Last Admin: 12/21/17 06:18 Dose: 50 mcg Lorazepam (Ativan -) 1 mg PO DAILY [facility] Last Admin: 12/21/17 10:17 Dose: 1 mg Metoprolol Succinate (Toprol Xl -) 50 mg PO BID [facility] Last Admin: 12/21/17 10:17 Dose: 50 mg Pantoprazole Sodium (Protonix -) 40 mg PO DAILY [facility] Last Admin: 12/21/17 10:18 Dose: 40 mg Risperidone (Risperdal -) 2 mg PO DAILY [facility] Last Admin: 12/21/17 10:16 Dose: 2 mg Tbo-Filgrastim (Granix -) 480 mcg SQ ONCE ONE Stop: 12/21/17 12:47 - Objective Vital Signs: Vital Signs Temperature 98.2 F 12/21/17 10:00 Pulse Rate 104 H 12/21/17 10:00 Respiratory Rate 20 12/21/17 10:00 Blood Pressure 121/54 L 12/21/17 10:00 O2 Sat by Pulse Oximetry (%) 97 12/21/17 09:00 Labs: CBC, BMP 12/21/17 09:40 12/21/17 09:40 INR, PTT INR 2.44 (0.83-1.09) H 12/02/17 15:35
[2017-12-21 14:47] LABS: ANISOCYTOSIS 3+; MACROCYTOSIS 1+; PLATELET ESTIMATE NORMAL
--- NOTE | 2017-12-21 16:09 | PN ---
Physical Exam: SUBJECTIVE: Patient seen and examined. more awake and alert. OBJECTIVE: once patient is cleared by ID, she can be discharged back to [facility] Vital Signs Period Temp Pulse Resp BP Sys/Neal Pulse Ox Last 24 Hr 98.2 F-98.5 F 66-104 20-20 114-128/54-64 96-97 GENERAL: awake, alert, in no acute distress HEAD: Normal with no signs of trauma. EYES: PERRL, extraocular movements intact, sclera anicteric, conjunctiva clear. No ptosis. ENT: Ears normal, nares patent, oropharynx clear without exudates, moist mucous membranes. NECK: Trachea midline, full range of motion, supple. LUNGS: diminished breath sounds anteriorly, fine crackles at the left base > on lasix daily HEART: irregular, hx of afib on eliquis ABDOMEN: Soft, nontender, nondistended, normoactive bowel sounds, no guarding, no rebound, no hepatosplenomegaly, no masses. EXTREMITIES: +1-2 bilateral lower ext edema - improved since admission/ + ecchymoses in both arms NEUROLOGICAL: Normal speech, gait not observed. PSYCH:awake, with episodes of agitation Laboratory Results - last 24 hr 12/20/17 12/21/17 12/21/17 19:00 07:30 09:40 WBC 1.5 L* RBC 3.35 L Hgb 7.9 L Hct 26.2 L MCV 78.2 L MCH 23.7 L MCHC 30.3 L RDW 25.4 H Plt Count 193 MPV 7.6 Absolute Neuts (auto) 0.9 L Neutrophils % 61.1 Neutrophils % (Manual) 61.6 Band Neutrophils % 0.0 Lymphocytes % 29.2 D Lymphocytes % (Manual) 29.3 D Monocytes % 8.2 Monocytes % (Manual) 7 D Eosinophils % 0.1 D Eosinophils % (Manual) 1.0 Basophils % 1.4 Basophils % (Manual) 0.0 Myelocytes % (Man) 0 Promyelocytes % (Man) 0 Blast Cells % (Manual) 0 Nucleated RBC % 1 H Metamyelocytes 1 D Hypochromia 0 Platelet Estimate Normal Polychromasia 1+ Poikilocytosis 0 Anisocytosis 3+ Microcytosis 2+ Macrocytosis 1+ Sodium Potassium 5.8 H Chloride Carbon Dioxide Anion Gap BUN Creatinine Creat Clearance w eGFR Random Glucose Calcium Magnesium Total Bilirubin AST ALT Alkaline Phosphatase Total Protein Albumin Random Vancomycin 19.0 12/21/17 09:40 WBC RBC Hgb Hct MCV MCH MCHC RDW Plt Count MPV Absolute Neuts (auto) Neutrophils % Neutrophils % (Manual) Band Neutrophils % Lymphocytes % Lymphocytes % (Manual) Monocytes % Monocytes % (Manual) Eosinophils % Eosinophils % (Manual) Basophils % Basophils % (Manual) Myelocytes % (Man) Promyelocytes % (Man) Blast Cells % (Manual) Nucleated RBC % Metamyelocytes Hypochromia Platelet Estimate Polychromasia Poikilocytosis Anisocytosis Microcytosis Macrocytosis Sodium 145 Potassium 4.4 Chloride 109 H Carbon Dioxide 25 Anion Gap 11 BUN 40 H Creatinine 1.5 H Creat Clearance w eGFR 33.25 Random Glucose 146 H Calcium 8.0 L Magnesium 2.2 Total Bilirubin 0.4 AST 26 ALT 23 Alkaline Phosphatase 147 H Total Protein 7.2 Albumin 2.3 L Random Vancomycin Active Medications Generic Name Dose Route Start Last Admin Trade Name Freq PRN Reason Stop Dose Admin Acetaminophen 1,000 mg 12/10/17 23:10 12/14/17 21:07 Tylenol - PO 1,000 mg Q6H PRN Administration FEVER Apixaban 5 mg 12/03/17 22:00 12/21/17 10:16 Eliquis - PO 5 mg BID ELENA Administration Docusate Sodium 100 mg 12/02/17 22:00 12/20/17 21:11 Colace - PO 100 mg HS ELENA Administration Ferrous Gluconate 324 mg 12/03/17 10:00 12/21/17 10:17 Fergon - PO 324 mg DAILY ELENA Administration Folic Acid 1 mg 12/03/17 10:00 12/21/17 10:16 Folic Acid - PO 1 mg DAILY ELENA Administration Furosemide 40 mg 12/17/17 10:00 12/21/17 10:16 Lasix - PO 40 mg DAILY ELENA Administration Hydroxychloroquine Sulfate 200 mg 12/02/17 22:00 12/21/17 10:17 Plaquenil - PO 200 mg BID ELENA Administration Levothyroxine Sodium 50 mcg 12/03/17 07:00 12/21/17 06:18 Synthroid - PO 50 mcg 0700 ELENA Administration Lorazepam 1 mg 12/03/17 10:00 12/21/17 10:17 Ativan - PO 1 mg DAILY ELENA Administration Metoprolol Succinate 50 mg 12/16/17 06:00 12/21/17 10:17 Toprol Xl - PO 50 mg BID ELENA Administration Pantoprazole Sodium 40 mg 12/03/17 10:00 12/21/17 10:18 Protonix - PO 40 mg DAILY ELENA Administration Risperidone 2 mg 12/03/17 11:01 12/21/17 10:16 Risperdal - PO 2 mg DAILY ELENA Administration ASSESSMENT/PLAN: Patient is an 82 year old female who presents to the ED on 12/02/2017 for symptomatic anemia. Since admission she has been transfused 2 units of prbc. Hospitalization complicated when patient developed exacerbation of CHF, UTI and bacteremia. Imaging: Echo : LV normal, ef 65%, mild to mod franco.luiza.calci., mild mitral regurg., mild to mod tricuspid regurg. ID: Enterococcus bacteremia/Klebsiella/Enterococcus UTI: On vancomycin per ID , trough levels elevated and currently on hold. afebrile. Given Granix 3 days ago, wbc again dropped. Heme: Iron deficiency anemia/Blood loss anemia: Has received 2 units of PRBC since admission. hmg/hct low stable. transfuse as per heme. remains asymptomatic. Pulm: Aspiration pneumonia v. hcap. On Vanco 1 gram q 12. Speech and swallow and MBS eval done. Aspiration precautions on a chopped diet/nectar thick fluids. GI: Rule out GI bleed. Started on Protonix 40mg daily. Further workup of possible gi bleed outpatient. Rheum: hx of RA. on Plaquenil. Was on methotraxate, prednisone and enbrel x 20 yrs per her sister. these meds were stopped june 2017. she is now being followed by rheumatology. can continue to follow rhematology as an outpatient. Card: Acute on chronic diastolic congestive heart failure. Restarted lasix 40mg PO daily. monitor weights. Fluid restriction of 1200cc daily. Atrial fibrillation. on eliquis bid. on metoprolol. cardiology following. Mobility: Bilateral difficulty with ambulation in the setting of poor performance status. PT once more stable. Endocrine: Hypothyroidism: TSH @ 20. Synthroid dose was recently increased at [facility] per MD- Repeat TSH @ [facility] as outpatient Vascular: Hx of celulitis of LLE: No cellulitis presently. monitor for signs of infection. Psyche: Bipolar disorder, continue home medications fen tolerating po monitor electrolytes nectar thick, chopped diet prophy: on eliquis protonix once patient is cleared by ID, she can be discharged back to [facility] Visit type - Emergency Visit Emergency Visit: Yes ED Registration Date: 12/04/17 Care time: The patient presented to the Emergency Department on the above date and was hospitalized for further evaluation of their emergent condition. - New Patient This patient is new to me today: No - Critical Care Critical Care patient: No - Discharge Referral Referred to [facility] Med P.C.: No
--- NOTE | 2017-12-21 16:13 | PN ---
Progress Note (short form) - Note Progress Note: [facility] *LIVE* Progress Note: s: no chest pain, palps, dizzy, lightheadedness o: Vital Signs Period Temp Pulse Resp BP Sys/Neal Pulse Ox Last 24 Hr 98.2 F-98.5 F 66-104 20-20 114-128/54-64 96-97 nad no jvd irreg s1s2 no mrg cta bl nl eff awake alert confused abd nt nd pos bs no jaundice diaphoresis no le edema Current Medications Acetaminophen (Tylenol -) 1,000 mg PO Q6H PRN PRN Reason: FEVER Last Admin: 12/14/17 21:07 Dose: 1,000 mg Apixaban (Eliquis -) 5 mg PO BID [facility] Last Admin: 12/21/17 10:16 Dose: 5 mg Docusate Sodium (Colace -) 100 mg PO HS [facility] Last Admin: 12/20/17 21:11 Dose: 100 mg Ferrous Gluconate (Fergon -) 324 mg PO DAILY [facility] Last Admin: 12/21/17 10:17 Dose: 324 mg Folic Acid (Folic Acid -) 1 mg PO DAILY [facility] Last Admin: 12/21/17 10:16 Dose: 1 mg Furosemide (Lasix -) 40 mg PO DAILY [facility] Last Admin: 12/21/17 10:16 Dose: 40 mg Hydroxychloroquine Sulfate (Plaquenil -) 200 mg PO BID [facility] Last Admin: 12/21/17 10:17 Dose: 200 mg Levothyroxine Sodium (Synthroid -) 50 mcg PO 0700 [facility] Last Admin: 12/21/17 06:18 Dose: 50 mcg Lorazepam (Ativan -) 1 mg PO DAILY [facility] Last Admin: 12/21/17 10:17 Dose: 1 mg Metoprolol Succinate (Toprol Xl -) 50 mg PO BID [facility] Last Admin: 12/21/17 10:17 Dose: 50 mg Pantoprazole Sodium (Protonix -) 40 mg PO DAILY [facility] Last Admin: 12/21/17 10:18 Dose: 40 mg Risperidone (Risperdal -) 2 mg PO DAILY [facility] Last Admin: 12/21/17 10:16 Dose: 2 mg ecg: afib, rate controlled, nl qtc, no ischemic changes echo 11/2017: tds; nl lv, rv tds, no sig valve path, nl rvsp echo repeat 12/14: nl LV/RV. mild MR, mild-mod TR. no vegetations reported. PASP 41 a/p: 82 f hx anemia, RA, hypothyroid, chf, afib, htn, sent from [place] for anemia, dark stools. fever, strep bacteremia: -febrile to > 101 on 12/10 in pm, BCx growing beta-hemolytic strep; UCx with gram negative rods -echo here with no identifiable valve dysfunction on 12/03, will rpt study. no murmurs on exam. no convincing findings of acute pulm edema or acute exacerbation of chf based on CXR review, pt's creat bump to lasix x 1 dose, and phys exam. -rpt echo no vegetations or severe valve regurgitation. - source suspected, per ID, ? asp pna--cont abx per their recs acute diastolic chf: -echo unremarkable -no details available, pt on lasix 40 bid po at [place] -initial CXR here with evidence of chf and effusions. -treated with lasix 40 iv bid here. -bedscale wts only: trended down consistently from 231 to 221, up gradually to 228 now 219 today -changed to lasix 40 po bid on 12/09. -episode overnight 12/10 of fever accompanied by acute dyspnea--given IV lasix. sx's improved. repeat CXR at that time showed stable congestion, creat bumped hence lasix held 12/11. ? sx's were due to hi fever with bacteremia (BCx positive now) and resolved when she defervesced. -12/14: renal fxn initially worsening likely due to sepsis/baceteremia. now improving. appears stable volume status, with bibasilar abnormal lung - cont holding PO lasix for now while treating infection with stable volume status, CXR today is unchanged -12/15: remains compensated, no sob. hold lasix as renal fxn improves--would resume lasix in 24-48 hrs to try to improve effusions, assuming renal fxn stable -12/16-12/17: cr stable/improved. will resume po lasix 40 qd 12/17 (was on 40 po bid when became dry). - 12/18-5: stable volume status, continue lasix 40 mg PO daily JUAN DANIEL: -no baseline creat data available -creat 1.5 on admit, improved with diuresis -bumped again 12/11 ? due to acute chf again, vs lasix dose -lasix as above dark stools, anemia, neutropenia: -being evaluated by GI, Heme -hgb currently stable afib: -rate controlled -bp's soft here, + bacteremia/sepsis picture. cont metopr succ 50 bid -has been on eliquis, continued here, monitor hgb trend hypothyroid: -tsh elevated, synthroid dosing per pmd htn: -bp controlled -cont toprol
--- NOTE | 2017-12-21 17:14 | PN ---
Progress Note, [employer] - Note Progress Note: Selected Entries 12/16/17 12/16/17 12/16/17 05:14 10:21 13:56 Breakfast 25% Lunch 25% Supper Temperature 98.6 F 98.3 F 12/16/17 12/16/17 12/17/17 18:56 22:36 02:00 Breakfast Lunch Supper 25% Temperature 99.7 F H 98.4 F 12/17/17 12/17/17 12/17/17 05:10 09:52 10:05 Breakfast 50% Lunch Supper Temperature 98.3 F 98.2 F Laboratory Tests 12/17/17 06:30 WBC 1.5 L* Enterococcal bacteremia likely urinary tract source Possible asp pneumonia Leukopenia On chopped and nectar thick liquid. Still dislikes nectar thick liquid. Message left from RD, that pt was given thin coffee (by family?) Trial thin liquid, as tolerated.Monitor tolerance.
[2017-12-21] MEDS: DOCUSATE SODIUM 100 MG CAPSULE (FP) PO SCH (22:38)
[2017-12-22 00:06] LABS: COMPLEMENT TOTAL(CH50) 15 U/mL (>41)
[2017-12-22] MEDS: LEVOTHYROXINE NA 50 MCG TABLET (FP) PO SCH (07:28)
[2017-12-22 09:32] LABS: BASO % 0.9 % (0-2.0); EOS % 0.1 % (0-4.5); HEMATOCRIT 25.7 % (32.4-45.2); HEMOGLOBIN 7.3 GM/dL (10.7-15.3); MCH 22.1 pg (25.7-33.7); MCHC 28.5 g/dl (32.0-36.0); MEAN CELL VOLUME 77.4 fl (80-96); MEAN PLT VOLUME 7.5 fl (7.5-11.1); MONO % 3.9 % (3.8-10.2); NEUT % 86.1 % (42.8-82.8); PLATELET COUNT 141 K/MM3 (134-434); RBC 3.31 M/mm3 (3.60-5.2); RDW 25.7 % (11.6-15.6); WHITE BLOOD COUNT 4.4 K/mm3 (4.0-10.0)
[2017-12-22 09:50] LABS: ALBUMIN 2.2 g/dl (3.4-5.0); ALK PHOS 133 U/L (45-117); ANION GAP 7 MMOL/L (8-16); BILIRUBIN,TOTAL 0.6 mg/dL (0.2-1); BLOOD UREA NITROGEN 40 mg/dL (7-18); CALCIUM 7.8 mg/dL (8.5-10.1); CHLORIDE 105 mmol/L (98-107); CO2 27 mmol/L (21-32); CREATININE 1.5 mg/dL (0.55-1.3); GLUCOSE,RANDOM 72 mg/dL (74-106); MAGNESIUM 2.1 mg/dL (1.8-2.4); POTASSIUM 4.6 mmol/L (3.5-5.1); SGOT/AST 24 U/L (15-37); SGPT/ALT 21 U/L (13-61); SODIUM 139 mmol/L (136-145); TOT PROT 6.8 g/dl (6.4-8.2)
[2017-12-22] MEDS ORDERED: PT OWN MED DRAWER 7, Y5N ONE ×2 (09:52→20:53)
[2017-12-22] MEDS: LORazepam 1 MG TABLET PO SCH (10:05)
[2017-12-22] MEDS: PANTOPRAZOLE 40 MG TABLET (FP) PO SCH (10:05)
[2017-12-22] MEDS: FOLIC ACID 1 MG TABLET (FP) PO SCH (10:05)
[2017-12-22] MEDS: risperiDONE 1 MG TABLET (FP) PO SCH (10:05)
[2017-12-22] MEDS: HYDROXYCHLOROQUINE SO4 200 MG TABLET (FP) PO SCH ×2 (10:05→21:34)
[2017-12-22] MEDS: APIXABAN 5 MG TABLET PO SCH ×2 (10:05→21:33)
[2017-12-22] MEDS: FERROUS GLUCONATE 324 MG TAB (FP) PO SCH (10:05)
[2017-12-22] MEDS: FUROSEMIDE 40 MG TABLET (FP) PO SCH (10:09)
[2017-12-22 11:38] LABS: ANISOCYTOSIS 2+; MACROCYTOSIS 0; PLATELET ESTIMATE DECREASED
--- NOTE | 2017-12-22 11:55 | PN ---
Physical Exam: SUBJECTIVE: Patient seen and examined; no new complaints today. Poor historian. Knew she was in hospital this AM but not which hospital. WBC increased from 1-range to 4-range. At 7:30AM her vanco was at 19. Discussed with Dr. Salazar; appreciate [employer] fusion consultant input and will continue to follow. No overnight events reported to me by nursing. 10 sys ROS done and negative aside from subjective OBJECTIVE: Vital Signs Period Temp Pulse Resp BP Sys/Neal Pulse Ox Last 24 Hr 97.6 F-98.3 F 83-102 18-20 97-126/44-63 97 GENERAL: The patient is awake, alert, and semi-orientated, in no acute distress. Slow to respond, soft voice. HEAD: Normal with no signs of trauma. EYES: PERRL, extraocular movements intact, sclera anicteric ENT: Ears normal, nares patent, oropharynx clear without exudate NECK: Trachea midline, full range of motion, supple. LUNGS: Breath sounds equal, clear to auscultation bilaterally, no wheezes HEART: Regular rate and rhythm, S1, S2 without murmur, rub or gallop. ABDOMEN: Soft, nontender, nondistended, normoactive bowel sounds, no guarding EXTREMITIES: 2+ pulses, warm, well-perfused, no edema. NEUROLOGICAL: Cranial nerves II through XII grossly intact. Normal speech, gait not observed. PSYCH: Normal mood, normal affect. SKIN: Warm, dry, normal turgor, no rashes or lesions noted Laboratory Results - last 24 hr 12/18/17 12/21/17 12/22/17 07:30 09:40 08:45 WBC 4.4 RBC 3.31 L Hgb 7.3 L Hct 25.7 L MCV 77.4 L MCH 22.1 L MCHC 28.5 L RDW 25.7 H Plt Count 141 D MPV 7.5 Absolute Neuts (auto) 3.8 Neutrophils % 86.1 H D Neutrophils % (Manual) 61.6 74.8 Band Neutrophils % 0.0 13.1 Lymphocytes % 9.0 D Lymphocytes % (Manual) 29.3 D 10.1 D Monocytes % 3.9 Monocytes % (Manual) 7 D 2 L Eosinophils % 0.1 Eosinophils % (Manual) 1.0 0.0 D Basophils % 0.9 Basophils % (Manual) 0.0 0.0 Myelocytes % (Man) 0 0 Promyelocytes % (Man) 0 0 Blast Cells % (Manual) 0 0 Nucleated RBC % 0 Metamyelocytes 1 D 0 D Hypochromia 0 1+ Platelet Estimate Normal Decreased Polychromasia 1+ 1+ Poikilocytosis 0 1+ Anisocytosis 3+ 2+ Microcytosis 2+ 2+ Macrocytosis 1+ 0 Schistocytes 1+ Sodium Potassium Chloride Carbon Dioxide Anion Gap BUN Creatinine Creat Clearance w eGFR Random Glucose Calcium Magnesium Total Bilirubin AST ALT Alkaline Phosphatase Total Protein Albumin Tot Complement (CH50) 15 12/22/17 08:45 WBC RBC Hgb Hct MCV MCH MCHC RDW Plt Count MPV Absolute Neuts (auto) Neutrophils % Neutrophils % (Manual) Band Neutrophils % Lymphocytes % Lymphocytes % (Manual) Monocytes % Monocytes % (Manual) Eosinophils % Eosinophils % (Manual) Basophils % Basophils % (Manual) Myelocytes % (Man) Promyelocytes % (Man) Blast Cells % (Manual) Nucleated RBC % Metamyelocytes Hypochromia Platelet Estimate Polychromasia Poikilocytosis Anisocytosis Microcytosis Macrocytosis Schistocytes Sodium 139 Potassium 4.6 Chloride 105 Carbon Dioxide 27 Anion Gap 7 L BUN 40 H Creatinine 1.5 H Creat Clearance w eGFR 33.25 Random Glucose 72 L Calcium 7.8 L Magnesium 2.1 Total Bilirubin 0.6 AST 24 ALT 21 Alkaline Phosphatase 133 H Total Protein 6.8 Albumin 2.2 L Tot Complement (CH50) Active Medications Generic Name Dose Route Start Last Admin Trade Name Freq PRN Reason Stop Dose Admin Acetaminophen 1,000 mg 12/10/17 23:10 12/14/17 21:07 Tylenol - PO 1,000 mg Q6H PRN Administration FEVER Apixaban 5 mg 12/03/17 22:00 12/22/17 10:05 Eliquis - PO 5 mg BID ELENA Administration Docusate Sodium 100 mg 12/02/17 22:00 12/21/17 22:38 Colace - PO 100 mg HS ELENA Administration Ferrous Gluconate 324 mg 12/03/17 10:00 12/22/17 10:05 Fergon - PO 324 mg DAILY ELENA Administration Folic Acid 1 mg 12/03/17 10:00 12/22/17 10:05 Folic Acid - PO 1 mg DAILY ELENA Administration Furosemide 40 mg 12/17/17 10:00 12/22/17 10:09 Lasix - PO 40 mg DAILY ELENA Administration Hydroxychloroquine Sulfate 200 mg 12/02/17 22:00 12/22/17 10:05 Plaquenil - PO 200 mg BID ELENA Administration Levothyroxine Sodium 50 mcg 12/03/17 07:00 12/22/17 07:28 Synthroid - PO 50 mcg 0700 ELENA Administration Lorazepam 1 mg 12/03/17 10:00 12/22/17 10:05 Ativan - PO 1 mg DAILY ELENA Administration Metoprolol Succinate 50 mg 12/16/17 06:00 12/22/17 10:05 Toprol Xl - PO 50 mg BID ELENA Administration Pantoprazole Sodium 40 mg 12/03/17 10:00 12/22/17 10:05 Protonix - PO 40 mg DAILY ELENA Administration Risperidone 2 mg 12/03/17 11:01 12/22/17 10:05 Risperdal - PO 2 mg DAILY ELENA Administration ASSESSMENT/PLAN: 1) Bacteremia (EF) likely 2/2 UTI -Followed by ID; appreciate input. Will need several more days abx and at this juncture would like to avoid PICC line. On vancomycin day #12; continue per ID. Negative echoes for vegetations. VSS. Monitor. Lower vanc level this AM ; dosing per ID. 2) Leukopenia -1->4 today; continue to trend CBC QD -No need for neutropenic precautions -Monitor; followup with heme 3) Anemia -Trend CBC; s/p 2 units PRBC -Monitor 4) Suspected PNA -Aspiration precautions, continue vanco, weaning from O2 (still requiring some) -Consider RT interventions like chest percussion if not weaned further tomorrow -Incentive blane 5) R/O GIB -Documented that further workup should be done as an outpatient. Continue protonix 6) RA -Continue plaquenil; followup with rheumatology outpatient. 7) Hypothyroidism with elevated TSH -Recheck TSH and adjust dose OP; monitor. No myedema coma, etc. 8) Bipolar 9) Diastolic CHF -Continue current lasix, euvolemic today. Monitor BMP and UOP. Code Status unchanged Dispo to [facility] once abx course elucidated; complicated by high troughs. Visit type - Emergency Visit Emergency Visit: No - New Patient This patient is new to me today: Yes Date on this admission: 12/22/17 - Critical Care Critical Care patient: No
--- NOTE | 2017-12-22 11:58 | PN ---
Progress Note, Physician History of Present Illness: Lethargic, confused Offers no complaints. Afebrile WBC 4.4 Repeat BC (-) Vancomycin level Continue to hold vanco ( now day # 12 ) If level < 15 redose vancomycin 1gm - Current Medication List Current Medications: Active Medications Acetaminophen (Tylenol -) 1,000 mg PO Q6H PRN PRN Reason: FEVER Last Admin: 12/14/17 21:07 Dose: 1,000 mg Apixaban (Eliquis -) 5 mg PO BID [facility] Last Admin: 12/22/17 10:05 Dose: 5 mg Docusate Sodium (Colace -) 100 mg PO HS [facility] Last Admin: 12/21/17 22:38 Dose: 100 mg Ferrous Gluconate (Fergon -) 324 mg PO DAILY [facility] Last Admin: 12/22/17 10:05 Dose: 324 mg Folic Acid (Folic Acid -) 1 mg PO DAILY [facility] Last Admin: 12/22/17 10:05 Dose: 1 mg Furosemide (Lasix -) 40 mg PO DAILY [facility] Last Admin: 12/22/17 10:09 Dose: 40 mg Hydroxychloroquine Sulfate (Plaquenil -) 200 mg PO BID [facility] Last Admin: 12/22/17 10:05 Dose: 200 mg Levothyroxine Sodium (Synthroid -) 50 mcg PO 0700 [facility] Last Admin: 12/22/17 07:28 Dose: 50 mcg Lorazepam (Ativan -) 1 mg PO DAILY [facility] Last Admin: 12/22/17 10:05 Dose: 1 mg Metoprolol Succinate (Toprol Xl -) 50 mg PO BID [facility] Last Admin: 12/22/17 10:05 Dose: 50 mg Pantoprazole Sodium (Protonix -) 40 mg PO DAILY [facility] Last Admin: 12/22/17 10:05 Dose: 40 mg Risperidone (Risperdal -) 2 mg PO DAILY [facility] Last Admin: 12/22/17 10:05 Dose: 2 mg - Objective Vital Signs: Vital Signs Temperature 98.3 F 12/22/17 09:00 Pulse Rate 83 12/22/17 09:00 Respiratory Rate 20 12/22/17 09:00 Blood Pressure 126/56 L 12/22/17 09:00 O2 Sat by Pulse Oximetry (%) 97 12/21/17 21:00 Labs: CBC, BMP 12/22/17 08:45 12/22/17 08:45 INR, PTT INR 2.44 (0.83-1.09) H 12/02/17 15:35
--- NOTE | 2017-12-22 14:24 | PN ---
Progress Note (short form) - Note Progress Note: Patient seen and examined at bedside Patient denies fever feels "okay" today WBC now up to 4.4 today and ANC 3800 Hb 7.3 today and stable Vital Signs Temperature 98.3 F 12/22/17 09:00 Pulse Rate 83 12/22/17 09:00 Respiratory Rate 20 12/22/17 09:00 Blood Pressure 126/56 L 12/22/17 09:00 O2 Sat by Pulse Oximetry (%) 97 12/21/17 21:00 PE: Alert Awake Confused Does not know year or where she is Irregular S1 S2 cler to auscultation bilaterally Soft non tender non distended bilateral lower extremity edema 12/22/17 12/22/17 08:45 08:45 WBC 4.4 RBC 3.31 L Hgb 7.3 L Hct 25.7 L MCV 77.4 L MCHC 28.5 L RDW 25.7 H Plt Count 141 D Neutrophils % 86.1 H D Lymphocytes % 9.0 D Monocytes % 3.9 Eosinophils % 0.1 Basophils % 0.9 Sodium 139 Potassium 4.6 Chloride 105 Carbon Dioxide 27 Anion Gap 7 L BUN 40 H Creatinine 1.5 H 12/13/17 07:09 Blood Culture - Final Blood - Peripheral Venous NO GROWTH AFTER 5 DAYS INCUBATION 12/13/17 07:25 Blood Culture - Final Blood - Peripheral Venous NO GROWTH AFTER 5 DAYS INCUBATION 12/11/17 02:00 Blood Culture - Final Blood - Peripheral Venous NO GROWTH AFTER 5 DAYS INCUBATION 12/09/17 22:30 Urine Culture - Final Urine - Urine Clean Catch Klebsiella Pneumoniae Enterococcus Faecalis 12/11/17 02:00 Blood Culture - Final Blood - Peripheral Venous Enterococcus Faecalis 12/03/17 19:45 Blood Culture - Final Blood - Peripheral Venous NO GROWTH AFTER 5 DAYS INCUBATION 12/03/17 17:45 Blood Culture - Final Blood - Peripheral Venous NO GROWTH AFTER 5 DAYS INCUBATION Problem List: iron deficiency anemia A-Fib CHF HTN NIDDM disorganized schizophrenia Asthma RA (on hydroxcloroquine) Hypothyroidism non-thrombocytopenic purpura GERD Bacteremia JUAN DANIEL Plan: WBC 4.4 today s/p granix 480mcg yesterday Patient's anemia and leukopenia may be due to rheumatological causes Patient noted to be bacteremic with enterococcus-cultures have cleared ABx per ID Patients iron studies consistent with Iron deficiency anemia-s/p 100mg venofir one time dose US of spleen and liver to r/o hepatosplenomegaly-patient has fatty infiltration of the liver and mild splenomegaly Will send total complement-WNL C3 C4 ordered and approved by pathologist-form sent to phlebotomy-pending Rheumatoid factor elevated to 1150-rheumatology consult appreciated CCP and complement sent consider DMARD if having a rheumatoid flare on eliquis for A fib Repeat CBC in AM will monitor and follow with you
[2017-12-22] MEDS ORDERED: VANCOMYCIN 1 GRAM (PRE-DOCKED) 1,000 MG/250 ML BAG IVPB ONE (17:00)
--- NOTE | 2017-12-22 18:30 | PN ---
Teaching Attending Note Name of Resident: Fransico Marcial ATTENDING PHYSICIAN STATEMENT I saw and evaluated the patient. I reviewed the resident's note and discussed the case with the resident. I agree with the resident's findings and plan as documented. SUBJECTIVE: Patient seen and examined Repeat total complement is low associated with high Rheumatoid factor suggestive of autoimmune etiology of neutropenia . As patient has required multiple doses of neupogen to maintain an adequate WBC count, perhaps therapy should be instituted . Will ask Dr. Alvarenga to follow up. OBJECTIVE: ASSESSMENT AND PLAN:
[2017-12-22] MEDS: DOCUSATE SODIUM 100 MG CAPSULE (FP) PO SCH (21:34)
[2017-12-23] MEDS: LEVOTHYROXINE NA 50 MCG TABLET (FP) PO SCH (06:13)
[2017-12-23 07:55] LABS: HEMATOCRIT 22.9 % (32.4-45.2); MCH 22.1 pg (25.7-33.7); MCHC 28.8 g/dl (32.0-36.0); MEAN CELL VOLUME 76.7 fl (80-96); MEAN PLT VOLUME 7.7 fl (7.5-11.1); PLATELET COUNT 161 K/MM3 (134-434); RBC 2.98 M/mm3 (3.60-5.2); RDW 24.3 % (11.6-15.6); WHITE BLOOD COUNT 2.3 K/mm3 (4.0-10.0)
[2017-12-23 08:07] LABS: HEMOGLOBIN 6.6 GM/dL (10.7-15.3)
[2017-12-23 09:06] LABS: ANION GAP 8 MMOL/L (8-16); BLOOD UREA NITROGEN 43 mg/dL (7-18); CALCIUM 7.9 mg/dL (8.5-10.1); CHLORIDE 104 mmol/L (98-107); CO2 27 mmol/L (21-32); CREATININE 1.6 mg/dL (0.55-1.3); GLUCOSE,RANDOM 81 mg/dL (74-106); MAGNESIUM 2.1 mg/dL (1.8-2.4); POTASSIUM 4.5 mmol/L (3.5-5.1); SODIUM 138 mmol/L (136-145)
[2017-12-23] MEDS: PANTOPRAZOLE 40 MG TABLET (FP) PO SCH (10:09)
[2017-12-23] MEDS: risperiDONE 1 MG TABLET (FP) PO SCH (10:09)
[2017-12-23] MEDS: FOLIC ACID 1 MG TABLET (FP) PO SCH (10:09)
[2017-12-23] MEDS: FUROSEMIDE 40 MG TABLET (FP) PO SCH (10:09)
[2017-12-23] MEDS: HYDROXYCHLOROQUINE SO4 200 MG TABLET (FP) PO SCH ×2 (10:09→21:25)
[2017-12-23] MEDS: FERROUS GLUCONATE 324 MG TAB (FP) PO SCH (10:09)
[2017-12-23] MEDS: APIXABAN 5 MG TABLET PO SCH ×2 (10:09→21:25)
[2017-12-23] MEDS: LORazepam 1 MG TABLET PO SCH (10:09)
--- NOTE | 2017-12-23 11:23 | CONSULT ---
Consultation: CONSULT REQUEST: Nephrology Resident PCP: Dr. Mcgrath HISTORY OF PRESENT ILLNESS: 82yo F with of iron deficiency, dementia, bipolar disorder, asthma, hypothyroid who presented to the hospital due to anemia and a guaic positive test. We were asked to evaluate the pt due to elevating Cr and proteinuria found in the UA. Pt is a poor historian due to her dementia and bipolar disorder. There are no past visits so baseline Cr is unknown at this time. Pt currently reports feelings okay. Denies any shortness of breath, pain, difficulty with urination. PMHx (per chart): Iron deficiency anemia Atrial fibrillation CHF HTN NIDDM Schizophrenia Rheumatoid arthritis (Hydroxcloroquine) Hypothyroidism PSHx (per chart): Appendectomy (many years ago) SoHx (per chart): Tobacco: Former; unknown quit time Alcohol: None Drugs: None Lives in [facility] Fam Hx: Sister - Pancreatic Ca Allergies - Pencillin Tetracycline REVIEW OF SYSTEMS: Limited due to clinical condition CONSTITUTIONAL: Present: Malaise Absent: fever, chills CARDIOVASCULAR: Absent: chest pain, lightheadedness RESPIRATORY: Absent: cough, shortness of breath GASTROINTESTINAL: Absent: abdominal pain, nausea, vomiting, diarrhea GENITOURINARY: Absent: dysuria, flank pain SKIN: Absent: rash PHYSICAL EXAMINATION Vital Signs - 24 hr 12/22/17 12/22/17 12/22/17 18:00 21:00 22:00 Temperature 68.4 F L 98.0 F Pulse Rate 98 H 88 Respiratory 20 20 Rate Blood Pressure 100/50 L 123/61 O2 Sat by Pulse 97 Oximetry (%) 12/23/17 12/23/17 05:50 09:56 Temperature 98.7 F 98.7 F Pulse Rate 81 73 Respiratory 20 18 Rate Blood Pressure 106/52 L 101/53 L O2 Sat by Pulse Oximetry (%) GENERAL: NAD, awake, alert, laying in bed HEENT: NC/AT, CHILO, sclera anicteric, slight erythema above R ear near oxygen tubing, [id number] mucosa NECK: No JVD LUNGS: Poor inspiratory effort. CTA bilaterally. No wheezes, and no crackles. No accessory muscle use. On 2LNC HEART: RRR, normal S1 and S2 without murmur ABDOMEN: Soft, NT/ND, normoactive BS, no guarding. MUSCULOSKELETAL: No CVA tenderness. EXTREMITIES: 2+ DP pulses, warm, well-perfused. 1+ lower extremity edema up to leg SKIN: Warm, dry, no rashes. Multiple areas of skin breakdown covered with gauze most notably R lower arm, L lateral heel. No evidence of any drainage or surrounding erythema Laboratory Results - last 24 hr 12/22/17 12/22/17 12/23/17 08:45 13:10 07:15 WBC 2.3 L RBC 2.98 L Hgb 6.6 L* Hct 22.9 L MCV 76.7 L MCH 22.1 L MCHC 28.8 L RDW 24.3 H Plt Count 161 MPV 7.7 Neutrophils % (Manual) 74.8 Band Neutrophils % 13.1 Lymphocytes % (Manual) 10.1 D Monocytes % (Manual) 2 L Eosinophils % (Manual) 0.0 D Basophils % (Manual) 0.0 Myelocytes % (Man) 0 Promyelocytes % (Man) 0 Blast Cells % (Manual) 0 Nucleated RBC % 0 Metamyelocytes 0 D Hypochromia 1+ Platelet Estimate Decreased Polychromasia 1+ Poikilocytosis 1+ Anisocytosis 2+ Microcytosis 2+ Macrocytosis 0 Schistocytes 1+ Sodium Potassium Chloride Carbon Dioxide Anion Gap BUN Creatinine Creat Clearance w eGFR Random Glucose Calcium Magnesium Random Vancomycin 13.9 L Crossmatch 12/23/17 12/23/17 07:15 10:05 WBC RBC Hgb Hct MCV MCH MCHC RDW Plt Count MPV Neutrophils % (Manual) Band Neutrophils % Lymphocytes % (Manual) Monocytes % (Manual) Eosinophils % (Manual) Basophils % (Manual) Myelocytes % (Man) Promyelocytes % (Man) Blast Cells % (Manual) Nucleated RBC % Metamyelocytes Hypochromia Platelet Estimate Polychromasia Poikilocytosis Anisocytosis Microcytosis Macrocytosis Schistocytes Sodium 138 Potassium 4.5 Chloride 104 Carbon Dioxide 27 Anion Gap 8 BUN 43 H Creatinine 1.6 H Creat Clearance w eGFR 30.86 Random Glucose 81 Calcium 7.9 L Magnesium 2.1 Random Vancomycin Crossmatch See Detail Active Medications Generic Name Dose Route Start Last Admin Trade Name Freq PRN Reason Stop Dose Admin Acetaminophen 1,000 mg 12/10/17 23:10 12/14/17 21:07 Tylenol - PO 1,000 mg Q6H PRN Administration FEVER Apixaban 5 mg 12/03/17 22:00 12/23/17 10:09 Eliquis - PO 5 mg BID ELENA Administration Docusate Sodium 100 mg 12/02/17 22:00 12/22/17 21:34 Colace - PO 100 mg HS ELENA Administration Ferrous Gluconate 324 mg 12/03/17 10:00 12/23/17 10:09 Fergon - PO 324 mg DAILY ELENA Administration Folic Acid 1 mg 12/03/17 10:00 12/23/17 10:09 Folic Acid - PO 1 mg DAILY ELENA Administration Furosemide 40 mg 12/17/17 10:00 12/23/17 10:09 Lasix - PO 40 mg DAILY ELENA Administration Hydroxychloroquine Sulfate 200 mg 12/02/17 22:00 12/23/17 10:09 Plaquenil - PO 200 mg BID ELENA Administration Levothyroxine Sodium 50 mcg 12/03/17 07:00 12/23/17 06:13 Synthroid - PO 50 mcg 0700 ELENA Administration Lorazepam 1 mg 12/03/17 10:00 12/23/17 10:09 Ativan - PO 1 mg DAILY ELENA Administration Metoprolol Succinate 50 mg 12/16/17 06:00 12/23/17 10:09 Toprol Xl - PO 50 mg BID ELENA Administration Pantoprazole Sodium 40 mg 12/03/17 10:00 12/23/17 10:09 Protonix - PO 40 mg DAILY ELENA Administration Risperidone 2 mg 12/03/17 11:01 12/23/17 10:09 Risperdal - PO 2 mg DAILY ELENA Administration ASSESSMENT/PLAN: JUAN DANIEL vs. CKD Proteinuria Microcytic anemia Microscopic hematuria Demenita Schizophrenia Rheumatoid arthritis --Will call Nena to obtain prior Cr --UA rpt, Urine Cr, and Urine Urea ordered (can straight cath for urine studies) --Renal US --P- and C-ANCA ordered --Doubt post-obstructive, doubt AIN --Avoid nephrotoxic medications/agents --Monitor Cr Dispo: Continue current mgmt. Thank you for this consultative opportunity. Case discussed with Dr. Neo Lemus, DO - IM PGY-2 Visit type - Emergency Visit Emergency Visit: Yes ED Registration Date: 12/04/17 Care time: The patient presented to the Emergency Department on the above date and was hospitalized for further evaluation of their emergent condition. - New Patient This patient is new to me today: Yes Date on this admission: 12/23/17 - Critical Care Critical Care patient: No
--- NOTE | 2017-12-23 12:38 | PN ---
Teaching Attending Note Name of Resident: Paresh Lemus (Nephrology) ATTENDING PHYSICIAN STATEMENT I saw and evaluated the patient. I reviewed the resident's note and discussed the case with the resident. I agree with the resident's findings and plan as documented. Renal Pt is an 82 year old female with pmhx of anemia, RA, hypothyroidism, CHF, asthma , GERD, a-fib, schizophrenia, DI, and non thrombotic purpura who initially presents to the ER with dark stools and weakness. She was admitted for treatment. She has been anemic and and leukopenic. I was called to evaluate her for elevated creatinine. She is a poor historian and unable to give much history. Her creatinine has been fluctuating between 1 and 1.6 since admission. She denies dysuria. pmhx anemia, RA, hypothyroidism, CHF, asthma, GERD, a-fib, schizophrenia, DI, and non thrombotic purpura allergy PCN tetracycline family hx denies ros malaise Current Medications Generic Name Dose Route Start Last Admin Trade Name Freq PRN Reason Stop Dose Admin Acetaminophen 1,000 mg 12/10/17 23:10 12/14/17 21:07 Tylenol - PO 1,000 mg Q6H PRN Administration FEVER Apixaban 5 mg 12/03/17 22:00 12/23/17 10:09 Eliquis - PO 5 mg BID ELENA Administration Docusate Sodium 100 mg 12/02/17 22:00 12/22/17 21:34 Colace - PO 100 mg HS ELENA Administration Ferrous Gluconate 324 mg 12/03/17 10:00 12/23/17 10:09 Fergon - PO 324 mg DAILY ELENA Administration Folic Acid 1 mg 12/03/17 10:00 12/23/17 10:09 Folic Acid - PO 1 mg DAILY ELENA Administration Furosemide 40 mg 12/17/17 10:00 12/23/17 10:09 Lasix - PO 40 mg DAILY ELENA Administration Hydroxychloroquine Sulfate 200 mg 12/02/17 22:00 12/23/17 10:09 Plaquenil - PO 200 mg BID ELENA Administration Levothyroxine Sodium 50 mcg 12/03/17 07:00 12/23/17 06:13 Synthroid - PO 50 mcg 0700 ELENA Administration Lorazepam 1 mg 12/03/17 10:00 12/23/17 10:09 Ativan - PO 1 mg DAILY ELENA Administration Metoprolol Succinate 50 mg 10/31/18 06:00 12/23/17 10:09 Toprol Xl - PO 50 mg BID ELENA Administration Pantoprazole Sodium 40 mg 12/03/17 10:00 12/23/17 10:09 Protonix - PO 40 mg DAILY ELENA Administration Risperidone 2 mg 12/03/17 11:01 12/23/17 10:09 Risperdal - PO 2 mg DAILY ELENA Administration Laboratory Tests 12/02/17 12/03/17 12/04/17 15:35 06:30 06:50 WBC Hgb Plt Count Creatinine 1.5 H 1.4 H Urine Protein Urine Blood Rheumatoid Factor ELMER Screen Positive H ELMER Homogeneous Pattern 1:640 H Double Strand DNA Ab Free [place] LC, Quant Free Lambda LC, Quant Free [place]/Lambda Ratio 12/04/17 12/07/17 12/09/17 06:50 07:15 06:50 WBC Hgb Plt Count Creatinine 1.5 H 1.1 Urine Protein Urine Blood Rheumatoid Factor ELMER Screen ELMER Homogeneous Pattern Double Strand DNA Ab Free [place] LC, Quant 158.9 H Free Lambda LC, Quant 132.8 H Free [place]/Lambda Ratio 1.20 12/09/17 12/10/17 12/11/17 22:17 07:00 06:30 WBC Hgb Plt Count Creatinine 1.5 H Urine Protein Negative Urine Blood 2+ H Rheumatoid Factor 1150.0 H ELMER Screen ELMER Homogeneous Pattern Double Strand DNA Ab Free [place] LC, Quant Free Lambda LC, Quant Free [place]/Lambda Ratio 12/12/17 12/13/17 12/16/17 10:50 07:09 06:30 WBC Hgb Plt Count Creatinine 1.7 H 1.7 H 1.3 Urine Protein Urine Blood Rheumatoid Factor ELMER Screen ELMER Homogeneous Pattern Double Strand DNA Ab Free [place] LC, Quant Free Lambda LC, Quant Free [place]/Lambda Ratio 12/17/17 12/17/17 12/18/17 06:30 15:15 07:30 WBC Hgb Plt Count Creatinine 1.2 Urine Protein 2+ H Urine Blood 1+ H Rheumatoid Factor ELMER Screen ELMER Homogeneous Pattern Double Strand DNA Ab <1 Free [place] LC, Quant Free [place]ambda LC, Quant Free [place]/Lambda Ratio 12/19/17 12/21/17 12/22/17 08:00 09:40 08:45 WBC Hgb Plt Count Creatinine 1.4 H 1.5 H 1.5 H Urine Protein Urine Blood Rheumatoid Factor ELMER Screen ELMER Homogeneous Pattern Double Strand DNA Ab Free [place] LC, Quant Free [place]ambda LC, Quant Free [place]/Lambda Ratio 12/23/17 12/23/17 07:15 07:15 WBC 2.3 L Hgb 6.6 L* Plt Count 161 Creatinine 1.6 H Urine Protein Urine Blood Rheumatoid Factor ELMER Screen ELMER Homogeneous Pattern Double Strand DNA Ab Free [place] LC, Quant Free Lambda LC, Quant Free [place]/Lambda Ratio cardio s1s2 pulm clear GI soft, ebese ext trace edema neuro awake, confused pscyh calm skin areas of erythema Impression 1. CKD vs JUAN DANIEL 2. anemia 3. leukopenia 4. microscopic hematuria 5. RA 6. hypothyroidism 7. CHF 8. asthma 9. GERD 10. a-fib 11. schizophrenia 12. non thrombotic purpura Plan - check renal ultrasound - repeat ua and lytes - renal function has been fluctuating - obtain outpt records - avoid nephrotoxins - check anca - will follow Dr Larson
--- NOTE | 2017-12-23 12:38 | PN ---
Progress Note, Physician History of Present Illness: Lethargic Offers no complaints. Afebrile WBC 2.3 Repeat BC (-) Vancomycin redosed yesterday - Current Medication List Current Medications: Active Medications Acetaminophen (Tylenol -) 1,000 mg PO Q6H PRN PRN Reason: FEVER Last Admin: 12/14/17 21:07 Dose: 1,000 mg Apixaban (Eliquis -) 5 mg PO BID [facility] Last Admin: 12/23/17 10:09 Dose: 5 mg Docusate Sodium (Colace -) 100 mg PO HS [facility] Last Admin: 12/22/17 21:34 Dose: 100 mg Ferrous Gluconate (Fergon -) 324 mg PO DAILY [facility] Last Admin: 12/23/17 10:09 Dose: 324 mg Folic Acid (Folic Acid -) 1 mg PO DAILY [facility] Last Admin: 12/23/17 10:09 Dose: 1 mg Furosemide (Lasix -) 40 mg PO DAILY [facility] Last Admin: 12/23/17 10:09 Dose: 40 mg Hydroxychloroquine Sulfate (Plaquenil -) 200 mg PO BID [facility] Last Admin: 12/23/17 10:09 Dose: 200 mg Levothyroxine Sodium (Synthroid -) 50 mcg PO 0700 [facility] Last Admin: 12/23/17 06:13 Dose: 50 mcg Lorazepam (Ativan -) 1 mg PO DAILY [facility] Last Admin: 12/23/17 10:09 Dose: 1 mg Metoprolol Succinate (Toprol Xl -) 50 mg PO BID [facility] Last Admin: 12/23/17 10:09 Dose: 50 mg Pantoprazole Sodium (Protonix -) 40 mg PO DAILY [facility] Last Admin: 12/23/17 10:09 Dose: 40 mg Risperidone (Risperdal -) 2 mg PO DAILY [facility] Last Admin: 12/23/17 10:09 Dose: 2 mg - Objective Vital Signs: Vital Signs Temperature 98.7 F 12/23/17 09:56 Pulse Rate 73 12/23/17 09:56 Respiratory Rate 18 12/23/17 09:56 Blood Pressure 101/53 L 12/23/17 09:56 O2 Sat by Pulse Oximetry (%) 99 12/23/17 09:00 Constitutional: Yes: No Distress, Obese Cardiovascular: Yes: Regular Rate and Rhythm, S1, S2 Respiratory: Yes: CTA Bilaterally Gastrointestinal: Yes: Normal Bowel Sounds, Soft, Abdomen, Obese. No: Tenderness Edema: Yes Labs: CBC, BMP 12/23/17 07:15 12/23/17 07:15 INR, PTT INR 2.44 (0.83-1.09) H 12/02/17 15:35 Assessment/Plan Enterococcal bacteremia likely urinary tract source Possible asp pneumonia Leukopenia PCN/TCN allergies Azotemia Completed 14d course vancomycin Observe off antibiotics
[2017-12-23] MEDS ORDERED: PT OWN MED DRAWER 7, Y5N ONE ×2 (13:35→21:15)
--- NOTE | 2017-12-23 15:44 | PN ---
Physical Exam: SUBJECTIVE: Patient seen and examined OBJECTIVE: Vital Signs Period Temp Pulse Resp BP Sys/Neal Pulse Ox Last 24 Hr 68.4 F-98.7 F 68-98 18-20 100-123/50-61 97-99 GENERAL: Frail, alert, A&O x [address], no acute distress HEAD: Normal with no signs of trauma. EYES: PERRL, extraocular movements intact, sclera anicteric, conjunctiva clear. No ptosis. ENT: Nares patent, oropharynx clear without exudates, moist mucous membranes. NECK: Trachea midline, full range of motion, supple. LUNGS: +NC, breath sounds equal, clear to auscultation bilaterally, no wheezes, no crackles, no accessory muscle use. HEART: Regular rate and rhythm, S1, S2 without murmur, rub or gallop. ABDOMEN: Obese, soft, nontender, nondistended, normoactive bowel sounds, no guarding, no rebound, no hepatosplenomegaly, no masses. EXTREMITIES: 2+ pulses, warm, well-perfused, +1 edema to b/l LE. NEUROLOGICAL: No facial droop, tongue midline. Normal speech, gait not observed. PSYCH: Normal mood, normal affect. SKIN: Warm, dry, normal turgor, no rashes or lesions noted Laboratory Results - last 24 hr 12/22/17 12/23/17 12/23/17 13:10 07:15 07:15 WBC 2.3 L RBC 2.98 L Hgb 6.6 L* Hct 22.9 L MCV 76.7 L MCH 22.1 L MCHC 28.8 L RDW 24.3 H Plt Count 161 MPV 7.7 Sodium 138 Potassium 4.5 Chloride 104 Carbon Dioxide 27 Anion Gap 8 BUN 43 H Creatinine 1.6 H Creat Clearance w eGFR 30.86 Random Glucose 81 Calcium 7.9 L Magnesium 2.1 Random Vancomycin 13.9 L Blood Type Antibody Screen Crossmatch 12/23/17 10:05 WBC RBC Hgb Hct MCV MCH MCHC RDW Plt Count MPV Sodium Potassium Chloride Carbon Dioxide Anion Gap BUN Creatinine Creat Clearance w eGFR Random Glucose Calcium Magnesium Random Vancomycin Blood Type A POSITIVE Antibody Screen Negative Crossmatch See Detail Active Medications Generic Name Dose Route Start Last Admin Trade Name Freq PRN Reason Stop Dose Admin Acetaminophen 1,000 mg 12/10/17 23:10 12/14/17 21:07 Tylenol - PO 1,000 mg Q6H PRN Administration FEVER Apixaban 5 mg 12/03/17 22:00 12/23/17 10:09 Eliquis - PO 5 mg BID ELENA Administration Docusate Sodium 100 mg 12/02/17 22:00 12/22/17 21:34 Colace - PO 100 mg HS ELENA Administration Ferrous Gluconate 324 mg 12/03/17 10:00 12/23/17 10:09 Fergon - PO 324 mg DAILY ELENA Administration Folic Acid 1 mg 12/03/17 10:00 12/23/17 10:09 Folic Acid - PO 1 mg DAILY ELENA Administration Furosemide 40 mg 12/17/17 10:00 12/23/17 10:09 Lasix - PO 40 mg DAILY ELENA Administration Hydroxychloroquine Sulfate 200 mg 12/02/17 22:00 12/23/17 10:09 Plaquenil - PO 200 mg BID ELENA Administration Levothyroxine Sodium 50 mcg 12/03/17 07:00 12/23/17 06:13 Synthroid - PO 50 mcg 0700 ELENA Administration Lorazepam 1 mg 12/03/17 10:00 12/23/17 10:09 Ativan - PO 1 mg DAILY ELENA Administration Metoprolol Succinate 50 mg 12/16/17 06:00 12/23/17 10:09 Toprol Xl - PO 50 mg BID ELENA Administration Pantoprazole Sodium 40 mg 12/03/17 10:00 12/23/17 10:09 Protonix - PO 40 mg DAILY ELENA Administration Risperidone 2 mg 12/03/17 11:01 12/23/17 10:09 Risperdal - PO 2 mg DAILY ELENA Administration ASSESSMENT/PLAN: Bacteremia -Likely secondary to UTI which enterococcal bacteremia is likely source vs aspiration pneumoina -Completed 14 day course of IV Vancomycin -ID Dr. Salazar d/gwen today Suspected Aspiration PNA -Completed course of Cefepime -Aspiration precautions -Chopped diet, nectar thick liquids -Still on O2 @2LPM, plan to wean -Incentive spirometry Anemia -HgB 6.6 today -2 U PRBC ordered -Monitor CBC -Could be caused by rhematolotical source -Granix only effective for about one day. -Rheumatoid factor elevated to 1150 -CCP and complement sent -Request for associate media director Dr. Guillen to consult -consider DMARD if having a rheumatoid flare -FISH and flow cytology negative (baseline) -R/O GI bleed -Continue Protonix 40 mg -F/u as outpatient Leukopenia -4.4 -> 2.3 today -Continue to trend CBC QD -Neutropenic precautions not required -Followup with heme Diastolic CHF -Currently euvolemic -Continue Lasix 40 mg -Metoprolol Succinate 50 mg BID -Monitor BMP and urinary output RA -Continue plaquenil 200 mg qday -followup with rheumatology outpatient. Hypothyroidism with elevated TSH -Continue Synthroid 50 mcg -Recheck TSH and adjust dose OP; monitor. -No myedema coma, etc. Bipolar Disorder -Conitnue Ativan 1 mg daily -Risperidone 2 mg daily FEN -[place] thick liquids, PO intake adequate -replete electrolytes as needed -Chopped diet Code Status unchanged Still not hemodynamically stable, continue to monitor inpatient. Visit type - Emergency Visit Emergency Visit: No - New Patient This patient is new to me today: No - Critical Care Critical Care patient: No
[2017-12-23 15:51] LABS: URINE APPEARANCE CLOUDY; URINE BILIRUBIN NEGATIVE (<2.0 mg/dL); URINE COLOR DKYELLOW; URINE GLUCOSE (UA) NEGATIVE (NEGATIVE); URINE KETONE NEGATIVE (NEGATIVE); URINE LEUK ESTERASE 2+ (NEGATIVE); URINE NITRITE NEGATIVE (NEGATIVE); URINE PROTEIN 1+ (NEGATIVE); URINE UROBILINOGEN NEGATIVE mg/dL (0.2-1.0)
[2017-12-23 15:56] LABS: EPI CELLS RARE /HPF (FEW); URINE HYALINE CAST 74 /lpf
--- NOTE | 2017-12-23 16:31 | PN ---
Progress Note (short form) - Note Progress Note: s: no cp palps dizzy; laying flat, no sob o: Vital Signs Period Temp Pulse Resp BP Sys/Neal Pulse Ox Last 24 Hr 68.4 F-98.7 F 68-98 18-20 100-123/50-61 97-99 nad no jvd irreg s1s2 no mrg cta bl nl eff awake alert confused abd nt nd pos bs no jaundice diaphoresis no le edema Current Medications Generic Name Dose Route Start Last Admin Trade Name Freq PRN Reason Stop Dose Admin Acetaminophen 1,000 mg 12/10/17 23:10 12/14/17 21:07 Tylenol - PO 1,000 mg Q6H PRN Administration FEVER Apixaban 5 mg 12/03/17 22:00 12/23/17 10:09 Eliquis - PO 5 mg BID ELENA Administration Docusate Sodium 100 mg 12/02/17 22:00 12/22/17 21:34 Colace - PO 100 mg HS ELENA Administration Ferrous Gluconate 324 mg 12/03/17 10:00 12/23/17 10:09 Fergon - PO 324 mg DAILY ELENA Administration Folic Acid 1 mg 12/03/17 10:00 12/23/17 10:09 Folic Acid - PO 1 mg DAILY ELENA Administration Furosemide 40 mg 12/17/17 10:00 12/23/17 10:09 Lasix - PO 40 mg DAILY ELENA Administration Hydroxychloroquine Sulfate 200 mg 12/02/17 22:00 12/23/17 10:09 Plaquenil - PO 200 mg BID ELENA Administration Levothyroxine Sodium 50 mcg 12/03/17 07:00 12/23/17 06:13 Synthroid - PO 50 mcg 0700 ELENA Administration Lorazepam 1 mg 12/03/17 10:00 12/23/17 10:09 Ativan - PO 1 mg DAILY ELENA Administration Metoprolol Succinate 50 mg 12/16/17 06:00 12/23/17 10:09 Toprol Xl - PO 50 mg BID ELENA Administration Pantoprazole Sodium 40 mg 12/03/17 10:00 12/23/17 10:09 Protonix - PO 40 mg DAILY ELENA Administration Risperidone 2 mg 12/03/17 11:01 12/23/17 10:09 Risperdal - PO 2 mg DAILY ELENA Administration CBC, BMP 12/23/17 07:15 12/23/17 07:15 ecg: afib, rate controlled, nl qtc, no ischemic changes echo 11/2017: tds; nl lv, rv tds, no sig valve path, nl rvsp echo repeat 12/14: nl LV/RV. mild MR, mild-mod TR. no vegetations reported. PASP 41 a/p: 82 f hx anemia, RA, hypothyroid, chf, afib, htn, sent from [facility] for anemia, dark stools. fever, strep bacteremia: -febrile to > 101 on 12/10 in pm, BCx growing beta-hemolytic strep; UCx with gram negative rods -echo here with no identifiable valve dysfunction on 12/03, will rpt study. no murmurs on exam. no convincing findings of acute pulm edema or acute exacerbation of chf based on CXR review, pt's creat bump to lasix x 1 dose, and phys exam. -rpt echo no vegetations or severe valve regurgitation. - source suspected, per ID, ? asp pna--abx per their recs-->finished course, observing off abx now acute diastolic chf: -echo unremarkable -no details available, pt on lasix 40 bid po at [place] -initial CXR here with evidence of chf and effusions. -treated with lasix 40 iv bid here. -bedscale wts only: trended down consistently from 231 to 221, up gradually to 228 now 219 today -changed to lasix 40 po bid on 12/09. -episode overnight 12/10 of fever accompanied by acute dyspnea--given IV lasix. sx's improved. repeat CXR at that time showed stable congestion, creat bumped hence lasix held 12/11. ? sx's were due to hi fever with bacteremia (BCx positive now) and resolved when she defervesced. -12/14: renal fxn initially worsening likely due to sepsis/baceteremia. now improving. appears stable volume status, with bibasilar abnormal lung - cont holding PO lasix for now while treating infection with stable volume status, CXR today is unchanged -12/15: remains compensated, no sob. hold lasix as renal fxn improves--would resume lasix in 24-48 hrs to try to improve effusions, assuming renal fxn stable -12/16-12/17: cr stable/improved. will resume po lasix 40 qd 12/17 (was on 40 po bid when became dry). - 12/18-6: stable volume status, continue lasix 40 mg PO daily JUAN DANIEL: -no baseline creat data available -creat 1.5 on admit, improved with diuresis -bumped again 12/11 ? due to acute chf again, vs lasix dose -lasix as above dark stools, anemia, neutropenia: -being evaluated by GI, Heme -hgb currently stable afib: -rate controlled -bp's soft here, + bacteremia/sepsis picture. cont metopr succ 50 bid -has been on eliquis, continued here, monitor hgb trend hypothyroid: -tsh elevated, synthroid dosing per pmd htn: -bp controlled -cont toprol
--- NOTE | 2017-12-23 16:47 | PN ---
Progress Note (short form) - Note Progress Note: Probable sero-positive rheumatoid arthritis, Neutropenia, CHF, dementia, bipolar disorder, diabetes admitted anemia. Treated in the past with MTX and Enbrel, presently on Hydroxychloroquine, not followed by doctor of radiology in many years. This visit Rheumatoid factor: 1150 and ELMER 1:640 with homogeneous pattern. CH50 initially 41 (n<41) and on 12/18/17: 15. I requested C3, C4 and CCP, not done. On the initial visit she had no active joints. At the present time, on the P/E , lungs clear. MSK: no active joints. Impression: Probable rheumatoid arthritis, not active. Even though it is unlikely, rule out gout. Low CH50 and high RF, r/o cryoglobulinemia. I will request again C3, C4 and CCP. Uric acid and ESR. . As the patient does not have active joints, she does not require treatment at this time. I will follow. ] Problem List - Problems (1) Rheumatoid arthritis Code(s): M06.9 - RHEUMATOID ARTHRITIS, UNSPECIFIED
--- NOTE | 2017-12-23 19:35 | PN ---
Progress Note (short form) - Note Progress Note: Patient seen Discussed with Dr. Alvarenga No active joints for likely diagnosis of seropositive Rheumatoid arthritis No obvious diagnosis for neutroenia. Have considered autoimmune disorder as etiology. Awaiting anti- neutrophil antibodies. C3,4 and cryoglobulins pending. Reluctant to do bone marrow as even if hematologic disorder was detedted, would not be inclined to treat in view of poor performance status. Receiving blood.
[2017-12-23] MEDS: DOCUSATE SODIUM 100 MG CAPSULE (FP) PO SCH (21:25)
[2017-12-23 22:35] LABS: HEMATOCRIT 29.1 % (32.4-45.2); HEMOGLOBIN 9.4 GM/dL (10.7-15.3); MCHC 32.3 g/dl (32.0-36.0); MEAN CELL VOLUME 77.5 fl (80-96); PLATELET COUNT 193 K/MM3 (134-434); RBC 3.76 M/mm3 (3.60-5.2)
[2017-12-24] MEDS: LEVOTHYROXINE NA 50 MCG TABLET (FP) PO SCH (06:51)
[2017-12-24 08:03] LABS: HEMATOCRIT 29.3 % (32.4-45.2); HEMOGLOBIN 9.2 GM/dL (10.7-15.3); MCH 24.4 pg (25.7-33.7); MCHC 31.3 g/dl (32.0-36.0); MEAN CELL VOLUME 77.8 fl (80-96); MEAN PLT VOLUME 7.8 fl (7.5-11.1); PLATELET COUNT 185 K/MM3 (134-434); RBC 3.76 M/mm3 (3.60-5.2); RDW 23.2 % (11.6-15.6)
[2017-12-24 08:33] LABS: ANION GAP 11 MMOL/L (8-16); BLOOD UREA NITROGEN 45 mg/dL (7-18); CALCIUM 8.1 mg/dL (8.5-10.1); CHLORIDE 104 mmol/L (98-107); CO2 25 mmol/L (21-32); CREATININE 1.6 mg/dL (0.55-1.3); GLUCOSE,RANDOM 76 mg/dL (74-106); POTASSIUM 4.9 mmol/L (3.5-5.1); SODIUM 139 mmol/L (136-145)
[2017-12-24 09:03] LABS: URIC ACID 14.4 mg/dL (2.6-7.2)
[2017-12-24] MEDS: PANTOPRAZOLE 40 MG TABLET (FP) PO SCH (10:41)
[2017-12-24] MEDS: APIXABAN 5 MG TABLET PO SCH ×2 (10:42→21:13)
[2017-12-24] MEDS: FERROUS GLUCONATE 324 MG TAB (FP) PO SCH (10:42)
[2017-12-24] MEDS: LORazepam 1 MG TABLET PO SCH (10:42)
[2017-12-24] MEDS: risperiDONE 1 MG TABLET (FP) PO SCH (10:42)
[2017-12-24] MEDS: FOLIC ACID 1 MG TABLET (FP) PO SCH (10:42)
[2017-12-24] MEDS: FUROSEMIDE 40 MG TABLET (FP) PO SCH (10:42)
[2017-12-24] MEDS: HYDROXYCHLOROQUINE SO4 200 MG TABLET (FP) PO SCH ×2 (10:42→21:13)
--- NOTE | 2017-12-24 10:55 | PN ---
Progress Note (short form) - Note Progress Note: s: no cp palps dizzy sob o: Vital Signs Period Temp Pulse Resp BP Sys/Neal Pulse Ox Last 24 Hr 97.3 F-98.5 F 68-88 17-20 100-110/50-66 97 nad no jvd irreg s1s2 no mrg cta bl nl eff awake alert confused abd nt nd pos bs no jaundice diaphoresis no le edema Current Medications Generic Name Dose Route Start Last Admin Trade Name Freq PRN Reason Stop Dose Admin Acetaminophen 1,000 mg 12/10/17 23:10 12/14/17 21:07 Tylenol - PO 1,000 mg Q6H PRN Administration FEVER Apixaban 5 mg 12/03/17 22:00 12/24/17 10:42 Eliquis - PO 5 mg BID ELENA Administration Docusate Sodium 100 mg 12/02/17 22:00 12/23/17 21:25 Colace - PO 100 mg HS ELENA Administration Ferrous Gluconate 324 mg 12/03/17 10:00 12/24/17 10:42 Fergon - PO 324 mg DAILY ELENA Administration Folic Acid 1 mg 12/03/17 10:00 12/24/17 10:42 Folic Acid - PO 1 mg DAILY ELENA Administration Furosemide 40 mg 12/17/17 10:00 12/24/17 10:42 Lasix - PO 40 mg DAILY ELENA Administration Hydroxychloroquine Sulfate 200 mg 12/02/17 22:00 12/24/17 10:42 Plaquenil - PO 200 mg BID ELENA Administration Levothyroxine Sodium 50 mcg 12/03/17 07:00 12/24/17 06:51 Synthroid - PO 50 mcg 0700 ELENA Administration Lorazepam 1 mg 12/03/17 10:00 12/24/17 10:42 Ativan - PO 1 mg DAILY ELENA Administration Metoprolol Succinate 50 mg 12/16/17 06:00 12/24/17 10:42 Toprol Xl - PO 50 mg BID ELENA Administration Pantoprazole Sodium 40 mg 12/03/17 10:00 12/24/17 10:41 Protonix - PO 40 mg DAILY ELENA Administration Risperidone 2 mg 12/03/17 11:01 12/24/17 10:42 Risperdal - PO 2 mg DAILY ELENA Administration CBC, BMP 12/24/17 07:00 12/24/17 07:00 ecg: afib, rate controlled, nl qtc, no ischemic changes echo 11/2017: tds; nl lv, rv tds, no sig valve path, nl rvsp echo repeat 12/14: nl LV/RV. mild MR, mild-mod TR. no vegetations reported. PASP 41 a/p: 82 f hx anemia, RA, hypothyroid, chf, afib, htn, sent from pr for anemia, dark stools. fever, strep bacteremia: -febrile to > 101 on 12/10 in pm, BCx growing beta-hemolytic strep; UCx with gram negative rods -echo here with no identifiable valve dysfunction on 12/03, will rpt study. no murmurs on exam. no convincing findings of acute pulm edema or acute exacerbation of chf based on CXR review, pt's creat bump to lasix x 1 dose, and phys exam. -rpt echo no vegetations or severe valve regurgitation. - source suspected, per ID, ? asp pna--abx per their recs-->finished course, observing off abx now acute diastolic chf: -echo unremarkable -no details available, pt on lasix [address] -initial CXR here with evidence of chf and effusions. -treated with lasix 40 iv bid here. -bedscale wts only: trended down consistently from 231 to 221, up gradually to 228 now 219 today -changed to lasix 40 po bid on 12/09. -episode overnight 12/10 of fever accompanied by acute dyspnea--given IV lasix. sx's improved. repeat CXR at that time showed stable congestion, creat bumped hence lasix held 12/11. ? sx's were due to hi fever with bacteremia (BCx positive now) and resolved when she defervesced. -12/14: renal fxn initially worsening likely due to sepsis/baceteremia. now improving. appears stable volume status, with bibasilar abnormal lung - cont holding PO lasix for now while treating infection with stable volume status, CXR today is unchanged -12/15: remains compensated, no sob. hold lasix as renal fxn improves--would resume lasix in 24-48 hrs to try to improve effusions, assuming renal fxn stable -12/16-12/17: cr stable/improved. will resume po lasix 40 qd 12/17 (was on 40 po bid when became dry). - 12/18-: stable volume status, continue lasix 40 mg PO daily JUAN DANIEL: -no baseline creat data available -creat 1.5 on admit, improved with diuresis -bumped again 12/11 ? due to acute chf again, vs lasix dose -lasix as above dark stools, anemia, neutropenia: -being evaluated by GI, Heme -hgb currently stable afib: -rate controlled -bp's soft here, + bacteremia/sepsis picture. cont metopr succ 50 bid -has been on eliquis, continued here, monitor hgb trend hypothyroid: -tsh elevated, synthroid dosing per pmd htn: -bp controlled -cont toprol
[2017-12-24] MEDS: ALLOPURINOL 100 MG TABLET (FP) PO SCH (14:20)
--- NOTE | 2017-12-24 15:51 | PN ---
Physical Exam: SUBJECTIVE: Patient seen and examined. OBJECTIVE: Vital Signs Period Temp Pulse Resp BP Sys/Neal Pulse Ox Last 24 Hr 97.5 F-98.5 F 74-88 17-20 100-110/50-66 97 GENERAL: Sitting up, appears more alert than yesterday , A&O x [address], no acute distress HEAD: Normal with no signs of trauma. EYES: PERRL, extraocular movements intact, sclera anicteric, conjunctiva clear. No ptosis. ENT: Nares patent, oropharynx clear without exudates, moist mucous membranes. NECK: Trachea midline, full range of motion, supple. LUNGS: +NC, breath sounds equal, clear to auscultation bilaterally, no wheezes, no crackles, no accessory muscle use. HEART: Regular rate and rhythm, S1, S2 without murmur, rub or gallop. ABDOMEN: Obese, soft, nontender, nondistended, normoactive bowel sounds, no guarding, no rebound, no hepatosplenomegaly, no masses. EXTREMITIES: 2+ pulses, warm, well-perfused, +1 edema to b/l LE. NEUROLOGICAL: No facial droop, tongue midline. Normal speech, gait not observed. PSYCH: Normal mood, normal affect. SKIN: Warm, dry, normal turgor, no rashes or lesions noted Laboratory Results - last 24 hr 12/23/17 12/23/17 12/23/17 10:05 14:30 15:40 WBC RBC Hgb Hct MCV MCH MCHC RDW Plt Count MPV ESR Sodium Potassium Chloride Carbon Dioxide Anion Gap BUN Creatinine Creat Clearance w eGFR Random Glucose Uric Acid Calcium Urine Color Dkyellow Urine Appearance Cloudy Urine pH 5.0 Ur Specific [place] 1.013 Urine Protein 1+ H Urine Glucose (UA) Negative Urine Ketones Negative Urine Blood 2+ H Urine Nitrite Negative Urine Bilirubin Negative Urine Urobilinogen Negative Ur Leukocyte Esterase 2+ H Urine WBC (Auto) 48 Urine RBC (Auto) 49 Ur Epithelial Cells Rare Hyaline Casts 74 Ur Random Sodium < 18 L Ur Random Potassium 54.0 Ur Random Chloride 30 L Urine Creatinine Blood Type A POSITIVE Antibody Screen Negative Crossmatch See Detail 12/23/17 12/23/17 12/24/17 15:40 22:00 07:00 WBC 2.0 L RBC 3.76 Hgb 9.4 L Hct 29.1 L D MCV 77.5 L MCH 25.0 L D MCHC 32.3 RDW 23.0 H Plt Count 193 MPV 8.0 ESR Sodium 139 Potassium 4.9 Chloride 104 Carbon Dioxide 25 Anion Gap 11 BUN 45 H Creatinine 1.6 H Creat Clearance w eGFR 30.86 Random Glucose 76 Uric Acid 14.4 H* Calcium 8.1 L Urine Color Urine Appearance Urine pH Ur Specific [place] Urine Protein Urine Glucose (UA) Urine Ketones Urine Blood Urine Nitrite Urine Bilirubin Urine Urobilinogen Ur Leukocyte Esterase Urine WBC (Auto) Urine RBC (Auto) Ur Epithelial Cells Hyaline Casts Ur Random Sodium Ur Random Potassium Ur Random Chloride Urine Creatinine 110.0 H Blood Type Antibody Screen Crossmatch 12/24/17 12/24/17 07:00 07:00 WBC 2.0 L RBC 3.76 Hgb 9.2 L Hct 29.3 L MCV 77.8 L MCH 24.4 L MCHC 31.3 L RDW 23.2 H Plt Count 185 MPV 7.8 ESR 85 H Sodium Potassium Chloride Carbon Dioxide Anion Gap BUN Creatinine Creat Clearance w eGFR Random Glucose Uric Acid Calcium Urine Color Urine Appearance Urine pH Ur Specific [place] Urine Protein Urine Glucose (UA) Urine Ketones Urine Blood Urine Nitrite Urine Bilirubin Urine Urobilinogen Ur Leukocyte Esterase Urine WBC (Auto) Urine RBC (Auto) Ur Epithelial Cells Hyaline Casts Ur Random Sodium Ur Random Potassium Ur Random Chloride Urine Creatinine Blood Type Antibody Screen Crossmatch Active Medications Generic Name Dose Route Start Last Admin Trade Name Freq PRN Reason Stop Dose Admin Acetaminophen 1,000 mg 12/10/17 23:10 12/14/17 21:07 Tylenol - PO 1,000 mg Q6H PRN Administration FEVER Allopurinol 100 mg 12/24/17 13:15 12/24/17 14:20 Zyloprim - PO 100 mg DAILY ELENA Administration Apixaban 5 mg 12/03/17 22:00 12/24/17 10:42 Eliquis - PO 5 mg BID ELENA Administration Docusate Sodium 100 mg 12/02/17 22:00 12/23/17 21:25 Colace - PO 100 mg HS ELENA Administration Ferrous Gluconate 324 mg 12/03/17 10:00 12/24/17 10:42 Fergon - PO 324 mg DAILY ELENA Administration Folic Acid 1 mg 12/03/17 10:00 12/24/17 10:42 Folic Acid - PO 1 mg DAILY ELENA Administration Furosemide 40 mg 12/17/17 10:00 12/24/17 10:42 Lasix - PO 40 mg DAILY ELENA Administration Hydroxychloroquine Sulfate 200 mg 12/02/17 22:00 12/24/17 10:42 Plaquenil - PO 200 mg BID ELENA Administration Levothyroxine Sodium 50 mcg 12/03/17 07:00 12/24/17 06:51 Synthroid - PO 50 mcg 0700 ELENA Administration Lorazepam 1 mg 12/03/17 10:00 12/24/17 10:42 Ativan - PO 1 mg DAILY ELENA Administration Metoprolol Succinate 50 mg 12/16/17 06:00 12/24/17 10:42 Toprol Xl - PO 50 mg BID ELENA Administration Pantoprazole Sodium 40 mg 12/03/17 10:00 12/24/17 10:41 Protonix - PO 40 mg DAILY ELENA Administration Risperidone 2 mg 12/03/17 11:01 12/24/17 10:42 Risperdal - PO 2 mg DAILY ELENA Administration ASSESSMENT/PLAN: Bacteremia -Likely secondary to UTI which enterococcal bacteremia is likely source vs aspiration pneumoina -Completed 14 day course of IV Vancomycin -ID Dr. Salazar d/gwen yesterday Suspected Aspiration PNA -Completed course of Cefepime -Aspiration precautions -Chopped diet, nectar thick liquids -Still on O2 @2LPM, plan to wean -Incentive spirometry Anemia -HgB 6.6 -> 9.2 -2 U PRBC yesterday -Monitor CBC -Seen by oncologist Dr. Garvin -obvious diagnosis for neutroenia. -Possible autoimmune etiology. Awaiting anti-neutrophil antibodies. -If hematologic disorder was detected, reluctant to do bone marrow as even would not be inclined to treat in view of poor performance status. -R/O GI bleed -Continue Protonix 40 mg -F/u as outpatient Hyperuricemia -Uric acid 14.4 -Spoke with Dr. Alvarenga and he recommended starting Allopurinol qday x 2 weeks , then increasing to 200 mg qday afterwards Leukopenia -4.4 -> 2.3 today -Continue to trend CBC QD -Neutropenic precautions not required -Followup with heme Diastolic CHF -Seen by retail pharmacy manager Dr. Nguyen today; continue current regimen -Currently euvolemic -Continue Lasix 40 mg -Metoprolol Succinate 50 mg BID -Monitor BMP and urinary output RA -Seen by sales center associate Dr. Guillen -Dormant -1150 and ELMER 1:640 with homogeneous pattern -CH50 initially 41 (n<41) and on 18: 15. -Low CH50 and high RF, r/o cryoglobulinemia. -Continue Plaquenil 200 mg qday -Ordered C3, C4 and CCP Hypothyroidism with elevated TSH -Continue Synthroid 50 mcg -Recheck TSH and adjust dose OP; monitor. -No myedema coma, etc. Bipolar Disorder -Conitnue Ativan 1 mg daily -Risperidone 2 mg daily FEN -[place] thick liquids, PO intake adequate -replete electrolytes as needed -Chopped diet Code Status unchanged Still not hemodynamically stable, continue to monitor inpatient. Visit type - Emergency Visit Emergency Visit: No - New Patient This patient is new to me today: No - Critical Care Critical Care patient: No
--- NOTE | 2017-12-24 16:01 | PN ---
Progress Note, Physician History of Present Illness: Pt seen and examined at bedside. She appears more lethargic today. - Current Medication List Current Medications: Active Medications Acetaminophen (Tylenol -) 1,000 mg PO Q6H PRN PRN Reason: FEVER Last Admin: 12/14/17 21:07 Dose: 1,000 mg Allopurinol (Zyloprim -) 100 mg PO DAILY [facility] Last Admin: 12/24/17 14:20 Dose: 100 mg Apixaban (Eliquis -) 5 mg PO BID [facility] Last Admin: 12/24/17 10:42 Dose: 5 mg Docusate Sodium (Colace -) 100 mg PO HS [facility] Last Admin: 12/23/17 21:25 Dose: 100 mg Ferrous Gluconate (Fergon -) 324 mg PO DAILY [facility] Last Admin: 12/24/17 10:42 Dose: 324 mg Folic Acid (Folic Acid -) 1 mg PO DAILY [facility] Last Admin: 12/24/17 10:42 Dose: 1 mg Furosemide (Lasix -) 40 mg PO DAILY [facility] Last Admin: 12/24/17 10:42 Dose: 40 mg Hydroxychloroquine Sulfate (Plaquenil -) 200 mg PO BID [facility] Last Admin: 12/24/17 10:42 Dose: 200 mg Levothyroxine Sodium (Synthroid -) 50 mcg PO 0700 [facility] Last Admin: 12/24/17 06:51 Dose: 50 mcg Lorazepam (Ativan -) 1 mg PO DAILY [facility] Last Admin: 12/24/17 10:42 Dose: 1 mg Metoprolol Succinate (Toprol Xl -) 50 mg PO BID [facility] Last Admin: 12/24/17 10:42 Dose: 50 mg Pantoprazole Sodium (Protonix -) 40 mg PO DAILY [facility] Last Admin: 12/24/17 10:41 Dose: 40 mg Risperidone (Risperdal -) 2 mg PO DAILY [facility] Last Admin: 12/24/17 10:42 Dose: 2 mg - Objective Vital Signs: Vital Signs Temperature 97.9 F 12/24/17 14:00 Pulse Rate 77 12/24/17 14:00 Respiratory Rate 18 12/24/17 14:00 Blood Pressure 110/55 L 12/24/17 14:00 O2 Sat by Pulse Oximetry (%) 97 12/23/17 21:00 Constitutional: Yes: Calm Eyes: Yes: Conjunctiva Clear Cardiovascular: Yes: S1, S2 Respiratory: Yes: On Nasal O2 Gastrointestinal: Yes: Soft, Abdomen, Obese Genitourinary: Yes: Incontinence Musculoskeletal: Yes: Muscle Weakness Edema: LLE: Trace, RLE: Trace Integumentary: Yes: Erythema Neurological: Yes: Lethargy Labs: CBC, BMP 12/24/17 07:00 12/24/17 07:00 INR, PTT INR 2.44 (0.83-1.09) H 12/02/17 15:35 Assessment/Plan Current Medications Generic Name Dose Route Start Last Admin Trade Name Freq PRN Reason Stop Dose Admin Acetaminophen 1,000 mg 12/10/17 23:10 12/14/17 21:07 Tylenol - PO 1,000 mg Q6H PRN Administration FEVER Allopurinol 100 mg 12/24/17 13:15 12/24/17 14:20 Zyloprim - PO 100 mg DAILY ELENA Administration Apixaban 5 mg 12/03/17 22:00 12/24/17 10:42 Eliquis - PO 5 mg BID ELENA Administration Docusate Sodium 100 mg 12/02/17 22:00 12/23/17 21:25 Colace - PO 100 mg HS ELENA Administration Ferrous Gluconate 324 mg 12/03/17 10:00 12/24/17 10:42 Fergon - PO 324 mg DAILY ELENA Administration Folic Acid 1 mg 12/03/17 10:00 12/24/17 10:42 Folic Acid - PO 1 mg DAILY ELENA Administration Furosemide 40 mg 12/17/17 10:00 12/24/17 10:42 Lasix - PO 40 mg DAILY ELENA Administration Hydroxychloroquine Sulfate 200 mg 12/02/17 22:00 12/24/17 10:42 Plaquenil - PO 200 mg BID ELENA Administration Levothyroxine Sodium 50 mcg 12/03/17 07:00 12/24/17 06:51 Synthroid - PO 50 mcg 0700 ELENA Administration Lorazepam 1 mg 12/03/17 10:00 12/24/17 10:42 Ativan - PO 1 mg DAILY ELENA Administration Metoprolol Succinate 50 mg 12/16/17 06:00 12/24/17 10:42 Toprol Xl - PO 50 mg BID ELENA Administration Pantoprazole Sodium 40 mg 12/03/17 10:00 12/24/17 10:41 Protonix - PO 40 mg DAILY ELENA Administration Risperidone 2 mg 12/03/17 11:01 12/24/17 10:42 Risperdal - PO 2 mg DAILY ELENA Administration Laboratory Tests 12/10/17 12/18/17 12/23/17 07:00 07:30 15:40 Creatinine Ur Random Sodium < 18 L Serum Cryoglobulins Rheumatoid Factor 1150.0 H c-ANCA Proteinase 3 (PR3) p-ANCA Atypical p-ANCA Double Strand DNA Ab <1 Complement C3 Complement C4 Tot Complement (CH50) 15 12/23/17 12/24/17 12/24/17 16:30 07:00 07:00 Creatinine 1.6 H Ur Random Sodium Serum Cryoglobulins Rheumatoid Factor c-ANCA Pending Proteinase 3 (PR3) Pending p-ANCA Pending Atypical p-ANCA Pending Double Strand DNA Ab Complement C3 Pending Complement C4 Pending Tot Complement (CH50) 12/24/17 07:00 Creatinine Ur Random Sodium Serum Cryoglobulins Pending Rheumatoid Factor c-ANCA Proteinase 3 (PR3) p-ANCA Atypical p-ANCA Double Strand DNA Ab Complement C3 Complement C4 Tot Complement (CH50) Impression 1. CKD vs JUAN DANIEL 2. anemia 3. leukopenia 4. microscopic hematuria 5. RA 6. hypothyroidism 7. CHF 8. asthma 9. GERD 10. a-fib 11. schizophrenia 12. non thrombotic purpura 13. nephrolithiasis 14. left pleural effusion Plan - pt has a stone on the ultrasound - serologic workup in progress - rheum follow up - cont to monitor renal function - pts baseline materials analyst is about 0.9 to 1 - will follow - urine sodium is low despite being on lasix, lasix dose is now po daily. Monitor PO intake - avoid nephrotoxins
[2017-12-24] MEDS ORDERED: PT OWN MED DRAWER 7, Y5N ONE (20:59)
[2017-12-24] MEDS: DOCUSATE SODIUM 100 MG CAPSULE (FP) PO SCH (21:13)
[2017-12-25] MEDS: LEVOTHYROXINE NA 50 MCG TABLET (FP) PO SCH (06:30)
[2017-12-25 08:17] LABS: HEMATOCRIT 28.1 % (32.4-45.2); HEMOGLOBIN 8.6 GM/dL (10.7-15.3); MCH 24.2 pg (25.7-33.7); MCHC 30.8 g/dl (32.0-36.0); MEAN CELL VOLUME 78.7 fl (80-96); MEAN PLT VOLUME 7.8 fl (7.5-11.1); PLATELET COUNT 185 K/MM3 (134-434); RBC 3.57 M/mm3 (3.60-5.2); RDW 23.9 % (11.6-15.6)
[2017-12-25 08:34] LABS: WHITE BLOOD COUNT 1.5 K/mm3 (4.0-10.0)
[2017-12-25 08:42] LABS: ANION GAP 7 MMOL/L (8-16); BLOOD UREA NITROGEN 44 mg/dL (7-18); CALCIUM 8.1 mg/dL (8.5-10.1); CHLORIDE 106 mmol/L (98-107); CO2 29 mmol/L (21-32); CREATININE 1.6 mg/dL (0.55-1.3); GLUCOSE,RANDOM 87 mg/dL (74-106); POTASSIUM 4.4 mmol/L (3.5-5.1); SODIUM 141 mmol/L (136-145)
[2017-12-25] MEDS: FUROSEMIDE 40 MG TABLET (FP) PO SCH (09:41)
[2017-12-25] MEDS: PANTOPRAZOLE 40 MG TABLET (FP) PO SCH (10:36)
[2017-12-25] MEDS: risperiDONE 1 MG TABLET (FP) PO SCH (10:36)
[2017-12-25] MEDS: APIXABAN 5 MG TABLET PO SCH (10:36)
[2017-12-25] MEDS: FOLIC ACID 1 MG TABLET (FP) PO SCH (10:36)
[2017-12-25] MEDS: HYDROXYCHLOROQUINE SO4 200 MG TABLET (FP) PO SCH (10:37)
[2017-12-25] MEDS: LORazepam 1 MG TABLET PO SCH (10:37)
[2017-12-25] MEDS: ALLOPURINOL 100 MG TABLET (FP) PO SCH (10:37)
[2017-12-25] MEDS: FERROUS GLUCONATE 324 MG TAB (FP) PO SCH (10:37)
--- NOTE | 2017-12-25 11:33 | PN ---
Progress Note (short form) - Note Progress Note: s: no cp palps dizzy sob o: Vital Signs Period Temp Pulse Resp BP Sys/Neal Pulse Ox Last 24 Hr 97.4 F-97.9 F 77-98 18-20 89-110/48-55 99 nad no jvd irreg s1s2 no mrg cta bl nl eff awake alert confused abd nt nd pos bs no jaundice diaphoresis no le edema Current Medications Generic Name Dose Route Start Last Admin Trade Name Freq PRN Reason Stop Dose Admin Acetaminophen 1,000 mg 12/10/17 23:10 12/14/17 21:07 Tylenol - PO 1,000 mg Q6H PRN Administration FEVER Allopurinol 100 mg 12/24/17 13:15 12/25/17 10:37 Zyloprim - PO 100 mg DAILY ELENA Administration Apixaban 5 mg 12/03/17 22:00 12/25/17 10:36 Eliquis - PO 5 mg BID ELENA Administration Docusate Sodium 100 mg 12/02/17 22:00 12/24/17 21:13 Colace - PO 100 mg HS ELENA Administration Ferrous Gluconate 324 mg 12/03/17 10:00 12/25/17 10:37 Fergon - PO 324 mg DAILY ELENA Administration Folic Acid 1 mg 12/03/17 10:00 12/25/17 10:36 Folic Acid - PO 1 mg DAILY ELENA Administration Furosemide 40 mg 12/17/17 10:00 12/25/17 09:41 Lasix - PO Not Given DAILY ELENA Hydroxychloroquine Sulfate 200 mg 12/02/17 22:00 12/25/17 10:37 Plaquenil - PO 200 mg BID ELENA Administration Levothyroxine Sodium 50 mcg 12/03/17 07:00 12/25/17 06:30 Synthroid - PO 50 mcg 0700 ELENA Administration Lorazepam 1 mg 12/03/17 10:00 12/25/17 10:37 Ativan - PO 1 mg DAILY ELENA Administration Metoprolol Succinate 50 mg 12/16/17 06:00 12/25/17 10:36 Toprol Xl - PO 50 mg BID ELENA Administration Pantoprazole Sodium 40 mg 12/03/17 10:00 12/25/17 10:36 Protonix - PO 40 mg DAILY ELENA Administration Risperidone 2 mg 12/03/17 11:01 12/25/17 10:36 Risperdal - PO 2 mg DAILY ELENA Administration CBC, BMP 12/25/17 06:50 12/25/17 06:50 ecg: afib, rate controlled, nl qtc, no ischemic changes echo 11/2017: tds; nl lv, rv tds, no sig valve path, nl rvsp echo repeat 12/14: nl LV/RV. mild MR, mild-mod TR. no vegetations reported. PASP 41 a/p: 82 f hx anemia, RA, hypothyroid, chf, afib, htn, sent from [place] for [place], dark stools. fever, strep bacteremia: -febrile to > 101 on 12/10 in pm, BCx growing beta-hemolytic strep; UCx with gram negative rods -echo here with no identifiable valve dysfunction on 12/03, will rpt study. no murmurs on exam. no convincing findings of acute pulm edema or acute exacerbation of chf based on CXR review, pt's creat bump to lasix x 1 dose, and phys exam. -rpt echo no vegetations or severe valve regurgitation. - source suspected, per ID, ? asp pna--abx per their recs-->finished course, observing off abx now acute diastolic chf: -echo unremarkable -no details available, pt on lasix 40 bid po at [place] -initial CXR here with evidence of chf and effusions. -treated with lasix 40 iv bid here. -bedscale wts only: trended down consistently from 231 to 221, up gradually to 228 now 219 today -changed to lasix 40 po bid on 12/09. -episode overnight 12/10 of fever accompanied by acute dyspnea--given IV lasix. sx's improved. repeat CXR at that time showed stable congestion, creat bumped hence lasix held 12/11. ? sx's were due to hi fever with bacteremia (BCx positive now) and resolved when she defervesced. -12/14: renal fxn initially worsening likely due to sepsis/baceteremia. now improving. appears stable volume status, with bibasilar abnormal lung - cont holding PO lasix for now while treating infection with stable volume status, CXR today is unchanged -12/15: remains compensated, no sob. hold lasix as renal fxn improves--would resume lasix in 24-48 hrs to try to improve effusions, assuming renal fxn stable -12/16-12/17: cr stable/improved. will resume po lasix 40 qd 12/17 (was on 40 po bid when became dry). - 12/18-: stable volume status, continue lasix 40 mg PO daily-->held today due to low bp JUAN DANIEL: -no baseline creat data available -creat 1.5 on admit, improved with diuresis -bumped again 12/11 ? due to acute chf again, vs lasix dose -lasix as above dark stools, anemia, neutropenia: -being evaluated by GI, Heme -hgb currently stable afib: -rate controlled -bp's soft here, + bacteremia/sepsis picture. cont metopr succ 50 bid -has been on eliquis, continued here, monitor hgb trend hypothyroid: -tsh elevated, synthroid dosing per pmd htn: -on low side, remains on bb for rate control
[2017-12-25] MEDS ORDERED: TBO-FILGRASTIM 480 MCG/0.8 ML DISP.SYRIN SQ ONE (14:30)
[2017-12-25] MEDS ORDERED: SODIUM CHLORIDE 250 ML IV STA (15:04)
--- NOTE | 2017-12-25 15:04 | PN ---
Progress Note, Physician History of Present Illness: Pt seen and examined at bedside. SHe was hypotensive and lasix was held. She denies shortness of breath. - Current Medication List Current Medications: Active Medications Acetaminophen (Tylenol -) 1,000 mg PO Q6H PRN PRN Reason: FEVER Last Admin: 12/14/17 21:07 Dose: 1,000 mg Allopurinol (Zyloprim -) 100 mg PO DAILY [facility] Last Admin: 12/25/17 10:37 Dose: 100 mg Apixaban (Eliquis -) 5 mg PO BID [facility] Last Admin: 12/25/17 10:36 Dose: 5 mg Docusate Sodium (Colace -) 100 mg PO HS [facility] Last Admin: 12/24/17 21:13 Dose: 100 mg Ferrous Gluconate (Fergon -) 324 mg PO DAILY [facility] Last Admin: 12/25/17 10:37 Dose: 324 mg Folic Acid (Folic Acid -) 1 mg PO DAILY [facility] Last Admin: 12/25/17 10:36 Dose: 1 mg Furosemide (Lasix -) 40 mg PO DAILY [facility] Last Admin: 12/25/17 09:41 Dose: Not Given Hydroxychloroquine Sulfate (Plaquenil -) 200 mg PO BID [facility] Last Admin: 12/25/17 10:37 Dose: 200 mg Levothyroxine Sodium (Synthroid -) 50 mcg PO 0700 [facility] Last Admin: 12/25/17 06:30 Dose: 50 mcg Lorazepam (Ativan -) 1 mg PO DAILY [facility] Last Admin: 12/25/17 10:37 Dose: 1 mg Metoprolol Succinate (Toprol Xl -) 50 mg PO BID [facility] Last Admin: 12/25/17 10:36 Dose: 50 mg Pantoprazole Sodium (Protonix -) 40 mg PO DAILY [facility] Last Admin: 12/25/17 10:36 Dose: 40 mg Risperidone (Risperdal -) 2 mg PO DAILY [facility] Last Admin: 12/25/17 10:36 Dose: 2 mg - Objective Vital Signs: Vital Signs Temperature 98.1 F 12/25/17 13:58 Pulse Rate 91 H 12/25/17 13:58 Respiratory Rate 21 H 12/25/17 13:58 Blood Pressure 119/60 12/25/17 13:58 O2 Sat by Pulse Oximetry (%) 99 12/24/17 20:32 Constitutional: Yes: Calm Eyes: Yes: Conjunctiva Clear Cardiovascular: Yes: S1, S2 Respiratory: Yes: CTA Bilaterally Gastrointestinal: Yes: Soft, Abdomen, Obese Genitourinary: Yes: Incontinence Edema: Yes Edema: LLE: 1+, RLE: 1+ Integumentary: Yes: Erythema Neurological: Yes: Oriented Labs: CBC, BMP 12/25/17 06:50 12/25/17 06:50 INR, PTT INR 2.44 (0.83-1.09) H 12/02/17 15:35 Assessment/Plan Current Medications Generic Name Dose Route Start Last Admin Trade Name Freq PRN Reason Stop Dose Admin Acetaminophen 1,000 mg 12/10/17 23:10 12/14/17 21:07 Tylenol - PO 1,000 mg Q6H PRN Administration FEVER Allopurinol 100 mg 12/24/17 13:15 12/25/17 10:37 Zyloprim - PO 100 mg DAILY ELENA Administration Apixaban 5 mg 12/03/17 22:00 12/25/17 10:36 Eliquis - PO 5 mg BID ELENA Administration Docusate Sodium 100 mg 12/02/17 22:00 12/24/17 21:13 Colace - PO 100 mg HS ELENA Administration Ferrous Gluconate 324 mg 12/03/17 10:00 12/25/17 10:37 Fergon - PO 324 mg DAILY ELENA Administration Folic Acid 1 mg 12/03/17 10:00 12/25/17 10:36 Folic Acid - PO 1 mg DAILY ELENA Administration Furosemide 40 mg 12/17/17 10:00 12/25/17 09:41 Lasix - PO Not Given DAILY ELENA Hydroxychloroquine Sulfate 200 mg 12/02/17 22:00 12/25/17 10:37 Plaquenil - PO 200 mg BID ELENA Administration Levothyroxine Sodium 50 mcg 12/03/17 07:00 12/25/17 06:30 Synthroid - PO 50 mcg 0700 ELENA Administration Lorazepam 1 mg 12/03/17 10:00 12/25/17 10:37 Ativan - PO 1 mg DAILY ELENA Administration Metoprolol Succinate 50 mg 12/16/17 06:00 12/25/17 10:36 Toprol Xl - PO 50 mg BID ELENA Administration Pantoprazole Sodium 40 mg 12/03/17 10:00 12/25/17 10:36 Protonix - PO 40 mg DAILY ELENA Administration Risperidone 2 mg 12/03/17 11:01 12/25/17 10:36 Risperdal - PO 2 mg DAILY ELENA Administration Laboratory Tests 12/23/17 12/24/17 12/24/17 16:30 07:00 07:00 Serum Cryoglobulins Pending c-ANCA Pending Proteinase 3 (PR3) Pending p-ANCA Pending Atypical p-ANCA Pending Myeloperoxidase Ab Pending Complement C3 85 Complement C4 25 Impression 1. CKD vs JUAN DANIEL 2. anemia 3. leukopenia 4. microscopic hematuria 5. RA 6. hypothyroidism 7. CHF 8. asthma 9. GERD 10. a-fib 11. schizophrenia 12. non thrombotic purpura 13. nephrolithiasis 14. left pleural effusion 15. gout Plan - renal function has not worsened - bp is low, agree with holding lasix - will give a 250 cc fluid bolus - repeat labs in am - follow serologies - avoid nephrotoxins
[2017-12-25 15:55] VITALS: BMI 37.8
[2017-12-25 17:18] VITALS: BP 110/56; PULSE 98; TEMP 97.6
--- NOTE | 2017-12-25 20:49 | DS ---
Physical Exam: SUBJECTIVE: Patient seen and examined. Being discharged to [facility] today. Patient reports she is feeling well. Denies SOB, chest pain, n/v/d. OBJECTIVE: Vital Signs Period Temp Pulse Resp BP Sys/Neal Pulse Ox Last 24 Hr 97.4 F-98.1 F 79-98 20-21 89-119/48-60 99 PHYSICAL EXAM GENERAL: Alert, A&O x [address], no acute distress HEAD: Normal with no signs of trauma. EYES: PERRL, extraocular movements intact, sclera anicteric, conjunctiva clear. No ptosis. ENT: Nares patent, oropharynx clear without exudates, moist mucous membranes. NECK: Trachea midline, full range of motion, supple. LUNGS: +NC, breath sounds equal, clear to auscultation bilaterally, no wheezes, no crackles, no accessory muscle use. HEART: Regular rate and rhythm, S1, S2 without murmur, rub or gallop. ABDOMEN: Obese, soft, nontender, nondistended, normoactive bowel sounds, no guarding, no rebound, no hepatosplenomegaly, no masses. EXTREMITIES: 2+ pulses, warm, well-perfused, +1 edema to b/l LE. NEUROLOGICAL: No facial droop, tongue midline. Normal speech, gait not observed. PSYCH: Normal mood, normal affect. SKIN: Warm, dry, normal turgor, no rashes or lesions noted LABS Laboratory Results - last 24 hr 12/23/17 12/25/17 12/25/17 16:30 06:50 06:50 WBC 1.5 L* RBC 3.57 L Hgb 8.6 L Hct 28.1 L MCV 78.7 L MCH 24.2 L MCHC 30.8 L RDW 23.9 H Plt Count 185 MPV 7.8 Sodium 141 Potassium 4.4 Chloride 106 Carbon Dioxide 29 Anion Gap 7 L BUN 44 H Creatinine 1.6 H Creat Clearance w eGFR 30.86 Random Glucose 87 Calcium 8.1 L Complement C3 85 Complement C4 25 HOSPITAL COURSE: Date of Admission:12/04/17 Date of Discharge: 12/25/17 ASSESSMENT/PLAN: 82 year old female with a PMH significant for anemia, RA, hypothyroid, chf, afib , htn, sent from [facility] for anemia and dark stools. Bacteremia -Likely secondary to UTI which enterococcal bacteremia is likely source vs aspiration pneumoina -Completed 14 day course of IV Vancomycin -Suspected Aspiration PNA -Completed course of Cefepime -Aspiration precautions -Chopped diet, nectar thick liquids -Still on O2 @2LPM, plan to wean -Incentive spirometry Anemia -Received 3 transfusions -Hgb baseline 7-9, today 8.6 -Seen by oncologist Dr. Garvin -no obvious diagnosis for neutropenia. -Possible autoimmune etiology. Awaiting anti-neutrophil antibodies. -If hematologic disorder was detected, reluctant to do bone marrow as even would not be inclined to treat in view of poor performance status. -R/O GI bleed -Continue Protonix 40 mg -F/u as outpatient Hyperuricemia -Uric acid 14.4 -Spoke with Dr. Alvarenga and he recommended starting Allopurinol qday x 2 weeks , then increasing to 200 mg qday afterwards Leukopenia -1.5 today -Given dose of Granix todday -Continue to monitor CBC OP -Neutropenic precautions not required -Follow up with hematology Diastolic CHF -Seen by cementer machine applicator Dr. Nguyen -Currently euvolemic -Continue Lasix 40 mg -Metoprolol Succinate 50 mg BID -Monitor BMP and urinary output RA -Seen by hypnotherapist Dr. Guillen -Dormant -1150 and ELMER 1:640 with homogeneous pattern -CH50 initially 41 (n<41) and on 12/18/17: 15. -Low CH50 and high RF, r/o cryoglobulinemia. -Continue Plaquenil 200 mg qday -Complement C3, C4 WNL - CCP pending Hypothyroidism with elevated TSH -Continue Synthroid 50 mcg -Recheck TSH and adjust dose OP; monitor. -No myedema coma, etc. Bipolar Disorder -Spoke with patient's OP psychiatrist Dr. Hawkins, sister adamant about patient stopping Risperidone 2 mg. Psychiatrist agreed and recommended increasing Ativan 1 mg qday to TID. Minutes to complete discharge: 40 Discharge Summary Reason For Visit: ANEMIA Condition: Stable - Instructions Diet, Activity, Other Instructions: Patient Shruti Humphreys was admitted to [facility] from 12/02/17 - . She was treated with IV antibiotics for UTI and Pneumonia. She was given 2 blood transfusions for anemia. She was seen by ID, oncology, rhuematology, and GI. She has ongoing leukopenia, with volatile WBC counts, today WBC count is 1.5. Must have repeat CBC within 2 days upon discharge and possible follow up with hematology. Sepsis -Likely secondary to UTI which enterococcal bacteremia is likely source vs aspiration pneumoina -Completed 14 day course of IV Vancomycin -ID Dr. Salazar d/gwen yesterday Suspected Aspiration PNA -Completed course of Cefepime -Aspiration precautions -Chopped diet, nectar thick liquids -Still on O2 @2LPM, plan to wean -Incentive spirometry Anemia -Irone supplement -Continue Protonix 40 mg -F/u as outpatient -Monitor CBC Hyperuricemia -Uric acid 14.4 -Started on Allopurinol qday x 2 weeks, then increase to 200 mg qday Diastolic CHF -Continue Lasix 40 mg -Metoprolol Succinate 50 mg BID -Monitor BMP and urinary output RA -Continue Plaquenil 200 mg qday Hypothyroidism with elevated TSH -Continue Synthroid 50 mcg -Recheck TSH and adjust dose OP; monitor. Bipolar Disorder -Conitnue Ativan 1 mg daily -Risperidone 2 mg daily I am available for questions. Sarah Mendoza NP [facility] [phone] Referrals: Alek Mcgrath MD [Primary Care Provider] - Jerzy Hi DO [Staff Physician] - Tono Alvarenga MD [Staff Physician] - Sharath Nguyen MD [Staff Physician] - Disposition: INTERMEDIATE FACILITY - Home Medications Comprehensive Discharge Medication List: Ambulatory Orders Docusate Sodium [Colace] 100 mg PO HS 12/02/17 Ferrous Gluconate [Fergon -] 324 mg PO DAILY 12/02/17 Folic Acid 1 mg PO DAILY 12/02/17 Furosemide [Lasix] 40 mg PO BID 12/02/17 Hydroxychloroquine Sulfate 200 mg PO BID 12/02/17 Levothyroxine [Synthroid -] 50 mcg PO DAILY 12/02/17 Lorazepam [Ativan] 1 mg PO DAILY 12/02/17 Metolazone 2.5 mg PO WEEKLY 12/02/17 Metoprolol Succinate [Toprol Xl] 125 mg PO DAILY 12/02/17 Pantoprazole Sodium 40 mg PO DAILY 12/02/17 Potassium Chloride 20 meq PO BID 12/02/17 Allopurinol [Zyloprim -] 100 mg PO DAILY tablet 12/25/17 Apixaban [Eliquis -] 5 mg PO BID tablet 12/25/17 Furosemide [Lasix -] 40 mg PO DAILY tablet 12/25/17 Metoprolol Succinate [Toprol XL -] 50 mg PO BID tab.sr.24h 12/25/17 This patient is new to me today: No Emergency Visit: No Critical Care patient: No - Discharge Referral Referred to [facility] Med P.C.: No
[2017-12-26 00:08] LABS: CYCLIC CITRULLINE PEPTIDE AB >250 units (0-19)
[2017-12-29 14:17] LABS: ATYPICAL pANCA <1:20 titer (Neg:<1:20); C-ANCA <1:20 titer (Neg:<1:20); P-ANCA <1:20 titer (Neg:<1:20)
== END 2017-12-25 16:50 | DRG 377 ==
LOC: JER 14:41 → JERBED 17:12 → J6S 21:47 → OBSVTOIN 12-04 09:28 → J6S 12-07 16:46
PROVIDERS: ADMIT Internal Medicine; ATTEND Nurse Practitioner Adult Health
PROC: 30233N1 Transfusion of Nonautologous Red Blood Cells into Peripheral Vein, Percutaneous Approach (ICD-10-PCS; principal; 2017-12-02)
DX: K92.2 Gastrointestinal hemorrhage, unspecified (principal); I50.33 Acute on chronic diastolic (congestive) heart failure; J69.0 Pneumonitis due to inhalation of food and vomit; N39.0 Urinary tract infection, site not specified; R78.81 Bacteremia; N17.9 Acute kidney failure, unspecified; D50.0 Iron deficiency anemia secondary to blood loss (chronic); M10.9 Gout, unspecified; F25.0 Schizoaffective disorder, bipolar type; I48.2 Chronic atrial fibrillation; I11.0 Hypertensive heart disease with heart failure; D69.2 Other nonthrombocytopenic purpura; Z79.01 Long term (current) use of anticoagulants; D70.9 Neutropenia, unspecified; M06.9 Rheumatoid arthritis, unspecified; E03.9 Hypothyroidism, unspecified; J45.991 Cough variant asthma; K21.9 Gastro-esophageal reflux disease without esophagitis; E55.9 Vitamin D deficiency, unspecified; E11.9 Type 2 diabetes mellitus without complications; Z87.891 Personal history of nicotine dependence; E66.9 Obesity, unspecified; Z68.38 Body mass index [BMI] 38.0-38.9, adult; E88.09 Other disorders of plasma-protein metabolism, not elsewhere classified; L89.151 Pressure ulcer of sacral region, stage 1; L89.892 Pressure ulcer of other site, stage 2; Z88.0 Allergy status to penicillin; B95.5 Unspecified streptococcus as the cause of diseases classified elsewhere; B95.2 Enterococcus as the cause of diseases classified elsewhere; B96.1 Klebsiella pneumoniae [K. pneumoniae] as the cause of diseases classified elsewhere; I36.1 Nonrheumatic tricuspid (valve) insufficiency; R31.29 Other microscopic hematuria; N20.0 Calculus of kidney
CPT/HCPCS: 36415; 36430; 71045-TC-FY; 73130-TC-LR-FY; 73130-TC-RT-FY; 74230-TC-FY; 76700-TC; 76775-TC; 80048; 80053; 80076; 81003; 81015; 82272; 82436; 82570; 82595; 82607; 82728; 82747; 82784; 83520; 83540; 83550; 83735; 83880; 83883; 84132; 84133; 84155; 84156; 84157; 84165; 84300; 84439; 84443; 84481; 84550; 85014; 85025; 85027; 85610; 85651; 86038; 86160; 86162; 86200; 86225; 86256; 86334; 86431; 86850; 86900; 86901; 86922; 87040; 87086; 87186; 87205; 88300-TC; 92611-GN; 93005; 93010; 93306-TC; 97161-GP; 99283-25; G0378; G0480; J1447; J1756; J2794; P9038; P9058

== ENCOUNTER 2018-01-04 17:33 | Inpatient (IN) | payer OTHER ==
[2018-01-04] MEDS ORDERED: ALBUTEROL SO4 2.5/IPRATROPIUM 0.5 INH SOL 3 ML VIAL.NEB. NEB ONE (18:45)
--- NOTE | 2018-01-04 18:45 | PDOC ---
History of Present Illness - General Chief Complaint: Shortness of Breath Stated Complaint: CHF Time Seen by Provider: 01/04/18 18:06 History Source: Patient Exam Limitations: No Limitations - History of Present Illness Initial Comments: 01/04/18 19:05 82 year old female with a significant PMH of diastolic CHF iron deficiency anemia, rheumatoid arthritis, hypothyroidism, CHF, GERD, asthma, vitamin D deficiency, dementia, bipolar disorder, atrial fib, hypertension, and diabetes sent from [facility] for abnormal lung sounds and increased respiratory rate. Discharged 10 days ago from our hospital for Sepsis and acute on chronic CHF exacerbation. Patient cannot communicate very well due to the dementia. sitting on the bed, saturating 96% on non-rebreather. Incidentally patient has also a history of neutropenia with unclear etiology as patient declined bone marrow testing last admission. PCP: Dr. Mcgrath Past History - Past Medical History Allergies/Adverse Reactions: Allergies Allergy/AdvReac Type Severity Reaction Status Date / Time Penicillins Allergy Verified 01/04/18 17:51 tetracycline Allergy Verified 01/04/18 17:51 Home Medications: Ambulatory Orders Albuterol 2.5/Ipratropium 0.5 [Duoneb -] 1 neb IH QID 01/04/18 Allopurinol [Zyloprim -] 100 mg PO DAILY 01/04/18 Apixaban [Eliquis -] 5 mg PO BID 01/04/18 Docusate Sodium [Colace] 100 mg PO DAILY 01/04/18 Folic Acid 1 mg PO DAILY 01/04/18 Furosemide [Lasix] 40 mg PO DAILY 01/04/18 Hydroxychloroquine Sulfate [Plaquenil] 200 mg PO DAILY 01/04/18 LORazepam [Ativan] 1 mg PO DAILY 01/04/18 Levothyroxine [Synthroid -] 75 mcg PO DAILY 01/04/18 Metolazone [Zaroxolyn -] 2.5 mg PO WEEKLY 01/04/18 Metoprolol Succinate [Toprol Xl -] 50 mg PO BID 01/04/18 Pantoprazole Sodium [Protonix] 40 mg PO DAILY 01/04/18 Potassium Chloride [K-Dur -] 20 meq PO DAILY 01/04/18 Anemia: Yes Asthma: Yes Cardiac Disorders: Yes (afib) COPD: No CHF: Yes GI Disorders: Yes (gerd) Psychiatric Problems: Yes (bipolar, schizophrenia, anxiety) Thyroid Disease: Yes (hypothyroid) - Suicide/Smoking/Psychosocial Hx Smoking History: Never smoked Have you smoked in the past 12 months: No Information on smoking cessation initiated: No Hx Alcohol Use: No Drug/Substance Use Hx: No Substance Use Type: None Hx Substance Use Treatment: No Review of Systems - Review of Systems Able to Perform ROS?: No (dementia) *Physical Exam - Vital Signs Last Vital Signs Temp Pulse Resp BP Pulse Ox 100.4 F H 80 22 H 145/59 L 98 01/04/18 19:49 01/04/18 20:00 01/04/18 20:00 01/04/18 20:00 01/04/18 20:00 - Physical Exam General Appearance: Yes: Moderate Distress, Obese HEENT: positive: EOMI, MIKE, Normal ENT Inspection Neck: positive: Supple. negative: Tender Respiratory/Chest: positive: Labored Respiration, Rapid RR, Decreased Breath Sounds, Crackles Cardiovascular: positive: S1, S2, Tachycardia Gastrointestinal/Abdominal: positive: Soft, Protuberent Musculoskeletal: positive: Normal Inspection. negative: CVA Tenderness Extremity: positive: Normal Capillary Refill, Normal Inspection Integumentary: positive: Normal Color, Dry, Warm. negative: Diaphoresis, Rash Neurologic: positive: Confused, Disoriented ED Treatment Course - LABORATORY CBC & Chemistry Diagram: 01/04/18 18:30 01/04/18 18:30 - ADDITIONAL ORDERS Additional order review: Laboratory Results 01/04/18 01/04/18 01/04/18 19:08 19:08 18:30 PT with INR INR PTT (Actin FS) Sodium Potassium Chloride Carbon Dioxide Anion Gap BUN Creatinine Creat Clearance w eGFR Random Glucose Lactic Acid 1.5 Calcium Magnesium Total Bilirubin AST ALT Alkaline Phosphatase Troponin I B-Natriuretic Peptide Total Protein Albumin Urine Color Ltyellow Urine Appearance Slcloudy Urine pH 5.0 Ur Specific Alt[place] 1.006 L Urine Protein Negative Urine Glucose (UA) Negative Urine Ketones Negative Urine Blood 2+ H Urine Nitrite Negative Urine Bilirubin Negative Urine Urobilinogen Negative Ur Leukocyte Esterase Negative Urine WBC (Auto) None Urine RBC (Auto) None Ur Epithelial Cells Rare Urine Mucus Rare U Random Total Protein 9 Ur Random Sodium 79 01/04/18 01/04/18 18:30 18:30 PT with INR 26.90 H INR 2.26 H PTT (Actin FS) 37.1 H Sodium 138 Potassium 2.9 L* Chloride 98 Carbon Dioxide 29 Anion Gap 11 BUN 38 H Creatinine 1.1 Creat Clearance w eGFR 47.55 Random Glucose 97 Lactic Acid Calcium 8.0 L Magnesium 1.9 Total Bilirubin 0.5 AST 31 ALT 23 Alkaline Phosphatase 180 H Troponin I 0.02 B-Natriuretic Peptide 73295.1 H Total Protein 7.4 Albumin 2.1 L Urine Color Urine Appearance Urine pH Ur Specific Alt[place] Urine Protein Urine Glucose (UA) Urine Ketones Urine Blood Urine Nitrite Urine Bilirubin Urine Urobilinogen Ur Leukocyte Esterase Urine WBC (Auto) Urine RBC (Auto) Ur Epithelial Cells Urine Mucus U Random Total Protein Ur Random Sodium 01/04/18 18:30 RBC 3.25 L MCV 78.3 L MCHC 31.7 L RDW 22.2 H MPV 7.7 Neutrophils % 77.0 Lymphocytes % 15.0 D Monocytes % 6.3 Eosinophils % 0.7 D Basophils % 1.0 - Medications Given in the ED: ED Medications Discontinued Medications Generic Name Dose Route Start Last Admin Trade Name Yongq PRN Reason Stop Dose Admin Albuterol/Ipratropium 1 amp 01/04/18 18:45 01/04/18 19:22 Duoneb - NEB 01/04/18 18:46 Not Given ONCE ONE Furosemide 40 mg 01/04/18 18:46 01/04/18 20:25 Lasix Injection - IVPUSH 01/04/18 18:47 Not Given ONCE ONE Furosemide 40 mg 01/04/18 20:12 01/04/18 20:25 Lasix Injection - IVPUSH 01/04/18 20:13 40 mg ONCE ONE Administration Potassium Chloride 20 meq 01/04/18 20:33 01/04/18 20:50 Potassium Chloride 20 Meq Premix Ivpb - IVPB 01/04/18 20:34 20 meq ONCE ONE Administration Vancomycin HCl 1,000 mg 01/04/18 19:59 01/04/18 20:13 Vancomycin (Pre-Docked) IVPB 01/04/18 20:00 1,000 mg ONCE ONE Administration Protocol Medical Decision Making - Medical Decision Making 01/04/18 19:41 82f with dementia, diastolic CHF, presents to the ED with difficulty breathing. Acute on chronic CHF exacerbation vs pneumonia +/- sepsis. The patient is known to have diastolic CHF and her lungs sound wet, consistent with that diagnosis. Will obtain cxr to confirm pulmonary effusion as well as BNP HOwever because the patient feels warm to the touch and we are unable to have a mental status baseline we can;t rule out sepsis until we obtain rectal temp, basic labs and cultures. Pulmonary effusion on xray.Elevated Bnp in the [address]'s. Will give patient 40mn of IV lasix to start, as the rest of the labs are pending. 01/04/18 21:14 Will start patient on IV vanco for treatment of fever . We know at this point that the urine is not the source. Possibly pneumonia. Rectal temp is mildly elevated, patient saturating well. Treating hypokalemia with IV potassium. Patient admitted to Med/surg under the care of Dr. Garcia. *DC/Admit/Observation/Transfer Diagnosis at time of Disposition: CHF (congestive heart failure), Sepsis - Discharge Dispostion Decision to Admit order: Yes Decision to Admit order Date/Time: Decision to Admit Order Category Date Time Status Decision to Admit to Hospital Routine Admission 01/04/18 20:53 Active - Referrals - Patient Instructions - Post Discharge Activity
[2018-01-04] MEDS ORDERED: FUROSEMIDE 40 MG/4 ML INJECTABLE VIAL IVPUSH ONE ×2 (18:46→20:12)
[2018-01-04 19:20] LABS: EOS % 0.7 % (0-4.5); HEMATOCRIT 25.5 % (32.4-45.2); HEMOGLOBIN 8.1 GM/dL (10.7-15.3); MCH 24.8 pg (25.7-33.7); MCHC 31.7 g/dl (32.0-36.0); MEAN CELL VOLUME 78.3 fl (80-96); MEAN PLT VOLUME 7.7 fl (7.5-11.1); MONO % 6.3 % (3.8-10.2); PLATELET COUNT 262 K/MM3 (134-434); RBC 3.25 M/mm3 (3.60-5.2); RDW 22.2 % (11.6-15.6); WHITE BLOOD COUNT 2.5 K/mm3 (4.0-10.0)
--- NOTE | 2018-01-04 19:24 | PDOC ---
Attending Attestation - Resident Resident Name: Behzad Hancock - [facility] HPI: 01/04/18 20:32 The patient is an 82 year old female with a past medical history of diastolic CHF, neutropenia, dementia, bipolar disorder, asthma, hypothyroidism, and discharged 10 days ago for sepsis and CHF exacerbation, who presents to the emergency department for evaluation of shortness of breath, increased respiratory rate, and increased swelling in lower extremities. Allergies: Penicillins, tetracycline - Physicial Exam PE: GENERAL: Alert, diffuse sentences HEAD: No signs of trauma EYES: PERRLA, EOMI, sclera anicteric, conjunctiva clear ENT: Auricles normal inspection, hearing grossly normal, nares patent, oropharynx clear without exudates. Moist mucosa NECK: Normal ROM, supple, no lymphadenopathy, JVD, or masses LUNGS: (+)Mildly tachypneic. (+)Mild crackles at bases. HEART: Regular rate and rhythm, normal S1 and S2, no murmurs, rubs or gallops ABDOMEN: Soft, nontender, normoactive bowel sounds. No guarding, no rebound. No masses EXTREMITIES: (+)Trace edema to mid calf bilaterally. NEUROLOGICAL: Cranial nerves II through XII grossly intact. Normal speech, normal gait SKIN: Warm, Dry, normal turgor, no rashes or lesions noted. <David Elam - Last Filed: 01/04/18 20:32> - Medical Decision Making 01/04/18 20:59 Pt presents to the ED after sent in from [place] for shortness of breath. Long standing history of bacteremia with neutropenia and CHF with diastolic disease. febrile in the ED. Ua is negative. <Aleksandra Durham - Last Filed: 01/04/18 21:03> Attestations - Attestations Documentation prepared by David Elam, acting as medical staff credentialing coordinator for Aleksandra Durham MD. <David Elam - Last Filed: 01/04/18 20:32>
[2018-01-04 19:28] LABS: INR 2.26 (0.83-1.09); PROTHROMBIN TIME (PATIENT) 26.9 SEC (9.7-13.0)
[2018-01-04 19:30] LABS: ACTIVATED PTT 37.1 SECONDS (25.2-36.5)
[2018-01-04 19:54] LABS: URINE APPEARANCE SLCLOUDY; URINE BILIRUBIN NEGATIVE (<2.0 mg/dL); URINE COLOR LTYELLOW; URINE GLUCOSE (UA) NEGATIVE (NEGATIVE); URINE KETONE NEGATIVE (NEGATIVE); URINE LEUK ESTERASE NEGATIVE (NEGATIVE); URINE NITRITE NEGATIVE (NEGATIVE); URINE PROTEIN NEGATIVE (NEGATIVE); URINE UROBILINOGEN NEGATIVE mg/dL (0.2-1.0)
[2018-01-04 19:57] LABS: ALBUMIN 2.1 g/dl (3.4-5.0); ALK PHOS 180 U/L (45-117); ANION GAP 11 MMOL/L (8-16); BILIRUBIN,TOTAL 0.5 mg/dL (0.2-1); BLOOD UREA NITROGEN 38 mg/dL (7-18); CHLORIDE 98 mmol/L (98-107); CO2 29 mmol/L (21-32); CREATININE 1.1 mg/dL (0.55-1.3); GLUCOSE,RANDOM 97 mg/dL (74-106); MAGNESIUM 1.9 mg/dL (1.8-2.4); N-TERMINAL BNP 14597.1 pg/ml (5-450); SGOT/AST 31 U/L (15-37); SGPT/ALT 23 U/L (13-61); SODIUM 138 mmol/L (136-145); TOT PROT 7.4 g/dl (6.4-8.2)
[2018-01-04] MEDS ORDERED: VANCOMYCIN 1 GRAM (PRE-DOCKED) 1,000 MG/250 ML BAG IVPB ONE ×2 (19:59→20:08)
[2018-01-04 20:03] LABS: POTASSIUM 2.9 mmol/L (3.5-5.1)
[2018-01-04 20:20] LABS: EPI CELLS RARE /HPF (FEW); URINE MUCUS RARE
[2018-01-04] MEDS ORDERED: FUROSEMIDE 40 MG/4 ML INJECTABLE VIAL ONE (20:23)
[2018-01-04] MEDS ORDERED: POTASSIUM CHLORIDE 20 MEQ PREMIX IVPB 100 ML IVPB ONE (20:33)
[2018-01-04] MEDS ORDERED: KCL 10 MEQ IVPB 10 MEQ/100 ML INFUS.BAG IVPB ONE (20:36)
--- NOTE | 2018-01-04 21:13 | PN ---
Teaching Attending Note Name of Resident: Juan Galan ATTENDING PHYSICIAN STATEMENT I saw and evaluated the patient. I reviewed the resident's note and discussed the case with the resident. I agree with the resident's findings and plan as documented. SUBJECTIVE: Patient is an 82 year old woman with a past PMH of diastolic CHF, afib on eliquis, neutropenia, dementia, penicillin allergy, bipolar disorder, asthma, hypothyroidism, and discharged 10 days ago for sepsis and CHF exacerbation, who presents to the ER form [facility] for evaluation of shortness of breath , increased respiratory rate, and increased swelling in lower extremities. OBJECTIVE: Alert Vital Signs Period Temp Pulse Resp BP Sys/Neal Pulse Ox Last 24 Hr 98.3 F-100.4 F 80-130 22-26 101-145/49-59 98-100 HEENT: No Jaundice, eye redness or discharge, PERRLA, Dry mucous membrane. Poor dentition. Normocephalic, atraumatic. External ears are normal. No nasal discharge. Neck: Supple, nontender. No palpable adenopathy or thyromegaly. No JVD Chest: Good effort. Bibasilar crackles; Clear to percussion. Heart: Regular. No S3, rub or murmur Abdomen: Not distended, soft, nontender and no HSM. No rebound or guarding. Normoactive bowel sounds. Ext: Peripheral pulses intact. Leg edema. Skin: Warm and dry. No petechiae, rash or ecchymosis. Neuro: Alert. Oriented to person. CN 2-12 grossly intact. Sensation grossly intact in all four extremities and DTR are symmetric. Home Medications Medication Instructions Recorded Albuterol 2.5/Ipratropium 0.5 1 neb IH QID 01/04/18 [Duoneb -] Allopurinol [Zyloprim -] 100 mg PO DAILY 01/04/18 Apixaban [Eliquis -] 5 mg PO BID 01/04/18 Docusate Sodium [Colace] 100 mg PO DAILY 01/04/18 Folic Acid 1 mg PO DAILY 01/04/18 Furosemide [Lasix] 40 mg PO DAILY 01/04/18 Hydroxychloroquine Sulfate 200 mg PO DAILY 01/04/18 [Plaquenil] LORazepam [Ativan] 1 mg PO DAILY 01/04/18 Levothyroxine [Synthroid -] 75 mcg PO DAILY 01/04/18 Metolazone [Zaroxolyn -] 2.5 mg PO WEEKLY 01/04/18 Metoprolol Succinate [Toprol Xl -] 50 mg PO BID 01/04/18 Pantoprazole Sodium [Protonix] 40 mg PO DAILY 01/04/18 Potassium Chloride [K-Dur -] 20 meq PO DAILY 01/04/18 Abnormal Lab Results 01/04/18 01/04/18 01/04/18 18:30 18:30 18:30 WBC 2.5 L RBC 3.25 L Hgb 8.1 L Hct 25.5 L MCV 78.3 L MCH 24.8 L MCHC 31.7 L RDW 22.2 H PT with INR 26.90 H INR 2.26 H PTT (Actin FS) 37.1 H Potassium 2.9 L* BUN 38 H Calcium 8.0 L Alkaline Phosphatase 180 H B-Natriuretic Peptide 78562.1 H Albumin 2.1 L Ur Specific [place] Urine Blood 01/04/18 19:08 WBC RBC Hgb Hct MCV MCH MCHC RDW PT with INR INR PTT (Actin FS) Potassium BUN Calcium Alkaline Phosphatase B-Natriuretic Peptide Albumin Ur Specific Ming[place] 1.006 L Urine Blood 2+ H ASSESSMENT AND PLAN: 1. Diastolic CHF Exacerbation and SIRS - Patient has features of exacerbation of CHF. Will diurese gently, restrict salt intake and get daily weights. Consult cardiology for input on outpatient management of her diastolic CHF. Source of low grade fever is unclear and leukopenia is chronic. CXR shows bilateral effusions, pulmonary congestion and cardiomegaly. Will get chest CT to rule out pneumonia. Had enterococcal bacteremia last month. Will treat with IV vancomycin and levaquin pending culture report. Consult ID and Hematology. Hypokalemia likely due to effect of diuresis and poor intake. Check Mg+ and continue KCL therapy. 2. Hypoalbuminemia - Possibly due to combined effects of malnutrition and inflammation associated with comorbid chronic conditions. Will ensure adequate dietary protein intake and also consult log grader. 3. Anemia - Known to have Iron Def. anemia and possible GI bleeding. Will benefit from colonoscopy. Needs IV iron to preepmt future blood transfusion. 4. Obesity - Will provide patient all the necessary assistance , counseling and positive reinforcement to facilitate weight loss. Consult log grader. 5. DVT prophylaxis - Patient on Eliquis 6. Advance directives - Full code
[2018-01-04] MEDS: KCL 10 MEQ IVPB 10 MEQ/100 ML INFUS.BAG IVPB SCH ×2 (21:40→23:48)
[2018-01-04] MEDS ORDERED: LORazepam 1 MG TABLET PO PRN (21:46)
[2018-01-04 21:56] LABS: ANISOCYTOSIS 3+; MACROCYTOSIS 2+
[2018-01-04 21:57] LABS: PLATELET ESTIMATE ADEQUATE
[2018-01-04] MEDS ORDERED: METOLAZONE 2.5 MG TABLET (FP) PO SCH (22:00)
--- NOTE | 2018-01-04 22:21 | HP ---
CHIEF COMPLAINT: SOB, Tachypnea PCP: Alcides HISTORY OF PRESENT ILLNESS: 82 yo Female with PMH of Diastolic CHF, Iron Deficiency anemia, RA, Hypothyroid , Asthma, Dimentia, Bipolar, A-fib on Eliquis with recent admission to [facility] presented from [facility] ([place], [place]) today with complaint of SOB and tachypnea. She is unable to explain how long she has been SOB, though she does endorse a cough productive of white sputum though again she cannot describe how long this has been occurring. She endorses some swelling in her legs though she states it is currently at her normal baseline. She denies any skin wounds, fevers, chills, n/ v/d, abdominal pain, dysuria, hematuria. ER course was notable for: (1) BNP 65719, CXR with b/l congestion L>R, Vanco (2) Lasix 40 IV (3) HypoK, repleting Recent Travel: None PAST MEDICAL HISTORY: Diastolic CHF, Iron Deficiency anemia, RA, Hypothyroid, Asthma, Dimentia, Bipolar, A-fib on Eliquis PAST SURGICAL HISTORY: appendectomy Social History: Smoking: none Alcohol: none Drugs: none Family History: Allergies Penicillins Allergy (Verified 01/04/18 17:51) tetracycline Allergy (Verified 01/04/18 17:51) HOME MEDICATIONS: Home Medications Medication Instructions Recorded Albuterol 2.5/Ipratropium 0.5 1 neb IH QID 01/04/18 [Duoneb -] Allopurinol [Zyloprim -] 100 mg PO DAILY 01/04/18 Apixaban [Eliquis -] 5 mg PO BID 01/04/18 Docusate Sodium [Colace] 100 mg PO DAILY 01/04/18 Folic Acid 1 mg PO DAILY 01/04/18 Furosemide [Lasix] 40 mg PO DAILY 01/04/18 Hydroxychloroquine Sulfate 200 mg PO DAILY 01/04/18 [Plaquenil] LORazepam [Ativan] 1 mg PO DAILY 01/04/18 Levothyroxine [Synthroid -] 75 mcg PO DAILY 01/04/18 Metolazone [Zaroxolyn -] 2.5 mg PO WEEKLY 01/04/18 Metoprolol Succinate [Toprol Xl -] 50 mg PO BID 01/04/18 Pantoprazole Sodium [Protonix] 40 mg PO DAILY 01/04/18 Potassium Chloride [K-Dur -] 20 meq PO DAILY 01/04/18 REVIEW OF SYSTEMS CONSTITUTIONAL: Absent: fever, chills, diaphoresis, generalized weakness, malaise, loss of appetite, weight change HEENT: Absent: rhinorrhea, nasal congestion, throat pain, throat swelling, difficulty swallowing, mouth swelling, ear pain, eye pain, visual changes CARDIOVASCULAR: Absent: chest pain, syncope, palpitations, irregular heart rate, lightheadedness , peripheral edema RESPIRATORY: cough, shortness of breath, dyspnea with exertion, Absent: orthopnea, wheezing, stridor, hemoptysis GASTROINTESTINAL: Absent: abdominal pain, abdominal distension, nausea, vomiting, diarrhea, constipation, melena, hematochezia GENITOURINARY: Absent: dysuria, frequency, urgency, hesitancy, hematuria, flank pain, genital pain MUSCULOSKELETAL: Absent: myalgia, arthralgia, joint swelling, back pain, neck pain SKIN: Absent: rash, itching, pallor HEMATOLOGIC/IMMUNOLOGIC: Absent: easy bleeding, easy bruising, lymphadenopathy, frequent infections ENDOCRINE: Absent: unexplained weight gain, unexplained weight loss, heat intolerance, cold intolerance NEUROLOGIC: Absent: headache, focal weakness or paresthesias, dizziness, unsteady gait, seizure, mental status changes, bladder or bowel incontinence PSYCHIATRIC: Absent: anxiety, depression, suicidal or homicidal ideation, hallucinations. PHYSICAL EXAMINATION Vital Signs - 24 hr 01/04/18 01/04/18 01/04/18 17:35 17:48 17:59 Temperature 98.3 F 99.0 F Pulse Rate 130 H 100 H Pulse Rate [ Right Radial] Respiratory 24 H 26 H Rate Blood Pressure 101/49 L 101/49 L Blood Pressure [Left Arm] O2 Sat by Pulse 98 100 100 Oximetry (%) 01/04/18 01/04/18 19:49 20:00 Temperature 100.4 F H Pulse Rate Pulse Rate [ 80 Right Radial] Respiratory 22 H Rate Blood Pressure Blood Pressure 145/59 L [Left Arm] O2 Sat by Pulse 98 Oximetry (%) GENERAL: Awake and alert, oriented to person, mild distress HEAD: Normocephalic, atraumatic. EYES: PERRL, no scleral icterus EARS, NOSE, THROAT: oropharynx clear without exudates. Dry mucous membranes. poor dentition, malodorous breath NECK: supple without lymphadenopathy, enlarged thyroid without palpable nodules LUNGS: B/L crackles L>R HEART: Irregularly irregular, normal S1 and S2 without murmur ABDOMEN: Soft, nontender to palpation, normoactive bowel sounds EXTREMITIES: 2+ pulses, warm, well-perfused. 3+ pitting edema b/l in distal LE NEUROLOGICAL: Cranial nerves II-XII grossly intact. Normal speech. PSYCHIATRIC: Cooperative. Good eye contact. Appropriate mood and affect. SKIN: Warm, dry, no rashes or lesions noted Laboratory Results - last 24 hr 01/04/18 01/04/18 01/04/18 18:30 18:30 18:30 WBC 2.5 L RBC 3.25 L Hgb 8.1 L Hct 25.5 L MCV 78.3 L MCH 24.8 L MCHC 31.7 L RDW 22.2 H Plt Count 262 D MPV 7.7 Absolute Neuts (auto) 1.9 Neutrophils % 77.0 Lymphocytes % 15.0 D Monocytes % 6.3 Eosinophils % 0.7 D Basophils % 1.0 Nucleated RBC % 0 PT with INR 26.90 H INR 2.26 H PTT (Actin FS) 37.1 H Sodium 138 Potassium 2.9 L* Chloride 98 Carbon Dioxide 29 Anion Gap 11 BUN 38 H Creatinine 1.1 Creat Clearance w eGFR 47.55 Random Glucose 97 Lactic Acid Calcium 8.0 L Magnesium 1.9 Total Bilirubin 0.5 AST 31 ALT 23 Alkaline Phosphatase 180 H Troponin I 0.02 B-Natriuretic Peptide 42494.1 H Total Protein 7.4 Albumin 2.1 L TSH 10.40 H Urine Color Urine Appearance Urine pH Ur Specific [place] Urine Protein Urine Glucose (UA) Urine Ketones Urine Blood Urine Nitrite Urine Bilirubin Urine Urobilinogen Ur Leukocyte Esterase Urine WBC (Auto) Urine RBC (Auto) Ur Epithelial Cells Urine Mucus U Random Total Protein Ur Random Sodium 01/04/18 01/04/18 01/04/18 18:30 19:08 19:08 WBC RBC Hgb Hct MCV MCH MCHC RDW Plt Count MPV Absolute Neuts (auto) Neutrophils % Lymphocytes % Monocytes % Eosinophils % Basophils % Nucleated RBC % PT with INR INR PTT (Actin FS) Sodium Potassium Chloride Carbon Dioxide Anion Gap BUN Creatinine Creat Clearance w eGFR Random Glucose Lactic Acid 1.5 Calcium Magnesium Total Bilirubin AST ALT Alkaline Phosphatase Troponin I B-Natriuretic Peptide Total Protein Albumin TSH Urine Color Ltyellow Urine Appearance Slcloudy Urine pH 5.0 Ur Specific [place] 1.006 L Urine Protein Negative Urine Glucose (UA) Negative Urine Ketones Negative Urine Blood 2+ H Urine Nitrite Negative Urine Bilirubin Negative Urine Urobilinogen Negative Ur Leukocyte Esterase Negative Urine WBC (Auto) None Urine RBC (Auto) None Ur Epithelial Cells Rare Urine Mucus Rare U Random Total Protein 9 Ur Random Sodium 79 ASSESSMENT/PLAN: 82 yo Female with PMH of Diastolic CHF, Iron Deficiency anemia, RA, Hypothyroid , Asthma, Dimentia, Bipolar, A-fib on Eliquis with recent admission to [facility] admitted from [facility] ([place], [place]) with complaint of SOB and tachypnea. Acute on Chronic Diastoli CHF vs Hospital Acquired Pneumonia -CXR noted with infiltrate vs effusion L>R -Lasix 40 mg IV Daily, continue home Metolazone for now -Telemetry -Cardiology consulted -Daily Weights, Is&Os, Rivera in place -DuoNebs -CT chest -Vancomycin/Levaquin -ID Consulted -Fluid restriction -Recent Echo normal LV size and function, EF 60-65% SIRS criteria with questionable source -Temp 100.4, Tachycardic on ED arrival, tachypnic -Possible pneumonia vs fluid overload as above -Abx as above -UA clean JUAN DANIEL vs CKD -BUN/Cr improved from recent discharge -Urine Specific gravity noted 1.006 prior to Lasix administration -trend BUN/Cr Iron Deficiency Anemia -Iron studies from recent admission noted -Hold IV iron for now with possibility of acute infection -Trend CBC Hypothyroidism -Synthroid 75 mcg PO Daily -TSH noted 10.3 -Pt will likely need endocrine as outpatient for adjustment of synthroid A-fib -On Eliquis 5 mg PO BID -Rate controlled with Toprol XL 50 mg BID HypoKalemia -2.9 on admission -Repleted in ED -Recheck in AM RA -Plaquinil DVT Prophylaxis -On Eliquis 5 mg PO BID FEN -Fluids: none -Electrolytes: As above, CMP in AM -Nutrition: Chopped diet, nectar thick liquids Disposition Telemetry Visit type - Emergency Visit Emergency Visit: Yes ED Registration Date: 01/04/18 Care time: The patient presented to the Emergency Department on the above date and was hospitalized for further evaluation of their emergent condition. - New Patient This patient is new to me today: Yes Date on this admission: 01/04/18 - Critical Care Critical Care patient: No
[2018-01-04] MEDS ORDERED: MAGNESIUM SULF 50% (8.12 MEQ/2 ML-1 GM VIAL) IVPB ONE (22:30)
[2018-01-04] MEDS ORDERED: MAGNESIUM 1GM/D5W - 1 GM/100 ML IVPB IVPB ONE (22:45)
[2018-01-04] MEDS: APIXABAN 5 MG TABLET PO SCH (23:48)
[2018-01-05] MEDS ORDERED: PT OWN MED DRAWER 7, Y5N ONE ×3 (00:05→13:19)
[2018-01-05] MEDS: LEVOTHYROXINE NA 75 MCG TABLET (FP) PO SCH (06:16)
[2018-01-05] MEDS ORDERED: POTASSIUM CHLORIDE 20 MEQ PREMIX IVPB 100 ML IVPB ONE (07:32)
[2018-01-05 08:12] LABS: BASO % 0.9 % (0-2.0); EOS % 1.3 % (0-4.5); HEMATOCRIT 27.3 % (32.4-45.2); HEMOGLOBIN 8.2 GM/dL (10.7-15.3); LYMPH % 12.3 % (8-40); MCH 23.9 pg (25.7-33.7); MCHC 30.1 g/dl (32.0-36.0); MEAN CELL VOLUME 79.2 fl (80-96); MEAN PLT VOLUME 7.3 fl (7.5-11.1); MONO % 5.9 % (3.8-10.2); NEUT % 79.6 % (42.8-82.8); PLATELET COUNT 222 K/MM3 (134-434); RBC 3.44 M/mm3 (3.60-5.2); RDW 22.6 % (11.6-15.6); WHITE BLOOD COUNT 2.2 K/mm3 (4.0-10.0)
[2018-01-05 08:23] LABS: MAGNESIUM 2.1 mg/dL (1.8-2.4); PHOSPHOROUS 3.3 mg/dL (2.5-4.9)
[2018-01-05 08:33] LABS: INR 2.66 (0.83-1.09); PROTHROMBIN TIME (PATIENT) 31.7 SEC (9.7-13.0)
--- NOTE | 2018-01-05 08:53 | PN ---
Progress Note (short form) - Note Progress Note: Patient is feeling short of breath with mild respiratory distress. Vital Signs Temperature 97.8 F 01/04/18 22:45 Pulse Rate 100 H 01/04/18 22:45 Respiratory Rate 18 01/04/18 22:45 Blood Pressure 129/54 L 01/04/18 22:45 O2 Sat by Pulse Oximetry (%) 96 01/04/18 22:45 GENERAL: Awake and alert, oriented to person, mild distress with accessory muscle use. HEAD: Normocephalic, atraumatic. EYES: PERRL, no scleral icterus EARS, NOSE, THROAT: oropharynx clear without exudates. MMM, poor dentition. NECK: supple without lymphadenopathy, enlarged thyroid without palpable nodules LUNGS: decreased BS BL, with B/L crackles and rales L>R HEART: Irregularly irregular, normal S1 and S2 without murmur ABDOMEN: Soft, nontender to palpation, normoactive bowel sounds EXTREMITIES: 2+ pulses, warm, well-perfused. 3+ pitting edema b/l in distal LE NEUROLOGICAL: Cranial nerves II-XII grossly intact. Normal speech. PSYCHIATRIC: Cooperative. Good eye contact. Appropriate mood and affect. SKIN: Warm, dry, no rashes or lesions noted CBCD WBC 2.2 K/mm3 (4.0-10.0) L 01/05/18 07:10 RBC 3.44 M/mm3 (3.60-5.2) L 01/05/18 07:10 Hgb 8.2 GM/dL (10.7-15.3) L 01/05/18 07:10 Hct 27.3 % (32.4-45.2) L 01/05/18 07:10 MCV 79.2 fl (80-96) L 01/05/18 07:10 MCHC 30.1 g/dl (32.0-36.0) L 01/05/18 07:10 RDW 22.6 % (11.6-15.6) H 01/05/18 07:10 Plt Count 222 K/MM3 (134-434) 01/05/18 07:10 MPV 7.3 fl (7.5-11.1) L 01/05/18 07:10 CMP Sodium 138 mmol/L (136-145) 01/04/18 18:30 Potassium 2.9 mmol/L (3.5-5.1) L* 01/04/18 18:30 Chloride 98 mmol/L (98-107) 01/04/18 18:30 Carbon Dioxide 29 mmol/L (21-32) 01/04/18 18:30 Anion Gap 11 MMOL/L (8-16) 01/04/18 18:30 BUN 38 mg/dL (7-18) H 01/04/18 18:30 Creatinine 1.1 mg/dL (0.55-1.3) 01/04/18 18:30 Creat Clearance w eGFR 47.55 (>60) 01/04/18 18:30 Random Glucose 97 mg/dL (74-106) 01/04/18 18:30 Calcium 8.0 mg/dL (8.5-10.1) L 01/04/18 18:30 Total Bilirubin 0.5 mg/dL (0.2-1) 01/04/18 18:30 AST 31 U/L (15-37) 01/04/18 18:30 ALT 23 U/L (13-61) 01/04/18 18:30 Alkaline Phosphatase 180 U/L (45-117) H 01/04/18 18:30 Total Protein 7.4 g/dl (6.4-8.2) 01/04/18 18:30 Albumin 2.1 g/dl (3.4-5.0) L 01/04/18 18:30 CARDIAC ENZYMES Troponin I 0.02 ng/ml (0.00-0.05) 01/04/18 18:30 Current Medications Generic Name Dose Route Start Last Admin Trade Name Freq PRN Reason Stop Dose Admin Albuterol/Ipratropium 1 amp 01/04/18 21:46 Duoneb - NEB Q6H PRN Dyspnea Allopurinol 100 mg 01/05/18 10:00 Zyloprim - PO DAILY [facility] Apixaban 5 mg 01/04/18 22:30 01/04/18 23:48 Eliquis - PO 5 mg BID ELENA Administration Docusate Sodium 100 mg 01/05/18 10:00 Colace - PO DAILY ELENA Folic Acid 1 mg 01/05/18 10:00 Folic Acid - PO DAILY E[facility] Furosemide 40 mg 01/05/18 10:00 Lasix Injection - IVPUSH DAILY [facility] Hydroxychloroquine Sulfate 200 mg 01/05/18 10:00 Plaquenil - PO DAILY [facility] Vancomycin HCl 1,250 mg/ 250 mls @ 166.667 mls/hr 01/05/18 10:00 Dextrose IVPB Q12H ELENA Protocol Levofloxacin 750 mg in 150 mls @ 100 mls/hr 01/05/18 10:00 Levaquin 750 Mg Premixed Ivpb - IVPB DAILY ELENA Protocol Potassium Chloride 10 meq in 100 mls @ 100 mls/hr 01/05/18 09:00 Potassium Chloride 10 Meq Premix Ivpb - IVPB 01/05/18 10:59 Q1H ELENA Levothyroxine Sodium 75 mcg 01/05/18 07:00 01/05/18 06:16 Synthroid - PO 75 mcg DAILY@0700 [facility] Administration Lorazepam 1 mg 01/04/18 21:46 Ativan - PO DAILY PRN ANXIETY Metoprolol Succinate 50 mg 01/04/18 22:00 01/04/18 23:48 Toprol Xl - PO 50 mg BID ELENA Administration Pantoprazole Sodium 40 mg 01/05/18 10:00 Protonix - PO DAILY [facility] Potassium Chloride 20 meq 01/05/18 10:00 K-Dur - PO DAILY [facility] Home Medications Medication Instructions Recorded Albuterol 2.5/Ipratropium 0.5 1 neb IH QID 01/04/18 [Duoneb -] Allopurinol [Zyloprim -] 100 mg PO DAILY 01/04/18 Apixaban [Eliquis -] 5 mg PO BID 01/04/18 Docusate Sodium [Colace] 100 mg PO DAILY 01/04/18 Folic Acid 1 mg PO DAILY 01/04/18 Furosemide [Lasix] 40 mg PO DAILY 01/04/18 Hydroxychloroquine Sulfate 200 mg PO DAILY 01/04/18 [Plaquenil] LORazepam [Ativan] 1 mg PO DAILY 01/04/18 Levothyroxine [Synthroid -] 75 mcg PO DAILY 01/04/18 Metolazone [Zaroxolyn -] 2.5 mg PO WEEKLY 01/04/18 Metoprolol Succinate [Toprol Xl -] 50 mg PO BID 01/04/18 Pantoprazole Sodium [Protonix] 40 mg PO DAILY 01/04/18 Potassium Chloride [K-Dur -] 20 meq PO DAILY 01/04/18 A/P: Patient is a 82 yo Female with PMHx of Diastolic CHF, Iron Deficiency anemia, RA, Hypothyroid, Asthma, Dimentia, Bipolar, A-fib on Eliquis with recent admission to [facility] admitted from [facility] with complaint of SOB and tachypnea. # Acute on Chronic Diastolic CHF exacerbation , will give extra dose of lasix 40mg , will add standing dose of lasix IV , patient went continue home Metolazone for now, Cardiology consult appreciated Dr. Jain. Daily Weights, Is&Os, Rivera in place Fluid restriction, Recent Echo normal LV size and function, EF 60-65%. # sepsis due to Possible pneumonia continue IV abx, Vancomycin/Levaquin, DuoNebs , follow chest CT, ID on the case. # JUAN DANIEL vs CKD continue to monitor # Iron Deficiency Anemia possible due to CKD # Hypothyroidism: continue Synthroid 75 mcg PO Daily, TSH noted 10.3 -Pt will likely need endocrine as outpatient for adjustment of synthroid # A-fib: On Eliquis 5 mg PO BID, toprol xl for rate control. Cardio on the case # HypoKalemia will repeat the level in a am . will continue to replete # RA on Plaquinil continue DVT Prophylaxis: On Eliquis 5 mg PO BID Visit type - Emergency Visit Emergency Visit: Yes ED Registration Date: 01/04/18 Care time: The patient presented to the Emergency Department on the above date and was hospitalized for further evaluation of their emergent condition. - New Patient This patient is new to me today: Yes Date on this admission: 01/05/18 - Critical Care Critical Care patient: Yes Total Critical Care Time (in minutes): 35 Critical Care Statement: The care of this patient involved high complexity decision making to prevent further life threatening deterioration of the patient 's condition and/or to evaluate & treat vital organ system(s) failure or risk of failure. - Discharge Referral Referred to [facility] Med P.C.: No
[2018-01-05] MEDS: KCL 10 MEQ IVPB 10 MEQ/100 ML INFUS.BAG IVPB SCH ×2 (09:09→10:50)
[2018-01-05] MEDS: PANTOPRAZOLE 40 MG TABLET (FP) PO SCH (09:17)
[2018-01-05] MEDS: ALLOPURINOL 100 MG TABLET (FP) PO SCH (09:17)
[2018-01-05] MEDS: APIXABAN 5 MG TABLET PO SCH ×2 (09:17→21:04)
[2018-01-05] MEDS: DOCUSATE SODIUM 100 MG CAPSULE (FP) PO SCH (09:17)
[2018-01-05] MEDS: FOLIC ACID 1 MG TABLET (FP) PO SCH (09:17)
[2018-01-05] MEDS ORDERED: VANCOMYCIN 1,250 MG in DEXTROSE 5%-WATER - 250 ML IVPB SCH (10:00)
[2018-01-05] MEDS ORDERED: POTASSIUM CHLORIDE TABS 20 MEQ TABLET.ER (FP) PO SCH (10:00)
[2018-01-05] MEDS ORDERED: FUROSEMIDE 40 MG/4 ML INJECTABLE VIAL IVPUSH SCH (10:00)
[2018-01-05] MEDS: HYDROXYCHLOROQUINE SO4 200 MG TABLET (FP) PO SCH (10:55)
--- NOTE | 2018-01-05 11:35 | EKG ---
Test Reason : Blood Pressure : / mmHG Vent. Rate : 098 BPM Atrial Rate : 097 BPM P-R Int : 000 ms QRS Dur : 092 ms QT Int : 286 ms P-R-T Axes : 000 080 234 degrees QTc Int : 365 ms ATRIAL FIBRILLATION LOW VOLTAGE QRS ABNORMAL ECG Confirmed by Heri Jang MD ([id number]) on 01/05/2018 11:35:07 AM Referred By: Confirmed By:Heri Jang MD
--- NOTE | 2018-01-05 12:08 | CON.CARD ---
Consult Consult Specialty:: Cardiology Referred by:: Hospitalist Reason for Consultation:: Cardiac evaluation - History of Present Illness Chief Complaint: Shortness of breath History of Present Illness: Patient is an 82 year old female admitted from [facility] with underlying history of LV diastolic dysfunction with history of LV failure, anemia, rheumatoid arthritis, hypothyroidism, GERD, bipolar disorder, diabetes mellitus and AF who presents with tachypnea, shortness of breath, pedal edema and respiratory distress. Due to underlying dementia, she cannot communicate well and is a poor historian. Medical record was reviewed. She was recently discharged after treatment for sepsis and acute on chronic LV failure. She was seen by [facility] at the time, but it does not appear that this patient is followed by them in the office. She does not appear to be having chest pain. No fever or chills. No headache or dizziness. - History Source History Provided By: Medical Record Limitations to Obtaining History: Dementia - Past Medical History Cardio/Vascular: Yes: Other (Acute on chronic LV diastolic failure) Pulmonary: Yes: Pneumonia Heme/Onc: Yes: Anemia Psych: Yes: Bipolar Rheumatology: Yes: Rheumatoid Arthritis Endocrine: Yes: Diabetes Mellitus - Past Surgical History Past Surgical History: Yes: Appendectomy - Alcohol/Substance Use Hx Alcohol Use: No - Smoking History Smoking history: Never smoked Have you smoked in the past 12 months: No Home Medications - Allergies Allergies/Adverse Reactions: Allergies Allergy/AdvReac Type Severity Reaction Status Date / Time Penicillins Allergy Verified 01/04/18 17:51 tetracycline Allergy Verified 01/04/18 17:51 - Home Medications Home Medications: Ambulatory Orders Albuterol 2.5/Ipratropium 0.5 [Duoneb -] 1 neb IH QID 01/04/18 Allopurinol [Zyloprim -] 100 mg PO DAILY 01/04/18 Apixaban [Eliquis -] 5 mg PO BID 01/04/18 Docusate Sodium [Colace] 100 mg PO DAILY 01/04/18 Folic Acid 1 mg PO DAILY 01/04/18 Furosemide [Lasix] 40 mg PO DAILY 01/04/18 Hydroxychloroquine Sulfate [Plaquenil] 200 mg PO DAILY 01/04/18 LORazepam [Ativan] 1 mg PO DAILY 01/04/18 Levothyroxine [Synthroid -] 75 mcg PO DAILY 01/04/18 Metolazone [Zaroxolyn -] 2.5 mg PO WEEKLY 01/04/18 Metoprolol Succinate [Toprol Xl -] 50 mg PO BID 01/04/18 Pantoprazole Sodium [Protonix] 40 mg PO DAILY 01/04/18 Potassium Chloride [K-Dur -] 20 meq PO DAILY 01/04/18 Family Disease History - Family Disease History Family History: Unable to Obtain Review of Systems - Review of Systems Constitutional: denies: Chills, Fever Cardiovascular: reports: Shortness of Breath. denies: Chest Pain, Palpitations Respiratory: reports: SOB. denies: Hemoptysis, Orthopnea, PND Gastrointestinal: denies: Abdominal Pain, Constipation, Diarrhea, Melena, Nausea , Rectal Bleeding, Vomiting Neurological: denies: Dizziness, Headache, Seizure, Syncope Vital Signs: Vital Signs Temperature 97.8 F 01/04/18 22:45 Pulse Rate 100 H 01/04/18 22:45 Respiratory Rate 18 01/04/18 22:45 Blood Pressure 129/54 L 01/04/18 22:45 O2 Sat by Pulse Oximetry (%) 96 01/04/18 22:45 Neck: Yes: Supple Respiratory: Yes: Diminished Gastrointestinal: Yes: Normal Bowel Sounds, Soft. No: Tenderness Cardiovascular: Yes: Pulse Irregular JVD: No Carotid Bruit: No PMI: Non-Displaced Heart Sounds: Yes: S1, S2 Murmur: Yes: Systolic Murmur, Grade 1 Edema: Yes Edema: LLE: 2+, RLE: 2+ - Other Data Labs, Other Data: CBC, BMP 01/05/18 07:10 01/04/18 18:30 INR, PTT INR 2.66 (0.83-1.09) H 01/05/18 07:10 Troponin, BNP 01/04/18 18:30 Troponin I 0.02 B-Natriuretic Peptide 33319.1 H Atrial fibrillation Echo: Report Reviewed (Normal LV systolic function, LVEF 60-65%, mild MR, mild to moderate TR, pulmonary HTN) Imaging - Results Chest X-ray: Report Reviewed (Progressive infiltrative changes) Cat Scan: Report Reviewed (Chest CT - vascular congestion) EKG: Report Reviewed Problem List - Problems (1) CHF (congestive heart failure) Code(s): I50.9 - HEART FAILURE, UNSPECIFIED Qualifiers: Heart failure type: diastolic Heart failure chronicity: acute on chronic Qualified Code(s): I50.33 - Acute on chronic diastolic (congestive) heart failure (2) Anemia Code(s): D64.9 - ANEMIA, UNSPECIFIED Qualifiers: Anemia type: iron deficiency Iron deficiency anemia type: chronic blood loss Qualified Code(s): D50.0 - Iron deficiency anemia secondary to blood loss (chronic) (3) Leukopenia Code(s): D72.819 - DECREASED WHITE BLOOD CELL COUNT, UNSPECIFIED Qualifiers: Leukopenia type: lymphocytopenia Qualified Code(s): D72.810 - Lymphocytopenia (4) Rheumatoid arthritis Code(s): M06.9 - RHEUMATOID ARTHRITIS, UNSPECIFIED (5) Schizoaffective disorder, bipolar type Code(s): F25.0 - SCHIZOAFFECTIVE DISORDER, BIPOLAR TYPE Assessment/Plan 1. Acute on chronic LV diastolic failure 2. Persistent AF on Warfarin and rate control 3. Anemia 4. Rheumatoid arthritis 5. Hypothyroidism 6. Bipolar 7. GERD PLAN: 1. Continue present medical therapy including IV Lasix and monitor renal function and electrolytes 2. Metoprolol as tolerated 3. Eliquis 5 mg BID 4. Antibiotic coverage 5. Continue remainder of treatment for RA and GI prophylaxis Further plans are to follow Richy Jain MD
--- NOTE | 2018-01-05 14:43 | PN ---
Progress Note (short form) - Note Progress Note: ID Consult dictated CHF R/O KLARISSA pneumonia PCN allergy Chronic leukopenia Pending c/s empiric vancomycin/ levaquin
[2018-01-05] MEDS: VANCOMYCIN 1 GRAM (PRE-DOCKED) 1,000 MG/250 ML BAG IVPB SCH (15:18)
[2018-01-05] MEDS ORDERED: FUROSEMIDE 40 MG/4 ML INJECTABLE VIAL IVPUSH ONE (15:40)
--- NOTE | 2018-01-05 16:08 | CONS ---
DATE OF CONSULTATION: DATE OF DICTATION: 01/05/2018 The patient is an 82-year-old female who is evaluated for possible pneumonia. History was obtained from the chart as she cannot give a history secondary to dementia. She was recently hospitalized at [facility] from December 04 to December 25 for congestive heart failure. Her course at that time was complicated by fever. Blood and urine cultures were positive for enterococcus. She completed a 14-day course of vancomycin for enterococcal urosepsis. Patient has a history of major PENICILLIN allergy. She now returns from the [facility] with reports of shortness of breath. Patient was clinically diagnosed with congestive heart failure. A CAT scan of the chest was obtained and showed a left upper lobe consolidation. In the emergency room, her temperature was 100.4. She is awake. She has no focal complaints. She denies cough, however, she is slightly confused. She is noted to be short of breath at rest. PAST MEDICAL HISTORY: Positive for dementia, bipolar disorder, congestive heart failure, rheumatoid arthritis, hypothyroidism, gastroesophageal reflux, asthma, atrial fibrillation, hypertension, history of chronic leukopenia. Allergies to PENICILLIN and TETRACYCLINE. SYSTEMS REVIEW: Neurologic: Positive for dementia and bipolar disorder. Cardiac: As per HPI. Respiratory: As per HPI. Gastrointestinal: Negative vomiting or diarrhea. Genitourinary: Positive for recent urinary tract infection. LABORATORY DATA: White count 2.2, 79% neutrophils, 12% lymphocytes, 5% monos, hematocrit 27.3, platelet count 222. BUN 38, creatinine 1.1. Urinalysis: No white cells. PHYSICAL EXAMINATION: General: She is awake and responsive. She is short of breath at rest. Vital Signs: Temperature 98. T-max 100.4. Blood pressure 123/51. Pulse 104, regular. Respirations 22 per minute. Eyes: Sclerae anicteric. Heart Sounds: S1, S2. No murmur. Lungs: Rales at the bases bilaterally senior care above lung mcpherson. Abdomen: Obese, soft, nontender. Extremities: Positive for edema. There is a hematoma present on the left lower extremity. There is a healed surgical scar over the right knee. There is erythema of the sacrum. No decubitus ulcer. No healed decubitus ulcers. IMPRESSION: 1. Decompensated congestive heart failure. 2. Possible left upper lobe healthcare-acquired pneumonia. 3. PENICILLIN allergy. 4. History of chronic leukopenia. Await blood cultures. Obtain sputum culture, urine Legionella and pneumococcal antigens, empiric antibiotic coverage with vancomycin and Levaquin in this PENICILLIN allergic patient. Patient appears to be chronically leukopenic, possibly on the basis of hydroxychloroquine. Her absolute neutrophil count is 1.7. Will continue to monitor. Thank you for the kind referral. LINA OTT M.D. [id number]
[2018-01-05 19:29] LABS: ALK PHOS 153 U/L (45-117); ANION GAP 11 MMOL/L (8-16); BILIRUBIN,TOTAL 0.4 mg/dL (0.2-1); BLOOD UREA NITROGEN 35 mg/dL (7-18); CALCIUM 7.5 mg/dL (8.5-10.1); CHLORIDE 94 mmol/L (98-107); CO2 31 mmol/L (21-32); CREATININE 1.3 mg/dL (0.55-1.3); GLUCOSE,RANDOM 151 mg/dL (74-106); MAGNESIUM 1.9 mg/dL (1.8-2.4); PHOSPHOROUS 2.4 mg/dL (2.5-4.9); SGOT/AST 23 U/L (15-37); SGPT/ALT 20 U/L (13-61); SODIUM 136 mmol/L (136-145); TOT PROT 7.1 g/dl (6.4-8.2)
[2018-01-05 19:31] LABS: POTASSIUM 2.8 mmol/L (3.5-5.1)
[2018-01-05] MEDS ORDERED: POTASSIUM CHLORIDE TABS 20 MEQ TABLET.ER (FP) PO ONE (19:39)
[2018-01-05] MEDS ORDERED: LORazepam 2 MG/ML SDV VIAL IVPUSH ONE (23:49)
[2018-01-06] MEDS: FUROSEMIDE 40 MG/4 ML INJECTABLE VIAL IVPUSH SCH ×2 (05:40→14:00)
[2018-01-06] MEDS: ALBUTEROL SO4 2.5/IPRATROPIUM 0.5 INH SOL 3 ML VIAL.NEB. NEB PRN ×2 (06:21→20:43)
--- NOTE | 2018-01-06 06:38 | HOSP ---
Subjective - Review of Symptoms Events since last encounter: was paged to bedside by nurse as the patient became acutely SOB. On arrival, the patient was seen to be agonal breathing and saturating 60% on 3L nasal cannula with a BP 140/47. Patient had decreased breath sounds throughout all lung mcpherson with easily audible wheezing. Duonebs given. 30mg Lasix IV was given just prior to MD arrival. during duoneb administration, the patient's breathing improved and her saturations increased to 95%. BP remained stable throughout encounter. EKG, CXR, ABG, CBC, CMP, troponin ordered stat. Patient's O2 therapy escalated to venturi mask 40%. Depending on patient's continued clinical status and the results of her ABG, would have a low threshold for intubation. Case discussed with Dr. Hodge, covering for [employer] service, who will sign out to incoming day [employer] for further follow up. Physical Examination Vital Signs: Vital Signs Temperature 98.9 F 01/06/18 05:27 Pulse Rate 110 H 01/06/18 05:27 Respiratory Rate 22 H 01/06/18 05:27 Blood Pressure 138/79 01/06/18 05:27 O2 Sat by Pulse Oximetry (%) 96 01/05/18 22:00 Labs: CBC, BMP 01/05/18 07:10 01/05/18 18:00 Visit type - Emergency Visit Emergency Visit: Yes ED Registration Date: 01/04/18 Care time: The patient presented to the Emergency Department on the above date and was hospitalized for further evaluation of their emergent condition. - New Patient This patient is new to me today: Yes Date on this admission: 01/06/18 - Critical Care Critical Care patient: No
[2018-01-06] MEDS: LEVOTHYROXINE NA 75 MCG TABLET (FP) PO SCH (06:54)
[2018-01-06 06:59] LABS: ARTERIAL BLD GAS O2 SATURATION 97.9 % (90-98.9); ARTERIAL BLOOD GAS BASE EXCESS 5.1 meq/l (-2-2); ARTERIAL BLOOD GAS pH 7.29 (7.35-7.45)
[2018-01-06 07:13] LABS: ALLENS TEST POSITIVE
[2018-01-06 07:17] LABS: ARTERIAL BLOOD GAS PCO2 69.4 mmHg (35-45)
[2018-01-06] MEDS ORDERED: FUROSEMIDE 40 MG/4 ML INJECTABLE VIAL IVPUSH ONE (07:52)
--- NOTE | 2018-01-06 08:00 | CONSULT ---
Consultation: REQUESTING PROVIDER: CONSULT REQUEST: We have been asked to medically evaluate this patient for ( acute respiratory distress-ICU admission) HISTORY OF PRESENT ILLNESS: History obtained from chart. unable to obtain from the patient due to respiratory distress. Patient is an 82 year old Female was sent from [facility] with the chief complaint of Shortness of breath. Patient was recently admitted at [facility] 11/26/17-2017 for Enterococcal bacteremia from UTI was treated with IV Vancomycin and treated for aspiration pneumonia-completed course of Cefepime. Currently she is being treated for Pneumonia with IV Levaquin This morning at 6:37 am, EMR from the night team, patient had agonal breathing, saturation was 60 % @ 3L Nasal canula with BP of 140/47. Was given 30 mg of IV Lasix, duoneb, placed on ventimask and her saturation improved to 95 %. ICU team was consulted for the transfer. On evaluation, patient was lying in bed , awake, alert, in respiratory distress. Vitals at that time was BP 130/80 mmHg , P-120 bpm, RR 24, Sat- 91 % @ 40 % venti mask. ABG showed : pH 7.29; Pco2-69, o2-108. Has diffuse wheezing, b/l basilar crackles. Recommended primary team to place the patient on Bi Pap; replete electrolytes ( labs still pending), consider giving lasix after repleting lytes ; transfer to [facility] for continuous monitoring of her vitals. Spoke with the primary team, will reevaluate the patient, if she deteriorates will transfer her to ICU. REVIEW OF SYSTEMS: CONSTITUTIONAL: Absent: fever, chills, diaphoresis, generalized weakness, malaise, loss of appetite, weight change HEENT: Absent: rhinorrhea, nasal congestion, throat pain, throat swelling, difficulty swallowing, mouth swelling, ear pain, eye pain, visual changes CARDIOVASCULAR: Absent: chest pain, syncope, palpitations, irregular heart rate, lightheadedness , peripheral edema RESPIRATORY: Present: Shortness of breath, wheezing Absent: cough, orthopnea, stridor, hemoptysis GASTROINTESTINAL: Absent: abdominal pain, abdominal distension, nausea, vomiting, diarrhea, constipation, melena, hematochezia GENITOURINARY: Absent: dysuria, frequency, urgency, hesitancy, hematuria, flank pain, genital pain MUSCULOSKELETAL: Absent: myalgia, arthralgia, joint swelling, back pain, neck pain SKIN: Absent: rash, itching, pallor HEMATOLOGIC/IMMUNOLOGIC: Absent: easy bleeding, easy bruising, lymphadenopathy, frequent infections ENDOCRINE: Absent: unexplained weight gain, unexplained weight loss, heat intolerance, cold intolerance NEUROLOGIC: Absent: headache, focal weakness or paresthesias, dizziness, unsteady gait, seizure, mental status changes, bladder or bowel incontinence PSYCHIATRIC: Absent: anxiety, depression, suicidal or homicidal ideation, hallucinations. PHYSICAL EXAMINATION Vital Signs - 24 hr 01/05/18 01/05/18 01/05/18 09:00 10:30 14:00 Temperature 98.2 F 98.0 F Pulse Rate 104 H Respiratory 18 18 22 H Rate Blood Pressure 118/65 123/51 L O2 Sat by Pulse 96 Oximetry (%) 01/05/18 01/05/18 01/05/18 18:00 19:00 22:00 Temperature 98.0 F 98.4 F Pulse Rate 104 H 97 H Respiratory 22 H 20 Rate Blood Pressure 123/51 L 137/74 O2 Sat by Pulse 96 Oximetry (%) 01/06/18 05:27 Temperature 98.9 F Pulse Rate 110 H Respiratory 22 H Rate Blood Pressure 138/79 O2 Sat by Pulse Oximetry (%) GENERAL: Obese patient, lying in bed, Awake, alert, and oriented x 2 , in no acute distress, in venti mask. HEAD: Normal with no signs of trauma. EYES: EOM intact, no pallor or icterus. EARS, NOSE, THROAT: Ears normal. Moist mucous membranes. NECK: Normal range of motion, supple without lymphadenopathy, JVD, or masses. LUNGS: B/L diffuse wheeze +, b/l basilar crackles, Use of accessory muscle. HEART: Irregularly irregular rate and rhythm, normal S1 and S2 with soft systolic murmur. ABDOMEN: Soft, nontender, no organomegaly. MUSCULOSKELETAL: Normal range of motion at all joints. No bony deformities or tenderness. No CVA tenderness. UPPER EXTREMITIES: 2+ pulses, warm, well-perfused. No cyanosis. No clubbing. Cap refill <2 seconds. No peripheral edema. LOWER EXTREMITIES: 2+ pulses, warm, well-perfused. No calf tenderness. Peripheral edema +. NEUROLOGICAL: No facial droop, Normal speech. Gait not observed PSYCHIATRIC: Cooperative. Good eye contact. Appropriate mood and affect. SKIN: Warm, dry, normal turgor, no rashes or lesions noted. Laboratory Results - last 24 hr 01/05/18 01/05/18 01/05/18 07:10 07:10 07:10 WBC 2.2 L RBC 3.44 L Hgb 8.2 L Hct 27.3 L MCV 79.2 L MCH 23.9 L MCHC 30.1 L RDW 22.6 H Plt Count 222 MPV 7.3 L Absolute Neuts (auto) 1.7 Neutrophils % 79.6 Lymphocytes % 12.3 Monocytes % 5.9 Eosinophils % 1.3 D Basophils % 0.9 Nucleated RBC % 0 PT with INR 31.70 H INR 2.66 H Anticoagulation Therapy Puncture Site ABG pH ABG pCO2 at Pt Temp ABG pO2 at Pt Temp ABG HCO3 ABG O2 Sat (Measured) ABG O2 Content ABG Base Excess Santos Test O2 Delivery Device Oxygen Flow Rate Vent Mode Vent Rate Mechanical Rate Pressure Support Vent Sodium Potassium Chloride Carbon Dioxide Anion Gap BUN Creatinine Creat Clearance w eGFR Random Glucose Calcium Phosphorus 3.3 Magnesium 2.1 Total Bilirubin AST ALT Alkaline Phosphatase Creatine Kinase Troponin I Total Protein Albumin 01/05/18 01/06/18 18:00 06:45 WBC RBC Hgb Hct MCV MCH MCHC RDW Plt Count MPV Absolute Neuts (auto) Neutrophils % Lymphocytes % Monocytes % Eosinophils % Basophils % Nucleated RBC % PT with INR INR Anticoagulation Therapy No Result Required. Puncture Site Right radial ABG pH 7.29 L ABG pCO2 at Pt Temp 69.4 H* ABG pO2 at Pt Temp 108.0 H ABG HCO3 32.3 H ABG O2 Sat (Measured) 97.9 ABG O2 Content 11.7 L ABG Base Excess 5.1 H Santos Test Positive O2 Delivery Device Y Oxygen Flow Rate 7 Vent Mode No Result Required. Vent Rate No Result Required. Mechanical Rate No Result Required. Pressure Support Vent No Result Required. Sodium 136 Potassium 2.8 L* Chloride 94 L Carbon Dioxide 31 Anion Gap 11 BUN 35 H Creatinine 1.3 Creat Clearance w eGFR 39.21 Random Glucose 151 H Calcium 7.5 L Phosphorus 2.4 L Magnesium 1.9 Total Bilirubin 0.4 AST 23 ALT 20 Alkaline Phosphatase 153 H Creatine Kinase 22 L Troponin I < 0.02 Total Protein 7.1 Albumin 2.0 L Active Medications Generic Name Dose Route Start Last Admin Trade Name Freq PRN Reason Stop Dose Admin Albuterol/Ipratropium 1 amp 01/04/18 21:46 01/06/18 06:21 Duoneb - NEB 1 amp Q6H PRN Administration Dyspnea Allopurinol 100 mg 01/05/18 10:00 01/05/18 09:17 Zyloprim - PO 100 mg DAILY ELENA Administration Apixaban 5 mg 01/04/18 22:30 01/05/18 21:04 Eliquis - PO 5 mg BID ELENA Administration Docusate Sodium 100 mg 01/05/18 10:00 01/05/18 09:17 Colace - PO 100 mg DAILY ELENA Administration Folic Acid 1 mg 01/05/18 10:00 01/05/18 09:17 Folic Acid - PO 1 mg DAILY ELENA Administration Furosemide 20 mg 01/06/18 14:00 Lasix Injection - IVPUSH 1400 ELENA Furosemide 40 mg 01/06/18 06:00 01/06/18 05:40 Lasix Injection - IVPUSH 40 mg 0600 ELENA Administration Furosemide 40 mg 01/06/18 07:52 Lasix Injection - IVPUSH 01/06/18 07:53 ONCE ONE Hydroxychloroquine Sulfate 200 mg 01/05/18 10:00 01/05/18 10:55 Plaquenil - PO 200 mg DAILY ELENA Administration Levofloxacin 750 mg in 150 mls @ 100 mls/hr 01/05/18 10:00 01/05/18 09:09 Levaquin 750 Mg Premixed Ivpb - IVPB 100 mls/hr DAILY ELENA Administration Protocol Vancomycin HCl 1,000 mg in 250 mls @ 200 mls/hr 01/05/18 15:00 01/05/18 15:18 Vancomycin (Pre-Docked) IVPB 200 mls/hr DAILY@1500 ELENA Administration Protocol Levothyroxine Sodium 75 mcg 01/05/18 07:00 01/06/18 06:54 Synthroid - PO 75 mcg DAILY@0700 ELENA Administration Lorazepam 1 mg 01/04/18 21:46 Ativan - PO DAILY PRN ANXIETY Metoprolol Succinate 50 mg 01/04/18 22:00 01/05/18 21:04 Toprol Xl - PO 50 mg BID ELENA Administration Pantoprazole Sodium 40 mg 01/05/18 10:00 01/05/18 09:17 Protonix - PO 40 mg DAILY ELENA Administration Potassium Chloride 40 meq 01/06/18 07:56 K-Dur - PO DAILY ELENA ASSESSMENT/PLAN: 82 yo Female with PMH of Diastolic CHF, Iron Deficiency anemia, RA, Hypothyroid , Asthma, Dementia, Bipolar, A-fib on Eliquis with recent admission to [facility] presented from [facility] with complaint of SOB and tachypnea was found to have Pneumonia. Acute hypoxic respiratory failure likely secondary to exacerbation of asthma/ diastolic CHF complicated by pneumonia Neutropenia Hypokalemia Likely has OHA Iron def anemia Dementia Bipolar A-fib on Eliquis Plan: Place on Bipap Transfer to [facility], continuous monitoring of the vitals Replace electrolytes Continue antibiotics Duonebs and albuterol nebs Will re-evaluate and if patient deteriorates will admit to ICU.
[2018-01-06 08:47] LABS: HEMATOCRIT 27.9 % (32.4-45.2); HEMOGLOBIN 8.2 GM/dL (10.7-15.3); MCH 23.8 pg (25.7-33.7); MCHC 29.5 g/dl (32.0-36.0); MEAN CELL VOLUME 80.8 fl (80-96); MEAN PLT VOLUME 7.3 fl (7.5-11.1); PLATELET COUNT 232 K/MM3 (134-434); RBC 3.46 M/mm3 (3.60-5.2); RDW 22.8 % (11.6-15.6)
[2018-01-06 08:49] LABS: ALBUMIN 2.2 g/dl (3.4-5.0); ALK PHOS 163 U/L (45-117); ANION GAP 7 MMOL/L (8-16); BILIRUBIN,TOTAL 0.5 mg/dL (0.2-1); BLOOD UREA NITROGEN 39 mg/dL (7-18); CHLORIDE 96 mmol/L (98-107); CO2 34 mmol/L (21-32); CREATININE 1.4 mg/dL (0.55-1.3); GLUCOSE,RANDOM 110 mg/dL (74-106); MAGNESIUM 2.2 mg/dL (1.8-2.4); PHOSPHOROUS 3.9 mg/dL (2.5-4.9); POTASSIUM 3.8 mmol/L (3.5-5.1); SGOT/AST 29 U/L (15-37); SGPT/ALT 20 U/L (13-61); SODIUM 136 mmol/L (136-145)
[2018-01-06] MEDS: APIXABAN 5 MG TABLET PO SCH ×2 (09:35→13:29)
[2018-01-06] MEDS: FOLIC ACID 1 MG TABLET (FP) PO SCH ×2 (09:35→13:29)
[2018-01-06] MEDS: DOCUSATE SODIUM 100 MG CAPSULE (FP) PO SCH ×2 (09:35→13:29)
[2018-01-06] MEDS: POTASSIUM CHLORIDE TABS 20 MEQ TABLET.ER (FP) PO SCH (09:35)
[2018-01-06] MEDS: PANTOPRAZOLE 40 MG TABLET (FP) PO SCH (09:35)
[2018-01-06] MEDS: ALLOPURINOL 100 MG TABLET (FP) PO SCH (09:35)
[2018-01-06] MEDS ORDERED: MUPIROCIN 2% TOPICAL OINTMENT FOR DECOLONIZATION NS SCH (10:00)
[2018-01-06 12:33] LABS: ARTERIAL BLD GAS O2 SATURATION 97.3 % (90-98.9); ARTERIAL BLOOD GAS BASE EXCESS 6.1 meq/l (-2-2); ARTERIAL BLOOD GAS PCO2 52.7 mmHg (35-45); ARTERIAL BLOOD GAS PO2 88.3 mmHg (68-100); ARTERIAL BLOOD GAS pH 7.39 (7.35-7.45)
[2018-01-06 12:35] LABS: ALLENS TEST POSITIVE
[2018-01-06] MEDS: HYDROXYCHLOROQUINE SO4 200 MG TABLET (FP) PO SCH (13:26)
--- NOTE | 2018-01-06 14:01 | PN ---
Progress Note (short form) - Note Progress Note: PULMONARY CONSULTATION DICTATED 01/06/18 IMP ACUTE HYPERCAPNEIC/HYPOXEMIC RESPIRATORY FAILURE ACUTE ON CHRONIC CHF LIKELY PNEUMONIA AFIB DEMENTIA GERD H/O ENTEROCOCCAL SEPSIS RA HYPOTHYROID HTN PLAN IV LASIX NIPPV O2 ABX CULTURES ABG F/U CHEST X-RAY AC DR ALMENDAREZ Problem List - Problems (1) CHF (congestive heart failure) Code(s): I50.9 - HEART FAILURE, UNSPECIFIED Qualifiers: Heart failure type: diastolic Heart failure chronicity: acute on chronic Qualified Code(s): I50.33 - Acute on chronic diastolic (congestive) heart failure (2) Sepsis Code(s): A41.9 - SEPSIS, UNSPECIFIED ORGANISM (3) Leukopenia Code(s): D72.819 - DECREASED WHITE BLOOD CELL COUNT, UNSPECIFIED Qualifiers: Leukopenia type: lymphocytopenia Qualified Code(s): D72.810 - Lymphocytopenia (4) Rheumatoid arthritis Code(s): M06.9 - RHEUMATOID ARTHRITIS, UNSPECIFIED (5) Schizoaffective disorder, bipolar type Code(s): F25.0 - SCHIZOAFFECTIVE DISORDER, BIPOLAR TYPE (6) Acute respiratory failure with hypoxia and hypercapnia Code(s): J96.01 - ACUTE RESPIRATORY FAILURE WITH HYPOXIA; J96.02 - ACUTE RESPIRATORY FAILURE WITH HYPERCAPNIA
[2018-01-06] MEDS ORDERED: morphine CARPU-JECT 2 MG/1 ML DISP.SYRIN IVPUSH PRN (14:04)
--- NOTE | 2018-01-06 14:48 | CONS ---
DATE OF CONSULTATION: 01/06/2018 REFERRING PHYSICIAN: DREW Thomas HISTORY OF PRESENT ILLNESS: History is obtained from the chart. The patient is an 82-year-old white female with past medical history of dementia, bipolar disorder, congestive heart failure, rheumatoid arthritis, hypothyroidism, GERD, asthma, atrial fibrillation, hypertension, chronic leukopenia, recently hospitalized at [facility] from December 04 to December 25 secondary to congestive heart failure complicated by fever. Blood cultures and urine cultures were positive for Enterococcus. Completed a 4-day course of vancomycin. The patient was transferred to a correction. Was readmitted on January 04 secondary to increasing shortness of breath. The patient on admission was also noted to have a temperature. She underwent a CAT scan of the chest which revealed bilateral pleural effusions, pulmonary vascular congestion as well as a left upper lobe consolidation. She was evaluated by Dr. Salazar for an infectious disease and placed on broad-spectrum antibiotics. She was also evaluated by Cardiology who felt that the patient had congestive heart failure. Hospitalization was significant for earlier today she became hypoxic with O2 saturations in the 60s. She was placed on BiPAP. Of note is the family refused the patient to be transferred to the ICU for intubation. Patient is currently on BiPAP, mildly tachypneic. PAST MEDICAL HISTORY: Again includes atrial fibrillation, dementia, bipolar disorder, congestive heart failure, pneumonia, recent Enterococcal sepsis, gastroesophageal reflux, hypothyroidism, hypertension, chronic leukopenia, atrial fibrillation and dementia. REVIEW OF SYSTEMS: Unable to obtain. CURRENT MEDICATIONS: Include Levaquin; vancomycin; Bactroban; Eliquis; Zyloprim; Plaquenil; Ativan; Duo-Neb; Toprol; Colace; ; Lasix; morphine; Protonix; K-Dur; Synthroid; and folic acid. PHYSICAL EXAMINATION:General: The patient is an elderly white female, obese, well developed, tachypneic, on BiPAP. Vital Signs: Currently temperature is 99.8, blood pressure 118/62, respiratory rate is 24, O2 saturation is 96% on BiPAP. HEENT: Normocephalic, atraumatic. Neck: Supple. Heart: Irregularly irregular, S1, S2. Chest: Bilateral crackles with scattered bilateral rhonchi. Abdomen: Soft. Bowel sounds are positive. Extremities: Bilateral lower extremity edema. LABORATORIES: WBC is 4, hemoglobin 8.2, hematocrit 27.9, platelet count of 232,000. Blood gas, initial: PH 7.29, PCO2 of 69, a PO2 of 108, a bicarbonate of 32 and a saturation of 97 on unknown quantity oxygen. Again repeat: 7.39, PCO2 of 52, a PO2 of 88, a bicarbonate of 31 and a saturation of 97.3. Chemistries: BUN 39, creatinine 1.4. Chest CT as noted earlier reveals bilateral pleural effusions, pulmonary vascular congestion with a lingular infiltrate. IMPRESSION: Acute hypoxemia with hypercapnic respiratory failure secondary to: 1. Chronic likely acute on chronic congestive heart failure. 2. Pneumonia. 3. Recent Enterococcal sepsis. 4. Atrial fibrillation. 5. History of diastolic heart failure. 6. Bipolar disorder. 7. Dementia. 8. Gastroesophageal reflux disease. PLAN: IV antibiotics. Add Lasix. Supplemental O2. BiPAP. Monitor arterial blood gases. Morphine p.r.n. for respiratory distress. Obtain followup chest x-rays, cultures. Thank you. SAROJ ALMENDAREZ M.D. [id number]
--- NOTE | 2018-01-06 14:50 | PN ---
Progress Note, Physician History of Present Illness: Placed on bipap. - Current Medication List Current Medications: Active Medications Albuterol/Ipratropium (Duoneb -) 1 amp NEB Q6H PRN PRN Reason: Dyspnea Last Admin: 01/06/18 06:21 Dose: 1 amp Allopurinol (Zyloprim -) 100 mg PO DAILY [facility] Last Admin: 01/06/18 09:35 Dose: 100 mg Apixaban (Eliquis -) 5 mg PO BID [facility] Last Admin: 01/06/18 13:29 Dose: Not Given Chlorhexidine Gluconate (Hibiclens For Decolonization -) 1 applic TP HS [facility] Docusate Sodium (Colace -) 100 mg PO DAILY [facility] Last Admin: 01/06/18 13:29 Dose: Not Given Folic Acid (Folic Acid -) 1 mg PO DAILY [facility] Last Admin: 01/06/18 13:29 Dose: Not Given Furosemide (Lasix Injection -) 20 mg IVPUSH 1400 [facility] Last Admin: 01/06/18 14:00 Dose: 20 mg Furosemide (Lasix Injection -) 40 mg IVPUSH 0600 [facility] Last Admin: 01/06/18 05:40 Dose: 40 mg Hydroxychloroquine Sulfate (Plaquenil -) 200 mg PO DAILY [facility] Last Admin: 01/06/18 13:26 Dose: Not Given Levofloxacin (Levaquin 750 Mg Premixed Ivpb -) 750 mg in 150 mls @ 100 mls/hr IVPB DAILY [facility]; Protocol Last Admin: 01/06/18 09:35 Dose: 100 mls/hr Vancomycin HCl (Vancomycin (Pre-Docked)) 1,000 mg in 250 mls @ 200 mls/hr IVPB DAILY@1500 [facility]; Protocol Last Admin: 01/05/18 15:18 Dose: 200 mls/hr Levothyroxine Sodium (Synthroid -) 75 mcg PO DAILY@0700 [facility] Last Admin: 01/06/18 06:54 Dose: 75 mcg Lorazepam (Ativan -) 1 mg PO DAILY PRN PRN Reason: ANXIETY Metoprolol Succinate (Toprol Xl -) 50 mg PO BID [facility] Last Admin: 01/06/18 13:29 Dose: Not Given Morphine Sulfate (Morphine Injection -) 1 mg IVPUSH Q6H PRN PRN Reason: PAIN LEVEL 6-10 Mupirocin (Bactroban Ointment (For Decolonization) -) 1 applic NS BID [facility] Stop: 01/11/18 09:59 Pantoprazole Sodium (Protonix -) 40 mg PO DAILY [facility] Last Admin: 01/06/18 09:35 Dose: 40 mg Potassium Chloride (K-Dur -) 40 meq PO DAILY [facility] Last Admin: 01/06/18 09:35 Dose: 40 meq - Objective Vital Signs: Vital Signs Temperature 99.8 F H 01/06/18 14:00 Pulse Rate 103 H 01/06/18 14:00 Respiratory Rate 24 H 01/06/18 14:00 Blood Pressure 118/62 01/06/18 14:00 O2 Sat by Pulse Oximetry (%) 97 01/06/18 12:30 Constitutional: Yes: No Distress, Calm Neck: Yes: Supple Cardiovascular: Yes: Pulse Irregular Respiratory: Yes: Regular, Diminished, On BiPap Gastrointestinal: Yes: Soft, Abdomen, Obese, Hypoactive Bowel Sounds Edema: No Labs: CBC, BMP 01/06/18 07:40 01/06/18 07:40 INR, PTT INR 2.66 (0.83-1.09) H 01/05/18 07:10 - ....Imaging Chest X-ray: Report Reviewed (Improved right base aeration) Problem List - Problems (1) Acute respiratory failure with hypoxia and hypercapnia Code(s): J96.01 - ACUTE RESPIRATORY FAILURE WITH HYPOXIA; J96.02 - ACUTE RESPIRATORY FAILURE WITH HYPERCAPNIA (2) CHF (congestive heart failure) Code(s): I50.9 - HEART FAILURE, UNSPECIFIED Qualifiers: Heart failure type: diastolic Heart failure chronicity: acute on chronic Qualified Code(s): I50.33 - Acute on chronic diastolic (congestive) heart failure (3) Rheumatoid arthritis Code(s): M06.9 - RHEUMATOID ARTHRITIS, UNSPECIFIED (4) Atrial fibrillation Code(s): I48.91 - UNSPECIFIED ATRIAL FIBRILLATION Qualifiers: Atrial fibrillation type: persistent Qualified Code(s): I48.1 - Persistent atrial fibrillation (5) Hypothyroidism Code(s): E03.9 - HYPOTHYROIDISM, UNSPECIFIED Qualifiers: Hypothyroidism type: unspecified Qualified Code(s): E03.9 - Hypothyroidism , unspecified Assessment/Plan 1. Acute on chronic LV diastolic failure +/- PNA 2. Persistent AF on Eliquis 3. Anemia 4. Rheumatoid arthritis 5. Hypothyroidism 6. Bipolar 7. GERD 8. HTN 9. Acute on CKD PLAN: 1. Decrease diuresis with monitor diuretic response, renal function and electrolytes, NIPPV 2. Metoprolol 50 bid, Eliquis 5 mg BID 3. Empiric antibiotic coverage 4. Continue remainder of treatment for RA and GI prophylaxis
--- NOTE | 2018-01-06 15:36 | EKG ---
Test Reason : Blood Pressure : / mmHG Vent. Rate : 109 BPM Atrial Rate : 094 BPM P-R Int : 000 ms QRS Dur : 090 ms QT Int : 318 ms P-R-T Axes : 000 081 166 degrees QTc Int : 428 ms ATRIAL FIBRILLATION WITH RAPID VENTRICULAR RESPONSE LOW VOLTAGE QRS NONSPECIFIC ST AND T WAVE ABNORMALITY ABNORMAL ECG WHEN COMPARED WITH ECG OF 05-JAN-2018 15:51, NO SIGNIFICANT CHANGE WAS FOUND Confirmed by MONICA CALLOWAY, JAKUB ([id number]) on 01/06/2018 3:36:05 PM Referred By: JOSY YOUNG Confirmed By:JAKUB ANDERSON MD
--- NOTE | 2018-01-06 15:41 | EKG ---
Test Reason : Blood Pressure : / mmHG Vent. Rate : 096 BPM Atrial Rate : 091 BPM P-R Int : 000 ms QRS Dur : 092 ms QT Int : 372 ms P-R-T Axes : 000 085 197 degrees QTc Int : 469 ms ATRIAL FIBRILLATION WITH PREMATURE VENTRICULAR OR ABERRANTLY CONDUCTED COMPLEXES NONSPECIFIC ST AND T WAVE ABNORMALITY ABNORMAL ECG WHEN COMPARED WITH ECG OF 04-JAN-2018 18:26, QT HAS LENGTHENED Confirmed by MONICA CALLOWAY, JAKUB ([id number]) on 01/06/2018 3:40:48 PM Referred By: SMITH BARON Confirmed By:JAKUB ANDERSON MD
[2018-01-06] MEDS: VANCOMYCIN 1 GRAM (PRE-DOCKED) 1,000 MG/250 ML BAG IVPB SCH (15:45)
[2018-01-06] MEDS: MORPHINE SULFATE 2 MG/ML VIAL IVPUSH PRN (15:46)
--- NOTE | 2018-01-06 17:46 | PN ---
Physical Exam: SUBJECTIVE: Patient seen and examined. At 6:37 am, patient found with agonal breathing and O2 sat of 60 % @ 3L Nasal canula. She was given 30 mg of IV Lasix , duoneb, placed on ventimask and her saturation improved to 95 %. The ICU team was consulted for a transfer. ABG showed : pH 7.29; Pco2-69, o2-108. Has diffuse wheezing, b/l basilar crackles. Patient was started on Bi Pap OBJECTIVE: Vital Signs Period Temp Pulse Resp BP Sys/Neal Pulse Ox Last 24 Hr 98.0 F-99.8 F 97-113 20-25 118-138/51-79 95-97 GENERAL: Obese, in bed with HOB elevated, +BIPAP, appears very weak and fatigued , only able to answer what her name is. HEAD: Normal with no signs of trauma. EYES: PERRL, extraocular movements intact, sclera anicteric, conjunctiva clear. No ptosis. ENT: Nares patent, oropharynx clear without exudates, moist mucous membranes. NECK: Trachea midline, full range of motion, supple. LUNGS: B/L diffuse wheeze +, b/l basilar crackles, Use of accessory muscle. HEART: Irregularly irregular rate and rhythm, normal S1 and S2 with soft systolic murmur. ABDOMEN: Obese, ooft, nontender, nondistended, normoactive bowel sounds, no guarding, no rebound, no hepatosplenomegaly, no masses. EXTREMITIES: 2+ pulses, warm, well-perfused, +3 pitting edema to b/l LE. SKIN: Warm, dry, normal turgor, +left medial popliteal area dark purple closed lesion. Laboratory Results - last 24 hr 01/05/18 01/06/18 01/06/18 18:00 06:45 07:40 WBC 4.0 RBC 3.46 L Hgb 8.2 L Hct 27.9 L MCV 80.8 MCH 23.8 L MCHC 29.5 L RDW 22.8 H Plt Count 232 MPV 7.3 L Anticoagulation Therapy No Result Required. Puncture Site Right radial ABG pH 7.29 L ABG pCO2 at Pt Temp 69.4 H* ABG pO2 at Pt Temp 108.0 H ABG HCO3 32.3 H ABG O2 Sat (Measured) 97.9 ABG O2 Content 11.7 L ABG Base Excess 5.1 H Santos Test Positive O2 Delivery Device Y Oxygen Flow Rate 7 Vent Mode No Result Required. Vent Rate No Result Required. Mechanical Rate No Result Required. Pressure Support Vent No Result Required. Sodium 136 Potassium 2.8 L* Chloride 94 L Carbon Dioxide 31 Anion Gap 11 BUN 35 H Creatinine 1.3 Creat Clearance w eGFR 39.21 Random Glucose 151 H Calcium 7.5 L Phosphorus 2.4 L Magnesium 1.9 Total Bilirubin 0.4 AST 23 ALT 20 Alkaline Phosphatase 153 H Creatine Kinase 22 L Troponin I < 0.02 Total Protein 7.1 Albumin 2.0 L 01/06/18 01/06/18 07:40 10:41 WBC RBC Hgb Hct MCV MCH MCHC RDW Plt Count MPV Anticoagulation Therapy Puncture Site Left radial ABG pH 7.39 ABG pCO2 at Pt Temp 52.7 H D ABG pO2 at Pt Temp 88.3 ABG HCO3 31.3 H ABG O2 Sat (Measured) 97.3 ABG O2 Content 10.7 L ABG Base Excess 6.1 H Santos Test Positive O2 Delivery Device Oxygen Flow Rate Yes Vent Mode Vent Rate Mechanical Rate Pressure Support Vent Sodium 136 Potassium 3.8 Chloride 96 L Carbon Dioxide 34 H Anion Gap 7 L BUN 39 H Creatinine 1.4 H Creat Clearance w eGFR 36.00 Random Glucose 110 H Calcium 8.0 L Phosphorus 3.9 Magnesium 2.2 Total Bilirubin 0.5 AST 29 ALT 20 Alkaline Phosphatase 163 H Creatine Kinase Troponin I < 0.02 Total Protein 8.0 Albumin 2.2 L Active Medications Generic Name Dose Route Start Last Admin Trade Name Freq PRN Reason Stop Dose Admin Albuterol/Ipratropium 1 amp 01/04/18 21:46 01/06/18 06:21 Duoneb - NEB 1 amp Q6H PRN Administration Dyspnea Allopurinol 100 mg 01/05/18 10:00 01/06/18 09:35 Zyloprim - PO 100 mg DAILY [facility] Administration Apixaban 5 mg 01/04/18 22:30 01/06/18 13:29 Eliquis - PO Not Given BID [facility] Chlorhexidine Gluconate 1 applic 01/06/18 22:00 Hibiclens For Decolonization - TP HS [facility] Docusate Sodium 100 mg 01/05/18 10:00 01/06/18 13:29 Colace - PO Not Given DAILY [facility] Folic Acid 1 mg 01/05/18 10:00 01/06/18 13:29 Folic Acid - PO Not Given DAILY [facility] Furosemide 20 mg 01/06/18 14:00 01/06/18 14:00 Lasix Injection - IVPUSH 20 mg 1400 [facility] Administration Furosemide 40 mg 01/06/18 06:00 01/06/18 05:40 Lasix Injection - IVPUSH 40 mg 0600 [facility] Administration Hydroxychloroquine Sulfate 200 mg 01/05/18 10:00 01/06/18 13:26 Plaquenil - PO Not Given DAILY [facility] Levofloxacin 750 mg in 150 mls @ 100 mls/hr 01/05/18 10:00 01/06/18 09:35 Levaquin 750 Mg Premixed Ivpb - IVPB 100 mls/hr DAILY [facility] Administration Protocol Vancomycin HCl 1,000 mg in 250 mls @ 200 mls/hr 01/05/18 15:00 01/06/18 15:45 Vancomycin (Pre-Docked) IVPB 200 mls/hr DAILY@1500 [facility] Administration Protocol Levothyroxine Sodium 75 mcg 01/05/18 07:00 01/06/18 06:54 Synthroid - PO 75 mcg DAILY@0700 [facility] Administration Lorazepam 1 mg 01/04/18 21:46 Ativan - PO DAILY PRN ANXIETY Metoprolol Succinate 50 mg 01/04/18 22:00 01/06/18 13:29 Toprol Xl - PO Not Given BID [facility] Morphine Sulfate 1 mg 01/06/18 15:04 01/06/18 15:46 Morphine Sulfate IVPUSH 1 mg Q6H PRN Administration PAIN LEVEL 6-10 Mupirocin 1 applic 01/06/18 10:00 Bactroban Ointment (For Decolonization) - NS 01/11/18 09:59 BID [facility] Pantoprazole Sodium 40 mg 01/05/18 10:00 01/06/18 09:35 Protonix - PO 40 mg DAILY [facility] Administration Potassium Chloride 40 meq 01/06/18 07:56 01/06/18 09:35 K-Dur - PO 40 meq DAILY [facility] Administration ASSESSMENT/PLAN: 82 year old female with PMH significant for Diastolic CHF, Iron Deficiency anemia, RA, Hypothyroid, Asthma, Dimentia, Bipolar, A-fib on Eliquis. Patient was recently admitted at [facility] 11/26/17-12/25/2017 for Enterococcal bacteremia from UTI was treated with IV Vancomycin and treated for aspiration pneumonia- completed course of Cefepime. Currently she is being treated for Pneumonia with IV Levaquin Neutropenia Hypokalemia Likely has OHA Iron def anemia Dementia Bipolar A-fib on Eliquis ; replete electrolytes (Low potassium K-2.8), consider giving lasix after repleting potassium; transfer to [facility] for continuous monitoring of her vitals. Spoke with the primary team, will reevaluate the patient, if she deteriorates will transfer her to ICU. Acute hypoxic respiratory failure - Likely secondary to exacerbation of asthma/diastolic CHF complicated by pneumonia - ABG wtih PCO2 69.4, pH 7.29 - Started on Bi-pap - Sister who is healthcare proxy changed code status to DNR/DNI today, though still wants IV antibiotics and fluids - Consulted with palliative care team, consider hospice with further decline. - Start Morphine 1 mg IVP q 6 hrs PRN for respiratory distress - Seen by coal cutter Acute on Chronic Diastoli CHF vs Hospital Acquired Pneumonia - Recent Echo normal LV size and function, EF 60-65% - CXR noted with infiltrate vs effusion L>R - Vancomycin/Levaquin - Lasix 40 mg IV Daily, continue home Metolazone for now - Telemetry - Cardiology consulted - Daily Weights, Is&Os, fluid restriction, connor - DuoNebs - ID Consulted Iron Deficiency Anemia - Iron studies from recent admission noted - Hold IV iron for now with possibility of acute infection - Trend CBC Hypothyroidism - Synthroid 75 mcg PO Daily - TSH noted 10.3 - Adjust synthroid dose as OP A-fib - On Eliquis 5 mg PO BID - Rate controlled with Toprol XL 50 mg BID HypoKalemia - 2.8 -> 3.8 after repletion - Recheck in AM RA - Plaquinil DVT Prophylaxis - On Eliquis 5 mg PO BID FEN - Fluids: none - Electrolytes: As above, CMP in AM - NPO while on BiPap Dispo: We will continue to follow the patient. Thank you for this consultative opportunity. DNR/DNI Visit type - Emergency Visit Emergency Visit: No - New Patient This patient is new to me today: Yes Date on this admission: 01/06/18 - Critical Care Critical Care patient: No
[2018-01-06] MEDS ORDERED: CHLORHEXIDINE GLUCONATE 4% CLEANSER FOR DECOLONIZATION TP SCH (22:00)
[2018-01-07] MEDS: APIXABAN 5 MG TABLET PO SCH ×3 (05:13→21:43)
[2018-01-07] MEDS: FUROSEMIDE 40 MG/4 ML INJECTABLE VIAL IVPUSH SCH ×2 (05:30→15:02)
[2018-01-07] MEDS: LEVOTHYROXINE NA 75 MCG TABLET (FP) PO SCH (06:26)
[2018-01-07 07:47] LABS: HEMATOCRIT 24.9 % (32.4-45.2); HEMOGLOBIN 7.6 GM/dL (10.7-15.3); MCH 24.2 pg (25.7-33.7); MCHC 30.5 g/dl (32.0-36.0); MEAN CELL VOLUME 79.4 fl (80-96); MEAN PLT VOLUME 7.3 fl (7.5-11.1); PLATELET COUNT 195 K/MM3 (134-434); RBC 3.14 M/mm3 (3.60-5.2); RDW 22.4 % (11.6-15.6); WHITE BLOOD COUNT 2.9 K/mm3 (4.0-10.0)
[2018-01-07 07:59] LABS: ANION GAP 10 MMOL/L (8-16); BLOOD UREA NITROGEN 50 mg/dL (7-18); CALCIUM 7.6 mg/dL (8.5-10.1); CHLORIDE 96 mmol/L (98-107); CO2 32 mmol/L (21-32); CREATININE 1.6 mg/dL (0.55-1.3); GLUCOSE,RANDOM 77 mg/dL (74-106); MAGNESIUM 1.9 mg/dL (1.8-2.4); POTASSIUM 3.6 mmol/L (3.5-5.1); SODIUM 138 mmol/L (136-145)
--- NOTE | 2018-01-07 09:41 | PN ---
Progress Note, Physician History of Present Illness: pulmonary awake comfortable on bipap,-resp distress - Current Medication List Current Medications: Active Medications Albuterol/Ipratropium (Duoneb -) 1 amp NEB Q6H PRN PRN Reason: Dyspnea Last Admin: 01/06/18 20:43 Dose: 1 amp Allopurinol (Zyloprim -) 100 mg PO DAILY [facility] Last Admin: 01/06/18 09:35 Dose: 100 mg Apixaban (Eliquis -) 5 mg PO BID [facility] Last Admin: 01/07/18 05:13 Dose: Not Given Docusate Sodium (Colace -) 100 mg PO DAILY [facility] Last Admin: 01/06/18 13:29 Dose: Not Given Folic Acid (Folic Acid -) 1 mg PO DAILY [facility] Last Admin: 01/06/18 13:29 Dose: Not Given Furosemide (Lasix Injection -) 20 mg IVPUSH 1400 [facility] Last Admin: 01/06/18 14:00 Dose: 20 mg Furosemide (Lasix Injection -) 40 mg IVPUSH 0600 [facility] Last Admin: 01/07/18 05:30 Dose: 40 mg Hydroxychloroquine Sulfate (Plaquenil -) 200 mg PO DAILY [facility] Last Admin: 01/06/18 13:26 Dose: Not Given Levofloxacin (Levaquin 750 Mg Premixed Ivpb -) 750 mg in 150 mls @ 100 mls/hr IVPB DAILY [facility]; Protocol Last Admin: 01/06/18 09:35 Dose: 100 mls/hr Vancomycin HCl (Vancomycin (Pre-Docked)) 1,000 mg in 250 mls @ 200 mls/hr IVPB DAILY@1500 [facility]; Protocol Last Admin: 01/06/18 15:45 Dose: 200 mls/hr Levothyroxine Sodium (Synthroid -) 75 mcg PO DAILY@0700 [facility] Last Admin: 01/07/18 06:26 Dose: Not Given Lorazepam (Ativan -) 1 mg PO DAILY PRN PRN Reason: ANXIETY Metoprolol Succinate (Toprol Xl -) 50 mg PO BID [facility] Last Admin: 01/07/18 05:13 Dose: Not Given Morphine Sulfate (Morphine Sulfate) 1 mg IVPUSH Q6H PRN PRN Reason: PAIN LEVEL 6-10 Last Admin: 01/06/18 15:46 Dose: 1 mg Pantoprazole Sodium (Protonix -) 40 mg PO DAILY [facility] Last Admin: 01/06/18 09:35 Dose: 40 mg Potassium Chloride (K-Dur -) 40 meq PO DAILY [facility] Last Admin: 01/06/18 09:35 Dose: 40 meq - Objective Vital Signs: Vital Signs Temperature 98.3 F 01/07/18 05:48 Pulse Rate 90 01/07/18 05:48 Respiratory Rate 24 H 01/07/18 05:48 Blood Pressure 118/60 01/07/18 05:48 O2 Sat by Pulse Oximetry (%) 98 01/07/18 07:16 Constitutional: Yes: Well Nourished, Calm Eyes: Yes: WNL HENT: Yes: WNL Neck: Yes: WNL Cardiovascular: Yes: Regular Rate and Rhythm, S1, S2 Respiratory: Yes: On BiPap, Rales (bibasilar rales) Gastrointestinal: Yes: Normal Bowel Sounds, Soft Extremities: Yes: WNL Edema: Yes Labs: CBC, BMP 01/07/18 05:30 01/07/18 05:45 INR, PTT INR 2.66 (0.83-1.09) H 01/05/18 07:10 Problem List - Problems (1) CHF (congestive heart failure) Code(s): I50.9 - HEART FAILURE, UNSPECIFIED Qualifiers: Heart failure type: diastolic Heart failure chronicity: acute on chronic Qualified Code(s): I50.33 - Acute on chronic diastolic (congestive) heart failure (2) Sepsis Code(s): A41.9 - SEPSIS, UNSPECIFIED ORGANISM (3) Leukopenia Code(s): D72.819 - DECREASED WHITE BLOOD CELL COUNT, UNSPECIFIED Qualifiers: Leukopenia type: lymphocytopenia Qualified Code(s): D72.810 - Lymphocytopenia (4) Rheumatoid arthritis Code(s): M06.9 - RHEUMATOID ARTHRITIS, UNSPECIFIED (5) Schizoaffective disorder, bipolar type Code(s): F25.0 - SCHIZOAFFECTIVE DISORDER, BIPOLAR TYPE (6) Acute respiratory failure with hypoxia and hypercapnia Code(s): J96.01 - ACUTE RESPIRATORY FAILURE WITH HYPOXIA; J96.02 - ACUTE RESPIRATORY FAILURE WITH HYPERCAPNIA Assessment/Plan IMP ACUTE HYPERCAPNEIC/HYPOXEMIC RESPIRATORY FAILURE ACUTE ON CHRONIC CHF LIKELY PNEUMONIA AFIB DEMENTIA GERD H/O ENTEROCOCCAL SEPSIS RA HYPOTHYROID HTN PLAN IV LASIX NIPPV O2 ABX F/U CHEST X-RAY AC DR ALMENDAREZ Problem List - Problems (1) CHF (congestive heart failure) Code(s): I50.9 - HEART FAILURE, UNSPECIFIED Qualifiers: Heart failure type: diastolic Heart failure chronicity: acute on chronic Qualified Code(s): I50.33 - Acute on chronic diastolic (congestive) heart failure (2) Sepsis Code(s): A41.9 - SEPSIS, UNSPECIFIED ORGANISM (3) Leukopenia Code(s): D72.819 - DECREASED WHITE BLOOD CELL COUNT, UNSPECIFIED Qualifiers: Leukopenia type: lymphocytopenia Qualified Code(s): D72.810 - Lymphocytopenia (4) Rheumatoid arthritis Code(s): M06.9 - RHEUMATOID ARTHRITIS, UNSPECIFIED (5) Schizoaffective disorder, bipolar type Code(s): F25.0 - SCHIZOAFFECTIVE DISORDER, BIPOLAR TYPE (6) Acute respiratory failure with hypoxia and hypercapnia Code(s): J96.01 - ACUTE RESPIRATORY FAILURE WITH HYPOXIA; J96.02 - ACUTE RESPIRATORY FAILURE WITH HYPERCAPNIA
[2018-01-07] MEDS ORDERED: PT OWN MED DRAWER 7, Y5N ONE (11:35)
[2018-01-07] MEDS: HYDROXYCHLOROQUINE SO4 200 MG TABLET (FP) PO SCH (12:01)
[2018-01-07] MEDS: ALLOPURINOL 100 MG TABLET (FP) PO SCH (12:02)
[2018-01-07] MEDS: PANTOPRAZOLE 40 MG TABLET (FP) PO SCH (12:02)
[2018-01-07] MEDS: POTASSIUM CHLORIDE TABS 20 MEQ TABLET.ER (FP) PO SCH (12:02)
[2018-01-07] MEDS: DOCUSATE SODIUM 100 MG CAPSULE (FP) PO SCH (12:02)
[2018-01-07] MEDS: FOLIC ACID 1 MG TABLET (FP) PO SCH (12:02)
--- NOTE | 2018-01-07 12:57 | PN ---
Physical Exam: SUBJECTIVE: Patient seen and examined. Improved since yesterday; more alert less -labored breathing. OBJECTIVE: Vital Signs Period Temp Pulse Resp BP Sys/Neal Pulse Ox Last 24 Hr 98.3 F-99.8 F 90-103 20-24 110-126/60-67 94-99 GENERAL: Obese, in bed with HOB elevated, +BIPAP, appears very weak and fatigued , only able to answer what her name is. HEAD: Normal with no signs of trauma. EYES: PERRL, extraocular movements intact, sclera anicteric, conjunctiva clear. No ptosis. ENT: Nares patent, oropharynx clear without exudates, moist mucous membranes. NECK: Trachea midline, full range of motion, supple. LUNGS: b/l basilar crackles, no use of accessory muscles HEART: Irregularly irregular rate and rhythm, normal S1 and S2 with soft systolic murmur. ABDOMEN: Obese, ooft, nontender, nondistended, normoactive bowel sounds, no guarding, no rebound, no hepatosplenomegaly, no masses. EXTREMITIES: 2+ pulses, warm, well-perfused, +3 pitting edema to b/l LE. SKIN: Warm, dry, normal turgor, +left medial popliteal area dark purple closed lesion. Laboratory Results - last 24 hr 01/07/18 01/07/18 05:30 05:45 WBC 2.9 L RBC 3.14 L Hgb 7.6 L Hct 24.9 L MCV 79.4 L MCH 24.2 L MCHC 30.5 L RDW 22.4 H Plt Count 195 MPV 7.3 L Sodium 138 Potassium 3.6 Chloride 96 L Carbon Dioxide 32 Anion Gap 10 BUN 50 H Creatinine 1.6 H Creat Clearance w eGFR 30.86 Random Glucose 77 Calcium 7.6 L Magnesium 1.9 Active Medications Generic Name Dose Route Start Last Admin Trade Name Freq PRN Reason Stop Dose Admin Albuterol/Ipratropium 1 amp 01/04/18 21:46 01/06/18 20:43 Duoneb - NEB 1 amp Q6H PRN Administration Dyspnea Allopurinol 100 mg 01/05/18 10:00 01/07/18 12:02 Zyloprim - PO 100 mg DAILY [facility] Administration Apixaban 5 mg 01/04/18 22:30 01/07/18 12:02 Eliquis - PO 5 mg BID [facility] Administration Docusate Sodium 100 mg 01/05/18 10:00 01/07/18 12:02 Colace - PO 100 mg DAILY E[facility] Administration Folic Acid 1 mg 01/05/18 10:00 01/07/18 12:02 Folic Acid - PO 1 mg DAILY [facility] Administration Furosemide 20 mg 01/06/18 14:00 01/06/18 14:00 Lasix Injection - IVPUSH 20 mg 1400 [facility] Administration Furosemide 40 mg 01/06/18 06:00 01/07/18 05:30 Lasix Injection - IVPUSH 40 mg 0600 [facility] Administration Hydroxychloroquine Sulfate 200 mg 01/05/18 10:00 01/07/18 12:01 Plaquenil - PO 200 mg DAILY [facility] Administration Levofloxacin 750 mg in 150 mls @ 100 mls/hr 01/05/18 10:00 01/07/18 12:01 Levaquin 750 Mg Premixed Ivpb - IVPB 100 mls/hr DAILY [facility] Administration Protocol Vancomycin HCl 1,000 mg in 250 mls @ 200 mls/hr 01/05/18 15:00 01/06/18 15:45 Vancomycin (Pre-Docked) IVPB 200 mls/hr DAILY@1500 [facility] Administration Protocol Levothyroxine Sodium 75 mcg 01/05/18 07:00 01/07/18 06:26 Synthroid - PO Not Given DAILY@0700 [facility] Lorazepam 1 mg 01/04/18 21:46 Ativan - PO DAILY PRN ANXIETY Metoprolol Succinate 50 mg 01/04/18 22:00 01/07/18 12:02 Toprol Xl - PO 50 mg BID E[facility] Administration Morphine Sulfate 1 mg 01/06/18 15:04 01/06/18 15:46 Morphine Sulfate IVPUSH 1 mg Q6H PRN Administration PAIN LEVEL 6-10 Pantoprazole Sodium 40 mg 01/05/18 10:00 01/07/18 12:02 Protonix - PO 40 mg DAILY [facility] Administration Potassium Chloride 40 meq 01/06/18 07:56 01/07/18 12:02 K-Dur - PO 40 meq DAILY [facility] Administration ASSESSMENT/PLAN: 82 year old female with PMH significant for Diastolic CHF, Iron Deficiency anemia, RA, Hypothyroid, Asthma, Dimentia, Bipolar, A-fib on Eliquis. Patient was recently admitted at [facility] 11/26/17-12/25/2017 for Enterococcal bacteremia from UTI was treated with IV Vancomycin and treated for aspiration pneumonia- completed course of Cefepime. Currently she is being treated for Pneumonia with IV Levaquin Acute hypoxic respiratory failure - Likely secondary to exacerbation of asthma/diastolic CHF complicated by pneumonia - ABG wtih PCO2 69.4, pH 7.29 - On Bi-pap - Sister who is healthcare proxy changed code status to DNR/DNI, though still wants IV antibiotics and fluids - Consulted with palliative care team, consider hospice with further decline. - Morphine 1 mg IVP q 6 hrs PRN for respiratory distress - Seen by hospitality recruiter Dr. Alexis - Restart dysphagia diet - Repeat CXR ordered - May consider down grading from bi-pap if continued improvement Acute on Chronic Diastoli CHF vs Hospital Acquired Pneumonia - Recent Echo normal LV size and function, EF 60-65% - CXR noted with infiltrate vs effusion L>R - Vancomycin/Levaquin - Lasix 40 mg IV Daily, continue home Metolazone for now - Telemetry - Cardiology consulted - Daily Weights, Is&Os, fluid restriction, connor - DuoNebs - ID Consulted Iron Deficiency Anemia - Iron studies from recent admission noted - Hold IV iron for now with possibility of acute infection - Trend CBC Hypothyroidism - Synthroid 75 mcg PO Daily - TSH noted 10.3 - Adjust synthroid dose as OP A-fib - On Eliquis 5 mg PO BID - Rate controlled with Toprol XL 50 mg BID HypoKalemia - Resolved - KCL 40 meq PO daily - Continue to monitor RA - Plaquinil DVT Prophylaxis - On Eliquis 5 mg PO BID FEN - Fluids: none - Electrolytes: As above, CMP in AM - Dysphagia puree diet Dispo: We will continue to follow the patient. Thank you for this consultative opportunity. DNR/DNI Visit type - Emergency Visit Emergency Visit: No - New Patient This patient is new to me today: No - Critical Care Critical Care patient: No
--- NOTE | 2018-01-07 12:59 | PN ---
Progress Note (short form) - Note Progress Note: Chief Complaint: Events noted, notes reviewed, lethargic on BiPAP, no distress History of Present Illness: Seen and examined on telemetry. Events noted, notes reviewed, lethargic on BiPAP , no distress Echocardiography dated 12/14/2017 revealed normal LV systolic function/EF 60-65% , left atrial dilatation, mild MR, mild to moderate TR with RVSP 41 mmHg - Current Medication List Current Medications Albuterol/Ipratropium (Duoneb -) 1 amp NEB Q6H PRN PRN Reason: Dyspnea Last Admin: 01/06/18 20:43 Dose: 1 amp Allopurinol (Zyloprim -) 100 mg PO DAILY [facility] Last Admin: 01/07/18 12:02 Dose: 100 mg Apixaban (Eliquis -) 5 mg PO BID [facility] Last Admin: 01/07/18 12:02 Dose: 5 mg Docusate Sodium (Colace -) 100 mg PO DAILY [facility] Last Admin: 01/07/18 12:02 Dose: 100 mg Folic Acid (Folic Acid -) 1 mg PO DAILY [facility] Last Admin: 01/07/18 12:02 Dose: 1 mg Furosemide (Lasix Injection -) 20 mg IVPUSH 1400 [facility] Last Admin: 01/06/18 14:00 Dose: 20 mg Furosemide (Lasix Injection -) 40 mg IVPUSH 0600 [facility] Last Admin: 01/07/18 05:30 Dose: 40 mg Hydroxychloroquine Sulfate (Plaquenil -) 200 mg PO DAILY [facility] Last Admin: 01/07/18 12:01 Dose: 200 mg Levofloxacin (Levaquin 750 Mg Premixed Ivpb -) 750 mg in 150 mls @ 100 mls/hr IVPB DAILY [facility]; Protocol Last Admin: 01/07/18 12:01 Dose: 100 mls/hr Vancomycin HCl (Vancomycin (Pre-Docked)) 1,000 mg in 250 mls @ 200 mls/hr IVPB DAILY@1500 [facility]; Protocol Last Admin: 01/06/18 15:45 Dose: 200 mls/hr Levothyroxine Sodium (Synthroid -) 75 mcg PO DAILY@0700 [facility] Last Admin: 01/07/18 06:26 Dose: Not Given Lorazepam (Ativan -) 1 mg PO DAILY PRN PRN Reason: ANXIETY Metoprolol Succinate (Toprol Xl -) 50 mg PO BID [facility] Last Admin: 01/07/18 12:02 Dose: 50 mg Morphine Sulfate (Morphine Sulfate) 1 mg IVPUSH Q6H PRN PRN Reason: PAIN LEVEL 6-10 Last Admin: 01/06/18 15:46 Dose: 1 mg Pantoprazole Sodium (Protonix -) 40 mg PO DAILY [facility] Last Admin: 01/07/18 12:02 Dose: 40 mg Potassium Chloride (K-Dur -) 40 meq PO DAILY [facility] Last Admin: 01/07/18 12:02 Dose: 40 meq Review of Systems - Review of Systems Unable to obtain, lethargic Vital Signs: Last Vital Signs Temp Pulse Resp BP Pulse Ox 98.3 F 102 H 22 H 126/60 99 01/07/18 05:48 01/07/18 10:00 01/07/18 10:00 01/07/18 10:00 01/07/18 11:20 Intake & Output 01/04/18 01/05/18 01/06/18 01/07/18 23:59 23:59 23:59 23:59 Intake Total 870 0 10 Output Total 200 2600 200 Balance -200 -1730 -200 10 Weight 221 lb 8 oz 202 lb Constitutional: No Distress, Calm Neck: Supple Negative JVD Respiratory: Bilateral Scattered Rhonchi Cardiovascular: S1 S2 Irregularly Irregular Gastrointestinal: Soft Benign Normal Bowel Sounds Ext: No Edema Labs: CBC, BMP 01/07/18 05:30 01/07/18 05:45 Hepatic Panel Total Bilirubin 0.5 mg/dL (0.2-1) 01/06/18 07:40 AST 29 U/L (15-37) 01/06/18 07:40 ALT 20 U/L (13-61) 01/06/18 07:40 Alkaline Phosphatase 163 U/L (45-117) H 01/06/18 07:40 Albumin 2.2 g/dl (3.4-5.0) L 01/06/18 07:40 Assessment/Plan ASSESSMENT: 1. Acute on chronic hypoxic respiratory failure related to acute on chronic class II NYHA classification LV diastolic failure, resolving and 2. Probable pneumonia, resolving 3. CAD angina pectoris 4. Persistent atrial fibrillation [id number] score of 5 on DOAC's/Eliquis 5. HTN 6. Hypothyroidism 7. Acute on chronic CKD 8. Rheumatoid arthritis 9. Anemia PLAN: 1. Continue Lasix with close monitoring of renal function and electrolytes 2. Continue Toprol XL 3. Continue Eliquis 4. Antibiotics as per the primary team Janeth Arroyo M.D.
[2018-01-07] MEDS: MORPHINE SULFATE 2 MG/ML VIAL IVPUSH PRN (15:02)
[2018-01-07] MEDS: VANCOMYCIN 1 GRAM (PRE-DOCKED) 1,000 MG/250 ML BAG IVPB SCH (15:13)
[2018-01-08] MEDS: MORPHINE SULFATE 2 MG/ML VIAL IVPUSH PRN ×3 (00:31→20:52)
[2018-01-08] MEDS: FUROSEMIDE 40 MG/4 ML INJECTABLE VIAL IVPUSH SCH ×2 (05:46→14:12)
[2018-01-08] MEDS: LEVOTHYROXINE NA 75 MCG TABLET (FP) PO SCH (06:08)
[2018-01-08 06:58] LABS: HEMATOCRIT 26.5 % (32.4-45.2); MCH 24.1 pg (25.7-33.7); MCHC 30.4 g/dl (32.0-36.0); MEAN CELL VOLUME 79.2 fl (80-96); MEAN PLT VOLUME 7.3 fl (7.5-11.1); PLATELET COUNT 209 K/MM3 (134-434); RBC 3.34 M/mm3 (3.60-5.2); WHITE BLOOD COUNT 3.3 K/mm3 (4.0-10.0)
[2018-01-08 07:17] LABS: ANION GAP 6 MMOL/L (8-16); BLOOD UREA NITROGEN 56 mg/dL (7-18); CHLORIDE 97 mmol/L (98-107); CO2 35 mmol/L (21-32); CREATININE 1.5 mg/dL (0.55-1.3); GLUCOSE,RANDOM 89 mg/dL (74-106); POTASSIUM 3.7 mmol/L (3.5-5.1); SODIUM 138 mmol/L (136-145)
[2018-01-08] MEDS: ALBUTEROL SO4 2.5/IPRATROPIUM 0.5 INH SOL 3 ML VIAL.NEB. NEB PRN ×3 (08:20→20:55)
--- NOTE | 2018-01-08 09:50 | PN ---
Physical Exam: SUBJECTIVE: Patient seen and examined. Much more alert than previous visits. Breathing has improved, off bipap and now on venti mask. OBJECTIVE: Vital Signs Period Temp Pulse Resp BP Sys/Neal Pulse Ox Last 24 Hr 97.8 F-98 F 80-103 18-24 113-126/54-74 97-99 GENERAL: Obese, in bed with HOB elevated, +BIPAP, appears very weak and fatigued , only able to answer what her name is. HEAD: Normal with no signs of trauma. EYES: PERRL, extraocular movements intact, sclera anicteric, conjunctiva clear. No ptosis. ENT: Nares patent, oropharynx clear without exudates, moist mucous membranes. NECK: Trachea midline, full range of motion, supple. LUNGS: +Venti mask, minor expiratory wheeze, no use of accessory muscles HEART: Irregularly irregular rate and rhythm, normal S1 and S2 with soft systolic murmur. ABDOMEN: Obese, ooft, nontender, nondistended, normoactive bowel sounds, no guarding, no rebound, no hepatosplenomegaly, no masses. EXTREMITIES: +3 pitting edema to b/l LE, 2+ pulses, warm, well-perfused SKIN: Warm, dry, normal turgor, +left medial popliteal area dark purple closed lesion. Laboratory Results - last 24 hr 01/08/18 01/08/18 06:00 06:00 WBC 3.3 L RBC 3.34 L Hgb 8.0 L Hct 26.5 L MCV 79.2 L MCH 24.1 L MCHC 30.4 L RDW 22.0 H Plt Count 209 MPV 7.3 L Sodium 138 Potassium 3.7 Chloride 97 L Carbon Dioxide 35 H Anion Gap 6 L BUN 56 H Creatinine 1.5 H Creat Clearance w eGFR 33.25 Random Glucose 89 Calcium 8.0 L Magnesium 2.0 Active Medications Generic Name Dose Route Start Last Admin Trade Name Freq PRN Reason Stop Dose Admin Albuterol/Ipratropium 1 amp 01/04/18 21:46 01/08/18 08:20 Duoneb - NEB 1 amp Q6H PRN Administration Dyspnea Allopurinol 100 mg 01/05/18 10:00 01/07/18 12:02 Zyloprim - PO 100 mg DAILY [facility] Administration Apixaban 5 mg 01/04/18 22:30 01/07/18 21:43 Eliquis - PO 5 mg BID [facility] Administration Docusate Sodium 100 mg 01/05/18 10:00 01/07/18 12:02 Colace - PO 100 mg DAILY [facility] Administration Folic Acid 1 mg 01/05/18 10:00 01/07/18 12:02 Folic Acid - PO 1 mg DAILY [facility] Administration Furosemide 20 mg 01/06/18 14:00 01/07/18 15:02 Lasix Injection - IVPUSH 20 mg 1400 [facility] Administration Furosemide 40 mg 01/06/18 06:00 01/08/18 05:46 Lasix Injection - IVPUSH 40 mg 0600 [facility] Administration Hydroxychloroquine Sulfate 200 mg 01/05/18 10:00 01/07/18 12:01 Plaquenil - PO 200 mg DAILY [facility] Administration Levofloxacin 750 mg in 150 mls @ 100 mls/hr 01/05/18 10:00 01/07/18 12:01 Levaquin 750 Mg Premixed Ivpb - IVPB 100 mls/hr DAILY [facility] Administration Protocol Vancomycin HCl 1,000 mg in 250 mls @ 200 mls/hr 01/05/18 15:00 01/07/18 15:13 Vancomycin (Pre-Docked) IVPB 200 mls/hr DAILY@1500 [facility] Administration Protocol Levothyroxine Sodium 75 mcg 01/05/18 07:00 01/08/18 06:08 Synthroid - PO 75 mcg DAILY@0700 [facility] Administration Metoprolol Succinate 50 mg 01/04/18 22:00 01/07/18 21:43 Toprol Xl - PO 50 mg BID [facility] Administration Morphine Sulfate 1 mg 01/06/18 15:04 01/08/18 00:31 Morphine Sulfate IVPUSH 1 mg Q6H PRN Administration PAIN LEVEL 6-10 Pantoprazole Sodium 40 mg 01/05/18 10:00 01/07/18 12:02 Protonix - PO 40 mg DAILY [facility] Administration Potassium Chloride 40 meq 01/06/18 07:56 01/07/18 12:02 K-Dur - PO 40 meq DAILY [facility] Administration ASSESSMENT/PLAN: 82 year old female with PMH significant for Diastolic CHF, Iron Deficiency anemia, RA, Hypothyroid, Asthma, Dimentia, Bipolar, A-fib on Eliquis. Patient was recently admitted at [facility] 11/26/17-12/25/2017 for Enterococcal bacteremia from UTI was treated with IV Vancomycin and treated for aspiration pneumonia- completed course of Cefepime. 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 Alexis Acute on Chronic Diastolic CHF - Recent Echo normal LV size and function, EF 60-65% - CXR noted with infiltrate vs effusion L>R - Lasix 40 mg IV Daily, continue home Metolazone for now - Telemetry - Followed by cardiology - Daily Weights, I & Os, fluid restriction, connor - DuoNebs - ID Consulted Iron Deficiency Anemia - Iron studies from recent admission noted - Hold IV iron for now with possibility of acute infection - Trend CBC Hypothyroidism - Synthroid 75 mcg PO Daily - TSH noted 10.3 - Adjust synthroid dose as OP A-fib - On Eliquis 5 mg PO BID - Rate controlled with Toprol XL 50 mg BID Hypokalemia - Resolved - KCL 40 meq PO daily - Continue to monitor RA - Plaquinil DVT Prophylaxis - Eliquis 5 mg PO BID BiPolar - Yelling "Help!" loudly throughout the day - Restart Ativan 1 mg PO TID FEN - Fluids: none - Electrolytes: As above, CMP in AM - Dysphagia puree diet Dispo: Patient requires further inpatient care. Consulted with palliative care team, consider hospice with further decline. DNR/DNI Visit type - Emergency Visit Emergency Visit: No - New Patient This patient is new to me today: No - Critical Care Critical Care patient: No
[2018-01-08] MEDS ORDERED: LORazepam 1 MG TABLET PO PRN (10:10)
[2018-01-08] MEDS ORDERED: PT OWN MED DRAWER 7, Y5N ONE (10:30)
[2018-01-08] MEDS: APIXABAN 5 MG TABLET PO SCH ×2 (10:43→21:19)
[2018-01-08] MEDS: POTASSIUM CHLORIDE TABS 20 MEQ TABLET.ER (FP) PO SCH (10:43)
[2018-01-08] MEDS: DOCUSATE SODIUM 100 MG CAPSULE (FP) PO SCH (10:43)
[2018-01-08] MEDS: ALLOPURINOL 100 MG TABLET (FP) PO SCH (10:43)
[2018-01-08] MEDS: HYDROXYCHLOROQUINE SO4 200 MG TABLET (FP) PO SCH (10:43)
[2018-01-08] MEDS: FOLIC ACID 1 MG TABLET (FP) PO SCH (10:43)
[2018-01-08] MEDS: PANTOPRAZOLE 40 MG TABLET (FP) PO SCH (10:44)
--- NOTE | 2018-01-08 10:50 | PN ---
Progress Note, Physician History of Present Illness: PULMONARY AWAKE,ALERT,ON VM 40% TOLERATING WELL,-RESP DISTRESS - Current Medication List Current Medications: Active Medications Albuterol/Ipratropium (Duoneb -) 1 amp NEB Q6H PRN PRN Reason: Dyspnea Last Admin: 01/08/18 08:20 Dose: 1 amp Allopurinol (Zyloprim -) 100 mg PO DAILY [facility] Last Admin: 01/08/18 10:43 Dose: 100 mg Apixaban (Eliquis -) 5 mg PO BID [facility] Last Admin: 01/08/18 10:43 Dose: 5 mg Docusate Sodium (Colace -) 100 mg PO DAILY [facility] Last Admin: 01/08/18 10:43 Dose: 100 mg Folic Acid (Folic Acid -) 1 mg PO DAILY [facility] Last Admin: 01/08/18 10:43 Dose: 1 mg Furosemide (Lasix Injection -) 20 mg IVPUSH 1400 [facility] Last Admin: 01/07/18 15:02 Dose: 20 mg Furosemide (Lasix Injection -) 40 mg IVPUSH 0600 [facility] Last Admin: 01/08/18 05:46 Dose: 40 mg Hydroxychloroquine Sulfate (Plaquenil -) 200 mg PO DAILY [facility] Last Admin: 01/08/18 10:43 Dose: 200 mg Vancomycin HCl (Vancomycin (Pre-Docked)) 1,000 mg in 250 mls @ 200 mls/hr IVPB DAILY@1500 [facility]; Protocol Last Admin: 01/07/18 15:13 Dose: 200 mls/hr Levothyroxine Sodium (Synthroid -) 75 mcg PO DAILY@0700 [facility] Last Admin: 01/08/18 06:08 Dose: 75 mcg Lorazepam (Ativan -) 1 mg PO TID PRN PRN Reason: ANXIETY Metoprolol Succinate (Toprol Xl -) 50 mg PO BID [facility] Last Admin: 01/08/18 10:43 Dose: 50 mg Morphine Sulfate (Morphine Sulfate) 1 mg IVPUSH Q6H PRN PRN Reason: PAIN LEVEL 6-10 Last Admin: 01/08/18 10:43 Dose: 1 mg Pantoprazole Sodium (Protonix -) 40 mg PO DAILY [facility] Last Admin: 01/08/18 10:44 Dose: 40 mg Potassium Chloride (K-Dur -) 40 meq PO DAILY [facility] Last Admin: 01/08/18 10:43 Dose: 40 meq - Objective Vital Signs: Vital Signs Temperature 97.8 F 01/08/18 01:00 Pulse Rate 80 01/08/18 08:00 Respiratory Rate 18 01/08/18 08:00 Blood Pressure 123/74 01/08/18 08:00 O2 Sat by Pulse Oximetry (%) 98 01/08/18 08:02 Constitutional: Yes: Well Nourished, Calm Eyes: Yes: WNL HENT: Yes: WNL Neck: Yes: WNL Cardiovascular: Yes: Pulse Irregular, S1, S2 Respiratory: Yes: Rales (HAYDER CRACKLES 1/2 UP) Gastrointestinal: Yes: Normal Bowel Sounds, Soft Extremities: Yes: WNL Edema: Yes Labs: CBC, BMP 01/08/18 06:00 01/08/18 06:00 INR, PTT INR 2.66 (0.83-1.09) H 01/05/18 07:10 Problem List - Problems (1) CHF (congestive heart failure) Code(s): I50.9 - HEART FAILURE, UNSPECIFIED Qualifiers: Heart failure type: diastolic Heart failure chronicity: acute on chronic Qualified Code(s): I50.33 - Acute on chronic diastolic (congestive) heart failure (2) Sepsis Code(s): A41.9 - SEPSIS, UNSPECIFIED ORGANISM (3) Leukopenia Code(s): D72.819 - DECREASED WHITE BLOOD CELL COUNT, UNSPECIFIED Qualifiers: Leukopenia type: lymphocytopenia Qualified Code(s): D72.810 - Lymphocytopenia (4) Rheumatoid arthritis Code(s): M06.9 - RHEUMATOID ARTHRITIS, UNSPECIFIED (5) Schizoaffective disorder, bipolar type Code(s): F25.0 - SCHIZOAFFECTIVE DISORDER, BIPOLAR TYPE (6) Acute respiratory failure with hypoxia and hypercapnia Code(s): J96.01 - ACUTE RESPIRATORY FAILURE WITH HYPOXIA; J96.02 - ACUTE RESPIRATORY FAILURE WITH HYPERCAPNIA Assessment/Plan IMP ACUTE HYPERCAPNEIC/HYPOXEMIC RESPIRATORY FAILURE ACUTE ON CHRONIC CHF LIKELY PNEUMONIA AFIB DEMENTIA GERD H/O ENTEROCOCCAL SEPSIS RA HYPOTHYROID HTN PLAN IV LASIX NIPPV NEEDED O2 ABX F/U CHEST X-RAY AC DR ALMENDAREZ Problem List - Problems (1) CHF (congestive heart failure) Code(s): I50.9 - HEART FAILURE, UNSPECIFIED Qualifiers: Heart failure type: diastolic Heart failure chronicity: acute on chronic Qualified Code(s): I50.33 - Acute on chronic diastolic (congestive) heart failure (2) Sepsis Code(s): A41.9 - SEPSIS, UNSPECIFIED ORGANISM (3) Leukopenia Code(s): D72.819 - DECREASED WHITE BLOOD CELL COUNT, UNSPECIFIED Qualifiers: Leukopenia type: lymphocytopenia Qualified Code(s): D72.810 - Lymphocytopenia (4) Rheumatoid arthritis Code(s): M06.9 - RHEUMATOID ARTHRITIS, UNSPECIFIED (5) Schizoaffective disorder, bipolar type Code(s): F25.0 - SCHIZOAFFECTIVE DISORDER, BIPOLAR TYPE (6) Acute respiratory failure with hypoxia and hypercapnia Code(s): J96.01 - ACUTE RESPIRATORY FAILURE WITH HYPOXIA; J96.02 - ACUTE RESPIRATORY FAILURE WITH HYPERCAPNIA
--- NOTE | 2018-01-08 12:00 | PN ---
Progress Note (short form) - Note Progress Note: Chief Complaint: Events noted, notes reviewed, more awake and alert, complaining of dyspnea, no acute distress History of Present Illness: Seen and examined on telemetry. Events noted, notes reviewed, more awake and alert, complaining of dyspnea, no acute distress Echocardiography dated 12/14/2017 revealed normal LV systolic function/EF 60-65% , left atrial dilatation, mild MR, mild to moderate TR with RVSP 41 mmHg - Current Medication List Current Medications Albuterol/Ipratropium (Duoneb -) 1 amp NEB Q6H PRN PRN Reason: Dyspnea Last Admin: 01/08/18 08:20 Dose: 1 amp Allopurinol (Zyloprim -) 100 mg PO DAILY [facility] Last Admin: 01/08/18 10:43 Dose: 100 mg Apixaban (Eliquis -) 5 mg PO BID [facility] Last Admin: 01/08/18 10:43 Dose: 5 mg Docusate Sodium (Colace -) 100 mg PO DAILY [facility] Last Admin: 01/08/18 10:43 Dose: 100 mg Folic Acid (Folic Acid -) 1 mg PO DAILY [facility] Last Admin: 01/08/18 10:43 Dose: 1 mg Furosemide (Lasix Injection -) 20 mg IVPUSH 1400 [facility] Last Admin: 01/07/18 15:02 Dose: 20 mg Furosemide (Lasix Injection -) 40 mg IVPUSH 0600 [facility] Last Admin: 01/08/18 05:46 Dose: 40 mg Hydroxychloroquine Sulfate (Plaquenil -) 200 mg PO DAILY [facility] Last Admin: 01/08/18 10:43 Dose: 200 mg Vancomycin HCl (Vancomycin (Pre-Docked)) 1,000 mg in 250 mls @ 200 mls/hr IVPB DAILY@1500 [facility]; Protocol Last Admin: 01/07/18 15:13 Dose: 200 mls/hr Levothyroxine Sodium (Synthroid -) 75 mcg PO DAILY@0700 [facility] Last Admin: 01/08/18 06:08 Dose: 75 mcg Lorazepam (Ativan -) 1 mg PO TID PRN PRN Reason: ANXIETY Metoprolol Succinate (Toprol Xl -) 50 mg PO BID [facility] Last Admin: 01/08/18 10:43 Dose: 50 mg Morphine Sulfate (Morphine Sulfate) 1 mg IVPUSH Q6H PRN PRN Reason: PAIN LEVEL 6-10 Last Admin: 01/08/18 10:43 Dose: 1 mg Pantoprazole Sodium (Protonix -) 40 mg PO DAILY [facility] Last Admin: 01/08/18 10:44 Dose: 40 mg Potassium Chloride (K-Dur -) 40 meq PO DAILY [facility] Last Admin: 01/08/18 10:43 Dose: 40 meq Review of Systems - Review of Systems Unable to obtain, lethargic Vital Signs: Last Vital Signs Temp Pulse Resp BP Pulse Ox 97.8 F 80 18 123/74 98 01/08/18 01:00 01/08/18 08:00 01/08/18 08:00 01/08/18 08:00 01/08/18 08:02 Intake & Output 01/05/18 01/06/18 01/07/18 01/08/18 23:59 23:59 23:59 23:59 Intake Total 870 0 25 15 Output Total 2600 200 300 250 Balance -6490 -200 -275 -235 Weight 202 lb Constitutional: No Distress, Calm Neck: Supple Negative JVD Respiratory: Bilateral Scattered Rhonchi Cardiovascular: S1 S2 Irregularly Irregular Gastrointestinal: Soft Benign Normal Bowel Sounds Ext: No Edema Labs: CBC, BMP 01/08/18 06:00 01/08/18 06:00 Assessment/Plan ASSESSMENT: 1. Acute on chronic hypoxic respiratory failure related to acute on chronic class I-II NYHA classification LV diastolic failure, resolving and 2. Pneumonia, resolving 3. CAD angina pectoris 4. Persistent atrial fibrillation [id number] score of 5 on DOAC's/Eliquis 5. HTN 6. Hypothyroidism 7. Acute on chronic CKD 8. Rheumatoid arthritis 9. Anemia PLAN: 1. Continue Lasix with close monitoring of renal function and electrolytes 2. Continue Toprol XL 3. Continue Eliquis but dose has to adjusted based on age > 80 and Creatinine of 1.5, to 2.5 mg twice 4. Antibiotics as per the primary team Janeth Arroyo M.D.
[2018-01-08] MEDS: VANCOMYCIN 1 GRAM (PRE-DOCKED) 1,000 MG/250 ML BAG IVPB SCH (14:12)
--- NOTE | 2018-01-08 16:14 | PN ---
Progress Note, Physician History of Present Illness: Awake Offers no complaints + cough noted Afebrile - Current Medication List Current Medications: Active Medications Albuterol/Ipratropium (Duoneb -) 1 amp NEB Q6H PRN PRN Reason: Dyspnea Last Admin: 01/08/18 08:20 Dose: 1 amp Allopurinol (Zyloprim -) 100 mg PO DAILY [facility] Last Admin: 01/08/18 10:43 Dose: 100 mg Apixaban (Eliquis -) 2.5 mg PO BID [facility] Docusate Sodium (Colace -) 100 mg PO DAILY [facility] Last Admin: 01/08/18 10:43 Dose: 100 mg Folic Acid (Folic Acid -) 1 mg PO DAILY [facility] Last Admin: 01/08/18 10:43 Dose: 1 mg Furosemide (Lasix Injection -) 20 mg IVPUSH 1400 [facility] Last Admin: 01/08/18 14:12 Dose: 20 mg Furosemide (Lasix Injection -) 40 mg IVPUSH 0600 [facility] Last Admin: 01/08/18 05:46 Dose: 40 mg Hydroxychloroquine Sulfate (Plaquenil -) 200 mg PO DAILY [facility] Last Admin: 01/08/18 10:43 Dose: 200 mg Vancomycin HCl (Vancomycin (Pre-Docked)) 1,000 mg in 250 mls @ 200 mls/hr IVPB DAILY@1500 [facility]; Protocol Last Admin: 01/08/18 14:12 Dose: 200 mls/hr Levothyroxine Sodium (Synthroid -) 75 mcg PO DAILY@0700 [facility] Last Admin: 01/08/18 06:08 Dose: 75 mcg Lorazepam (Ativan -) 1 mg PO TID PRN PRN Reason: ANXIETY Last Admin: 01/08/18 14:12 Dose: 1 mg Metoprolol Succinate (Toprol Xl -) 50 mg PO BID [facility] Last Admin: 01/08/18 10:43 Dose: 50 mg Morphine Sulfate (Morphine Sulfate) 1 mg IVPUSH Q6H PRN PRN Reason: PAIN LEVEL 6-10 Last Admin: 01/08/18 10:43 Dose: 1 mg Pantoprazole Sodium (Protonix -) 40 mg PO DAILY [facility] Last Admin: 01/08/18 10:44 Dose: 40 mg Potassium Chloride (K-Dur -) 40 meq PO DAILY [facility] Last Admin: 01/08/18 10:43 Dose: 40 meq - Objective Vital Signs: Vital Signs Temperature 97.4 F L 01/08/18 14:00 Pulse Rate 99 H 01/08/18 14:00 Respiratory Rate 20 01/08/18 14:00 Blood Pressure 103/54 L 01/08/18 14:00 O2 Sat by Pulse Oximetry (%) 100 01/08/18 11:16 Constitutional: Yes: Obese Cardiovascular: Yes: Regular Rate and Rhythm, S1, S2 Respiratory: Yes: Diminished Gastrointestinal: Yes: Normal Bowel Sounds, Soft, Abdomen, Obese. No: Tenderness Edema: Yes Labs: CBC, BMP 01/08/18 06:00 01/08/18 06:00 INR, PTT INR 2.66 (0.83-1.09) H 01/05/18 07:10 Assessment/Plan CHF R/O pneumonia Leukopenia PCN/TCN allergies Continue empiric vancomycin/ levaquin
[2018-01-09] MEDS: LEVOTHYROXINE NA 75 MCG TABLET (FP) PO SCH (06:32)
[2018-01-09] MEDS: FUROSEMIDE 40 MG/4 ML INJECTABLE VIAL IVPUSH SCH (06:32)
[2018-01-09] MEDS: MORPHINE SULFATE 2 MG/ML VIAL IVPUSH PRN ×2 (06:47→16:00)
[2018-01-09 07:51] LABS: HEMATOCRIT 25.8 % (32.4-45.2); HEMOGLOBIN 7.8 GM/dL (10.7-15.3); MCH 23.8 pg (25.7-33.7); MCHC 30.2 g/dl (32.0-36.0); MEAN CELL VOLUME 78.5 fl (80-96); MEAN PLT VOLUME 7.4 fl (7.5-11.1); PLATELET COUNT 205 K/MM3 (134-434); RBC 3.28 M/mm3 (3.60-5.2); RDW 22.1 % (11.6-15.6); WHITE BLOOD COUNT 3.2 K/mm3 (4.0-10.0)
[2018-01-09 08:12] LABS: ANION GAP 10 MMOL/L (8-16); BLOOD UREA NITROGEN 60 mg/dL (7-18); CALCIUM 7.8 mg/dL (8.5-10.1); CHLORIDE 98 mmol/L (98-107); CO2 31 mmol/L (21-32); CREATININE 1.8 mg/dL (0.55-1.3); GLUCOSE,RANDOM 88 mg/dL (74-106); MAGNESIUM 1.8 mg/dL (1.8-2.4); POTASSIUM 4.5 mmol/L (3.5-5.1); SODIUM 138 mmol/L (136-145)
[2018-01-09] MEDS ORDERED: PT OWN MED DRAWER 7, Y5N ONE ×2 (11:03→21:35)
[2018-01-09] MEDS: ALLOPURINOL 100 MG TABLET (FP) PO SCH (11:28)
[2018-01-09] MEDS: APIXABAN 5 MG TABLET PO SCH ×2 (11:28→22:13)
[2018-01-09] MEDS: HYDROXYCHLOROQUINE SO4 200 MG TABLET (FP) PO SCH (11:28)
[2018-01-09] MEDS: FOLIC ACID 1 MG TABLET (FP) PO SCH (11:28)
[2018-01-09] MEDS: DOCUSATE SODIUM 100 MG CAPSULE (FP) PO SCH (11:28)
[2018-01-09] MEDS: PANTOPRAZOLE 40 MG TABLET (FP) PO SCH (11:29)
--- NOTE | 2018-01-09 13:38 | CON.PSY ---
Psychiatry Consult Chief Complaint: 82 year old female with a history of Bipolar Disorder admitted from [facility]. Case discuseed with staff. yells out help me help me. and confused [email or web address]. Symptoms: reports: Impulsivity - Previous Psychiatric Treatment Outpatient: None Inpatient: None - Previous Substance Abuse Treatment Outpatient: None Inpatient: None - Reason for Previous Treatment Reason for Previous Treatment: Biploar Illness - Current Medications Current Medications: Active Medications Albuterol/Ipratropium (Duoneb -) 1 amp NEB Q6H PRN PRN Reason: Dyspnea Last Admin: 01/08/18 20:55 Dose: 1 amp Allopurinol (Zyloprim -) 100 mg PO DAILY [facility] Last Admin: 01/09/18 11:28 Dose: 100 mg Apixaban (Eliquis -) 2.5 mg PO BID [facility] Last Admin: 01/09/18 11:28 Dose: 2.5 mg Docusate Sodium (Colace -) 100 mg PO DAILY [facility] Last Admin: 01/09/18 11:28 Dose: 100 mg Folic Acid (Folic Acid -) 1 mg PO DAILY [facility] Last Admin: 01/09/18 11:28 Dose: 1 mg Furosemide (Lasix Injection -) 20 mg IVPUSH 1400 [facility] Last Admin: 01/08/18 14:12 Dose: 20 mg Furosemide (Lasix Injection -) 40 mg IVPUSH 0600 [facility] Last Admin: 01/09/18 06:32 Dose: 40 mg Hydroxychloroquine Sulfate (Plaquenil -) 200 mg PO DAILY [facility] Last Admin: 01/09/18 11:28 Dose: 200 mg Vancomycin HCl (Vancomycin (Pre-Docked)) 1,000 mg in 250 mls @ 200 mls/hr IVPB DAILY@1500 [facility]; Protocol Last Admin: 01/08/18 14:12 Dose: 200 mls/hr Levofloxacin (Levaquin 500 Mg Premixed Ivpb -) 500 mg in 100 mls @ 100 mls/hr IVPB DAILY [facility]; Protocol Last Admin: 01/09/18 11:28 Dose: 100 mls/hr Levothyroxine Sodium (Synthroid -) 75 mcg PO DAILY@0700 [facility] Last Admin: 01/09/18 06:32 Dose: 75 mcg Lorazepam (Ativan -) 1 mg PO TID PRN PRN Reason: ANXIETY Last Admin: 01/08/18 14:12 Dose: 1 mg Metoprolol Succinate (Toprol Xl -) 50 mg PO BID [facility] Last Admin: 01/09/18 11:29 Dose: 50 mg Morphine Sulfate (Morphine Sulfate) 1 mg IVPUSH Q6H PRN PRN Reason: PAIN LEVEL 6-10 Last Admin: 01/09/18 06:47 Dose: 1 mg Pantoprazole Sodium (Protonix -) 40 mg PO DAILY [facility] Last Admin: 01/09/18 11:29 Dose: 40 mg Potassium Chloride (K-Dur -) 40 meq PO DAILY [facility] Last Admin: 01/08/18 10:43 Dose: 40 meq - Allergies Allergies: Allergies Allergy/AdvReac Type Severity Reaction Status Date / Time Penicillins Allergy Verified 01/04/18 17:51 tetracycline Allergy Verified 01/04/18 17:51 - Current Living Status Usual Living Arrangement: Senior Living - Current Mental Status Evaluation Attitude: Guarded - Affect Affect: Expansive - Mood Mood: Irritable - Speech/Language Expressive: Delayed - Psychomotor Activity Psychomotor Activity: Hyperactive - Thought Process Thought Process: Circumstantial - Thought Content Hallucinations: Absent Delusions: Absent - Self Perception Self Perception: No Impairment - Cognition Attention: Diminished Memory, Short Term: 1/3 Memory, Remote with Promptin/3 - Concentration Serial Sevens Intact: No Simple Calculations Intact: No - Insight Insight: Impaired - Impulse Control Impulse Control: Moderately Impaired - Suicidal Ideation Suicidal Ideation: No - Homicidal Ideation Homicidal Ideation: No Assessment/Plan 1) Restart Depakote 125mg po bid.
--- NOTE | 2018-01-09 14:21 | PN ---
Progress Note (short form) - Note Progress Note: Chief Complaint: Events noted, notes reviewed, awake and alert, no complaint offered, no acute distress History of Present Illness: Seen and examined on telemetry. Events noted, notes reviewed, awake and alert, no complaint offered, no acute distress Echocardiography dated 12/14/2017 revealed normal LV systolic function/EF 60-65% , left atrial dilatation, mild MR, mild to moderate TR with RVSP 41 mmHg - Current Medication List Current Medications Albuterol/Ipratropium (Duoneb -) 1 amp NEB Q6H PRN PRN Reason: Dyspnea Last Admin: 01/08/18 20:55 Dose: 1 amp Allopurinol (Zyloprim -) 100 mg PO DAILY [facility] Last Admin: 01/09/18 11:28 Dose: 100 mg Apixaban (Eliquis -) 2.5 mg PO BID [facility] Last Admin: 01/09/18 11:28 Dose: 2.5 mg Divalproex Sodium (Depakote Sprinkle Caps -) 125 mg PO BID [facility] Docusate Sodium (Colace -) 100 mg PO DAILY [facility] Last Admin: 01/09/18 11:28 Dose: 100 mg Folic Acid (Folic Acid -) 1 mg PO DAILY [facility] Last Admin: 01/09/18 11:28 Dose: 1 mg Furosemide (Lasix Injection -) 20 mg IVPUSH 1400 [facility] Last Admin: 01/08/18 14:12 Dose: 20 mg Furosemide (Lasix Injection -) 40 mg IVPUSH 0600 [facility] Last Admin: 01/09/18 06:32 Dose: 40 mg Hydroxychloroquine Sulfate (Plaquenil -) 200 mg PO DAILY [facility] Last Admin: 01/09/18 11:28 Dose: 200 mg Vancomycin HCl (Vancomycin (Pre-Docked)) 1,000 mg in 250 mls @ 200 mls/hr IVPB DAILY@1500 [facility]; Protocol Last Admin: 01/08/18 14:12 Dose: 200 mls/hr Levofloxacin (Levaquin 500 Mg Premixed Ivpb -) 500 mg in 100 mls @ 100 mls/hr IVPB DAILY [facility]; Protocol Last Admin: 01/09/18 11:28 Dose: 100 mls/hr Levothyroxine Sodium (Synthroid -) 75 mcg PO DAILY@0700 [facility] Last Admin: 01/09/18 06:32 Dose: 75 mcg Lorazepam (Ativan -) 1 mg PO TID PRN PRN Reason: ANXIETY Last Admin: 01/08/18 14:12 Dose: 1 mg Metoprolol Succinate (Toprol Xl -) 50 mg PO BID [facility] Last Admin: 01/09/18 11:29 Dose: 50 mg Morphine Sulfate (Morphine Sulfate) 1 mg IVPUSH Q6H PRN PRN Reason: PAIN LEVEL 6-10 Last Admin: 01/09/18 06:47 Dose: 1 mg Pantoprazole Sodium (Protonix -) 40 mg PO DAILY [facility] Last Admin: 01/09/18 11:29 Dose: 40 mg Potassium Chloride (K-Dur -) 40 meq PO DAILY [facility] Last Admin: 01/08/18 10:43 Dose: 40 meq Review of Systems - Review of Systems Unable to obtain, lethargic Vital Signs: Last Vital Signs Temp Pulse Resp BP Pulse Ox 98.7 F 96 H 20 100/48 L 98 01/09/18 02:03 01/09/18 02:03 01/09/18 08:11 01/09/18 02:03 01/09/18 04:07 Intake & Output 01/06/18 01/07/18 01/08/18 01/09/18 23:59 23:59 23:59 23:59 Intake Total 0 25 525 180 Output Total 200 300 450 Balance -200 -275 75 180 Weight 202 lb Constitutional: No Distress, Calm Neck: Supple Negative JVD Respiratory: Bilateral Scattered Rhonchi Cardiovascular: S1 S2 Irregularly Irregular Gastrointestinal: Soft Benign Normal Bowel Sounds Ext: No Edema Labs: CBC, BMP 01/09/18 05:35 01/09/18 05:35 Assessment/Plan ASSESSMENT: 1. Acute on chronic hypoxic respiratory failure related to acute on chronic class I-II NYHA classification LV diastolic failure, resolving and 2. Pneumonia, resolving 3. CAD angina pectoris 4. Persistent atrial fibrillation [id number] score of 5 on DOAC's/Eliquis 5. HTN 6. Hypothyroidism 7. Acute on chronic CKD 8. Rheumatoid arthritis 9. Anemia PLAN: 1. Continue Lasix but change to PO with close monitoring of renal function and electrolytes 2. Continue Toprol XL 3. Continue Eliquis at 2.5 mg twice daily dose adjusted based on age > 80 and Creatinine of 1.5 or greater 4. Antibiotics as per the primary team 5. Can be transferred to floor care from the cardiovascular point of view Janeth Arroyo M.D.
--- NOTE | 2018-01-09 14:22 | PN ---
Progress Note (short form) - Note Progress Note: PULMONARY Confused but denies shortness of breath. Vital Signs Period Temp Pulse Resp BP Sys/Neal Pulse Ox Last 24 Hr 97.6 F-98.8 F 96-104 18-20 96-128/48-71 97-100 Gen: confused Heart: RRR Lung: decreased breath sounds at the bases Abd: soft, nontender Ext: no edema CBC, BMP 01/09/18 05:35 01/09/18 05:35 Active Medications Albuterol/Ipratropium (Duoneb -) 1 amp NEB Q6H PRN PRN Reason: Dyspnea Last Admin: 01/08/18 20:55 Dose: 1 amp Allopurinol (Zyloprim -) 100 mg PO DAILY [facility] Last Admin: 01/09/18 11:28 Dose: 100 mg Apixaban (Eliquis -) 2.5 mg PO BID [facility] Last Admin: 01/09/18 11:28 Dose: 2.5 mg Divalproex Sodium (Depakote Sprinkle Caps -) 125 mg PO BID [facility] Docusate Sodium (Colace -) 100 mg PO DAILY [facility] Last Admin: 01/09/18 11:28 Dose: 100 mg Folic Acid (Folic Acid -) 1 mg PO DAILY [facility] Last Admin: 01/09/18 11:28 Dose: 1 mg Furosemide (Lasix Injection -) 20 mg IVPUSH 1400 [facility] Last Admin: 01/08/18 14:12 Dose: 20 mg Furosemide (Lasix Injection -) 40 mg IVPUSH 0600 [facility] Last Admin: 01/09/18 06:32 Dose: 40 mg Hydroxychloroquine Sulfate (Plaquenil -) 200 mg PO DAILY [facility] Last Admin: 01/09/18 11:28 Dose: 200 mg Vancomycin HCl (Vancomycin (Pre-Docked)) 1,000 mg in 250 mls @ 200 mls/hr IVPB DAILY@1500 [facility]; Protocol Last Admin: 01/08/18 14:12 Dose: 200 mls/hr Levofloxacin (Levaquin 500 Mg Premixed Ivpb -) 500 mg in 100 mls @ 100 mls/hr IVPB DAILY [facility]; Protocol Last Admin: 01/09/18 11:28 Dose: 100 mls/hr Levothyroxine Sodium (Synthroid -) 75 mcg PO DAILY@0700 [facility] Last Admin: 01/09/18 06:32 Dose: 75 mcg Lorazepam (Ativan -) 1 mg PO TID PRN PRN Reason: ANXIETY Last Admin: 01/08/18 14:12 Dose: 1 mg Metoprolol Succinate (Toprol Xl -) 50 mg PO BID [facility] Last Admin: 01/09/18 11:29 Dose: 50 mg Morphine Sulfate (Morphine Sulfate) 1 mg IVPUSH Q6H PRN PRN Reason: PAIN LEVEL 6-10 Last Admin: 01/09/18 06:47 Dose: 1 mg Pantoprazole Sodium (Protonix -) 40 mg PO DAILY [facility] Last Admin: 01/09/18 11:29 Dose: 40 mg Potassium Chloride (K-Dur -) 40 meq PO DAILY [facility] Last Admin: 01/08/18 10:43 Dose: 40 meq A/P Acute on Chronic Hypoxic and Hypercapneic Respiratory Failure improving Acute on Chronic Diastolic Heart Failure Pneumonia Atrial Fibrillation Acute on Chronic Renal Failure HTN Hypothyroidism RA Anemia - continue lasix - monitor urine output, creatinine - continue antibiotics - O2 to keep SpO2 >90% - BiPAP as needed - rate controlled - continue anticoagulation
[2018-01-09] MEDS: VANCOMYCIN 1 GRAM (PRE-DOCKED) 1,000 MG/250 ML BAG IVPB SCH (15:59)
[2018-01-09] MEDS: POTASSIUM CHLORIDE TABS 20 MEQ TABLET.ER (FP) PO SCH (15:59)
--- NOTE | 2018-01-09 20:13 | PN ---
Physical Exam: SUBJECTIVE: Patient seen and examined. More alert, breathing on NC. Shouting out "Help!" at regular intervals even when someone is in the room with her. OBJECTIVE: Vital Signs Period Temp Pulse Resp BP Sys/Neal Pulse Ox Last 24 Hr 97.6 F-98.8 F 86-104 18-20 100-129/48-71 98-100 GENERAL: Obese, in bed with HOB elevated, awake, alert HEAD: Normal with no signs of trauma. EYES: PERRL, extraocular movements intact, sclera anicteric, conjunctiva clear. No ptosis. ENT: +NC Nares patent, oropharynx clear without exudates, moist mucous membranes. NECK: Trachea midline, full range of motion, supple. LUNGS: CTAB, no use of accessory muscles HEART: Irregularly irregular rate and rhythm, normal S1 and S2 with soft systolic murmur. ABDOMEN: Obese, ooft, nontender, nondistended, normoactive bowel sounds, no guarding, no rebound, no hepatosplenomegaly, no masses. EXTREMITIES: +2 pitting edema to b/l LE, 2+ pulses, warm, well-perfused SKIN: Warm, dry, normal turgor, +left medial popliteal area dark purple closed lesion. Laboratory Results - last 24 hr 01/09/18 01/09/18 05:35 05:35 WBC 3.2 L RBC 3.28 L Hgb 7.8 L Hct 25.8 L MCV 78.5 L MCH 23.8 L MCHC 30.2 L RDW 22.1 H Plt Count 205 MPV 7.4 L Sodium 138 Potassium 4.5 Chloride 98 Carbon Dioxide 31 Anion Gap 10 BUN 60 H Creatinine 1.8 H Creat Clearance w eGFR 26.94 Random Glucose 88 Calcium 7.8 L Magnesium 1.8 Active Medications Generic Name Dose Route Start Last Admin Trade Name Freq PRN Reason Stop Dose Admin Albuterol/Ipratropium 1 amp 01/04/18 21:46 01/08/18 20:55 Duoneb - NEB 1 amp Q6H PRN Administration Dyspnea Allopurinol 100 mg 01/05/18 10:00 01/09/18 11:28 Zyloprim - PO 100 mg DAILY [facility] Administration Apixaban 2.5 mg 01/08/18 22:00 01/09/18 11:28 Eliquis - PO 2.5 mg BID [facility] Administration Divalproex Sodium 125 mg 01/09/18 22:00 Depakote Sprinkle Caps - PO BID [facility] Docusate Sodium 100 mg 01/05/18 10:00 01/09/18 11:28 Colace - PO 100 mg DAILY [facility] Administration Folic Acid 1 mg 01/05/18 10:00 01/09/18 11:28 Folic Acid - PO 1 mg DAILY [facility] Administration Furosemide 40 mg 01/10/18 10:00 Lasix - PO DAILY [facility] Hydroxychloroquine Sulfate 200 mg 01/05/18 10:00 01/09/18 11:28 Plaquenil - PO 200 mg DAILY [facility] Administration Vancomycin HCl 1,000 mg in 250 mls @ 200 mls/hr 01/05/18 15:00 01/09/18 15:59 Vancomycin (Pre-Docked) IVPB 200 mls/hr DAILY@1500 [facility] Administration Protocol Levofloxacin 500 mg in 100 mls @ 100 mls/hr 01/09/18 10:00 01/09/18 11:28 Levaquin 500 Mg Premixed Ivpb - IVPB 100 mls/hr DAILY [facility] Administration Protocol Levothyroxine Sodium 75 mcg 01/05/18 07:00 01/09/18 06:32 Synthroid - PO 75 mcg DAILY@0700 [facility] Administration Lorazepam 1 mg 01/08/18 10:10 01/08/18 14:12 Ativan - PO 1 mg TID PRN Administration ANXIETY Metoprolol Succinate 50 mg 01/04/18 22:00 01/09/18 11:29 Toprol Xl - PO 50 mg BID [facility] Administration Morphine Sulfate 1 mg 01/06/18 15:04 01/09/18 16:00 Morphine Sulfate IVPUSH 1 mg Q6H PRN Administration PAIN LEVEL 6-10 Pantoprazole Sodium 40 mg 01/05/18 10:00 01/09/18 11:29 Protonix - PO 40 mg DAILY [facility] Administration Potassium Chloride 40 meq 01/06/18 07:56 01/09/18 15:59 K-Dur - PO 40 meq DAILY [facility] Administration ASSESSMENT/PLAN: 82 year old female with PMH significant for Diastolic CHF, Iron Deficiency anemia, RA, Hypothyroid, Asthma, Dimentia, Bipolar, A-fib on Eliquis. Patient was recently admitted at [facility] 11/26/17-12/25/2017 for Enterococcal bacteremia from UTI was treated with IV Vancomycin and treated for aspiration pneumonia- completed course of Cefepime. Currently she is being treated for Pneumonia with IV Levaquin Acute hypoxic respiratory failure - Likely secondary to exacerbation of asthma/diastolic CHF complicated by pneumonia - Off Bi-pap, now on venti mask - CXR from 01/08 shows left lung pleural fluid with congestion and infiltrates, no significant change since 01/07 - Vancomycin and Levaquin IV - Morphine 1 mg IVP q 6 hrs PRN for respiratory distress - Dysphagia diet - Swallow eval ordered - Followed by ID Dr. Salazar - Followed by lot boss Dr. Alexis Acute on Chronic Diastolic CHF - Recent Echo normal LV size and function, EF 60-65% - CXR noted with infiltrate vs effusion L>R - Lasix 40 mg IV Daily, continue home Metolazone for now - Telemetry - Followed by hospital clerk Dr. Arroyo - Daily Weights, I & Os, fluid restriction, connor - DuoNebs Iron Deficiency Anemia - Iron studies from recent admission noted - Hold IV iron for now with possibility of acute infection - Trend CBC Hypothyroidism - Synthroid 75 mcg PO Daily - TSH noted 10.3 - Adjust synthroid dose as OP A-fib - [id number] score of 5 - Eliquis reduced from 5 mg to 2.5 mg PO BID based on age > 80 and Creatinine of 1.5 - Rate controlled with Toprol XL 50 mg BID - Cleared to be transferred off of telemetry floor by hospital clerk Hypokalemia - Resolved - KCL 40 meq PO daily - Continue to monitor RA - Plaquinil DVT Prophylaxis - Eliquis 5 mg PO BID BiPolar - Yelling "Help!" loudly throughout the day - Seen by psychiatrist Dr. Land - Restart Depakote 125 mg PO BID - Continue Ativan 1 mg PO TID FEN - Fluids: none - Electrolytes: As above, CMP in AM - Dysphagia puree diet Dispo: Patient requires further inpatient care. DNR/DNI Visit type - Emergency Visit Emergency Visit: No - New Patient This patient is new to me today: No - Critical Care Critical Care patient: No
[2018-01-09] MEDS: DIVALPROEX SODIUM 125 MG SPRINKLE CAPS PO SCH (22:13)
[2018-01-09] MEDS: LORazepam 1 MG TABLET PO SCH (22:13)
[2018-01-10] MEDS: LORazepam 1 MG TABLET PO SCH ×3 (06:10→22:06)
[2018-01-10] MEDS: LEVOTHYROXINE NA 75 MCG TABLET (FP) PO SCH (06:10)
[2018-01-10] MEDS ORDERED: MAGNESIUM SULF 50% (8.12 MEQ/2 ML-1 GM VIAL) IVPB ONE (07:31)
[2018-01-10 07:58] LABS: ANION GAP 9 MMOL/L (8-16); BLOOD UREA NITROGEN 63 mg/dL (7-18); CALCIUM 7.9 mg/dL (8.5-10.1); CHLORIDE 98 mmol/L (98-107); CO2 30 mmol/L (21-32); GLUCOSE,RANDOM 101 mg/dL (74-106); POTASSIUM 4.5 mmol/L (3.5-5.1); SODIUM 137 mmol/L (136-145)
[2018-01-10 08:25] LABS: HEMATOCRIT 24.9 % (32.4-45.2); HEMOGLOBIN 7.5 GM/dL (10.7-15.3); MCH 23.6 pg (25.7-33.7); MCHC 30.2 g/dl (32.0-36.0); MEAN CELL VOLUME 78.2 fl (80-96); MEAN PLT VOLUME 7.6 fl (7.5-11.1); PLATELET COUNT 190 K/MM3 (134-434); RBC 3.18 M/mm3 (3.60-5.2); RDW 22.3 % (11.6-15.6); WHITE BLOOD COUNT 3.1 K/mm3 (4.0-10.0)
[2018-01-10] MEDS ORDERED: FOLIC ACID 1 MG TABLET (FP) PO SCH (10:00)
[2018-01-10] MEDS ORDERED: POTASSIUM CHLORIDE TABS 20 MEQ TABLET.ER (FP) PO SCH (10:00)
[2018-01-10] MEDS ORDERED: HYDROXYCHLOROQUINE SO4 200 MG TABLET (FP) PO SCH (10:00)
[2018-01-10] MEDS ORDERED: PANTOPRAZOLE 40 MG TABLET (FP) PO SCH (10:00)
[2018-01-10] MEDS ORDERED: ALLOPURINOL 100 MG TABLET (FP) PO SCH (10:00)
[2018-01-10] MEDS ORDERED: FUROSEMIDE 40 MG TABLET (FP) PO SCH (10:00)
[2018-01-10] MEDS ORDERED: DOCUSATE SODIUM 100 MG CAPSULE (FP) PO SCH (10:00)
[2018-01-10] MEDS ORDERED: PT OWN MED DRAWER 7, Y5N ONE ×3 (10:23→21:09)
[2018-01-10] MEDS: APIXABAN 5 MG TABLET PO SCH ×2 (10:27→22:06)
[2018-01-10] MEDS: DIVALPROEX SODIUM 125 MG SPRINKLE CAPS PO SCH ×2 (10:30→22:06)
--- NOTE | 2018-01-10 10:42 | PN ---
Progress Note (short form) - Note Progress Note: Chief Complaint: Events noted, notes reviewed, awake and alert, no acute distress, no complaint offered History of Present Illness: Seen and examined on telemetry. Events noted, notes reviewed, awake and alert, no acute distress, no complaint offered Echocardiography dated 12/14/2017 revealed normal LV systolic function/EF 60-65% , left atrial dilatation, mild MR, mild to moderate TR with RVSP 41 mmHg - Current Medication List Current Medications Allopurinol (Zyloprim -) 100 mg PO DAILY [facility] Last Admin: 01/10/18 10:27 Dose: 100 mg Apixaban (Eliquis -) 2.5 mg PO BID [facility] Last Admin: 01/10/18 10:27 Dose: 2.5 mg Divalproex Sodium (Depakote Sprinkle Caps -) 125 mg PO BID [facility] Last Admin: 01/10/18 10:30 Dose: 125 mg Docusate Sodium (Colace -) 100 mg PO DAILY [facility] Last Admin: 01/10/18 10:27 Dose: 100 mg Folic Acid (Folic Acid -) 1 mg PO DAILY [facility] Last Admin: 01/10/18 10:27 Dose: 1 mg Furosemide (Lasix -) 40 mg PO DAILY [facility] Last Admin: 01/10/18 10:26 Dose: 40 mg Hydroxychloroquine Sulfate (Plaquenil -) 200 mg PO DAILY [facility] Last Admin: 01/10/18 10:27 Dose: 200 mg Levofloxacin (Levaquin 500 Mg Premixed Ivpb -) 500 mg in 100 mls @ 100 mls/hr IVPB DAILY [facility]; Protocol Last Admin: 01/10/18 10:26 Dose: 100 mls/hr Vancomycin HCl (Vancomycin (Pre-Docked)) 1,000 mg in 250 mls @ 200 mls/hr IVPB DAILY@1500 [facility]; Protocol Levothyroxine Sodium (Synthroid -) 75 mcg PO DAILY@0700 [facility] Lorazepam (Ativan -) 1 mg PO TID [facility] Last Admin: 01/10/18 06:10 Dose: 1 mg Metoprolol Succinate (Toprol Xl -) 50 mg PO BID [facility] Last Admin: 01/10/18 10:27 Dose: 50 mg Morphine Sulfate (Morphine Sulfate) 1 mg IVPUSH Q6H PRN PRN Reason: PAIN LEVEL 6-10 Last Admin: 01/09/18 16:00 Dose: 1 mg Pantoprazole Sodium (Protonix -) 40 mg PO DAILY [facility] Last Admin: 01/10/18 10:27 Dose: 40 mg Potassium Chloride (K-Dur -) 40 meq PO DAILY [facility] Last Admin: 01/10/18 10:28 Dose: 40 meq Review of Systems - Review of Systems Unable to obtain Vital Signs: Last Vital Signs Temp Pulse Resp BP Pulse Ox 98.9 F 74 22 H 120/61 97 01/10/18 08:57 01/10/18 08:57 01/10/18 08:57 01/10/18 08:57 01/09/18 21:00 Intake & Output 01/07/18 01/08/18 01/09/18 01/10/18 23:59 23:59 23:59 23:59 Intake Total 25 525 300 260 Output Total 300 450 150 Balance -275 75 150 260 Constitutional: No Distress, Calm Neck: Supple Negative JVD Respiratory: Bilateral Scattered Rhonchi Cardiovascular: S1 S2 Irregularly Irregular Gastrointestinal: Soft Benign Normal Bowel Sounds Ext: No Edema Labs: CBC, BMP 01/10/18 05:30 01/10/18 05:30 Assessment/Plan ASSESSMENT: 1. Acute on chronic hypoxic respiratory failure related to acute on chronic class I-II NYHA classification LV diastolic failure, resolving 2. Pneumonia, resolving 3. CAD angina pectoris 4. Persistent atrial fibrillation [id number] score of 5 on DOAC's/Eliquis 5. HTN 6. Hypothyroidism 7. Acute on chronic CKD 8. Rheumatoid arthritis 9. Anemia, dropping H/H with overt bleed PLAN: 1. Continue PO Lasix with close monitoring of renal function and electrolytes 2. Continue Toprol XL 3. Continue Eliquis at 2.5 mg twice daily dose adjusted based on age > 80 and Creatinine of 1.5 or greater 4. Antibiotics as per the primary team 5. Consider transfusion to maitain Hg equal or > 8.0 6. Can be transferred to floor care from the cardiovascular point of view Janeth Arroyo M.D.
--- NOTE | 2018-01-10 13:56 | PN ---
Progress Note (short form) - Note Progress Note: PULMONARY Denies shortness of breath or cough. Vital Signs Period Temp Pulse Resp BP Sys/Neal Pulse Ox Last 24 Hr 98.0 F-99.7 F 55-99 18-22 91-129/46-61 97-98 Gen: NAD at rest Heart: RRR Lung: decreased breath sounds at the bases Abd: soft, nontender Ext: no edema CBC, BMP 01/10/18 05:30 01/10/18 05:30 Active Medications Allopurinol (Zyloprim -) 100 mg PO DAILY [facility] Last Admin: 01/10/18 10:27 Dose: 100 mg Apixaban (Eliquis -) 2.5 mg PO BID [facility] Last Admin: 01/10/18 10:27 Dose: 2.5 mg Divalproex Sodium (Depakote Sprinkle Caps -) 125 mg PO BID [facility] Last Admin: 01/10/18 10:30 Dose: 125 mg Docusate Sodium (Colace -) 100 mg PO DAILY [facility] Last Admin: 01/10/18 10:27 Dose: 100 mg Folic Acid (Folic Acid -) 1 mg PO DAILY [facility] Last Admin: 01/10/18 10:27 Dose: 1 mg Furosemide (Lasix -) 40 mg PO DAILY [facility] Last Admin: 01/10/18 10:26 Dose: 40 mg Hydroxychloroquine Sulfate (Plaquenil -) 200 mg PO DAILY [facility] Last Admin: 01/10/18 10:27 Dose: 200 mg Levofloxacin (Levaquin 500 Mg Premixed Ivpb -) 500 mg in 100 mls @ 100 mls/hr IVPB DAILY [facility]; Protocol Last Admin: 01/10/18 10:26 Dose: 100 mls/hr Vancomycin HCl (Vancomycin (Pre-Docked)) 1,000 mg in 250 mls @ 200 mls/hr IVPB DAILY@1500 [facility]; Protocol Levothyroxine Sodium (Synthroid -) 75 mcg PO DAILY@0700 [facility] Lorazepam (Ativan -) 1 mg PO TID [facility] Last Admin: 01/10/18 06:10 Dose: 1 mg Metoprolol Succinate (Toprol Xl -) 50 mg PO BID [facility] Last Admin: 01/10/18 10:27 Dose: 50 mg Morphine Sulfate (Morphine Sulfate) 1 mg IVPUSH Q6H PRN PRN Reason: PAIN LEVEL 6-10 Last Admin: 01/09/18 16:00 Dose: 1 mg Pantoprazole Sodium (Protonix -) 40 mg PO DAILY [facility] Last Admin: 01/10/18 10:27 Dose: 40 mg Potassium Chloride (K-Dur -) 40 meq PO DAILY [facility] Last Admin: 01/10/18 10:28 Dose: 40 meq A/P Acute on Chronic Hypoxic and Hypercapneic Respiratory Failure improving Acute on Chronic Diastolic Heart Failure Pneumonia Atrial Fibrillation Acute on Chronic Renal Failure HTN Hypothyroidism RA Anemia - continue lasix - monitor urine output, creatinine - continue antibiotics - O2 to keep SpO2 >90% - BiPAP as needed - rate controlled - continue anticoagulation
--- NOTE | 2018-01-10 14:24 | CONSULT ---
Admitting History and Physical - Primary Care Physician PCP: Felicitas Mendoza - Admission History of Present Illness: HISTORY OF PRESENT ILLNESS: 82 yo Female with PMH of Diastolic CHF, Iron Deficiency anemia, RA, Hypothyroid , Asthma, Dimentia, Bipolar, A-fib on Eliquis with recent admission to [facility] presented from [facility] today with complaint of SOB and tachypnea. She is unable to explain how long she has been SOB, though she does endorse a cough productive of white sputum though again she cannot describe how long this has been occurring. She endorses some swelling in her legs though she states it is currently at her normal baseline. She denies any skin wounds, fevers, chills, n/ v/d, abdominal pain, dysuria, hematuria. ER course was notable for: (1) BNP 13027, CXR with b/l congestion L>R, Vanco (2) Lasix 40 IV (3) HypoK, repleting PULMONARY IMP: ACUTE HYPERCAPNEIC/HYPOXEMIC RESPIRATORY FAILURE ACUTE ON CHRONIC CHF LIKELY PNEUMONIA Pt known to me from recent admission, with MBS results-Deep pentration of thin liquid into the laryngeal vestibule. No aspiration observed, however, risk noted. Suggested trial of nectar thick liquids.Pt received nectar for a couple of days, but refused most, and pt was upgraded to thin liquids at that time due to risk of dehydration and no gross definitive aspiration. Pt has been on nectar thick liquids during this asdmission, downgraded to puree/ nectar on 01/07. Selected Entries 01/09/18 01/09/18 01/09/18 02:03 11:24 12:20 Breakfast 0 Diet Tolerated Lunch 25% Supper Temperature 98.7 F 01/09/18 01/09/18 01/09/18 14:55 17:30 19:55 Breakfast Diet Tolerated Lunch Supper 25% Temperature 98.8 F 98.0 F 01/09/18 01/10/18 01/10/18 21:00 06:00 08:57 Breakfast Diet Tolerated Lunch Supper Temperature 99.7 F H 98.4 F 98.9 F 01/10/18 10:51 Breakfast 25% Diet Tolerated Poor Lunch Supper Temperature Laboratory Tests 01/09/18 01/10/18 05:35 05:30 WBC 3.2 L 3.1 L History Source: Medical Record Limitations to Obtaining History: Clinical Condition - Past Medical History Cardiovascular: Yes: Other (Acute on chronic LV diastolic failure) Pulmonary: Yes: Pneumonia Heme/Onc: Yes: Anemia Psych: Yes: Bipolar Rheumatology: Yes: Rheumatoid Arthritis Endocrine: Yes: Diabetes Mellitus - Past Surgical History Past Surgical History: Yes: Appendectomy - Advance Directives Advance Directives: Yes: Health Care Proxy - Smoking History Smoking history: Never smoked Have you smoked in the past 12 months: No - Alcohol/Substance Use Hx Alcohol Use: No History - Admission Reason For Visit: CONGESTIVE HEART FAILURE/LEUKOPENIA/SEPSIS - Diagnostics X-ray: Report Reviewed - General Mental Status: Forgetful, Intermittently Confused - Hearing Hearing: Normal Speech Evaluation - Communication Primary Language: PORTUG[place]E - Speech Characteristics Articulation: Yes: Precise - Language/Auditory Comprehension Observation: Comprehends Conversational Speech: Yes - Language/Verbal Expression Aphasia: Yes: Anomia - Swallow Evaluation/Bedside Assessment Current Nutritional Intake: Dysphagia Pureed, [place] Textured Liquids Oral Secretions: Yes: WFL Lingual Movement: Symmetric Laryngeal Movement: Able to Palpate Rate of Intake: Slow/Holding (chews puree) Bolus Size: Small Chewing: Impaired Oral Prep Time: Increased A-P Transit: Impaired Timing of Swallow: Delayed Coughing/Throat Clear: No Change in Voice: No Recommendations - Speech Evaluation, Impression/Plan Impression: Suspect intermittent aspiration. seems to be tolerating modified diet. Limited PO acceptance. Chewing puree. Confusion.May accept more if she "drinks" her meals. - Disposition Discharge to: Longterm Facility - Dysphagia Impressions/Plan Swallowing Skills: Impaired Dysphagia Impressions: Risk of Aspiration *Silent aspiration: cannot be R/O at bedside Dysphagia Treatment Plan: Chin Tuck/Down, Safe Rate, Elevate HOB during feed - Recommendations Diet Consistency: Dysphagia Pureed (mix with soup and try drinking for increased PO intake.) Medication Administration: Crushed with applesauce Liquids: [place] Thick Supplement: Magic Cup, Ensure Pudding, Other (Ensure compact)
[2018-01-10] MEDS ORDERED: VANCOMYCIN 1 GRAM (PRE-DOCKED) 1,000 MG/250 ML BAG IVPB SCH (15:00)
--- NOTE | 2018-01-10 17:31 | PN ---
Physical Exam: SUBJECTIVE: Patient seen and examined. Breathing better, she reports feeling well. Started on depakote yesterday by psych, still yelling "help!" Plan to d/c back to [facility] tomorrow. OBJECTIVE: Vital Signs Period Temp Pulse Resp BP Sys/Neal Pulse Ox Last 24 Hr 98.0 F-99.7 F 55-99 18-24 91-126/46-67 95-97 GENERAL: Obese, in bed with HOB elevated, awake, alert HEAD: Normal with no signs of trauma. EYES: PERRL, extraocular movements intact, sclera anicteric, conjunctiva clear. No ptosis. ENT: +NC Nares patent, oropharynx clear without exudates, moist mucous membranes. NECK: Trachea midline, full range of motion, supple. LUNGS: CTAB, no use of accessory muscles HEART: Irregularly irregular rate and rhythm, normal S1 and S2 with soft systolic murmur. ABDOMEN: Obese, ooft, nontender, nondistended, normoactive bowel sounds, no guarding, no rebound, no hepatosplenomegaly, no masses. EXTREMITIES: +2 pitting edema to b/l LE, 2+ pulses, warm, well-perfused SKIN: Warm, dry, normal turgor, +left medial popliteal area dark purple closed lesion. Laboratory Results - last 24 hr 01/10/18 01/10/18 05:30 05:30 WBC 3.1 L RBC 3.18 L Hgb 7.5 L Hct 24.9 L MCV 78.2 L MCH 23.6 L MCHC 30.2 L RDW 22.3 H Plt Count 190 MPV 7.6 Sodium 137 Potassium 4.5 Chloride 98 Carbon Dioxide 30 Anion Gap 9 BUN 63 H Creatinine 2.0 H Creat Clearance w eGFR 23.85 Random Glucose 101 Calcium 7.9 L Active Medications Generic Name Dose Route Start Last Admin Trade Name Freq PRN Reason Stop Dose Admin Allopurinol 100 mg 01/10/18 10:00 01/10/18 10:27 Zyloprim - PO 100 mg DAILY [facility] Administration Apixaban 2.5 mg 01/08/18 22:00 01/10/18 10:27 Eliquis - PO 2.5 mg BID [facility] Administration Divalproex Sodium 125 mg 01/09/18 22:00 01/10/18 10:30 Depakote Sprinkle Caps - PO 125 mg BID [facility] Administration Docusate Sodium 100 mg 01/10/18 10:00 01/10/18 10:27 Colace - PO 100 mg DAILY [facility] Administration Folic Acid 1 mg 01/10/18 10:00 01/10/18 10:27 Folic Acid - PO 1 mg DAILY [facility] Administration Furosemide 40 mg 01/10/18 10:00 01/10/18 10:26 Lasix - PO 40 mg DAILY [facility] Administration Hydroxychloroquine Sulfate 200 mg 01/10/18 10:00 01/10/18 10:27 Plaquenil - PO 200 mg DAILY [facility] Administration Levofloxacin 500 mg in 100 mls @ 100 mls/hr 01/09/18 10:00 01/10/18 10:26 Levaquin 500 Mg Premixed Ivpb - IVPB 100 mls/hr DAILY [facility] Administration Protocol Vancomycin HCl 1,000 mg in 250 mls @ 200 mls/hr 01/10/18 15:00 01/10/18 13:59 Vancomycin (Pre-Docked) IVPB 200 mls/hr DAILY@1500 [facility] Administration Protocol Levothyroxine Sodium 75 mcg 01/11/18 07:00 Synthroid - PO DAILY@0700 [facility] Lorazepam 1 mg 01/09/18 22:00 01/10/18 13:58 Ativan - PO 1 mg TID [facility] Administration Metoprolol Succinate 50 mg 01/10/18 10:00 01/10/18 10:27 Toprol Xl - PO 50 mg BID [facility] Administration Morphine Sulfate 1 mg 01/06/18 15:04 01/09/18 16:00 Morphine Sulfate IVPUSH 1 mg Q6H PRN Administration PAIN LEVEL 6-10 Pantoprazole Sodium 40 mg 01/10/18 10:00 01/10/18 10:27 Protonix - PO 40 mg DAILY [facility] Administration Potassium Chloride 40 meq 01/10/18 10:00 01/10/18 10:28 K-Dur - PO 40 meq DAILY [facility] Administration ASSESSMENT/PLAN: 82 year old female with PMH significant for Diastolic CHF, Iron Deficiency anemia, RA, Hypothyroid, Asthma, Dimentia, Bipolar, A-fib on Eliquis. Patient was recently admitted at [facility] 11/26/17-12/25/2017 for Enterococcal bacteremia from UTI was treated with IV Vancomycin and treated for aspiration pneumonia- completed course of Cefepime. Currently she is being treated for Pneumonia with IV Levaquin Acute hypoxic respiratory failure - Likely secondary to exacerbation of asthma/diastolic CHF complicated by pneumonia - Off Bi-pap, now on venti mask - CXR from 01/08 shows left lung pleural fluid with congestion and infiltrates, no significant change since 01/07 - Vancomycin and Levaquin IV - Morphine 1 mg IVP q 6 hrs PRN for respiratory distress - Dysphagia diet - Seen by Speech therapist Angelica Onofre -suspects intermittent aspiration. -Continue dysphagia pureed - mix with soup and try drinking for increased PO intake. - Followed by ID Dr. Salazar - Followed by paralegal supervisor Dr. Alexis Acute on Chronic Diastolic CHF - Recent Echo normal LV size and function, EF 60-65% - CXR noted with infiltrate vs effusion L>R - Lasix 40 mg IV Daily, continue home Metolazone for now - Telemetry - Followed by power system dispatcher Dr. Arroyo - Daily Weights, I & Os, fluid restriction, connor - DuoNebs Iron Deficiency Anemia - Iron studies from recent admission noted - Hold IV iron for now with possibility of acute infection - Trend CBC Hypothyroidism - Synthroid 75 mcg PO Daily - TSH noted 10.3 - Adjust synthroid dose as OP A-fib - [id number] score of 5 - Eliquis reduced from 5 mg to 2.5 mg PO BID based on age > 80 and Creatinine of 1.5 - Rate controlled with Toprol XL 50 mg BID - Cleared to be transferred off of telemetry floor by power system dispatcher Hypokalemia - Resolved - KCL 40 meq PO daily - Continue to monitor RA - Plaquinil DVT Prophylaxis - Eliquis 5 mg PO BID BiPolar - Yelling "Help!" loudly throughout the day - Seen by psychiatrist Dr. Land - Restarted Depakote 125 mg PO BID - Continue Ativan 1 mg PO TID FEN - Fluids: none - Electrolytes: As above, CMP in AM - Dysphagia puree diet, magic cup, ensure pudding. Dispo: Possible discharge tomorrow to [facility], will confer with ID on d/cing antibiotics. DNR/DNI Visit type - Emergency Visit Emergency Visit: No - New Patient This patient is new to me today: No - Critical Care Critical Care patient: No
[2018-01-11] MEDS: LORazepam 1 MG TABLET PO SCH ×3 (06:49→22:48)
[2018-01-11 06:59] LABS: HEMATOCRIT 24.4 % (32.4-45.2); HEMOGLOBIN 7.4 GM/dL (10.7-15.3); MCH 23.8 pg (25.7-33.7); MCHC 30.3 g/dl (32.0-36.0); MEAN CELL VOLUME 78.4 fl (80-96); MEAN PLT VOLUME 7.5 fl (7.5-11.1); PLATELET COUNT 180 K/MM3 (134-434); RBC 3.12 M/mm3 (3.60-5.2); RDW 21.9 % (11.6-15.6); WHITE BLOOD COUNT 3.3 K/mm3 (4.0-10.0)
[2018-01-11] MEDS ORDERED: LEVOTHYROXINE NA 75 MCG TABLET (FP) PO SCH (07:00)
--- NOTE | 2018-01-11 07:34 | PN ---
Progress Note, Physician Chief Complaint: Pt with dementia screaming for help. does not appropriately interact with provider. she is laying comfortably. Increase serum Cr with decline in EGFR, levaquin dose to be reduced to 250mg once daily starting tomorrow. Vanco for Cultures so far have been negative, pt may not need continued antibiotics. Pt with chest congestion and unable to clear secretions, will order scopolamine patch. Lasix d/gwen for azotemia CXR with improving pulm congestion. - Current Medication List Current Medications: Active Medications Allopurinol (Zyloprim -) 100 mg PO DAILY [facility] Last Admin: 01/10/18 10:27 Dose: 100 mg Apixaban (Eliquis -) 2.5 mg PO BID [facility] Last Admin: 01/10/18 22:06 Dose: 2.5 mg Divalproex Sodium (Depakote Sprinkle Caps -) 125 mg PO BID [facility] Last Admin: 01/10/18 22:06 Dose: 125 mg Docusate Sodium (Colace -) 100 mg PO DAILY [facility] Last Admin: 01/10/18 10:27 Dose: 100 mg Folic Acid (Folic Acid -) 1 mg PO DAILY [facility] Last Admin: 01/10/18 10:27 Dose: 1 mg Furosemide (Lasix -) 40 mg PO DAILY [facility] Last Admin: 01/10/18 10:26 Dose: 40 mg Hydroxychloroquine Sulfate (Plaquenil -) 200 mg PO DAILY [facility] Last Admin: 01/10/18 10:27 Dose: 200 mg Levofloxacin (Levaquin 500 Mg Premixed Ivpb -) 500 mg in 100 mls @ 100 mls/hr IVPB DAILY [facility]; Protocol Last Admin: 01/10/18 10:26 Dose: 100 mls/hr Vancomycin HCl (Vancomycin (Pre-Docked)) 1,000 mg in 250 mls @ 200 mls/hr IVPB DAILY@1500 [facility]; Protocol Last Admin: 01/10/18 13:59 Dose: 200 mls/hr Levothyroxine Sodium (Synthroid -) 75 mcg PO DAILY@0700 [facility] Last Admin: 01/11/18 06:49 Dose: 75 mcg Lorazepam (Ativan -) 1 mg PO TID [facility] Last Admin: 01/11/18 06:49 Dose: 1 mg Metoprolol Succinate (Toprol Xl -) 50 mg PO BID [facility] Last Admin: 01/10/18 22:06 Dose: 50 mg Pantoprazole Sodium (Protonix -) 40 mg PO DAILY [facility] Last Admin: 01/10/18 10:27 Dose: 40 mg Potassium Chloride (K-Dur -) 40 meq PO DAILY [facility] Last Admin: 01/10/18 10:28 Dose: 40 meq - Objective Vital Signs: Vital Signs Temperature 98.4 F 01/11/18 05:00 Pulse Rate 81 01/11/18 05:00 Respiratory Rate 20 01/11/18 05:00 Blood Pressure 104/57 L 01/11/18 05:00 O2 Sat by Pulse Oximetry (%) 97 01/11/18 00:33 Constitutional: Yes: Well Nourished, No Distress, Calm, Ashen. No: Anxious, Cachectic, Diaphoresis, Mild Distress, Moderate Distress, Severe Distress, Obese , Pallor, Poor Hygeine, Thin, Other Eyes: Yes: WNL, Conjunctiva Clear. No: EOM Intact, Cataracts, Diplopia, Occular Prosthesis, PERRL, Ptosis, Sclera Icterus, Tearing, Other HENT: Yes: Atraumatic, Normocephalic. No: WNL, Drooling, Epistaxis, Hoarseness , Nasal Congestion, Pharyngeal Erythema, Rhinnorhea, Thrush, Tonsillar Exudate, Other Neck: Yes: Supple, Decreased ROM, Other (no JVD) Cardiovascular: Yes: Regular Rate and Rhythm (distant heart sounds), Murmur Respiratory: Yes: Cough, On Nasal O2, Rales, Rhonchi Gastrointestinal: Yes: Soft, Abdomen, Obese, Hypoactive Bowel Sounds ...Rectal Exam: Yes: Deferred Genitourinary: Yes: Rivera Present Musculoskeletal: Yes: Joint Stiffness, Joint Swelling (b/l knees, decreased ROM x 4 extremities) Extremities: Yes: Cool, Other (right wrist and hand with erythema and edema) Edema: Yes Edema: RUE: 2+, LLE: 1+, RLE: 1+ Peripheral Pulses: Left Radial: 2+, Right Radial: 1+, Left Doralis Pedis: 1+, Right Dorsalis Pedis: 1+ Integumentary: Yes: Erythema (right wrist/hand with ecchymosis and erythema), Onychomycosis Neurological: Yes: Confusion, Lethargy, Other ...Motor Strength: LUE, LLE, RUE, RLE (3/5 muscle strength) Psychiatric: Yes: Other (pt not oriented to person/place/time) Additional Findings/Remarks: pt cries out constantly for help. Labs: INR, PTT INR 2.66 (0.83-1.09) H 01/05/18 07:10 - ....Imaging Chest X-ray: Report Reviewed (CXR 01/11 Impression: Some improvement. Decreasing infiltrative changes left hemithroax. Large heart lung markings.) Problem List - Problems (1) Acute respiratory failure with hypoxia and hypercapnia Assessment/Plan: continue nasal cannula during daytime hours BIPAP at night start nebs albuterol and atrovent scopolamine patch for increased secretions Code(s): J96.01 - ACUTE RESPIRATORY FAILURE WITH HYPOXIA; J96.02 - ACUTE RESPIRATORY FAILURE WITH HYPERCAPNIA (2) [id number] kidney injury Assessment/Plan: d/c lasix monitor electrolytes and replete as needed daily weight strict intake and output Code(s): N17.9 - ACUTE KIDNEY FAILURE, UNSPECIFIED; N18.9 - CHRONIC KIDNEY DISEASE, UNSPECIFIED (3) Atrial fibrillation Assessment/Plan: continue eliquis 2.5mg BID Code(s): I48.91 - UNSPECIFIED ATRIAL FIBRILLATION Qualifiers: Atrial fibrillation type: persistent Qualified Code(s): I48.1 - Persistent atrial fibrillation (4) CHF (congestive heart failure) Assessment/Plan: hold lasix--monitor off diuretics Code(s): I50.9 - HEART FAILURE, UNSPECIFIED Qualifiers: Heart failure type: diastolic Heart failure chronicity: acute on chronic Qualified Code(s): I50.33 - Acute on chronic diastolic (congestive) heart failure (5) Hypothyroidism Assessment/Plan: c/w synthroid 75mcg daily Code(s): E03.9 - HYPOTHYROIDISM, UNSPECIFIED Qualifiers: Hypothyroidism type: unspecified Qualified Code(s): E03.9 - Hypothyroidism , unspecified (6) Sepsis Assessment/Plan: d/c vanco and levaquin monitor off abx trend WBCs and fever curve Code(s): A41.9 - SEPSIS, UNSPECIFIED ORGANISM (7) Anemia Assessment/Plan: 1 units PRBC today for goal hgb > 8.0 Code(s): D64.9 - ANEMIA, UNSPECIFIED Qualifiers: Anemia type: iron deficiency Iron deficiency anemia type: chronic blood loss Qualified Code(s): D50.0 - Iron deficiency anemia secondary to blood loss (chronic) (8) Schizoaffective disorder, bipolar type Assessment/Plan: increase depakote from 125mg to 250mg BID. Code(s): F25.0 - SCHIZOAFFECTIVE DISORDER, BIPOLAR TYPE (9) Prophylactic measure Assessment/Plan: OOB to chair pt on eliquis for DVT PPX Allopurinol for gout Bowel regimen with colace Code(s): Z29.9 - ENCOUNTER FOR PROPHYLACTIC MEASURES, UNSPECIFIED Visit type - Emergency Visit Emergency Visit: Yes ED Registration Date: 01/04/18 Care time: The patient presented to the Emergency Department on the above date and was hospitalized for further evaluation of their emergent condition. - New Patient This patient is new to me today: Yes Date on this admission: 01/11/18 - Critical Care Critical Care patient: No - Discharge Referral Referred to [facility] No
[2018-01-11 07:52] LABS: ANION GAP 7 MMOL/L (8-16); BLOOD UREA NITROGEN 77 mg/dL (7-18); CALCIUM 8.1 mg/dL (8.5-10.1); CHLORIDE 100 mmol/L (98-107); CO2 29 mmol/L (21-32); CREATININE 2.3 mg/dL (0.55-1.3); GLUCOSE,RANDOM 104 mg/dL (74-106); POTASSIUM 5.1 mmol/L (3.5-5.1); SODIUM 136 mmol/L (136-145)
[2018-01-11] MEDS ORDERED: PT OWN MED DRAWER 7, Y5N ONE ×3 (09:47→20:45)
[2018-01-11] MEDS ORDERED: FUROSEMIDE 40 MG TABLET (FP) PO SCH (10:00)
[2018-01-11] MEDS ORDERED: POTASSIUM CHLORIDE TABS 20 MEQ TABLET.ER (FP) PO SCH (10:00)
[2018-01-11] MEDS ORDERED: DIVALPROEX SODIUM 125 MG SPRINKLE CAPS PO SCH (10:00)
[2018-01-11] MEDS: DOCUSATE SODIUM 100 MG CAPSULE (FP) PO SCH (10:25)
[2018-01-11] MEDS: FOLIC ACID 1 MG TABLET (FP) PO SCH (10:25)
[2018-01-11] MEDS: ALLOPURINOL 100 MG TABLET (FP) PO SCH (10:25)
[2018-01-11] MEDS: APIXABAN 2.5 MG TABLET PO SCH ×2 (10:25→22:48)
[2018-01-11] MEDS: PANTOPRAZOLE 40 MG TABLET (FP) PO SCH (10:25)
[2018-01-11] MEDS: HYDROXYCHLOROQUINE SO4 200 MG TABLET (FP) PO SCH (10:25)
--- NOTE | 2018-01-11 10:43 | PN ---
Progress Note, Physician History of Present Illness: Confused, remains on O2 NC. - Current Medication List Current Medications: Active Medications Allopurinol (Zyloprim -) 100 mg PO DAILY [facility] Last Admin: 01/11/18 10:25 Dose: 100 mg Apixaban (Eliquis -) 2.5 mg PO BID [facility] Last Admin: 01/11/18 10:25 Dose: 2.5 mg Divalproex Sodium (Depakote Sprinkle Caps -) 125 mg PO BID [facility] Last Admin: 01/11/18 10:25 Dose: 125 mg Docusate Sodium (Colace -) 100 mg PO DAILY [facility] Last Admin: 01/11/18 10:25 Dose: 100 mg Folic Acid (Folic Acid -) 1 mg PO DAILY [facility] Last Admin: 01/11/18 10:25 Dose: 1 mg Furosemide (Lasix -) 40 mg PO DAILY [facility] Last Admin: 01/11/18 10:25 Dose: 40 mg Hydroxychloroquine Sulfate (Plaquenil -) 200 mg PO DAILY [facility] Last Admin: 01/11/18 10:25 Dose: 200 mg Vancomycin HCl (Vancomycin (Pre-Docked)) 1,000 mg in 250 mls @ 166.667 mls/hr IVPB DAILY@1500 [facility]; Protocol Levofloxacin (Levaquin 500 Mg Premixed Ivpb -) 500 mg in 100 mls @ 100 mls/hr IVPB ONCE ONE; Protocol Stop: 01/11/18 11:14 Last Admin: 01/11/18 10:34 Dose: 100 mls/hr Levothyroxine Sodium (Synthroid -) 75 mcg PO DAILY@0700 [facility] Lorazepam (Ativan -) 1 mg PO TID [facility] Metoprolol Succinate (Toprol Xl -) 50 mg PO BID [facility] Last Admin: 01/11/18 10:25 Dose: 50 mg Pantoprazole Sodium (Protonix -) 40 mg PO DAILY [facility] Last Admin: 01/11/18 10:25 Dose: 40 mg Scopolamine HBr (Transderm-Scop -) 1 patch TD Q72H [facility] - Objective Vital Signs: Vital Signs Temperature 98.4 F 01/11/18 05:00 Pulse Rate 72 01/11/18 09:00 Respiratory Rate 18 01/11/18 09:00 Blood Pressure 116/56 L 01/11/18 09:00 O2 Sat by Pulse Oximetry (%) 97 01/11/18 00:33 Constitutional: Yes: No Distress, Calm Neck: Yes: Supple Cardiovascular: Yes: Pulse Irregular Respiratory: Yes: Regular, Diminished, On Nasal O2 Gastrointestinal: Yes: Normal Bowel Sounds, Soft, Abdomen, Obese Edema: Yes Edema: LLE: Trace, RLE: Trace Labs: CBC, BMP 01/11/18 05:30 01/11/18 05:30 INR, PTT INR 2.66 (0.83-1.09) H 01/05/18 07:10 - ....Imaging Chest X-ray: Report Reviewed (Improved left infiltrate) Problem List - Problems (1) Acute respiratory failure with hypoxia and hypercapnia Code(s): J96.01 - ACUTE RESPIRATORY FAILURE WITH HYPOXIA; J96.02 - ACUTE RESPIRATORY FAILURE WITH HYPERCAPNIA (2) CHF (congestive heart failure) Code(s): I50.9 - HEART FAILURE, UNSPECIFIED Qualifiers: Heart failure type: diastolic Heart failure chronicity: acute on chronic Qualified Code(s): I50.33 - Acute on chronic diastolic (congestive) heart failure (3) Rheumatoid arthritis Code(s): M06.9 - RHEUMATOID ARTHRITIS, UNSPECIFIED (4) Atrial fibrillation Code(s): I48.91 - UNSPECIFIED ATRIAL FIBRILLATION Qualifiers: Atrial fibrillation type: persistent Qualified Code(s): I48.1 - Persistent atrial fibrillation (5) Hypothyroidism Code(s): E03.9 - HYPOTHYROIDISM, UNSPECIFIED Qualifiers: Hypothyroidism type: unspecified Qualified Code(s): E03.9 - Hypothyroidism , unspecified (6) [id number] kidney injury Code(s): N17.9 - ACUTE KIDNEY FAILURE, UNSPECIFIED; N18.9 - CHRONIC KIDNEY DISEASE, UNSPECIFIED Assessment/Plan Echocardiography dated 12/14/2017 revealed normal LV systolic function/EF 60-65% , left atrial dilatation, mild MR, mild to moderate TR with RVSP 41 mmHg 1. Acute on chronic hypoxic respiratory failure related to acute on chronic class I-II NYHA classification LV diastolic failure, resolving 2. Pneumonia, resolving 3. CAD angina pectoris 4. Persistent atrial fibrillation [id number] score of 5 on DOAC's/Eliquis 5. HTN 6. Hypothyroidism 7. Acute on chronic CKD 8. Rheumatoid arthritis 9. Anemia, dropping H/H with overt bleed PLAN: 1. D/c Lasix 40 po qd and consider d/c Vanco with close monitoring of renal function and electrolytes 2. Continue Toprol XL 50 bid 3. Continue Eliquis at 2.5 mg twice daily dose adjusted based on age > 80 and Creatinine of 1.5 or greater 4. Antibiotics as per the primary team 5. Consider transfusion to maitain Hg equal or > 8.0
--- NOTE | 2018-01-11 11:13 | PN ---
Progress Note, Physician History of Present Illness: PULMONARY DROWSY,CONGESTED,ON NASAL CANNULA,O2 SAT 93% - Current Medication List Current Medications: Active Medications Allopurinol (Zyloprim -) 100 mg PO DAILY [facility] Last Admin: 01/11/18 10:25 Dose: 100 mg Apixaban (Eliquis -) 2.5 mg PO BID [facility] Last Admin: 01/11/18 10:25 Dose: 2.5 mg Divalproex Sodium (Depakote Sprinkle Caps -) 125 mg PO BID [facility] Last Admin: 01/11/18 10:25 Dose: 125 mg Docusate Sodium (Colace -) 100 mg PO DAILY [facility] Last Admin: 01/11/18 10:25 Dose: 100 mg Folic Acid (Folic Acid -) 1 mg PO DAILY [facility] Last Admin: 01/11/18 10:25 Dose: 1 mg Furosemide (Lasix -) 40 mg PO DAILY [facility] Last Admin: 01/11/18 10:25 Dose: 40 mg Hydroxychloroquine Sulfate (Plaquenil -) 200 mg PO DAILY [facility] Last Admin: 01/11/18 10:25 Dose: 200 mg Vancomycin HCl (Vancomycin (Pre-Docked)) 1,000 mg in 250 mls @ 166.667 mls/hr IVPB DAILY@1500 [facility]; Protocol Levofloxacin (Levaquin 500 Mg Premixed Ivpb -) 500 mg in 100 mls @ 100 mls/hr IVPB ONCE ONE; Protocol Stop: 01/11/18 11:14 Last Admin: 01/11/18 10:34 Dose: 100 mls/hr Levothyroxine Sodium (Synthroid -) 75 mcg PO DAILY@0700 [facility] Lorazepam (Ativan -) 1 mg PO TID [facility]PL[facility] BY [facility] Metoprolol Succinate (Toprol Xl -) 50 mg PO BID [facility] Last Admin: 01/11/18 10:25 Dose: 50 mg Pantoprazole Sodium (Protonix -) 40 mg PO DAILY [facility] Last Admin: 01/11/18 10:25 Dose: 40 mg Scopolamine HBr (Transderm-Scop -) 1 patch TD Q72H REPLACED [facility] - Objective Vital Signs: Vital Signs Temperature 98.4 F 01/11/18 05:00 Pulse Rate 72 01/11/18 09:00 Respiratory Rate 18 01/11/18 09:00 Blood Pressure 116/56 L 01/11/18 09:00 O2 Sat by Pulse Oximetry (%) 94 L 01/11/18 09:00 Constitutional: Yes: Well Nourished, Other (DROWSY) Eyes: Yes: WNL HENT: Yes: WNL Neck: Yes: WNL Cardiovascular: Yes: Pulse Irregular, S1, S2 Respiratory: Yes: Rales, Rhonchi (BILATERAL RALES AND RHONCHI) Gastrointestinal: Yes: Normal Bowel Sounds, Soft Extremities: Yes: WNL Edema: No Labs: CBC, BMP 01/11/18 05:30 01/11/18 05:30 INR, PTT INR 2.66 (0.83-1.09) H 01/05/18 07:10 - ....Imaging Chest X-ray: Report Reviewed, Image Reviewed (IMPROVING LEFT SIDED INFILTRATE) Problem List - Problems (1) CHF (congestive heart failure) Code(s): I50.9 - HEART FAILURE, UNSPECIFIED Qualifiers: Heart failure type: diastolic Heart failure chronicity: acute on chronic Qualified Code(s): I50.33 - Acute on chronic diastolic (congestive) heart failure (2) Sepsis Code(s): A41.9 - SEPSIS, UNSPECIFIED ORGANISM (3) Leukopenia Code(s): D72.819 - DECREASED WHITE BLOOD CELL COUNT, UNSPECIFIED Qualifiers: Leukopenia type: lymphocytopenia Qualified Code(s): D72.810 - Lymphocytopenia (4) Rheumatoid arthritis Code(s): M06.9 - RHEUMATOID ARTHRITIS, UNSPECIFIED (5) Schizoaffective disorder, bipolar type Code(s): F25.0 - SCHIZOAFFECTIVE DISORDER, BIPOLAR TYPE (6) Acute respiratory failure with hypoxia and hypercapnia Code(s): J96.01 - ACUTE RESPIRATORY FAILURE WITH HYPOXIA; J96.02 - ACUTE RESPIRATORY FAILURE WITH HYPERCAPNIA Assessment/Plan IMP ACUTE HYPERCAPNEIC/HYPOXEMIC RESPIRATORY FAILURE ACUTE ON CHRONIC CHF LIKELY PNEUMONIA AFIB DEMENTIA GERD H/O ENTEROCOCCAL SEPSIS RA HYPOTHYROID HTN ANEMIA ACUTE ON CHRONIC KIDNEY DISEASE WORSENING PLAN HOLD LASIX CONSIDER D/C VANCO NIPPV NEEDED NORMAL TRANSFUSION THRESHOLD O2 ABX MONITOR LYTES,RENAL FUNCTION F/U CHEST X-RAY AC DR ALMENDAREZ Problem List - Problems (1) CHF (congestive heart failure) Code(s): I50.9 - HEART FAILURE, UNSPECIFIED Qualifiers: Heart failure type: diastolic Heart failure chronicity: acute on chronic Qualified Code(s): I50.33 - Acute on chronic diastolic (congestive) heart failure (2) Sepsis Code(s): A41.9 - SEPSIS, UNSPECIFIED ORGANISM (3) Leukopenia Code(s): D72.819 - DECREASED WHITE BLOOD CELL COUNT, UNSPECIFIED Qualifiers: Leukopenia type: lymphocytopenia Qualified Code(s): D72.810 - Lymphocytopenia (4) Rheumatoid arthritis Code(s): M06.9 - RHEUMATOID ARTHRITIS, UNSPECIFIED (5) Schizoaffective disorder, bipolar type Code(s): F25.0 - SCHIZOAFFECTIVE DISORDER, BIPOLAR TYPE (6) Acute respiratory failure with hypoxia and hypercapnia Code(s): J96.01 - ACUTE RESPIRATORY FAILURE WITH HYPOXIA; J96.02 - ACUTE RESPIRATORY FAILURE WITH HYPERCAPNIA
[2018-01-11] MEDS: SCOPOLAMINE HYDROBROMIDE 1 PATCH PATCH.TD72 TD SCH (11:41)
--- NOTE | 2018-01-11 13:13 | PN ---
Progress Note, Physician History of Present Illness: Awake but lethargic Offers no complaints congested Afebrile Leukopenic - Current Medication List Current Medications: Active Medications Allopurinol (Zyloprim -) 100 mg PO DAILY [facility] Last Admin: 01/11/18 10:25 Dose: 100 mg Apixaban (Eliquis -) 2.5 mg PO BID [facility] Last Admin: 01/11/18 10:25 Dose: 2.5 mg Divalproex Sodium (Depakote -) 250 mg PO BID [facility] Docusate Sodium (Colace -) 100 mg PO DAILY [facility] Last Admin: 01/11/18 10:25 Dose: 100 mg Folic Acid (Folic Acid -) 1 mg PO DAILY [facility] Last Admin: 01/11/18 10:25 Dose: 1 mg Furosemide (Lasix -) 40 mg PO DAILY [facility] Last Admin: 01/11/18 10:25 Dose: 40 mg Hydroxychloroquine Sulfate (Plaquenil -) 200 mg PO DAILY [facility] Last Admin: 01/11/18 10:25 Dose: 200 mg Vancomycin HCl (Vancomycin (Pre-Docked)) 1,000 mg in 250 mls @ 166.667 mls/hr IVPB DAILY@1500 [facility]; Protocol Levothyroxine Sodium (Synthroid -) 75 mcg PO DAILY@0700 [facility] Lorazepam (Ativan -) 1 mg PO TID [facility] Metoprolol Succinate (Toprol Xl -) 50 mg PO BID [facility] Last Admin: 01/11/18 10:25 Dose: 50 mg Pantoprazole Sodium (Protonix -) 40 mg PO DAILY [facility] Last Admin: 01/11/18 10:25 Dose: 40 mg Scopolamine HBr (Transderm-Scop -) 1 patch TD Q72H [facility] Last Admin: 01/11/18 11:41 Dose: 1 patch - Objective Vital Signs: Vital Signs Temperature 98.4 F 01/11/18 05:00 Pulse Rate 72 01/11/18 09:00 Respiratory Rate 18 01/11/18 09:00 Blood Pressure 116/56 L 01/11/18 09:00 O2 Sat by Pulse Oximetry (%) 94 L 01/11/18 09:00 Constitutional: Yes: Obese Cardiovascular: Yes: Regular Rate and Rhythm, S1, S2 Respiratory: Yes: Diminished Gastrointestinal: Yes: Normal Bowel Sounds, Soft, Abdomen, Obese. No: Tenderness Edema: Yes Labs: CBC, BMP 01/11/18 05:30 01/11/18 05:30 INR, PTT INR 2.66 (0.83-1.09) H 01/05/18 07:10 Assessment/Plan CHF R/O pneumonia Leukopenia PCN/TCN allergies Day#7 antibiotics D/C, observe off
[2018-01-11] MEDS ORDERED: VANCOMYCIN 1 GRAM (PRE-DOCKED) 1,000 MG/250 ML BAG IVPB SCH (15:00)
[2018-01-11] MEDS: DIVALPROEX SODIUM 250 MG TABLET E.C. PO SCH (22:49)
[2018-01-11 22:53] VITALS: BMI 38.0
[2018-01-12] MEDS: LORazepam 1 MG TABLET PO SCH ×2 (06:46→15:53)
[2018-01-12] MEDS: LEVOTHYROXINE NA 75 MCG TABLET (FP) PO SCH (06:46)
[2018-01-12 06:52] LABS: BASO % 0.5 % (0-2.0); EOS % 0.4 % (0-4.5); HEMATOCRIT 28.9 % (32.4-45.2); LYMPH % 15.7 % (8-40); MCH 24.7 pg (25.7-33.7); MEAN CELL VOLUME 79.8 fl (80-96); MEAN PLT VOLUME 7.5 fl (7.5-11.1); MONO % 6.5 % (3.8-10.2); NEUT % 76.9 % (42.8-82.8); PLATELET COUNT 157 K/MM3 (134-434); RBC 3.62 M/mm3 (3.60-5.2); RDW 20.7 % (11.6-15.6); WHITE BLOOD COUNT 3.9 K/mm3 (4.0-10.0)
[2018-01-12 07:35] LABS: ALBUMIN 1.8 g/dl (3.4-5.0); ALK PHOS 154 U/L (45-117); ANION GAP 6 MMOL/L (8-16); BILIRUBIN,TOTAL 0.8 mg/dL (0.2-1); BLOOD UREA NITROGEN 77 mg/dL (7-18); CALCIUM 8.2 mg/dL (8.5-10.1); CHLORIDE 100 mmol/L (98-107); CO2 31 mmol/L (21-32); CREATININE 2.8 mg/dL (0.55-1.3); GLUCOSE,RANDOM 107 mg/dL (74-106); POTASSIUM 5.3 mmol/L (3.5-5.1); SGOT/AST 25 U/L (15-37); SGPT/ALT 15 U/L (13-61); SODIUM 137 mmol/L (136-145); TOT PROT 7.3 g/dl (6.4-8.2)
--- NOTE | 2018-01-12 10:48 | PN ---
Progress Note (short form) - Note Progress Note: Chief Complaint: Events noted, notes reviewed, awake and alert, no acute distress, no complaint offered, overall no change in status History of Present Illness: Seen and examined on telemetry. Events noted, notes reviewed, awake and alert, no acute distress, no complaint offered, overall no change in status Echocardiography dated 12/14/2017 revealed normal LV systolic function/EF 60-65% , left atrial dilatation, mild MR, mild to moderate TR with RVSP 41 mmHg - Current Medication List Current Medications Allopurinol (Zyloprim -) 100 mg PO DAILY [facility] Last Admin: 01/11/18 10:25 Dose: 100 mg Apixaban (Eliquis -) 2.5 mg PO BID [facility] Last Admin: 01/11/18 22:48 Dose: 2.5 mg Divalproex Sodium (Depakote -) 250 mg PO BID [facility] Last Admin: 01/11/18 22:49 Dose: 250 mg Docusate Sodium (Colace -) 100 mg PO DAILY [facility] Last Admin: 01/11/18 10:25 Dose: 100 mg Folic Acid (Folic Acid -) 1 mg PO DAILY [facility] Last Admin: 01/11/18 10:25 Dose: 1 mg Hydroxychloroquine Sulfate (Plaquenil -) 200 mg PO DAILY [facility] Last Admin: 01/11/18 10:25 Dose: 200 mg Levothyroxine Sodium (Synthroid -) 75 mcg PO DAILY@0700 [facility] Last Admin: 01/12/18 06:46 Dose: 75 mcg Lorazepam (Ativan -) 1 mg PO TID [facility] Last Admin: 01/12/18 06:46 Dose: 1 mg Metoprolol Succinate (Toprol Xl -) 50 mg PO BID [facility] Last Admin: 01/11/18 22:48 Dose: 50 mg Pantoprazole Sodium (Protonix -) 40 mg PO DAILY [facility] Last Admin: 01/11/18 10:25 Dose: 40 mg Scopolamine HBr (Transderm-Scop -) 1 patch TD Q72H [facility] Last Admin: 01/11/18 11:41 Dose: 1 patch Review of Systems - Review of Systems Unable to obtain Vital Signs: Last Vital Signs Temp Pulse Resp BP Pulse Ox 98.2 F 68 20 116/58 L 90 L 01/12/18 07:21 01/12/18 07:21 01/12/18 07:21 01/12/18 07:21 01/12/18 00:35 Intake & Output 01/09/18 01/10/18 01/11/18 01/12/18 23:59 23:59 23:59 23:59 Intake Total 875 426 8050 Output Total 150 400 300 Balance 150 100 770 Weight 222 lb 12.8 oz Constitutional: No Distress, Calm Neck: Supple Negative JVD Respiratory: Bilateral Scattered Rhonchi Cardiovascular: S1 S2 Irregularly Irregular Gastrointestinal: Soft Benign Normal Bowel Sounds Ext: No Edema Labs: CBC, BMP 01/12/18 05:30 01/12/18 05:30 Assessment/Plan ASSESSMENT: 1. Acute on chronic hypoxic respiratory failure related to acute on chronic class I-II NYHA classification LV diastolic failure, resolved 2. Pneumonia, resolved 3. CAD angina pectoris 4. Persistent atrial fibrillation [id number] score of 5 on DOAC's/Eliquis 5. HTN 6. Hypothyroidism 7. Acute on chronic CKD 8. Rheumatoid arthritis 9. Anemia PLAN: 1. Continue PO Lasix with close monitoring of renal function and electrolytes 2. Continue Toprol XL 3. Continue Eliquis at 2.5 mg twice daily, adequate dose based on age > 80 and Creatinine of 1.5 or greater 4. Monitor CBC/Hg, maitain Hg equal or > 8.0 Janeth Arroyo M.D.
[2018-01-12] MEDS ORDERED: PT OWN MED DRAWER 7, Y5N ONE ×3 (10:49→20:58)
[2018-01-12] MEDS: DOCUSATE SODIUM 100 MG CAPSULE (FP) PO SCH (10:53)
[2018-01-12] MEDS: DIVALPROEX SODIUM 250 MG TABLET E.C. PO SCH ×2 (10:54→22:02)
[2018-01-12] MEDS: HYDROXYCHLOROQUINE SO4 200 MG TABLET (FP) PO SCH (10:54)
[2018-01-12] MEDS: ALLOPURINOL 100 MG TABLET (FP) PO SCH (10:54)
[2018-01-12] MEDS: FOLIC ACID 1 MG TABLET (FP) PO SCH (10:54)
[2018-01-12] MEDS: PANTOPRAZOLE 40 MG TABLET (FP) PO SCH (10:54)
[2018-01-12] MEDS: APIXABAN 2.5 MG TABLET PO SCH ×2 (10:54→22:03)
--- NOTE | 2018-01-12 11:55 | PN ---
Progress Note, Physician History of Present Illness: PULMONARY DROWSY,STILL CONGESTED - Current Medication List Current Medications: Active Medications Allopurinol (Zyloprim -) 100 mg PO DAILY [facility] Last Admin: 01/12/18 10:54 Dose: 100 mg Apixaban (Eliquis -) 2.5 mg PO BID [facility] Last Admin: 01/12/18 10:54 Dose: 2.5 mg Divalproex Sodium (Depakote -) 250 mg PO BID [facility] Last Admin: 01/12/18 10:54 Dose: Not Given Docusate Sodium (Colace -) 100 mg PO DAILY [facility] Last Admin: 01/12/18 10:53 Dose: Not Given Folic Acid (Folic Acid -) 1 mg PO DAILY [facility] Last Admin: 01/12/18 10:54 Dose: 1 mg Hydroxychloroquine Sulfate (Plaquenil -) 200 mg PO DAILY [facility] Last Admin: 01/12/18 10:54 Dose: 200 mg Levothyroxine Sodium (Synthroid -) 75 mcg PO DAILY@0700 [facility] Last Admin: 01/12/18 06:46 Dose: 75 mcg Lorazepam (Ativan -) 1 mg PO TID [facility] Last Admin: 01/12/18 06:46 Dose: 1 mg Metoprolol Succinate (Toprol Xl -) 50 mg PO BID [facility] Last Admin: 01/12/18 10:54 Dose: 50 mg Pantoprazole Sodium (Protonix -) 40 mg PO DAILY [facility] Last Admin: 01/12/18 10:54 Dose: Not Given Scopolamine HBr (Transderm-Scop -) 1 patch TD Q72H [facility] Last Admin: 01/11/18 11:41 Dose: 1 patch - Objective Vital Signs: Vital Signs Temperature 98.2 F 01/12/18 07:21 Pulse Rate 68 01/12/18 07:21 Respiratory Rate 20 01/12/18 07:21 Blood Pressure 116/58 L 01/12/18 07:21 O2 Sat by Pulse Oximetry (%) 90 L 01/12/18 00:35 Constitutional: Yes: Well Nourished, Other (DROWSY) Eyes: Yes: WNL HENT: Yes: WNL Neck: Yes: WNL Cardiovascular: Yes: Pulse Irregular, S1, S2 Respiratory: Yes: Rhonchi (HAYDER RHONCHI) Gastrointestinal: Yes: Normal Bowel Sounds, Soft Extremities: Yes: WNL Edema: No Labs: CBC, BMP 01/12/18 05:30 01/12/18 05:30 INR, PTT INR 2.66 (0.83-1.09) H 01/05/18 07:10 Problem List - Problems (1) CHF (congestive heart failure) Code(s): I50.9 - HEART FAILURE, UNSPECIFIED Qualifiers: Heart failure type: diastolic Heart failure chronicity: acute on chronic Qualified Code(s): I50.33 - Acute on chronic diastolic (congestive) heart failure (2) Sepsis Code(s): A41.9 - SEPSIS, UNSPECIFIED ORGANISM (3) Leukopenia Code(s): D72.819 - DECREASED WHITE BLOOD CELL COUNT, UNSPECIFIED Qualifiers: Leukopenia type: lymphocytopenia Qualified Code(s): D72.810 - Lymphocytopenia (4) Rheumatoid arthritis Code(s): M06.9 - RHEUMATOID ARTHRITIS, UNSPECIFIED (5) Schizoaffective disorder, bipolar type Code(s): F25.0 - SCHIZOAFFECTIVE DISORDER, BIPOLAR TYPE (6) Acute respiratory failure with hypoxia and hypercapnia Code(s): J96.01 - ACUTE RESPIRATORY FAILURE WITH HYPOXIA; J96.02 - ACUTE RESPIRATORY FAILURE WITH HYPERCAPNIA Assessment/Plan IMP ACUTE HYPERCAPNEIC/HYPOXEMIC RESPIRATORY FAILURE ACUTE ON CHRONIC CHF IMPROVING LIKELY PNEUMONIA IMPROVING AFIB DEMENTIA GERD H/O ENTEROCOCCAL SEPSIS RA HYPOTHYROID HTN ANEMIA ACUTE ON CHRONIC KIDNEY DISEASE WORSENING PLAN HOLD LASIX NIPPV NEEDED NORMAL TRANSFUSION THRESHOLD O2 MONITOR LYTES,RENAL FUNCTION F/U CHEST X-RAY AC ABG DR ALMENDAREZ Problem List - Problems (1) CHF (congestive heart failure) Code(s): I50.9 - HEART FAILURE, UNSPECIFIED Qualifiers: Heart failure type: diastolic Heart failure chronicity: acute on chronic Qualified Code(s): I50.33 - Acute on chronic diastolic (congestive) heart failure (2) Sepsis Code(s): A41.9 - SEPSIS, UNSPECIFIED ORGANISM (3) Leukopenia Code(s): D72.819 - DECREASED WHITE BLOOD CELL COUNT, UNSPECIFIED Qualifiers: Leukopenia type: lymphocytopenia Qualified Code(s): D72.810 - Lymphocytopenia (4) Rheumatoid arthritis Code(s): M06.9 - RHEUMATOID ARTHRITIS, UNSPECIFIED (5) Schizoaffective disorder, bipolar type Code(s): F25.0 - SCHIZOAFFECTIVE DISORDER, BIPOLAR TYPE (6) Acute respiratory failure with hypoxia and hypercapnia Code(s): J96.01 - ACUTE RESPIRATORY FAILURE WITH HYPOXIA; J96.02 - ACUTE RESPIRATORY FAILURE WITH HYPERCAPNIA
--- NOTE | 2018-01-12 12:06 | PN ---
Physical Exam: SUBJECTIVE: Patient seen and examined at the bedside. lethargic, unable to answer questions appropriately. sleeping most of the morning. OBJECTIVE: left lung diminished on 3 liters of nasal cannula, bipap ordered patient is now a dnr/dni Vital Signs Period Temp Pulse Resp BP Sys/Neal Pulse Ox Last 24 Hr 97.6 F-98.4 F 66-75 20-24 98-120/48-63 90-96 GENERAL: lethargic, minimally responsive to tactilie stimuli. HEAD: Normal with no signs of trauma. EYES: PERRL, extraocular movements intact, sclera anicteric, conjunctiva clear. No ptosis. ENT: Ears normal, nares patent, oropharynx clear without exudates NECK: Trachea midline, full range of motion, supple. LUNGS: left lung diminished, right lung clear HEART: Regular rate and rhythm ABDOMEN: Soft, nontender, nondistended, normoactive bowel sounds EXTREMITIES: no edema. NEUROLOGICAL: minimally responsive to tactile stimuli. PSYCH: calm SKIN: breakdown on abdominal folds. nystatin ordered Laboratory Results - last 24 hr 01/11/18 01/12/18 01/12/18 12:45 05:30 05:30 WBC 3.9 L RBC 3.62 Hgb 9.0 L Hct 28.9 L D MCV 79.8 L MCH 24.7 L MCHC 31.0 L RDW 20.7 H Plt Count 157 MPV 7.5 Absolute Neuts (auto) 3.0 Neutrophils % 76.9 Lymphocytes % 15.7 D Monocytes % 6.5 Eosinophils % 0.4 Basophils % 0.5 Nucleated RBC % 0 Sodium Potassium Chloride Carbon Dioxide Anion Gap BUN Creatinine Creat Clearance w eGFR Random Glucose Calcium Total Bilirubin AST ALT Alkaline Phosphatase Total Protein Albumin Valproic Acid 29.3 L Blood Type A POSITIVE Antibody Screen Negative Crossmatch See Detail 01/12/18 05:30 WBC RBC Hgb Hct MCV MCH MCHC RDW Plt Count MPV Absolute Neuts (auto) Neutrophils % Lymphocytes % Monocytes % Eosinophils % Basophils % Nucleated RBC % Sodium 137 Potassium 5.3 H Chloride 100 Carbon Dioxide 31 Anion Gap 6 L BUN 77 H Creatinine 2.8 H Creat Clearance w eGFR 16.18 Random Glucose 107 H Calcium 8.2 L Total Bilirubin 0.8 AST 25 ALT 15 Alkaline Phosphatase 154 H Total Protein 7.3 Albumin 1.8 L Valproic Acid Blood Type Antibody Screen Crossmatch Active Medications Generic Name Dose Route Start Last Admin Trade Name Arya PRN Reason Stop Dose Admin Allopurinol 100 mg 01/11/18 10:00 01/12/18 10:54 Zyloprim - PO 100 mg DAILY [facility] Administration Apixaban 2.5 mg 01/11/18 10:00 01/12/18 10:54 Eliquis - PO 2.5 mg BID [facility] Administration Divalproex Sodium 250 mg 01/11/18 22:00 01/12/18 10:54 Depakote - PO Not Given BID [facility] Docusate Sodium 100 mg 01/11/18 10:00 01/12/18 10:53 Colace - PO Not Given DAILY [facility] Folic Acid 1 mg 01/11/18 10:00 01/12/18 10:54 Folic Acid - PO 1 mg DAILY [facility] Administration Hydroxychloroquine Sulfate 200 mg 01/11/18 10:00 01/12/18 10:54 Plaquenil - PO 200 mg DAILY [facility] Administration Levothyroxine Sodium 75 mcg 01/12/18 07:00 01/12/18 06:46 Synthroid - PO 75 mcg DAILY@0700 [facility] Administration Lorazepam 1 mg 01/11/18 14:00 01/12/18 06:46 Ativan - PO 1 mg TID [facility] Administration Metoprolol Succinate 50 mg 01/11/18 10:00 01/12/18 10:54 Toprol Xl - PO 50 mg BID [facility] Administration Pantoprazole Sodium 40 mg 01/11/18 10:00 01/12/18 10:54 Protonix - PO Not Given DAILY [facility] Scopolamine HBr 1 patch 01/11/18 10:15 01/11/18 11:41 Transderm-Scop - TD 1 patch Q72H [facility] Administration ASSESSMENT/PLAN: Patient is an 82 year old female with a past medical history of diastolic CHF, iron deficiency anemia, RA, hypothyroid, asthma, dementia, bipolar, a-fib on eiquis. Patient was recently admitted at [facility] 11/26/17-12/25/2017 for Enterococcal bacteremia from UTI was treated with IV Vancomycin and treated for aspiration pneumonia-completed course of Cefepime. Patient admitted on 2017 for acute hypoxic respiratory failure and antibiotics initiated for possible pneumonia. Pulmonary: Acute hypoxic respiratory failure. Treated with IV Levaquin and Vancomycin per ID since admission. now currently off antibiotics. On bipap and alternating with venti mask. On dysphagia diet, speech and swallow following On duonebs Followed by pulmonary. chest xray unchanged from previous. Card: Acute on chronic Diastolic CHF restart lasix 40mg daily monitor intake and output, daily weights afib on tele. Atrial fibrillation On Eliquis 2.5mg BID. Toprol 50mg bid Heme: Iron Deficiency Anemia. Trend cbc daily. hmg/hct currently stable. Hypothyroidism. On Synthroid 75 mcg PO Daily TSH noted 10.3, elevated on previous admission. repeat tsh outpatient fen no ivf monitor electrolytes dysphagia pureed, dnr/dni attempted to call HCP (Cinthya). message left. Visit type - Emergency Visit Emergency Visit: Yes ED Registration Date: 01/04/18 Care time: The patient presented to the Emergency Department on the above date and was hospitalized for further evaluation of their emergent condition. - New Patient This patient is new to me today: No - Critical Care Critical Care patient: No - Discharge Referral Referred to [facility] Med P.C.: No
[2018-01-12 13:21] LABS: ARTERIAL BLD GAS O2 SATURATION 96.8 % (90-98.9); ARTERIAL BLOOD GAS BASE EXCESS 4.2 meq/l (-2-2); ARTERIAL BLOOD GAS PCO2 51.1 mmHg (35-45); ARTERIAL BLOOD GAS pH 7.38 (7.35-7.45)
[2018-01-12 13:23] LABS: ALLENS TEST POSITIVE
[2018-01-12] MEDS: NYSTATIN POWDER 100,000 UNITS/GM - 15 GM TOPICAL POWDER TP SCH (15:52)
[2018-01-12] MEDS: FUROSEMIDE 40 MG TABLET (FP) PO SCH (15:53)
[2018-01-12 19:17] LABS: ALBUMIN 1.9 g/dl (3.4-5.0); ALK PHOS 141 U/L (45-117); ANION GAP 6 MMOL/L (8-16); BILIRUBIN,TOTAL 0.6 mg/dL (0.2-1); BLOOD UREA NITROGEN 84 mg/dL (7-18); CALCIUM 8.3 mg/dL (8.5-10.1); CHLORIDE 102 mmol/L (98-107); CO2 31 mmol/L (21-32); CREATININE 2.8 mg/dL (0.55-1.3); GLUCOSE,RANDOM 77 mg/dL (74-106); POTASSIUM 5.2 mmol/L (3.5-5.1); SGOT/AST 28 U/L (15-37); SGPT/ALT 17 U/L (13-61); SODIUM 138 mmol/L (136-145); TOT PROT 7.3 g/dl (6.4-8.2)
[2018-01-13] MEDS: LEVOTHYROXINE NA 75 MCG TABLET (FP) PO SCH (07:07)
[2018-01-13 07:20] LABS: EOS % 0.3 % (0-4.5); HEMATOCRIT 28.8 % (32.4-45.2); HEMOGLOBIN 8.9 GM/dL (10.7-15.3); LYMPH % 17.2 % (8-40); MCH 24.4 pg (25.7-33.7); MCHC 30.7 g/dl (32.0-36.0); MEAN CELL VOLUME 79.3 fl (80-96); MEAN PLT VOLUME 7.5 fl (7.5-11.1); MONO % 7.5 % (3.8-10.2); PLATELET COUNT 145 K/MM3 (134-434); RBC 3.64 M/mm3 (3.60-5.2); RDW 21.3 % (11.6-15.6); WHITE BLOOD COUNT 3.3 K/mm3 (4.0-10.0)
[2018-01-13 08:09] LABS: ALBUMIN 1.7 g/dl (3.4-5.0); ALK PHOS 132 U/L (45-117); ANION GAP 8 MMOL/L (8-16); BILIRUBIN,TOTAL 0.6 mg/dL (0.2-1); BLOOD UREA NITROGEN 85 mg/dL (7-18); CHLORIDE 103 mmol/L (98-107); CO2 28 mmol/L (21-32); CREATININE 2.7 mg/dL (0.55-1.3); GLUCOSE,RANDOM 54 mg/dL (74-106); POTASSIUM 5.1 mmol/L (3.5-5.1); SGOT/AST 28 U/L (15-37); SGPT/ALT 15 U/L (13-61); SODIUM 140 mmol/L (136-145)
[2018-01-13] MEDS: DIVALPROEX SODIUM 250 MG TABLET E.C. PO SCH ×2 (09:28→22:38)
[2018-01-13] MEDS: APIXABAN 2.5 MG TABLET PO SCH ×2 (09:28→21:52)
[2018-01-13] MEDS: FOLIC ACID 1 MG TABLET (FP) PO SCH (09:28)
[2018-01-13] MEDS: DOCUSATE SODIUM 100 MG CAPSULE (FP) PO SCH (09:28)
[2018-01-13] MEDS: FUROSEMIDE 40 MG TABLET (FP) PO SCH (09:28)
[2018-01-13] MEDS: NYSTATIN POWDER 100,000 UNITS/GM - 15 GM TOPICAL POWDER TP SCH (09:29)
[2018-01-13] MEDS: ALLOPURINOL 100 MG TABLET (FP) PO SCH (09:29)
[2018-01-13] MEDS: PANTOPRAZOLE 40 MG TABLET (FP) PO SCH (09:29)
[2018-01-13] MEDS: HYDROXYCHLOROQUINE SO4 200 MG TABLET (FP) PO SCH (09:29)
--- NOTE | 2018-01-13 12:38 | PN ---
Progress Note, Physician History of Present Illness: PULMONARY LETHARGIC ON BIPAP,-TACHYPNEA - Current Medication List Current Medications: Active Medications Allopurinol (Zyloprim -) 100 mg PO DAILY [facility] Last Admin: 01/13/18 09:29 Dose: Not Given Apixaban (Eliquis -) 2.5 mg PO BID [facility] Last Admin: 01/13/18 09:28 Dose: Not Given Divalproex Sodium (Depakote -) 250 mg PO BID [facility] Last Admin: 01/13/18 09:28 Dose: Not Given Docusate Sodium (Colace -) 100 mg PO DAILY [facility] Last Admin: 01/13/18 09:28 Dose: Not Given Folic Acid (Folic Acid -) 1 mg PO DAILY [facility] Last Admin: 01/13/18 09:28 Dose: Not Given Furosemide (Lasix -) 40 mg PO DAILY [facility] Last Admin: 01/13/18 09:28 Dose: Not Given Hydroxychloroquine Sulfate (Plaquenil -) 200 mg PO DAILY [facility] Last Admin: 01/13/18 09:29 Dose: Not Given Levothyroxine Sodium (Synthroid -) 75 mcg PO DAILY@0700 [facility] Last Admin: 01/13/18 07:07 Dose: Not Given Metoprolol Succinate (Toprol Xl -) 50 mg PO BID [facility] Last Admin: 01/13/18 09:29 Dose: Not Given Nystatin (Nystop Powder -) 1 applic TP DAILY [facility] Last Admin: 01/13/18 09:29 Dose: 1 applic Pantoprazole Sodium (Protonix -) 40 mg PO DAILY [facility] Last Admin: 01/13/18 09:29 Dose: Not Given Scopolamine HBr (Transderm-Scop -) 1 patch TD Q72H [facility] Last Admin: 01/11/18 11:41 Dose: 1 patch - Objective Vital Signs: Vital Signs Temperature 97.8 F 01/13/18 06:00 Pulse Rate 74 01/13/18 06:00 Respiratory Rate 20 01/13/18 06:00 Blood Pressure 102/64 01/13/18 06:00 O2 Sat by Pulse Oximetry (%) 96 01/13/18 03:48 Constitutional: Yes: Well Nourished, Other (LETHARGIC) Eyes: Yes: WNL, Other Neck: Yes: WNL Cardiovascular: Yes: Pulse Irregular, S1, S2 Respiratory: Yes: Rhonchi (BILATERAL RHONCHI) Gastrointestinal: Yes: Normal Bowel Sounds, Soft Extremities: Yes: WNL Edema: Yes Labs: CBC, BMP 01/13/18 05:30 01/13/18 05:30 INR, PTT INR 2.66 (0.83-1.09) H 01/05/18 07:10 Laboratory Tests 01/12/18 13:13 ABG pH 7.38 ABG pCO2 at Pt Temp 51.1 H ABG pO2 at Pt Temp 88.0 ABG HCO3 29.5 H ABG O2 Sat (Measured) 96.8 O2 Delivery Device N/c Oxygen Flow Rate 6l Problem List - Problems (1) CHF (congestive heart failure) Code(s): I50.9 - HEART FAILURE, UNSPECIFIED Qualifiers: Heart failure type: diastolic Heart failure chronicity: acute on chronic Qualified Code(s): I50.33 - Acute on chronic diastolic (congestive) heart failure (2) Sepsis Code(s): A41.9 - SEPSIS, UNSPECIFIED ORGANISM (3) Leukopenia Code(s): D72.819 - DECREASED WHITE BLOOD CELL COUNT, UNSPECIFIED Qualifiers: Leukopenia type: lymphocytopenia Qualified Code(s): D72.810 - Lymphocytopenia (4) Rheumatoid arthritis Code(s): M06.9 - RHEUMATOID ARTHRITIS, UNSPECIFIED (5) Schizoaffective disorder, bipolar type Code(s): F25.0 - SCHIZOAFFECTIVE DISORDER, BIPOLAR TYPE (6) Acute respiratory failure with hypoxia and hypercapnia Code(s): J96.01 - ACUTE RESPIRATORY FAILURE WITH HYPOXIA; J96.02 - ACUTE RESPIRATORY FAILURE WITH HYPERCAPNIA Assessment/Plan IMP ACUTE HYPERCAPNEIC/HYPOXEMIC RESPIRATORY FAILURE ACUTE ON CHRONIC CHF IMPROVING LIKELY PNEUMONIA IMPROVING AFIB DEMENTIA GERD H/O ENTEROCOCCAL SEPSIS RA HYPOTHYROID HTN ANEMIA ACUTE ON CHRONIC KIDNEY DISEASE WORSENING PLAN LASIX NIPPV NEEDED NORMAL TRANSFUSION THRESHOLD O2 MONITOR LYTES,RENAL FUNCTION F/U CHEST X-RAY AC MEDROL X 24HRS DR ALMENDAREZ Problem List - Problems (1) CHF (congestive heart failure) Code(s): I50.9 - HEART FAILURE, UNSPECIFIED Qualifiers: Heart failure type: diastolic Heart failure chronicity: acute on chronic Qualified Code(s): I50.33 - Acute on chronic diastolic (congestive) heart failure (2) Sepsis Code(s): A41.9 - SEPSIS, UNSPECIFIED ORGANISM (3) Leukopenia Code(s): D72.819 - DECREASED WHITE BLOOD CELL COUNT, UNSPECIFIED Qualifiers: Leukopenia type: lymphocytopenia Qualified Code(s): D72.810 - Lymphocytopenia (4) Rheumatoid arthritis Code(s): M06.9 - RHEUMATOID ARTHRITIS, UNSPECIFIED (5) Schizoaffective disorder, bipolar type Code(s): F25.0 - SCHIZOAFFECTIVE DISORDER, BIPOLAR TYPE (6) Acute respiratory failure with hypoxia and hypercapnia Code(s): J96.01 - ACUTE RESPIRATORY FAILURE WITH HYPOXIA; J96.02 - ACUTE RESPIRATORY FAILURE WITH HYPERCAPNIA
[2018-01-13] MEDS: methylPREDNISolone NA SUCC 40 MG/1 ML VIAL IVPUSH SCH ×2 (13:00→17:37)
--- NOTE | 2018-01-13 13:59 | PN ---
Progress Note, Physician History of Present Illness: Confused, remains on bipap. - Current Medication List Current Medications: Active Medications Allopurinol (Zyloprim -) 100 mg PO DAILY [facility] Last Admin: 01/13/18 09:29 Dose: Not Given Apixaban (Eliquis -) 2.5 mg PO BID [facility] Last Admin: 01/13/18 09:28 Dose: Not Given Divalproex Sodium (Depakote -) 250 mg PO BID [facility] Last Admin: 01/13/18 09:28 Dose: Not Given Docusate Sodium (Colace -) 100 mg PO DAILY [facility] Last Admin: 01/13/18 09:28 Dose: Not Given Folic Acid (Folic Acid -) 1 mg PO DAILY [facility] Last Admin: 01/13/18 09:28 Dose: Not Given Furosemide (Lasix -) 40 mg PO DAILY [facility] Last Admin: 01/13/18 09:28 Dose: Not Given Hydroxychloroquine Sulfate (Plaquenil -) 200 mg PO DAILY [facility] Last Admin: 01/13/18 09:29 Dose: Not Given Levothyroxine Sodium (Synthroid -) 75 mcg PO DAILY@0700 [facility] Last Admin: 01/13/18 07:07 Dose: Not Given Methylprednisolone Sodium Succinate (Solu-Medrol -) 40 mg IVPUSH Q8H-IV [facility] Metoprolol Succinate (Toprol Xl -) 50 mg PO BID [facility] Last Admin: 01/13/18 09:29 Dose: Not Given Nystatin (Nystop Powder -) 1 applic TP DAILY [facility] Last Admin: 01/13/18 09:29 Dose: 1 applic Pantoprazole Sodium (Protonix -) 40 mg PO DAILY [facility] Last Admin: 01/13/18 09:29 Dose: Not Given Scopolamine HBr (Transderm-Scop -) 1 patch TD Q72H [facility] Last Admin: 01/11/18 11:41 Dose: 1 patch - Objective Vital Signs: Vital Signs Temperature 97.8 F 01/13/18 06:00 Pulse Rate 74 01/13/18 06:00 Respiratory Rate 20 01/13/18 06:00 Blood Pressure 102/64 01/13/18 06:00 O2 Sat by Pulse Oximetry (%) 96 01/13/18 03:48 Constitutional: Yes: No Distress, Calm Neck: Yes: Supple Cardiovascular: Yes: Pulse Irregular Respiratory: Yes: Regular, Diminished, On BiPap Gastrointestinal: Yes: Soft, Hypoactive Bowel Sounds Edema: Yes Labs: CBC, BMP 01/13/18 05:30 01/13/18 05:30 INR, PTT INR 2.66 (0.83-1.09) H 01/05/18 07:10 - ....Imaging EKG: Report Reviewed (Tele: Afib) Problem List - Problems (1) Acute respiratory failure with hypoxia and hypercapnia Code(s): J96.01 - ACUTE RESPIRATORY FAILURE WITH HYPOXIA; J96.02 - ACUTE RESPIRATORY FAILURE WITH HYPERCAPNIA (2) CHF (congestive heart failure) Code(s): I50.9 - HEART FAILURE, UNSPECIFIED Qualifiers: Heart failure type: diastolic Heart failure chronicity: acute on chronic Qualified Code(s): I50.33 - Acute on chronic diastolic (congestive) heart failure (3) Rheumatoid arthritis Code(s): M06.9 - RHEUMATOID ARTHRITIS, UNSPECIFIED (4) Atrial fibrillation Code(s): I48.91 - UNSPECIFIED ATRIAL FIBRILLATION Qualifiers: Atrial fibrillation type: persistent Qualified Code(s): I48.1 - Persistent atrial fibrillation (5) Hypothyroidism Code(s): E03.9 - HYPOTHYROIDISM, UNSPECIFIED Qualifiers: Hypothyroidism type: unspecified Qualified Code(s): E03.9 - Hypothyroidism , unspecified (6) [id number] kidney injury Code(s): N17.9 - ACUTE KIDNEY FAILURE, UNSPECIFIED; N18.9 - CHRONIC KIDNEY DISEASE, UNSPECIFIED Assessment/Plan Echocardiography dated 12/14/2017 revealed normal LV systolic function/EF 60-65% , left atrial dilatation, mild MR, mild to moderate TR with RVSP 41 mmHg 1. Acute on chronic hypercapneic/hypoxemic respiratory failure related to acute on chronic class I-II NYHA classification LV diastolic failure 2. Pneumonia, resolved 3. CAD angina pectoris 4. Persistent atrial fibrillation [id number] score of 5 on DOAC's/Eliquis 5. HTN 6. Hypothyroidism 7. Acute on chronic CKD 8. Rheumatoid arthritis 9. Anemia 10. Dementia PLAN: 1. Continue Lasix 40 qd with close monitoring of diuretic response, renal function and electrolytes 2. Continue Toprol XL 50 bid 3. Continue Eliquis at 2.5 mg twice daily, adequate dose based on age > 80 and Creatinine of 1.5 or greater 4. Monitor CBC/Hg, maitain Hg equal or > 8.0
--- NOTE | 2018-01-13 15:33 | PN ---
Physical Exam: SUBJECTIVE: Patient seen and examined at the bedside. OBJECTIVE: mental status unchanged. still lethargic, minimally responsive. will give trial of venti 50% at 15 liters and monitor oxygen sats. started on solumedrol by pulmonary x 24 hours. Vital Signs Period Temp Pulse Resp BP Sys/Neal Pulse Ox Last 24 Hr 97.8 F-98.4 F 55-78 20-20 98-105/42-64 96-96 GENERAL: lethargic, minimally responsive to tactilie stimuli. HEAD: Normal with no signs of trauma. EYES: PERRL, extraocular movements intact, sclera anicteric, conjunctiva clear. No ptosis. ENT: Ears normal, nares patent, oropharynx clear without exudates NECK: Trachea midline, full range of motion, supple. LUNGS: left lung diminished, right lung clear HEART: Regular rate and rhythm ABDOMEN: Soft, nontender, nondistended, normoactive bowel sounds EXTREMITIES: no edema. NEUROLOGICAL: minimally responsive to tactile stimuli. PSYCH: calm SKIN: breakdown on abdominal folds. nystatin ordered Laboratory Results - last 24 hr 01/12/18 01/13/18 01/13/18 17:30 05:30 05:30 WBC 3.3 L RBC 3.64 Hgb 8.9 L Hct 28.8 L MCV 79.3 L MCH 24.4 L MCHC 30.7 L RDW 21.3 H Plt Count 145 MPV 7.5 Absolute Neuts (auto) 2.4 Neutrophils % 74.0 Lymphocytes % 17.2 Monocytes % 7.5 Eosinophils % 0.3 Basophils % 1.0 Nucleated RBC % 1 H Sodium 138 140 Potassium 5.2 H 5.1 Chloride 102 103 Carbon Dioxide 31 28 Anion Gap 6 L 8 BUN 84 H 85 H Creatinine 2.8 H 2.7 H Creat Clearance w eGFR 16.18 16.87 Random Glucose 77 54 L Calcium 8.3 L 8.0 L Magnesium 2.0 Total Bilirubin 0.6 0.6 AST 28 28 ALT 17 15 Alkaline Phosphatase 141 H 132 H Total Protein 7.3 7.0 Albumin 1.9 L 1.7 L Active Medications Generic Name Dose Route Start Last Admin Trade Name Freq PRN Reason Stop Dose Admin Allopurinol 100 mg 01/11/18 10:00 01/13/18 09:29 Zyloprim - PO Not Given DAILY ELENA Apixaban 2.5 mg 01/11/18 10:00 01/13/18 09:28 Eliquis - PO Not Given BID ELENA Divalproex Sodium 250 mg 01/11/18 22:00 01/13/18 09:28 Depakote - PO Not Given BID ELENA Docusate Sodium 100 mg 01/11/18 10:00 01/13/18 09:28 Colace - PO Not Given DAILY ELENA Folic Acid 1 mg 01/11/18 10:00 01/13/18 09:28 Folic Acid - PO Not Given DAILY ELENA Furosemide 40 mg 01/12/18 14:30 01/13/18 09:28 Lasix - PO Not Given DAILY ELENA Hydroxychloroquine Sulfate 200 mg 01/11/18 10:00 01/13/18 09:29 Plaquenil - PO Not Given DAILY ELENA Levothyroxine Sodium 75 mcg 01/12/18 07:00 01/13/18 07:07 Synthroid - PO Not Given DAILY@0700 [facility] Methylprednisolone Sodium Succinate 40 mg 01/13/18 12:45 Solu-Medrol - IVPUSH Q8H-IV ELENA Metoprolol Succinate 50 mg 01/11/18 10:00 01/13/18 09:29 Toprol Xl - PO Not Given BID ELENA Nystatin 1 applic 01/12/18 13:00 01/13/18 09:29 Nystop Powder - TP 1 applic DAILY ELENA Administration Pantoprazole Sodium 40 mg 01/11/18 10:00 01/13/18 09:29 Protonix - PO Not Given DAILY ELENA Scopolamine HBr 1 patch 01/11/18 10:15 01/11/18 11:41 Transderm-Scop - TD 1 patch Q72H ELENA Administration ASSESSMENT/PLAN: Patient is an 82 year old female with a past medical history of diastolic CHF, iron deficiency anemia, RA, hypothyroid, asthma, dementia, bipolar, a-fib on eiquis. Patient was recently admitted at [facility] 11/26/17-12/25/2017 for Enterococcal bacteremia from UTI was treated with IV Vancomycin and treated for aspiration pneumonia-completed course of Cefepime. Patient admitted on 2017 for acute hypoxic respiratory failure and antibiotics initiated for possible pneumonia. Pulmonary: Acute hypoxic respiratory failure. Treated with IV Levaquin and Vancomycin per ID since admission. now currently off antibiotics. On bipap and alternating with venti mask 50% @ 15 liters On dysphagia diet, speech and swallow following, advance as tolerated On duonebs Followed by pulmonary. chest xray unchanged from previous. Started on solumedrol x 24 hours Card: Acute on chronic Diastolic CHF restart lasix 40mg daily monitor intake and output, daily weights afib on tele. Atrial fibrillation On Eliquis 2.5mg BID. Toprol 50mg bid Renal: Creatinine above baseline @ 2.7. connor placed. Monitor intake and output. baseline creat ~ 1.7 Heme: Iron Deficiency Anemia. Trend cbc daily. hmg/hct currently stable. Hypothyroidism. On Synthroid 75 mcg PO Daily TSH noted 10.3, elevated on previous admission. repeat tsh outpatient fen no ivf monitor electrolytes dysphagia pureed, dnr/dni Likely discharge back to [facility] on comfort care. discharge planning. Visit type - Emergency Visit Emergency Visit: Yes ED Registration Date: 01/04/18 Care time: The patient presented to the Emergency Department on the above date and was hospitalized for further evaluation of their emergent condition. - New Patient This patient is new to me today: No - Critical Care Critical Care patient: No - Discharge Referral Referred to [facility] Med P.C.: No
[2018-01-13] MEDS ORDERED: DEXTROSE 5%-WATER - 1,000 ML IV SCH (15:45)
[2018-01-13] MEDS ORDERED: SODIUM CHLORIDE 1,000 ML IV SCH (15:45)
[2018-01-13] MEDS ORDERED: LORazepam 2 MG/ML SDV VIAL IVPUSH ONE (23:31)
[2018-01-14] MEDS: methylPREDNISolone NA SUCC 40 MG/1 ML VIAL IVPUSH SCH ×2 (01:07→09:56)
[2018-01-14] MEDS: LEVOTHYROXINE NA 75 MCG TABLET (FP) PO SCH (06:45)
[2018-01-14 07:47] LABS: BASO % 0.2 % (0-2.0); HEMATOCRIT 28.1 % (32.4-45.2); HEMOGLOBIN 8.6 GM/dL (10.7-15.3); LYMPH % 9.2 % (8-40); MCH 24.4 pg (25.7-33.7); MCHC 30.5 g/dl (32.0-36.0); MEAN CELL VOLUME 80.2 fl (80-96); MEAN PLT VOLUME 7.6 fl (7.5-11.1); MONO % 1.4 % (3.8-10.2); NEUT % 89.2 % (42.8-82.8); PLATELET COUNT 152 K/MM3 (134-434); RDW 21.2 % (11.6-15.6); WHITE BLOOD COUNT 2.5 K/mm3 (4.0-10.0)
[2018-01-14 08:34] LABS: ALBUMIN 1.8 g/dl (3.4-5.0); ALK PHOS 124 U/L (45-117); ANION GAP 7 MMOL/L (8-16); BILIRUBIN,TOTAL 0.6 mg/dL (0.2-1); BLOOD UREA NITROGEN 84 mg/dL (7-18); CALCIUM 8.1 mg/dL (8.5-10.1); CHLORIDE 103 mmol/L (98-107); CO2 29 mmol/L (21-32); CREATININE 2.4 mg/dL (0.55-1.3); GLUCOSE,RANDOM 119 mg/dL (74-106); MAGNESIUM 2.2 mg/dL (1.8-2.4); SGOT/AST 25 U/L (15-37); SGPT/ALT 16 U/L (13-61); SODIUM 140 mmol/L (136-145); TOT PROT 6.9 g/dl (6.4-8.2)
--- NOTE | 2018-01-14 08:39 | DS ---
Physical Exam: SUBJECTIVE: Patient seen and examined at the bedside. patient was reported to be agitated overnight, now calmer after ativan given x 1 dose. patient tolerating venti mask 50% @ 15 liters. OBJECTIVE: discharge back to [facility] today, HCP considering hospice/comfort care continue dysphagia pureed diet. Continue venti mask @ 50% @ 15 liters. consider morphine prn Vital Signs Period Temp Pulse Resp BP Sys/Neal Pulse Ox Last 24 Hr 97.8 F-98.2 F 57-86 20-20 91-110/36-66 95-98 PHYSICAL EXAM GENERAL: lethargic, minimally responsive to tactilie stimuli. HEAD: Normal with no signs of trauma. EYES: PERRL, extraocular movements intact, sclera anicteric, conjunctiva clear. No ptosis. ENT: Ears normal, nares patent, oropharynx clear without exudates NECK: Trachea midline, full range of motion, supple. LUNGS: left lung diminished, right lung clear HEART: Regular rate and rhythm ABDOMEN: Soft, nontender, nondistended, normoactive bowel sounds EXTREMITIES: +edema bilateraly NEUROLOGICAL: responsive to tactile stimuli. alternates between lethargy and agitation. PSYCH: calm SKIN: breakdown on abdominal folds. nystatin ordered LABS Laboratory Results - last 24 hr 01/14/18 01/14/18 01/14/18 00:11 05:10 05:30 WBC 2.5 L RBC 3.50 L Hgb 8.6 L Hct 28.1 L MCV 80.2 MCH 24.4 L MCHC 30.5 L RDW 21.2 H Plt Count 152 MPV 7.6 Absolute Neuts (auto) 2.3 Neutrophils % 89.2 H D Lymphocytes % 9.2 D Monocytes % 1.4 L D Eosinophils % 0.0 D Basophils % 0.2 Nucleated RBC % 1 H Sodium Potassium Chloride Carbon Dioxide Anion Gap BUN Creatinine Creat Clearance w eGFR POC Glucometer 115 140 Random Glucose Calcium Magnesium Total Bilirubin AST ALT Alkaline Phosphatase Total Protein Albumin 01/14/18 05:30 WBC RBC Hgb Hct MCV MCH MCHC RDW Plt Count MPV Absolute Neuts (auto) Neutrophils % Lymphocytes % Monocytes % Eosinophils % Basophils % Nucleated RBC % Sodium 140 Potassium 5.0 Chloride 103 Carbon Dioxide 29 Anion Gap 7 L BUN 84 H Creatinine 2.4 H Creat Clearance w eGFR 19.33 POC Glucometer Random Glucose 119 H Calcium 8.1 L Magnesium 2.2 Total Bilirubin 0.6 AST 25 ALT 16 Alkaline Phosphatase 124 H Total Protein 6.9 Albumin 1.8 L HOSPITAL COURSE: Patient is an 82 year old female with a past medical history of diastolic CHF, iron deficiency anemia, RA, hypothyroid, asthma, dementia, bipolar, a-fib on eiquis. Patient was recently admitted at [facility] 11/26/17-12/25/2017 for Enterococcal bacteremia from UTI was treated with IV Vancomycin and treated for aspiration pneumonia-completed course of Cefepime. Patient admitted on 2017 for acute hypoxic respiratory failure and antibiotics initiated for possible pneumonia. Pulmonary/sepsis: Acute hypoxic respiratory failure. acute on chronic. Now venti dependent @ 50% venti, 15 liters. consider morphine prn, to assist ease of breathing. Treated with IV Levaquin and Vancomycin per ID since admission. now currently off antibiotics. remains afebrile. On dysphagia diet, speech and swallow following, advance as tolerated-meds crushed in applesauce On duonebs-continue at [facility] prn for dyspnea Followed by pulmonary during hospitalization. chest xray unchanged from previous. Started on solumedrol x 24 hours ivpush, during hospitalization Card: Acute on chronic Diastolic CHF restart lasix 40mg daily monitor intake and output, daily weight Atrial fibrillation, rate controlled On Eliquis 2.5mg BID. Toprol 50mg bid Renal: Creatinine above baseline @ 2.4 Monitor intake and output. baseline creat ~ 1.7 Heme: Iron Deficiency Anemia. Trend cbc daily. hmg/hct currently stable. Hypothyroidism. On Synthroid 75 mcg PO Daily TSH noted 10.3, elevated on previous admission (tsh was 20). repeat tsh outpatient discharge back to [facility] on comfort care per HCP. consider hospice. Date of Admission:01/04/18 Date of Discharge: 01/14/18 Minutes to complete discharge: 60 Discharge Summary Reason For Visit: CONGESTIVE HEART FAILURE/LEUKOPENIA/SEPSIS Current Active Problems Acute respiratory failure with hypoxia and hypercapnia (Acute) [id number] kidney injury (Acute) Atrial fibrillation (Acute) CHF (congestive heart failure) (Acute) Hypothyroidism (Acute) Prophylactic measure (Acute) Sepsis (Acute) Condition: Guarded - Instructions Diet, Activity, Other Instructions: Mrs Humphreys/Nena facility staff: Mrs Humphreys was admitted on 01/04/2018 for acute hypoxic respiratory failure and antibiotics initiated for possible pneumonia. Pulmonary/sepsis: Acute hypoxic respiratory failure. acute on chronic. Now venti dependent @ 50% venti, 15 liters. consider morphine prn, to assist ease of breathing. Treated with IV Levaquin and Vancomycin per ID since admission. now currently off antibiotics. remains afebrile. On dysphagia diet, speech and swallow following, advance as tolerated-meds crushed in applesauce On duonebs-continue at [facility] prn for dyspnea Followed by pulmonary during hospitalization. chest xray unchanged from previous. Started on solumedrol x 24 hours ivpush, during hospitalization Card: Acute on chronic Diastolic CHF restart lasix 40mg daily monitor intake and output, daily weight Atrial fibrillation, rate controlled On Eliquis 2.5mg BID. Toprol 50mg bid Renal: Creatinine above baseline @ 2.4 Monitor intake and output. baseline creat ~ 1.7 Heme: Iron Deficiency Anemia. Trend cbc daily. hmg/hct currently stable. Hypothyroidism. On Synthroid 75 mcg PO Daily TSH noted 10.3, elevated on previous admission (tsh was 20). repeat tsh outpatient discharge back to [facility] on comfort care per HCP. consider hospice. Date of Admission:01/04/18 Date of Discharge: 01/14/18 Disposition: [facility] - Home Medications Comprehensive Discharge Medication List: Ambulatory Orders Albuterol 2.5/Ipratropium 0.5 [Duoneb -] 1 neb IH QID 01/04/18 Allopurinol [Zyloprim -] 100 mg PO DAILY 01/04/18 Apixaban [Eliquis -] 5 mg PO BID 01/04/18 Docusate Sodium [Colace] 100 mg PO DAILY 01/04/18 Folic Acid 1 mg PO DAILY 01/04/18 Furosemide [Lasix] 40 mg PO DAILY 01/04/18 Hydroxychloroquine Sulfate [Plaquenil] 200 mg PO DAILY 01/04/18 LORazepam [Ativan] 1 mg PO DAILY 01/04/18 Levothyroxine [Synthroid -] 75 mcg PO DAILY 01/04/18 Metolazone [Zaroxolyn -] 2.5 mg PO WEEKLY 01/04/18 Metoprolol Succinate [Toprol Xl -] 50 mg PO BID 01/04/18 Pantoprazole Sodium [Protonix] 40 mg PO DAILY 01/04/18 Potassium Chloride [K-Dur -] 20 meq PO DAILY 01/04/18 This patient is new to me today: Yes Date on this admission: 01/14/18 Emergency Visit: No Critical Care patient: No - Discharge Referral Referred to [facility] Med P.C[facility] No
[2018-01-14] MEDS ORDERED: MORPHINE SULFATE 2 MG/ML VIAL IVPUSH ONE (08:49)
[2018-01-14] MEDS ORDERED: PT OWN MED DRAWER 7, Y5N ONE (09:38)
[2018-01-14 09:43] VITALS: BP 118/62; PULSE 84; TEMP 97.1
[2018-01-14] MEDS: DOCUSATE SODIUM 100 MG CAPSULE (FP) PO SCH (09:54)
[2018-01-14] MEDS: NYSTATIN POWDER 100,000 UNITS/GM - 15 GM TOPICAL POWDER TP SCH (09:55)
[2018-01-14] MEDS: FUROSEMIDE 40 MG TABLET (FP) PO SCH (09:55)
[2018-01-14] MEDS: APIXABAN 2.5 MG TABLET PO SCH (09:55)
[2018-01-14] MEDS: FOLIC ACID 1 MG TABLET (FP) PO SCH (09:55)
[2018-01-14] MEDS: ALLOPURINOL 100 MG TABLET (FP) PO SCH (09:56)
[2018-01-14] MEDS: SCOPOLAMINE HYDROBROMIDE 1 PATCH PATCH.TD72 TD SCH (09:57)
[2018-01-14] MEDS ORDERED: VALPROATE SODIUM 250 MG/5 ML UNIT DOSE CUP PO SCH (10:00)
--- NOTE | 2018-01-14 10:12 | PN ---
Progress Note, Physician Chief Complaint: Events noted Lethargic History of Present Illness: Patient was seen and examined. chart was reviewed Confused and lethargic - Current Medication List Current Medications: Active Medications Allopurinol (Zyloprim -) 100 mg PO DAILY [facility] Last Admin: 01/14/18 09:56 Dose: 100 mg Apixaban (Eliquis -) 2.5 mg PO BID [facility] Last Admin: 01/14/18 09:55 Dose: 2.5 mg Docusate Sodium (Colace -) 100 mg PO DAILY [facility] Last Admin: 01/14/18 09:54 Dose: Not Given Folic Acid (Folic Acid -) 1 mg PO DAILY [facility] Last Admin: 01/14/18 09:55 Dose: 1 mg Furosemide (Lasix -) 40 mg PO DAILY [facility] Last Admin: 01/14/18 09:55 Dose: 40 mg Hydroxychloroquine Sulfate (Plaquenil -) 200 mg PO DAILY [facility] Last Admin: 01/13/18 09:29 Dose: Not Given Dextrose (D5w -) 1,000 mls @ 42 mls/hr IV ASDIR [facility] Last Admin: 01/13/18 15:45 Dose: 42 mls/hr Levothyroxine Sodium (Synthroid -) 75 mcg PO DAILY@0700 [facility] Last Admin: 01/14/18 06:45 Dose: 75 mcg Methylprednisolone Sodium Succinate (Solu-Medrol -) 40 mg IVPUSH Q8H-IV [facility] Last Admin: 01/14/18 09:56 Dose: 40 mg Metoprolol Succinate (Toprol Xl -) 50 mg PO BID [facility] Last Admin: 01/13/18 21:52 Dose: 50 mg Nystatin (Nystop Powder -) 1 applic TP DAILY [facility] Last Admin: 01/14/18 09:55 Dose: 1 applic Pantoprazole Sodium (Protonix -) 40 mg PO DAILY [facility] Last Admin: 01/13/18 09:29 Dose: Not Given Scopolamine HBr (Transderm-Scop -) 1 patch TD Q72H [facility] Last Admin: 01/14/18 09:57 Dose: 1 patch Valproate Sodium (Depakene -) 250 mg PO BID [facility] - Objective Vital Signs: Vital Signs Temperature 97.1 F L 01/14/18 09:42 Pulse Rate 84 01/14/18 09:42 Respiratory Rate 20 01/14/18 09:42 Blood Pressure 118/62 01/14/18 09:42 O2 Sat by Pulse Oximetry (%) 97 01/14/18 08:57 HENT: Yes: Atraumatic Neck: Yes: Supple Cardiovascular: Yes: Pulse Irregular, S1, S2 Respiratory: Yes: Diminished Gastrointestinal: Yes: Normal Bowel Sounds, Soft. No: Tenderness Edema: No Labs: CBC, BMP 01/14/18 05:30 01/14/18 05:30 Problem List - Problems (1) CHF (congestive heart failure) Code(s): I50.9 - HEART FAILURE, UNSPECIFIED Qualifiers: Heart failure type: diastolic Heart failure chronicity: acute on chronic Qualified Code(s): I50.33 - Acute on chronic diastolic (congestive) heart failure (2) Anemia Code(s): D64.9 - ANEMIA, UNSPECIFIED Qualifiers: Anemia type: iron deficiency Iron deficiency anemia type: chronic blood loss Qualified Code(s): D50.0 - Iron deficiency anemia secondary to blood loss (chronic) (3) Leukopenia Code(s): D72.819 - DECREASED WHITE BLOOD CELL COUNT, UNSPECIFIED Qualifiers: Leukopenia type: lymphocytopenia Qualified Code(s): D72.810 - Lymphocytopenia (4) Rheumatoid arthritis Code(s): M06.9 - RHEUMATOID ARTHRITIS, UNSPECIFIED (5) Schizoaffective disorder, bipolar type Code(s): F25.0 - SCHIZOAFFECTIVE DISORDER, BIPOLAR TYPE Assessment/Plan 1. Acute on chronic hypercapneic/hypoxemic respiratory failure related to acute on chronic class I-II NYHA classification LV diastolic failure 2. Pneumonia 3. CAD angina pectoris 4. Persistent atrial fibrillation [id number] score of 5 on DOAC/Eliquis 5. HTN 6. Hypothyroidism 7. Acute on chronic CKD 8. Rheumatoid arthritis 9. Anemia 10. Dementia PLAN: 1. Continue Lasix 40 mg QD with monitoring of renal function and electrolytes 2. Continue Toprol XL 50 mg BID as tolerated 3. Continue Eliquis 2.5 mg BID (age > 80, Cr > 1.5) Present treatment. Supportive care Richy Jain MD
[2018-01-14] MEDS: HYDROXYCHLOROQUINE SO4 200 MG TABLET (FP) PO SCH (10:16)
[2018-01-14] MEDS: PANTOPRAZOLE 40 MG TABLET (FP) PO SCH (10:16)
== END 2018-01-14 12:10 | DRG 871 ==
LOC: JER 17:33 → JERBED 20:53 → J6S 22:55 → J4W 01-06 18:05
PROVIDERS: ADMIT Internal Medicine; ATTEND Nurse Practitioner Family
PROC: 30233N1 Transfusion of Nonautologous Red Blood Cells into Peripheral Vein, Percutaneous Approach (ICD-10-PCS; principal; 2018-01-11)
DX: A41.9 Sepsis, unspecified organism (principal); I50.33 Acute on chronic diastolic (congestive) heart failure; J18.9 Pneumonia, unspecified organism; J96.01 Acute respiratory failure with hypoxia; J96.02 Acute respiratory failure with hypercapnia; N17.9 Acute kidney failure, unspecified; I13.0 Hypertensive heart and chronic kidney disease with heart failure and stage 1 through stage 4 chronic kidney disease, or unspecified chronic kidney disease; J45.901 Unspecified asthma with (acute) exacerbation; I25.110 Atherosclerotic heart disease of native coronary artery with unstable angina pectoris; K21.9 Gastro-esophageal reflux disease without esophagitis; E03.9 Hypothyroidism, unspecified; E55.9 Vitamin D deficiency, unspecified; F03.90 Unspecified dementia, unspecified severity, without behavioral disturbance, psychotic disturbance, mood disturbance, and anxiety; F31.9 Bipolar disorder, unspecified; E11.9 Type 2 diabetes mellitus without complications; D64.9 Anemia, unspecified; M06.9 Rheumatoid arthritis, unspecified; D50.9 Iron deficiency anemia, unspecified; D70.9 Neutropenia, unspecified; E87.6 Hypokalemia; E88.09 Other disorders of plasma-protein metabolism, not elsewhere classified; E66.9 Obesity, unspecified; Z68.38 Body mass index [BMI] 38.0-38.9, adult; R06.02 Shortness of breath; N18.9 Chronic kidney disease, unspecified; F25.0 Schizoaffective disorder, bipolar type; I48.2 Chronic atrial fibrillation; I08.1 Rheumatic disorders of both mitral and tricuspid valves; I27.20 Pulmonary hypertension, unspecified; Z88.0 Allergy status to penicillin; Z66 Do not resuscitate; Z29.9 Encounter for prophylactic measures, unspecified
CPT/HCPCS: 36415; 36430; 36511; 36600; 71045-TC-FY; 71250-TC; 80048; 80053; 80164; 81003; 81015; 82550; 82803; 82962; 83605; 83735; 83880; 84100; 84156; 84300; 84443; 84484; 85025; 85027; 85610; 85730; 86850; 86900; 86901; 86922; 87040; 87086; 87899; 93005; 93010; 94640; 94660; 99285-25; P9038; P9058